=== PATIENT | female | born 1940 | race Caucasian/White ===

== ENCOUNTER 2016-05-13 14:19 | Emergency (ER) | payer MEDICARE, OTHER ==
[~2016-05-13] VITALS: Ht 160 cm; Wt 70.0 kg
[~2016-05-13 14:19] MED LIST: ALBU0.086; ASPI-99 PO; BUME2TAB PO; CALC667T PO; CART180C4 PO; CLON.1 PO; COZA100T PO; GELA600C PO; GLUC10TA3 PO; HYDR100T2 PO; INSU1.2I; NRSS SQ; PRAV20 PO; PROT40TA PO; TIOT18I INH
[2016-05-13 14:21] VITALS: BP 187/75; PULSE 89; RESP 17; TEMP 97.9; O2SAT 96
[2016-05-13 14:51] VITALS: BP 165/105; PULSE 81; RESP 16; O2SAT 97
[2016-05-13] MEDS ORDERED: SODIUM CHLORIDE 0.9% FLUSH 5 ML FLUSH IVF PRN (15:15)
--- NOTE | 2016-05-13 15:19 | PD ---
HPI Chief Complaint: Respiratory Symptoms Time Seen by Provider: 14:49 Travel History International Travel<30 days: No Contact w/Intl Traveler<30days: No Traveled to known affect area: No History of Present Illness HPI The patient was seen and examined in the presence of the nurse. She complains of generalized weakness. Duration 3 weeks. Severity is moderate. She has a dry cough. She was worried about having pneumonia. She denies chest pain or fever. No alleviating factors. She has dialysis Saturday, has not skipped any. PFSH Past Medical History Arthritis: Yes Autoimmune Disease: No Heart Rhythm Problems: Yes (ABNORMAL EKG RECENTLY) Cancer: Yes (UTERINE) Cardiovascular Problems: No High Cholesterol: Yes COPD: Yes Diabetes: Yes Patient Takes Glucophage: No Dialysis: Yes (Left AV fistula / [id number].) Diminished Hearing: No Endocrine: Yes Gastrointestinal Disorders: Yes (HX PERF. BOWEL, GERD) Genitourinary: No Hepatitis: No Hiatal Hernia: Yes (MULTIPLE) Hypertension: Yes (NEW ONSET) Immune Disorder: No Implanted Vascular Access Dvce: Yes Kidney Stones: Yes Musculoskeletal: Yes (ARTHRITIS) Neurologic: No Psychiatric: No Reproductive: No Respiratory: Yes (copd) Immunizations Current: Yes Renal Failure: Yes (HX OF DECREASED RENAL FUNCTION) Sleep Apnea: No Thyroid Disease: No Influenza Vaccination: Yes Menopausal: Yes Past Surgical History Abdominal Surgery: Yes (PERFERATED BOWEL, ILLIOSTOMY AND REVERSAL, APPY) AICD: No Appendectomy: Yes Body Medical Devices: VAS CATH, AV FISTULA LEFT ARM Eye Surgery: Yes (CATARACT EXC. TRISTIAN.) Genitourinary Surgery: Yes (LITHOTRIPSY-KIDNEYS STONES) Gynecologic Surgery: Yes (HYSTERECTOMY) Hysterectomy: Yes Joint Replacement: No Pacemaker: No Other Surgery: Yes (APPENDECTOMY, FISTULA LUE, ) Social History Alcohol Use: No Tobacco Use: No (QUIT IN 2007 SMOKED FOR 53 YRS 2 PPD -CIGS) Substance Use: No Allergies-Medications (Allergen,Severity, Reaction): Coded Allergies: Cipro (Verified Allergy, Severe, Rash, 05/13/16) Ranitidine (Verified Allergy, Severe, Rash, 05/13/16) Sulfa (Verified Allergy, Severe, Rash, 05/13/16) Lasix (Unverified Allergy, Mild, Rash, 05/13/16) *MDRO Multi-Drug Resistant Organism (Unverified Adverse Reaction, Unknown , 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 Reported Meds & Prescriptions Reported Meds & Active Scripts Active Macrobid (Nitrofurantoin Monoh/Nitrofur Macro) 100 Mg Cap 100 Mg PO BID Reported Bumex (Bumetanide) 2 Mg Tab 2 Mg PO TUTHSASU Take 1 tablet daily in Saturday,,Saturday and Saturday (non-dialysis days) Tums (Calcium Carbonate (Antacid)) 500 Mg Chew 1,000 Mg PO HS Hair/Skin/Nails (Multiple Vitamins W/ Minerals) 1 Tab Tab 2 Tab PO DAILY Aspirin Adult Low Strength (Aspirin) 81 Mg Tabdr 81 Mg PO DAILY Alannah-Julien (B-Complex W/ C & Folic Acid) 1 Tab 1 Tab PO DAILY Duoneb (Ipratropium-Albuterol Neb) 0.5-2.5 Mg/3 Ml Neb 3 Ml NEB Q6HR PRN Calcium Acetate (Phosphate Binder) 667 Mg Tab 1,334 Mg PO TIDPC Hydralazine (Hydralazine HCl) 100 Mg Tab 100 Mg PO TID Take with meals Pantoprazole (Pantoprazole Sodium) 40 Mg Tab 40 Mg PO BID Glipizide 10 Mg Tab 10 Mg PO BID Take 30 minutes before a meal Diltiazem ER 24 HR 180 Mg Viry 180 Mg PO DAILY Pravastatin 20 Mg Tab 20 Mg PO DAILY Catapres (Clonidine) 0.1 Mg Tab 0.1 Mg PO BID Losartan (Losartan Potassium) 100 Mg Tab 100 Mg PO DAILY Review of Systems General / Constitutional: No: Fever Eyes: No: Visual changes HENT: No: Headaches Cardiovascular: No: Chest Pain or Discomfort Respiratory: Positive: Cough, No: Shortness of Breath Gastrointestinal: No: Abdominal Pain Genitourinary: No: Dysuria Musculoskeletal: Positive: Weakness, No: Pain Skin: No Rash Neurologic: Positive: Weakness Psychiatric: No: Depression Endocrine: No: Polydipsia Hematologic/Lymphatic: No: Easy Bruising Physical Exam Narrative GENERAL: Well-nourished, well-developed patient in no apparent distress. SKIN: Warm and dry. HEAD: Atraumatic. Normocephalic. EYES: Pupils equal and round. No scleral icterus. No injection or drainage. ENT: No nasal bleeding or discharge. Mucous membranes pink and moist. NECK: Trachea midline. No JVD. CARDIOVASCULAR: Regular rate and rhythm. No murmur appreciated. RESPIRATORY: No accessory muscle use. Clear to auscultation. Breath sounds equal bilaterally. GASTROINTESTINAL: Abdomen soft, non-tender, has very large central abdominal wall hernia that is chronic. Hepatic and splenic margins not palpable. MUSCULOSKELETAL: No obvious deformities. No clubbing. No cyanosis. No edema. NEUROLOGICAL: Awake and alert. No obvious cranial nerve deficits. Motor grossly within normal limits. Normal speech. PSYCHIATRIC: Appropriate mood and affect; insight and judgment normal. Data Data Last Documented VS Vital Signs Date Time Temp Pulse Resp B/P Pulse Ox O2 Delivery O2 Flow Rate FiO2 05/13/16 16:46 78 24 188/83 98 Room Air 05/13/16 14:21 97.9 Orders Electrocardiogram (05/13/16 15:05) Basic Metabolic Panel (Bmp) (05/13/16 15:05) Complete Blood Count With Diff (05/13/16 15:05) Urinalysis - C+S If Indicated (05/13/16 15:05) Chest, Single Ap (05/13/16 15:05) Ecg Monitoring (05/13/16 15:05) Iv Access Insert/Monitor (05/13/16 15:05) Oximetry (05/13/16 15:05) Sodium Chloride 0.9% Flush (Ns Flush) (05/13/16 15:15) Thyroid Stimulating Hormone (05/13/16 15:05) Urine Culture (05/13/16 16:45) Ceftriaxone Inj (Rocephin Inj) (05/13/16 18:30) Labs Laboratory Tests Test 05/13/16 05/13/16 16:45 17:18 Urine Color YELLOW Urine Turbidity HAZY Urine pH 7.5 Urine Specific [place] 1.011 Urine Protein 300 mg/dL Urine Glucose (UA) 1000 mg/dL Urine Ketones NEG mg/dL Urine Occult Blood TRACE Urine Nitrite NEG Urine Bilirubin NEG Urine Urobilinogen LESS THAN 2.0 MG/DL Urine Leukocyte Esterase LARGE Urine RBC 4 /hpf Urine WBC 178 /hpf Urine Squamous Epithelial 3 /hpf Cells Urine Bacteria RARE /hpf Urine Hyaline Casts 1 /lpf Urine Mucus FEW /lpf Microscopic Urinalysis Comment CULTURE INDICATED White Blood Count 10.3 TH/MM3 Red Blood Count 3.00 MIL/MM3 Hemoglobin 9.0 GM/DL Hematocrit 27.5 % Mean Corpuscular Volume 91.7 FL Mean Corpuscular Hemoglobin 29.9 PG Mean Corpuscular Hemoglobin 32.6 % Concent Red Cell Distribution Width 14.1 % Platelet Count 355 TH/MM3 Mean Platelet Volume 7.3 FL Neutrophils (%) (Auto) 79.8 % Lymphocytes (%) (Auto) 6.0 % Monocytes (%) (Auto) 6.5 % Eosinophils (%) (Auto) 7.3 % Basophils (%) (Auto) 0.4 % Neutrophils # (Auto) 8.2 TH/MM3 Lymphocytes # (Auto) 0.6 TH/MM3 Monocytes # (Auto) 0.7 TH/MM3 Eosinophils # (Auto) 0.7 TH/MM3 Basophils # (Auto) 0.0 TH/MM3 CBC Comment DIFF FINAL Differential Comment Sodium Level 137 MEQ/L Potassium Level 4.4 MEQ/L Chloride Level 102 MEQ/L Carbon Dioxide Level 23.6 MEQ/L Anion Gap 11 MEQ/L Blood Urea Nitrogen 39 MG/DL Creatinine 8.30 MG/DL Estimat Glomerular Filtration 5 ML/MIN Rate Random Glucose 241 MG/DL Calcium Level 9.2 MG/DL Thyroid Stimulating Hormone 1.730 uIU/ML 3rd Gen [facility] Medical Decision Making Medical Screen Exam Complete: Yes Emergency Medical Condition: Yes Medical Record Reviewed: Yes Differential Diagnosis Electrolyte abnormality, cardiac arrhythmia, pneumonia Narrative Course I have reviewed the patient's electronic medical record. Reviewed her last admission history and physical from September 2015 CBC is normal Electrolytes are normal but creatinine is elevated as expected for this dialysis patient Urinalysis shows signs infection will be cultured I gave her a gram of IV Rocephin followed by one week of Macrobid on prescription Stable for outpatient follow-up and dialysis tomorrow Did discuss with her physicians and get follow-up Diagnosis Primary Impression: UTI (urinary tract infection) Qualified Code: N30.00 - Acute cystitis without hematuria Additional Impressions: Generalized weakness Chronic kidney disease (CKD) stage G4/A1, severely decreased glomerular filtration rate (GFR) between 15-29 mL/min/1.73 square meter and albuminuria creatinine ratio less than 30 mg/g Additional Instructions: The patient was advised to follow up with their physician and return if they worsen. Go to dialysis tomorrow Med/Other Pt SpecificInfo: Prescription(s) given Scripts Nitrofurantoin Monohydrate Macrocrystals (Macrobid)100 Mg [id number] Mg PO BID #14 CAP Ref 0 Prov:Temo Harmon MD 05/13/16 Disposition: 01 DISCHARGE HOME Condition: Stable Temo Harmon MD May 13, 2016 15:19
--- NOTE | 2016-05-13 15:31 | RADRPT ---
EXAM DATE/TIME: 05/13/2016 15:17 [facility] COMPARISON: CHEST SINGLE AP, August 30, 2014, 23:51. INDICATIONS : Weakness, shortness of breath, congestion x4 days. MEDICAL HISTORY : None. SURGICAL HISTORY : None. ENCOUNTER: Initial ACUITY: 4 - 6 days PAIN SCORE: 0/10 LOCATION: chest FINDINGS: A single view of the chest demonstrates the lungs to be symmetrically aerated without evidence of mas s, infiltrate or effusion. Mild streaky opacity remains at the left lung base. The cardiomediastinal contours are unremarkable. Osseous structures are intact. CONCLUSION: Mild streaky opacity remains at the left lung base. This may represent residual scarr ing. There are no new infiltrates. Eris Smiley MD on May 13, 2016 at 15:29 Board Certified Radiologist. This report was verified electronically.
[2016-05-13] MEDS ORDERED: PRAV20TA2 PO (15:32)
[2016-05-13] MEDS ORDERED: TUMS500C PO (15:32)
[2016-05-13] MEDS ORDERED: HYDR-3801 PO (15:32)
[2016-05-13] MEDS ORDERED: DILT0.05 PO (15:32)
[2016-05-13] MEDS ORDERED: HAIRTAB PO (15:32)
[2016-05-13] MEDS ORDERED: LOSA100T PO (15:32)
[2016-05-13] MEDS ORDERED: ASPI1TAB91 PO (15:32)
[2016-05-13] MEDS ORDERED: PANT40TA3 PO (15:32)
[2016-05-13] MEDS ORDERED: GLIP10TA6 PO (15:32)
[2016-05-13] MEDS ORDERED: CLON.1 PO (15:32)
[2016-05-13] MEDS ORDERED: IPRASOL NEB (15:32)
[2016-05-13] MEDS ORDERED: CALC667T PO (15:32)
[2016-05-13] MEDS ORDERED: RENATAB5 PO (15:32)
[2016-05-13] MEDS ORDERED: BUME1TAB28 PO (15:39)
[2016-05-13 16:46] VITALS: BP 188/83; PULSE 78; RESP 24; O2SAT 98
[2016-05-13 17:09] LABS: BACTERIA, URINE RARE /hpf; BLOOD, URINE TRACE (NEG); COMMENT (UR) CULTURE INDICATED; CULTURE IF INDICATED CULTURE INDICATED; GLUCOSE,URINE 1000 mg/dL (NEG); HYALINE CAST, URINE 1 /lpf (RARE); KETONE, URINE NEG (NEG); MUCUS URINE FEW /lpf (OCC); NITRITE,URINE NEG (NEG); PH, URINE 7.5 (5.0-8.5); SQUAMOUS EPITHELIAL CELL URINE 3 /hpf (0-5); URINE COLOR YELLOW (YELLW/STRAW)
[2016-05-13 17:45] LABS: BICARBONATE 23.6 MEQ/L (21.0-32.0); POTASSIUM 4.4 MEQ/L (3.5-5.1)
[2016-05-13 17:53] LABS: AUTOMATED NEUTROPHIL # 8.2 TH/MM3 (1.8-7.7); BASOPHIL % 0.4 % (0.0-2.0); EOSINOPHIL # 0.7 TH/MM3 (0-0.4); EOSINOPHIL % 7.3 % (0.0-4.0); HEMATOCRIT 27.5 % (35.0-46.0); HEMO FLAGS DIFF FINAL; LYMPHOCYTE # 0.6 TH/MM3 (1.0-4.8); MEAN CELL VOLUME 91.7 FL (80.0-100.0); MEAN CORPUSCULAR HEMOGLOBIN 29.9 PG (27.0-34.0); MEAN CORPUSCULAR HGB CONC 32.6 % (32.0-36.0); MONO % 6.5 % (0.0-8.0); NEUT % 79.8 % (16.0-70.0); PLATELET COUNT 355 TH/MM3 (150-450); RED CELL DISTRIBUTION WIDTH 14.1 % (11.6-17.2); WHITE BLOOD COUNT 10.3 TH/MM3 (4.0-11.0)
[2016-05-13] MEDS ORDERED: MACR100C2 PO (18:28)
[2016-05-13] MEDS ORDERED: cefTRIAXone INJ 1,000 MG in SODIUM CHLORIDE 0.9% INJ 100 ML IV ONE (18:30)
[2016-05-13 18:57] VITALS: BP 202/88; PULSE 77; RESP 24; O2SAT 96
[2016-05-13] MEDS ORDERED: cloNIDine HCL 0.2 MG TAB PO ONE (19:15)
--- NOTE | 2016-05-14 14:47 | EKG ---
Date Performed: 05/13/2016 Time Performed: 16:56:35 PTAGE: 76 years EKG: Sinus rhythm VOLTAGE CRITERIA FOR LVH NONSPECIFIC T-WAVE ABNORMALITY ABNORMAL ECG PREVIOUS TRACING : 08/02/2014 23.53 Compared to prior tracing no significant change DOCTOR: Anatoly Hrenandez Interpretating Date/Time 05/14/2016 14:45:22
== END 2016-05-13 19:35 | disposition home or self-care (01) ==
LOC: NEPE 14:19
DX: N39.0 Urinary tract infection, site not specified (principal); I12.9 Hypertensive chronic kidney disease with stage 1 through stage 4 chronic kidney disease, or unspecified chronic kidney disease; N18.9 Chronic kidney disease, unspecified; R94.31 Abnormal electrocardiogram [ECG] [EKG]; E11.22 Type 2 diabetes mellitus with diabetic chronic kidney disease; Z99.2 Dependence on renal dialysis; J44.9 Chronic obstructive pulmonary disease, unspecified; Z90.710 Acquired absence of both cervix and uterus; B96.89 Other specified bacterial agents as the cause of diseases classified elsewhere
CPT/HCPCS: 71010; 80048; 81001; 84443; 85025; 87086; 93005; 96365; 99285; J0696

== ENCOUNTER 2016-09-15 20:51 | Emergency (ER) | payer OTHER ==
[~2016-09-15] VITALS: Ht 160 cm; Wt 70.0 kg
[~2016-09-15 20:51] MED LIST changes: -ALBU0.086; -ASPI-99 PO; +ASPI1TAB91 PO; +BUME1TAB28 PO; -BUME2TAB PO; -CART180C4 PO; -COZA100T PO; +DILT0.05 PO; -GELA600C PO; +GLIP10TA6 PO; -GLUC10TA3 PO; +HAIRTAB PO; +HYDR-3801 PO; -HYDR100T2 PO; -INSU1.2I; +IPRASOL NEB; +LOSA100T PO; +MACR100C2 PO; -NRSS SQ; +PANT40TA3 PO; -PRAV20 PO; +PRAV20TA2 PO; -PROT40TA PO; +RENATAB5 PO; -TIOT18I INH; +TUMS500C PO
[2016-09-15 20:53] VITALS: BP 223/102; PULSE 90; RESP 16; TEMP 98; O2SAT 98
--- NOTE | 2016-09-15 22:27 | PD ---
HPI Chief Complaint: Fall Time Seen by Provider: 22:23 Travel History International Travel<30 days: No Contact w/Intl Traveler<30days: No Traveled to known affect area: No History of Present Illness HPI 76-year-old female that presents to the ED for evaluation of fall. Patient had a fall around 10:00 this morning. Per patient she's had multiple falls like this before. Per patient she just "falls". Per patient is not wanting. Per patient she landed on the shower on her left hip and shoulder. Per patient most of her pain is in the left but as well as the humerus. She does have bruising and swelling. She denies any head injury but she does not know for sure she didn't hit her head. She states having some low back pain. Denies any knee or ankle pain. Per patient her pain is severe 8 out of 10. She takes no pain medications. She states that she has end-stage kidney disease but does not do dialysis. Denies any fevers chills or sweats. No palpitations. No chest pain or shortness of breath. No blurry vision or double vision. Pain mainly on the humerus and the buttocks. PFSH Past Medical History Arthritis: Yes Autoimmune Disease: No Heart Rhythm Problems: Yes (ABNORMAL EKG RECENTLY) Cancer: Yes (UTERINE) Cardiovascular Problems: No High Cholesterol: Yes COPD: Yes Diabetes: Yes Dialysis: Yes (Left AV fistula / [id number].) Diminished Hearing: No Endocrine: Yes Gastrointestinal Disorders: Yes (HX PERF. BOWEL, GERD) Genitourinary: No Hepatitis: No Hiatal Hernia: Yes (MULTIPLE) Hypertension: Yes (NEW ONSET) Immune Disorder: No Implanted Vascular Access Dvce: Yes Kidney Stones: Yes Musculoskeletal: Yes (ARTHRITIS) Neurologic: No Psychiatric: No Reproductive: No Respiratory: Yes (copd) Immunizations Current: Yes Renal Failure: Yes (HX OF DECREASED RENAL FUNCTION) Sleep Apnea: No Thyroid Disease: No Menopausal: Yes Past Surgical History Abdominal Surgery: Yes (PERFERATED BOWEL, ILLIOSTOMY AND REVERSAL, APPY) AICD: No Appendectomy: Yes Body Medical Devices: VAS CATH, AV FISTULA LEFT ARM Eye Surgery: Yes (CATARACT EXC. TRISTIAN.) Genitourinary Surgery: Yes (LITHOTRIPSY-KIDNEYS STONES) Gynecologic Surgery: Yes (HYSTERECTOMY) Hysterectomy: Yes Joint Replacement: No Pacemaker: No Other Surgery: Yes (APPENDECTOMY, FISTULA LUE, ) Social History Alcohol Use: No Tobacco Use: No (QUIT IN 2007 SMOKED FOR 53 YRS 2 PPD -CIGS) Substance Use: No Allergies-Medications (Allergen,Severity, Reaction): Coded Allergies: Cipro (Verified Allergy, Severe, Rash, 05/13/16) Ranitidine (Verified Allergy, Severe, Rash, 05/13/16) Sulfa (Verified Allergy, Severe, Rash, 05/13/16) Lasix (Unverified Allergy, Mild, Rash, 05/13/16) *MDRO Multi-Drug Resistant Organism (Unverified Adverse Reaction, Unknown , 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 Reported Meds & Prescriptions Reported Meds & Active Scripts Active Macrobid (Nitrofurantoin Monoh/Nitrofur Macro) 100 Mg Cap 100 Mg PO BID Reported Bumex (Bumetanide) 2 Mg Tab 2 Mg PO TUTHSASU Take 1 tablet daily in Saturday,,Saturday and Saturday (non-dialysis days) Tums (Calcium Carbonate (Antacid)) 500 Mg Chew 1,000 Mg PO HS Hair/Skin/Nails (Multiple Vitamins W/ Minerals) 1 Tab Tab 2 Tab PO DAILY Aspirin Adult Low Strength (Aspirin) 81 Mg Tabdr 81 Mg PO DAILY Alannah-Julien (B-Complex W/ C & Folic Acid) 1 Tab 1 Tab PO DAILY Duoneb (Ipratropium-Albuterol Neb) 0.5-2.5 Mg/3 Ml Neb 3 Ml NEB Q6HR PRN Calcium Acetate (Phosphate Binder) 667 Mg Tab 1,334 Mg PO TIDPC Hydralazine (Hydralazine HCl) 100 Mg Tab 100 Mg PO TID Take with meals Pantoprazole (Pantoprazole Sodium) 40 Mg Tab 40 Mg PO BID Glipizide 10 Mg Tab 10 Mg PO BID Take 30 minutes before a meal Diltiazem ER 24 HR 180 Mg Viry 180 Mg PO DAILY Pravastatin 20 Mg Tab 20 Mg PO DAILY Catapres (Clonidine) 0.1 Mg Tab 0.1 Mg PO BID Losartan (Losartan Potassium) 100 Mg Tab 100 Mg PO DAILY Review of Systems Except as stated in HPI: all other systems reviewed are Neg Physical Exam Narrative GENERAL: SKIN: Warm and dry. HEAD: Atraumatic. Normocephalic. EYES: Pupils equal and round. No scleral icterus. No injection or drainage. ENT: No nasal bleeding or discharge. Mucous membranes pink and moist. Tongue is midline. No uvula deviation. NECK: Trachea midline. No JVD. CARDIOVASCULAR: Regular rate and rhythm. RESPIRATORY: No accessory muscle use. Clear to auscultation. Breath sounds equal bilaterally. GASTROINTESTINAL: Abdomen soft, non-tender, nondistended. Hepatic and splenic margins not palpable. MUSCULOSKELETAL: Extremities without clubbing, cyanosis, or edema. No obvious deformities. Patient has reproducible pain with range of motion on the mid humerus. Bruising noted in this area. 2+ pulses bilaterally. Full range motion wrist and elbows bilaterally. No obvious lumbar, thoracic, cervical spine tenderness to palpation. Patient does have body aches pain on the left side as well as the right. Pain with motion of the hips. No obvious deformity noted on the ankles, feet, toes, knees. Neurovascular intact. NEUROLOGICAL: Awake and alert. No obvious cranial nerve deficits. Motor grossly within normal limits. Five out of 5 muscle strength in the arms and legs. Normal speech. PSYCHIATRIC: Appropriate mood and affect; insight and judgment normal. Data Data Last Documented VS Vital Signs Date Time Temp Pulse Resp B/P Pulse Ox O2 Delivery O2 Flow Rate FiO2 09/15/16 20:53 98.0 90 16 223/102 98 Room Air Orders Complete Blood Count With Diff (09/15/16 22:19) Basic Metabolic Panel (Bmp) (09/15/16 22:19) Troponin I (09/15/16 22:19) Urinalysis - C+S If Indicated (09/15/16 22:19) Magnesium (Mg) (09/15/16 22:19) Thyroid Stimulating Hormone (09/15/16 22:19) Chest, Single Ap (09/15/16 22:19) Ct Brain W/O Iv Contrast(Rout) (09/15/16 22:19) Hip, Uni(Ap&Lat) W Ap Pelvis (09/15/16 22:19) Humerus (Min 2vws) (09/15/16 22:19) Ice/Cold Pack (09/15/16 22:19) Spine, Lumbar Comp W/Obliq (09/15/16 22:19) [facility] Medical Decision Making Medical Screen Exam Complete: Yes Emergency Medical Condition: Yes Medical Record Reviewed: Yes Differential Diagnosis Fall versus mechanical fall versus head injury versus syncope versus presyncope versus fracture versus bruise versus contusion Narrative Course 76-year-old female that presents to the ED for evaluation of fall. Patient was properly examined and was found to have signs and symptoms consistent with appears to be fall. Unclear etiology of the fall. Per patient she's had multiple episodes like this before. labs and imaging ordered. Patient was given Lortab for pain. Case will be sent out to my attending pending disposition and treatment. Ari Ontiveros Sep 15, 2016 22:27
[2016-09-15] MEDS ORDERED: ACETAMINOPHEN/HYDROcodone 325 MG/5 MG TAB PO ONE (22:30)
[2016-09-15 22:36] LABS: AUTOMATED NEUTROPHIL # 8.1 TH/MM3 (1.8-7.7); BASOPHIL # 0.1 TH/MM3 (0-0.2); BASOPHIL % 0.6 % (0.0-2.0); EOSINOPHIL # 0.4 TH/MM3 (0-0.4); EOSINOPHIL % 3.7 % (0.0-4.0); HEMATOCRIT 31.2 % (35.0-46.0); HEMO FLAGS DIFF FINAL; LYMPH % 7.2 % (9.0-44.0); LYMPHOCYTE # 0.7 TH/MM3 (1.0-4.8); MEAN CELL VOLUME 96.8 FL (80.0-100.0); MEAN CORPUSCULAR HEMOGLOBIN 32.3 PG (27.0-34.0); MEAN CORPUSCULAR HGB CONC 33.4 % (32.0-36.0); NEUT % 80.5 % (16.0-70.0); PLATELET COUNT 346 TH/MM3 (150-450); RED BLOOD COUNT 3.22 MIL/MM3 (4.00-5.30); RED CELL DISTRIBUTION WIDTH 15.6 % (11.6-17.2); WHITE BLOOD COUNT 10.1 TH/MM3 (4.0-11.0)
--- NOTE | 2016-09-15 22:56 | RADRPT ---
EXAM DATE/TIME: 09/15/2016 22:34 [facility] COMPARISON: No previous studies available for comparison. INDICATIONS : Back pain, fall. MEDICAL HISTORY : Renal disease, end stage. Diabetes mellitus type II. SURGICAL HISTORY : None. ENCOUNTER: Initial ACUITY: 1 day PAIN SCORE: 6/10 LOCATION: Lumbar FINDINGS: There are five non-rib bearing vertebral bodies. No compression fracture.. Degenerative changes. Ante rolisthesis L4 on L5. Bony mineralization is normal. No fracture is identified. CONCLUSION: 1. Degenerative changes. 2. No fracture. 3. Grade 1 spondylolisthesis L4 on L5. Kenan Landry MD on September 15, 2016 at 22:53 Board Certified Radiologist. This report was verified electronically.
--- NOTE | 2016-09-15 23:02 | RADRPT ---
EXAM DATE/TIME: 09/15/2016 22:32 [facility] COMPARISON: CHEST SINGLE AP, May 13, 2016, 15:17. INDICATIONS : Chest pain, fall. MEDICAL HISTORY : Renal disease, end stage. Diabetes mellitus type II. SURGICAL HISTORY : None. ENCOUNTER: Initial ACUITY: 1 day PAIN SCORE: 6/10 LOCATION: Bilateral chest FINDINGS: A single view of the chest demonstrates diminished lung volumes without evidence of mass, infiltrate or effusion. Mild cardiomegaly. The cardiomediastinal contours are unremarkable. Osseous structures are intact. CONCLUSION: Mild cardiomegaly otherwise unremarkable chest. Kenan Landry MD on September 15, 2016 at 23:00 Board Certified Radiologist. This report was verified electronically.
--- NOTE | 2016-09-15 23:12 | RADRPT ---
EXAM DATE/TIME: 09/15/2016 22:38 [facility] COMPARISON: No previous studies available for comparison. INDICATIONS : Fall, complains of left hip pain. MEDICAL HISTORY : Renal disease, end stage. Diabetes mellitus type II. SURGICAL HISTORY : None. ENCOUNTER: Initial ACUITY: 1 day PAIN SCORE: 8/10 LOCATION: Left hip FINDINGS: Examination of the left hip was performed with AP Pelvis. The primary and secondary trabecular patte rn of the femoral neck is intact. The hip joint is of normal width without significant sclerosis or bony hypertrophy. The acetabulum is grossly intact. CONCLUSION: Unremarkable examination of the left hip. Oliver Paul MD on September 15, 2016 at 23:09 Board Certified Radiologist. This report was verified electronically.
--- NOTE | 2016-09-15 23:13 | RADRPT ---
EXAM DATE/TIME: 09/15/2016 22:40 [facility] COMPARISON: No previous studies available for comparison. INDICATIONS : Left humerus pain, fall. MEDICAL HISTORY : Renal disease, end stage. Diabetes mellitus type II. SURGICAL HISTORY : None. ENCOUNTER: Initial ACUITY: 1 day PAIN SCORE: 8/10 LOCATION: Left humerus FINDINGS: Two view examination of the left humerus demonstrates no evidence of fracture or dislocation. Bony m ineralization is normal. Multiple surgical clips are present in the soft tissues of the arm CONCLUSION: No acute bony injury Oliver Paul MD on September 15, 2016 at 23:11 Board Certified Radiologist. This report was verified electronically.
[2016-09-15 23:34] LABS: BICARBONATE 22.9 MEQ/L (21.0-32.0); MAGNESIUM 2.4 MG/DL (1.5-2.5)
--- NOTE | 2016-09-16 00:23 | RADRPT ---
EXAM DATE/TIME: 09/15/2016 23:30 [facility] COMPARISON: CT BRAIN W/O CONTRAST, November 28, 2014, 16:48. INDICATIONS : Trauma, trip and fall. RADIATION DOSE: 56.77 CTDIvol (mGy) MEDICAL HISTORY : Chronic obstructive pulmonary disease. Renal calculi. Hernia, hiatal.Renal failure. Uterine cancer. D iabetes. SURGICAL HISTORY : Appendectomy. Hysterectomy. ENCOUNTER: Initial ACUITY: 1 day PAIN SCALE: 6/10 LOCATION: cranial TECHNIQUE: Multiple contiguous axial images were obtained of the head. Using automated exposure control and adj ustment of the mA and/or kV according to patient size, radiation dose was kept as low as reasonably a chievable to obtain optimal diagnostic quality images. DICOM format image data is available electro nically for review and comparison. FINDINGS: The ventricles are symmetric and normal. No abnormal extra-axial fluid collections are identified. Th ere is no evidence of intracranial hemorrhage or mass. There is nothing to suggest acute infarction. There is mild occasional new [place] sinus disease. No acute extracranial findings. CONCLUSION: No acute intracranial injury Oliver Paul MD on September 16, 2016 at 0:20 Board Certified Radiologist. This report was verified electronically.
[2016-09-16 00:29] VITALS: BP 223/91; PULSE 71; O2SAT 98
[2016-09-16] MEDS ORDERED: MECL-62 PO (00:43)
[2016-09-16] MEDS ORDERED: BUME2TAB PO (00:43)
[2016-09-16 00:55] VITALS: BP 219/90; PULSE 81; O2SAT 99
[2016-09-16] MEDS ORDERED: MORPHINE SULFATE 4 MG/ML INJ IM ONE (01:30)
[2016-09-16] MEDS ORDERED: hydrALAZINE HCL 100 MG TAB PO ONE (01:30)
[2016-09-16] MEDS ORDERED: cloNIDine HCL 0.1 MG TAB PO ONE ×2 (01:30→03:00)
[2016-09-16 02:55] VITALS: BP 136/63; PULSE 74; RESP 18; O2SAT 95
--- NOTE | 2016-09-16 02:55 | PD ---
Physical Exam Narrative I, Dr. Mello, have reviewed the advance practice practitioner's documentation and am in agreement, met with the patient face to face, made the diagnosis, and the medical decision making was done by me. *My assessment and Findings: Fracture vs. contusion 76yo F with PMH of vertigo presents to the ED with c/o left arm pain and hip pain s/p fall while in the shower today. States she bend her head down and fell on the left side. States she has frequent falls and has been work up by PMD. Denies any dizziness, chest pain, sob, n/v, abdominal pain, focal weakness or numbness. Labs reviewed, no leukocytosis. H/H low but at baseline. BUN/creatinine elevated but expected since pt is on hemodialysis. Troponin 0.06. Upon review of her previous troponins, it is always a little elevated. It was 0.09 in 08/03/14. Pt is ESRD and has no chest pain. UA showed moderate WBC 98. Culture indicated. Will treat for UTI. CXR negative. CT brain negative. Xray left hip negative. Xray left humerus negative. Xray lumbar spine negative for fracture. Pt uses a walker and was given morphine for pain. States pain has improved and able to ambulate in the ED. BP was high but pt did not take her medications this evening so gave her hydralazine and clonidine. States her blood pressure is always high. Pt wishes to go home. Son is with her and they will follow up as outpatient. Data Data Last Documented VS Vital Signs Date Time Temp Pulse Resp B/P Pulse Ox O2 Delivery O2 Flow Rate FiO2 09/16/16 02:55 74 18 136/63 95 Room Air 09/15/16 20:53 98.0 Orders Complete Blood Count With Diff (09/15/16 22:19) Basic Metabolic Panel (Bmp) (09/15/16 22:19) Troponin I (09/15/16 22:19) Urinalysis - C+S If Indicated (09/15/16 22:19) Magnesium (Mg) (09/15/16 22:19) Thyroid Stimulating Hormone (09/15/16 22:19) Chest, Single Ap (09/15/16 22:19) Ct Brain W/O Iv Contrast(Rout) (09/15/16 22:19) Hip, Uni(Ap&Lat) W Ap Pelvis (09/15/16 22:19) Humerus (Min 2vws) (09/15/16 22:19) Ice/Cold Pack (09/15/16 22:19) Spine, Lumbar Comp W/Obliq (09/15/16 22:19) Acetamin-Hydrocod 325-5 Mg ([place] 5-325 (09/15/16 22:30) Clonidine (Catapres) (09/16/16 01:30) Hydralazine (Apresoline) (09/16/16 01:30) Morphine Inj (Morphine Inj) (09/16/16 01:30) Clonidine (Catapres) (09/16/16 03:00) Urine Culture (09/16/16 02:30) Labs Laboratory Tests Test 09/15/16 09/16/16 22:30 02:30 Sodium Level 137 MEQ/L Potassium Level 5.0 MEQ/L Chloride Level 104 MEQ/L Carbon Dioxide Level 22.9 MEQ/L Anion Gap 10 MEQ/L Blood Urea Nitrogen 48 MG/DL Creatinine 6.72 MG/DL Estimat Glomerular Filtration 6 ML/MIN Rate Random Glucose 273 MG/DL Calcium Level 9.2 MG/DL Magnesium Level 2.4 MG/DL Troponin I 0.06 NG/ML Thyroid Stimulating Hormone 2.960 uIU/ML 3rd Gen White Blood Count 10.1 TH/MM3 Red Blood Count 3.22 MIL/MM3 Hemoglobin 10.4 GM/DL Hematocrit 31.2 % Mean Corpuscular Volume 96.8 FL Mean Corpuscular Hemoglobin 32.3 PG Mean Corpuscular Hemoglobin 33.4 % Concent Red Cell Distribution Width 15.6 % Platelet Count 346 TH/MM3 Mean Platelet Volume 7.2 FL Neutrophils (%) (Auto) 80.5 % Lymphocytes (%) (Auto) 7.2 % Monocytes (%) (Auto) 8.0 % Eosinophils (%) (Auto) 3.7 % Basophils (%) (Auto) 0.6 % Neutrophils # (Auto) 8.1 TH/MM3 Lymphocytes # (Auto) 0.7 TH/MM3 Monocytes # (Auto) 0.8 TH/MM3 Eosinophils # (Auto) 0.4 TH/MM3 Basophils # (Auto) 0.1 TH/MM3 CBC Comment DIFF FINAL Differential Comment Urine Color YELLOW Urine Turbidity HAZY Urine pH 8.5 Urine Specific [place] 1.010 Urine Protein 300 mg/dL Urine Glucose (UA) 1000 mg/dL Urine Ketones NEG mg/dL Urine Occult Blood NEG Urine Nitrite NEG Urine Bilirubin NEG Urine Urobilinogen LESS THAN 2.0 MG/DL Urine Leukocyte Esterase MOD Urine RBC 5 /hpf Urine WBC 98 /hpf Urine Squamous Epithelial 3 /hpf Cells Urine Bacteria OCC /hpf Microscopic Urinalysis Comment CULTURE INDICATED MDM Supervised Visit with STEW: Yes Interpretation(s) EKG: NSR 85bpm. Normal axis. LVH. PVC. Diagnosis Primary Impression: Fall Qualified Code: W19.XXXA - Fall, initial encounter Additional Impression: UTI (urinary tract infection) Qualified Code: N39.0 - Urinary tract infection without hematuria, site unspecified Patient Instructions: General Instructions Departure Forms: Tests/Procedures Additional Instruction: Please follow up with your PMD regarding your HTN management and UTI. Return to the ED if symptoms worsen. Med/Other Pt SpecificInfo: Prescription(s) given Scripts Hydrocodone-Acetaminophen (Lortab)5-325 Mg Tab1 Tab PO Q6H PRN (PAIN) #7 TAB Ref 0 Prov:Lisa Mello DO 09/16/16 Nitrofurantoin Monohydrate Macrocrystals (Macrobid)100 Mg Ucs780 Mg PO BID 7 Days Ref 0 Prov:Lisa Mello DO 09/16/16 Disposition: 01 DISCHARGE HOME Condition: Stable Lisa Mello DO Sep 16, 2016 02:55
[2016-09-16 03:01] LABS: BACTERIA, URINE OCC /hpf; BLOOD, URINE NEG (NEG); GLUCOSE,URINE 1000 mg/dL (NEG); KETONE, URINE NEG (NEG); NITRITE,URINE NEG (NEG); PH, URINE 8.5 (5.0-8.5); SQUAMOUS EPITHELIAL CELL URINE 3 /hpf (0-5); URINE COLOR YELLOW (YELLW/STRAW)
[2016-09-16 03:02] LABS: COMMENT (UR) CULTURE INDICATED; CULTURE IF INDICATED CULTURE INDICATED
[2016-09-16] MEDS ORDERED: HYDR-3533 PO (03:41)
[2016-09-16] MEDS ORDERED: MACR100C2 PO (03:41)
--- NOTE | 2016-09-17 10:22 | EKG ---
Date Performed: 09/15/2016 Time Performed: 22:16:00 PTAGE: 76 years EKG: Sinus rhythm MODERATE VOLTAGE CRITERIA FOR LVH, CONSIDER NORMAL VARIANT NONSPECIFIC ST & T-WAVE ABNORMALITY Basel ine artifact significantly limits accuracy of interpretation PVCs BORDERLINE ECG PREVIOUS TRACING : 05/13/2016 16.56 Compared to previous tracing, PVCs are now present. DOCTOR: Blaise Rodriguez Interpretating Date/Time 09/17/2016 10:22:05
== END 2016-09-16 03:58 | disposition home or self-care (01) ==
LOC: NEPE 20:51
DX: N39.0 Urinary tract infection, site not specified (principal); B96.89 Other specified bacterial agents as the cause of diseases classified elsewhere; M79.602 Pain in left arm; I12.0 Hypertensive chronic kidney disease with stage 5 chronic kidney disease or end stage renal disease; E11.22 Type 2 diabetes mellitus with diabetic chronic kidney disease; N18.6 End stage renal disease; R42 Dizziness and giddiness; R29.6 Repeated falls; W18.2XXA Fall in (into) shower or empty bathtub, initial encounter; Z79.84 Long term (current) use of oral hypoglycemic drugs; Z79.899 Other long term (current) drug therapy
CPT/HCPCS: 70450; 71010; 72110; 73060; 73502; 80048; 81001; 83735; 84443; 84484; 85025; 87086; 93005; 96372; 99285; J2270

== ENCOUNTER 2016-12-08 21:05 | Emergency (ER) | payer OTHER ==
[~2016-12-08] VITALS: Ht 160 cm; Wt 71.4 kg
[~2016-12-08 21:05] MED LIST changes: -BUME1TAB28 PO; +BUME2TAB PO; -HAIRTAB PO; +HYDR-3533 PO; +MECL-62 PO
[2016-12-08 21:24] VITALS: BP 219/88; PULSE 83; RESP 20; TEMP 98.5; O2SAT 96
[2016-12-08] MEDS ORDERED: PROPARACAINE HCL 0.5% OPHT SOLN 15 ML BTL EACH EYE ONE (22:30)
[2016-12-08] MEDS ORDERED: ERYTOIN10 EACH EYE (22:40)
--- NOTE | 2016-12-08 22:41 | PD ---
HPI . Bilateral eye irritation Chief Complaint: Eye Problems/Injury Time Seen by Provider: 21:53 Travel History International Travel<30 days: No Contact w/Intl Traveler<30days: No Traveled to known affect area: No History of Present Illness HPI 76-year-old female presents emergency department for evaluation of bilateral eye irritation that started a couple days ago. Patient denies any injury or trauma to the eyes. Patient denies anything getting into the eyes. Patient is not a contact with lens wear. Patient states the irritation and discharge initially started the left eye and the made its way over to the right eye. Patient denies any fevers, chills, malaise. Patient denies any blurred vision associated with the redness and irritation. PFSH Past Medical History Hx Anticoagulant Therapy: Yes (ASA) Arthritis: Yes Autoimmune Disease: No Heart Rhythm Problems: Yes (ABNORMAL EKG RECENTLY) Cancer: Yes (UTERINE) Cardiovascular Problems: No High Cholesterol: Yes COPD: Yes Diabetes: Yes Patient Takes Glucophage: No Dialysis: Yes (Left AV fistula / [id number].) Diminished Hearing: No Endocrine: Yes Gastrointestinal Disorders: Yes (HX PERF. BOWEL, GERD) Genitourinary: No Hepatitis: No Hiatal Hernia: Yes (MULTIPLE) Hypertension: Yes (NEW ONSET) Immune Disorder: No Implanted Vascular Access Dvce: Yes Kidney Stones: Yes Musculoskeletal: Yes (ARTHRITIS) Neurologic: No Psychiatric: No Reproductive: No Respiratory: Yes (COPD) Immunizations Current: Yes Renal Failure: Yes (HX OF DECREASED RENAL FUNCTION) Sleep Apnea: No Thyroid Disease: No ?: Not Menopausal: Yes Past Surgical History Abdominal Surgery: Yes (PERFERATED BOWEL, ILLIOSTOMY AND REVERSAL, APPY) AICD: No Appendectomy: Yes Body Medical Devices: VAS CATH, AV FISTULA LEFT ARM Eye Surgery: Yes (CATARACT EXC. TRISTIAN.) Genitourinary Surgery: Yes (LITHOTRIPSY-KIDNEYS STONES) Gynecologic Surgery: Yes (HYSTERECTOMY) Hysterectomy: Yes Joint Replacement: No Pacemaker: No Other Surgery: Yes (APPENDECTOMY, FISTULA LUE, ) Social History Alcohol Use: No Tobacco Use: No (QUIT IN 2007 SMOKED FOR 53 YRS 2 PPD -CIGS) Substance Use: No Allergies-Medications (Allergen,Severity, Reaction): Coded Allergies: Sulfa (Sulfonamide Antibiotics) (Unverified Allergy, Severe, Rash, ) ciprofloxacin (Unverified Allergy, Severe, Rash, 12/08/16) ranitidine (Unverified Allergy, Severe, Rash, 12/08/16) furosemide (Unverified Allergy, Mild, Rash, 12/08/16) *MDRO Multi-Drug Resistant Organism (Unverified Adverse Reaction, Unknown , 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 Reported Meds & Prescriptions Reported Meds & Active Scripts Active Erythromycin Opth Oint 5 Mg/Gm Oint 1 Applic EACH EYE QID 5 Days Lortab (Hydrocodone-Acetaminophen) 5-325 Mg Tab 1 Tab PO Q6H PRN Reported Meclizine (Meclizine HCl) 25 Mg Tab 25 Mg PO DAILY PRN Bumetanide 2 Mg Tab 2 Mg PO DAILY Tums (Calcium Carbonate (Antacid)) 500 Mg Chew 1,000 Mg PO HS Aspirin Adult Low Strength (Aspirin) 81 Mg Tabdr 81 Mg PO DAILY Alannah-Julien (B-Complex W/ C & Folic Acid) 1 Tab 1 Tab PO DAILY Duoneb (Ipratropium-Albuterol Neb) 0.5-2.5 Mg/3 Ml Neb 3 Ml NEB Q6HR PRN Calcium Acetate (Phosphate Binder) 667 Mg Tab 1,334 Mg PO TIDPC Hydralazine (Hydralazine HCl) 100 Mg Tab 100 Mg PO TID Take with meals Pantoprazole (Pantoprazole Sodium) 40 Mg Tab 40 Mg PO BID Glipizide 10 Mg Tab 10 Mg PO BID Take 30 minutes before a meal Diltiazem ER 24 HR 180 Mg Viry 120 Mg PO DAILY Pravastatin 20 Mg Tab 20 Mg PO DAILY Catapres (Clonidine) 0.1 Mg Tab 0.1 Mg PO BID Losartan (Losartan Potassium) 100 Mg Tab 50 Mg PO DAILY Review of Systems Except as stated in HPI: all other systems reviewed are Neg Physical Exam Narrative GENERAL: Well-nourished, well-developed 76-year-old female patient in no acute distress. Nontoxic appearing. SKIN: Focused skin assessment warm/dry. HEAD: Normocephalic. Atraumatic. EYES: Bilateral eyes injected. No fluorescein dye uptake noted in either eye. PERRLA demonstrated, extraocular motions intact bilaterally. Visual acuity: Right eye 20/20, left eye 20/50, bilateral eyes 20/20 NECK: Supple, trachea midline. No JVD or lymphadenopathy. CARDIOVASCULAR: Regular rate and rhythm without murmurs, gallops, or rubs. RESPIRATORY: Breath sounds equal bilaterally. No accessory muscle use. GASTROINTESTINAL: Abdomen soft, non-tender, nondistended. MUSCULOSKELETAL: No cyanosis, or edema. BACK: Nontender without obvious deformity. No CVA tenderness. Data Data Last Documented VS Vital Signs Date Time Temp Pulse Resp B/P (MAP) Pulse Ox O2 Delivery O2 Flow Rate FiO2 12/08/16 22:45 85 18 185/75 (111) 97 12/08/16 21:24 98.5 Orders Orders Proparacaine 0.5% Opth Soln (Alcaine 0.5 (12/08/16 22:30) Ed Discharge Order (12/08/16 22:41) [facility] Medical Decision Making Medical Screen Exam Complete: Yes Emergency Medical Condition: Yes Differential Diagnosis Differential diagnoses include but not limited to corneal abrasion, bacterial conjunctivitis, viral conjunctivitis Narrative Course 76-year-old female presents emergency department for evaluation of bilateral eye injection and irritation. Proparacaine was administered to both eyes and fluorescein dye with with lamp was utilized to assess for any corneal abrasions or foreign bodies. There is no fluorescein dye uptake noted in either eye. PERRLA is demonstrated in both eyes. Extraocular motion is intact bilaterally. Based on patient's symptoms, clinical presentation, vital sign review and physical exam it is not necessary to admit the patient to the hospital or keep the patient in the emergency department for further evaluation. Patient will be given a prescription for erythromycin eye ointment discharged home with instructions to follow-up with her primary care. Diagnosis Primary Impression: Conjunctivitis, acute, bilateral Qualified Codes: H10.33 - Unspecified acute conjunctivitis, bilateral Patient Instructions: Conjunctivitis (ED), General Instructions Additional Instructions: Please return to emergency department if your symptoms return or worsen. Follow up with your primary care provider. Take medications as prescribed. Scripts Erythromycin Opth Oint (Erythromycin Opth Oint) 5 Mg/Gm Oint 1 APPLIC EACH EYE QID for Infection for 5 Days, #1 TUBE 0 Refills Prov: [place] Oquendo 12/08/16 Disposition: 01 DISCHARGE HOME Condition: Stable [place] Oquendo Dec 08, 2016 22:41
[2016-12-08 22:45] VITALS: BP 185/75
== END 2016-12-08 22:58 | disposition home or self-care (01) ==
LOC: PHEFT 21:05
DX: H10.33 Unspecified acute conjunctivitis, bilateral (principal); I10 Essential (primary) hypertension; Z79.82 Long term (current) use of aspirin
CPT/HCPCS: 99283

== ENCOUNTER 2016-12-15 21:34 | Emergency (ER) | payer OTHER ==
[~2016-12-15] VITALS: Ht 160 cm; Wt 71.0 kg
[~2016-12-15 21:34] MED LIST changes: +ERYTOIN10 EACH EYE; -MACR100C2 PO
[2016-12-15 21:43] VITALS: BP 205/100; PULSE 82; RESP 20; TEMP 98.5; O2SAT 94
[2016-12-15] MEDS ORDERED: VANCOMYCIN INJ 1,500 MG in SODIUM CHLORID 0.9% 500 ML INJ 500 ML IV ONE (23:15)
--- NOTE | 2016-12-15 23:39 | PD ---
HPI Chief Complaint: Skin Problem Time Seen by Provider: 22:53 Travel History International Travel<30 days: No Contact w/Intl Traveler<30days: No Traveled to known affect area: No History of Present Illness HPI 76-year-old female complaining of redness swelling and pain on the left arm. Patient has history of end-stage renal disease on dialysis. Patient had dialysis Saturday and Saturday. Patient was dialyzed yesterday. Patient states that she started noticed increasing redness swelling tenderness around the left arm dialysis AV fistula site today. Patient denies any fever chills. Patient denies any injury to the site. Patient has history hypertension, diabetes, hyperlipidemia, COPD. PFSH Past Medical History Hx Anticoagulant Therapy: Yes (baby aspirin) Anemia: Yes Arthritis: Yes Autoimmune Disease: No Heart Rhythm Problems: Yes (ABNORMAL EKG'S) Cancer: Yes (OVARIAN, STAGE 3) Cardiovascular Problems: Yes (HTN) High Cholesterol: Yes COPD: Yes Diabetes: Yes (Type 2) Patient Takes Glucophage: No Dialysis: Yes (Left AV fistula / [id number].) Diminished Hearing: No Endocrine: Yes Gastrointestinal Disorders: Yes (HX PERF. BOWEL, GERD) GERD: Yes Genitourinary: No Hepatitis: No Hiatal Hernia: Yes (MULTIPLE) Hypertension: Yes Immune Disorder: No Implanted Vascular Access Dvce: Yes Kidney Stones: Yes Musculoskeletal: Yes (ARTHRITIS) Neurologic: No Psychiatric: No Reproductive: No Respiratory: Yes (COPD) Immunizations Current: Yes Renal Failure: Yes Sleep Apnea: No Thyroid Disease: No Influenza Vaccination: Yes ?: Not Menopausal: Yes : 7 Para: 2 Miscarriage: 5 Dilation and Curettage (D&C): Yes Past Surgical History Abdominal Surgery: Yes (PERFORATED BOWEL WITH ILEOSTOMY, REVERSAL) AICD: No Appendectomy: Yes Arteriovenous Shunt: Yes (LEFT ARM) Body Medical Devices: VAS CATH, AV FISTULA LEFT ARM Eye Surgery: Yes (CATARACT EXC. TRISTIAN.) Genitourinary Surgery: Yes (LITHOTRIPSY-KIDNEYS STONES) Gynecologic Surgery: Yes (TOTAL HYSTERECTOMY) Hysterectomy: Yes Joint Replacement: No Pacemaker: No Other Surgery: Yes (AV FISTULA: LEFT ARM ) Social History Alcohol Use: No Tobacco Use: No (QUIT IN 2007 SMOKED FOR 53 YRS 2 PPD -CIGS) Substance Use: No Allergies-Medications (Allergen,Severity, Reaction): Coded Allergies: Sulfa (Sulfonamide Antibiotics) (Verified Allergy, Severe, Rash, 12/15/16) ciprofloxacin (Verified Allergy, Severe, Rash, 12/15/16) ranitidine (Verified Allergy, Severe, Rash, 12/15/16) furosemide (Verified Allergy, Mild, Rash, 12/15/16) *MDRO Multi-Drug Resistant Organism (Verified Adverse Reaction, Unknown, 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 Reported Meds & Prescriptions Reported Meds & Active Scripts Active Reported Meclizine (Meclizine HCl) 25 Mg Tab 25 Mg PO DAILY PRN Bumetanide 2 Mg Tab 2 Mg PO DAILY Tums (Calcium Carbonate (Antacid)) 500 Mg Chew 1,000 Mg PO HS Aspirin Adult Low Strength (Aspirin) 81 Mg Tabdr 81 Mg PO DAILY Alannah-Julien (B-Complex W/ C & Folic Acid) 1 Tab 1 Tab PO DAILY Duoneb (Ipratropium-Albuterol Neb) 0.5-2.5 Mg/3 Ml Neb 3 Ml NEB Q6HR PRN Calcium Acetate (Phosphate Binder) 667 Mg Tab 1,334 Mg PO BID Hydralazine (Hydralazine HCl) 100 Mg Tab 100 Mg PO TID Take with meals Pantoprazole (Pantoprazole Sodium) 40 Mg Tab 40 Mg PO BID Glipizide 10 Mg Tab 10 Mg PO BID Take 30 minutes before a meal Diltiazem ER 24 HR 180 Mg Viry 120 Mg PO DAILY Pravastatin 20 Mg Tab 20 Mg PO DAILY Catapres (Clonidine) 0.1 Mg Tab 0.1 Mg PO BID Losartan (Losartan Potassium) 100 Mg Tab 50 Mg PO DAILY Review of Systems General / Constitutional: No: Fever Eyes: No: Visual changes HENT: No: Headaches Cardiovascular: No: Chest Pain or Discomfort Respiratory: No: Shortness of Breath Gastrointestinal: No: Abdominal Pain Genitourinary: No: Dysuria Musculoskeletal: No: Pain Skin: No Rash Neurologic: No: Weakness Psychiatric: No: Depression Endocrine: No: Polydipsia Hematologic/Lymphatic: No: Easy Bruising Physical Exam Narrative GENERAL: Well-nourished, well-developed patient. SKIN: Focused skin assessment warm/dry. HEAD: Normocephalic. EYES: No scleral icterus. No injection or drainage. NECK: Supple, trachea midline. No JVD or lymphadenopathy. CARDIOVASCULAR: Regular rate and rhythm without murmurs, gallops, or rubs. RESPIRATORY: Breath sounds equal bilaterally. No accessory muscle use. GASTROINTESTINAL: Abdomen soft, non-tender, nondistended. MUSCULOSKELETAL: No cyanosis, or edema. BACK: Nontender without obvious deformity. No CVA tenderness. Patient has an area of redness and swelling tenderness left antecubital area around AV fistula site. No induration and no discharge noted. Data Data Last Documented VS Vital Signs Date Time Temp Pulse Resp B/P (MAP) Pulse Ox O2 Delivery O2 Flow Rate FiO2 12/15/16 21:43 98.5 82 20 205/100 (135) 94 Orders Orders Complete Blood Count With Diff (12/15/16 23:15) Basic Metabolic Panel (Bmp) (12/15/16 23:15) Blood Culture (12/15/16 23:15) Magnesium (Mg) (12/15/16 23:15) Phosphorus (Po4) (12/15/16 23:15) Iv Access Insert/Monitor (12/15/16 23:15) Ecg Monitoring (12/15/16 23:15) Oximetry (12/15/16 23:15) Vancomycin Inj (Vancomycin Inj) (12/15/16 23:15) MDM Medical Decision Making Medical Screen Exam Complete: Yes Emergency Medical Condition: Yes Differential Diagnosis Differential diagnosis including cellulitis, abscess. Narrative Course 76-year-old female with redness swelling tenderness left arm around the AV fistula site. History of end-stage renal disease on dialysis. I spoke with Dr. Lee, patient's management aide. Advised vancomycin 1.5 g IV and routine blood work including CBC. Teofilo Morillo MD Dec 15, 2016 23:39
[2016-12-15 23:58] LABS: AUTOMATED NEUTROPHIL # 8.9 TH/MM3 (1.8-7.7); BASOPHIL # 0.3 TH/MM3 (0-0.2); BASOPHIL % 2.5 % (0.0-2.0); EOSINOPHIL # 0.5 TH/MM3 (0-0.4); EOSINOPHIL % 4.4 % (0.0-4.0); HEMATOCRIT 37.5 % (35.0-46.0); LYMPH % 6.7 % (9.0-44.0); LYMPHOCYTE # 0.7 TH/MM3 (1.0-4.8); MEAN CELL VOLUME 93.3 FL (80.0-100.0); MEAN CORPUSCULAR HEMOGLOBIN 30.2 PG (27.0-34.0); MEAN CORPUSCULAR HGB CONC 32.3 % (32.0-36.0); MONO % 6.7 % (0.0-8.0); NEUT % 79.7 % (16.0-70.0); PLATELET COUNT 231 TH/MM3 (150-450); RED BLOOD COUNT 4.02 MIL/MM3 (4.00-5.30); RED CELL DISTRIBUTION WIDTH 15.7 % (11.6-17.2); WHITE BLOOD COUNT 11.1 TH/MM3 (4.0-11.0)
[2016-12-16 00:03] LABS: HEMO FLAGS DIFF FINAL
[2016-12-16 00:13] LABS: POTASSIUM 4.4 MEQ/L (3.5-5.1)
[2016-12-16 00:16] LABS: BICARBONATE 26.4 MEQ/L (21.0-32.0); MAGNESIUM 1.9 MG/DL (1.5-2.5)
[2016-12-16] MEDS ORDERED: CIPR250T52 PO (01:38)
[2016-12-16] MEDS ORDERED: CEPH-459 PO (01:38)
--- NOTE | 2016-12-16 01:38 | PD ---
Physical Exam Time Seen by Provider: 01:[address] Morillo with this patient with me to check the laboratory and make a disposition. If the white count was not greatly elevated the patient is to get Keflex 250 mg twice daily and Cipro 250 mg once daily. Data Data Last Documented VS Vital Signs Date Time Temp Pulse Resp B/P (MAP) Pulse Ox O2 Delivery O2 Flow Rate FiO2 12/15/16 21:43 98.5 82 20 205/100 (135) 94 Orders Orders Complete Blood Count With Diff (12/15/16 23:15) Basic Metabolic Panel (Bmp) (12/15/16 23:15) Blood Culture (12/15/16 23:15) Magnesium (Mg) (12/15/16 23:15) Phosphorus (Po4) (12/15/16 23:15) Iv Access Insert/Monitor (12/15/16 23:15) Ecg Monitoring (12/15/16 23:15) Oximetry (12/15/16 23:15) Vancomycin Inj (Vancomycin Inj) (12/15/16 23:15) Labs Laboratory Tests Test 12/15/16 23:40 White Blood Count 11.1 TH/MM3 Red Blood Count 4.02 MIL/MM3 Hemoglobin 12.1 GM/DL Hematocrit 37.5 % Mean Corpuscular Volume 93.3 FL Mean Corpuscular Hemoglobin 30.2 PG Mean Corpuscular Hemoglobin Concent 32.3 % Red Cell Distribution Width 15.7 % Platelet Count 231 TH/MM3 Mean Platelet Volume 7.8 FL Neutrophils (%) (Auto) 79.7 % Lymphocytes (%) (Auto) 6.7 % Monocytes (%) (Auto) 6.7 % Eosinophils (%) (Auto) 4.4 % Basophils (%) (Auto) 2.5 % Neutrophils # (Auto) 8.9 TH/MM3 Lymphocytes # (Auto) 0.7 TH/MM3 Monocytes # (Auto) 0.7 TH/MM3 Eosinophils # (Auto) 0.5 TH/MM3 Basophils # (Auto) 0.3 TH/MM3 CBC Comment DIFF FINAL Differential Comment Blood Urea Nitrogen 37 MG/DL Creatinine 6.80 MG/DL Random Glucose 213 MG/DL Calcium Level 8.5 MG/DL Phosphorus Level 4.2 MG/DL Magnesium Level 1.9 MG/DL Sodium Level 138 MEQ/L Potassium Level 4.4 MEQ/L Chloride Level 102 MEQ/L Carbon Dioxide Level 26.4 MEQ/L Anion Gap 10 MEQ/L Estimat Glomerular Filtration Rate 6 ML/MIN MDM Medical Record Reviewed: Yes Supervised Visit with STEW: No Interpretation(s) The CBC shows a white count of only 11,100 and is otherwise normal. The basic metabolic profile is normal except for a BUN of 37 and creatinine 6.8 and glucose 213. The magnesium level is normal. Differential Diagnosis Mild skin infection at dialysis port, severe skin infection at dialysis port, chronic end-stage renal failure, electrolyte disorder, elevated blood sugar, sepsis Narrative Course The patient appears to have a mild skin infection, cellulitis, at the dialysis port. The white count is only minimally elevated at 11,100. There is no particular shift to the left. As instructions relayed to me by Dr. Morillo spoke with Dr. Lee, the patient will be given Keflex 250 mg twice daily and Cipro 200 mg daily, both for 10 days. Diagnosis Primary Impression: Cellulitis Additional Impression: End stage renal disease Med/Other Pt SpecificInfo: Prescription(s) given Scripts Ciprofloxacin (Cipro) 250 Mg Tab 250 MG PO DAILY for Infection for 10 Days, #10 TAB 0 Refills Prov: Danny Guillen MD 12/16/16 Cephalexin (Keflex) 250 Mg Cap 250 MG PO BID for Infection for 10 Days, #20 CAP 0 Refills Prov: Danny Guillen MD 12/16/16 Disposition: 01 DISCHARGE HOME Condition: Stable Danny Guillen MD Dec 16, 2016 01:38
[2016-12-16 02:39] VITALS: BP 192/66; PULSE 77; RESP 16; O2SAT 98
== END 2016-12-16 02:50 | disposition home or self-care (01) ==
LOC: PHED 21:34
DX: L03.114 Cellulitis of left upper limb (principal); N18.6 End stage renal disease; I12.0 Hypertensive chronic kidney disease with stage 5 chronic kidney disease or end stage renal disease; E11.9 Type 2 diabetes mellitus without complications; E78.5 Hyperlipidemia, unspecified; Z99.2 Dependence on renal dialysis; Z79.82 Long term (current) use of aspirin; Z79.84 Long term (current) use of oral hypoglycemic drugs; Z86.2 Personal history of diseases of the blood and blood-forming organs and certain disorders involving the immune mechanism; Z87.39 Personal history of other diseases of the musculoskeletal system and connective tissue; Z86.79 Personal history of other diseases of the circulatory system; Z87.09 Personal history of other diseases of the respiratory system; Z87.19 Personal history of other diseases of the digestive system; Z87.442 Personal history of urinary calculi
CPT/HCPCS: 80048; 83735; 84100; 85025; 87040; 96365; 96366; 99284; J3370; J7040

== ENCOUNTER 2017-02-06 23:08 | Emergency (ER) | payer OTHER ==
[~2017-02-06] VITALS: Ht 160 cm; Wt 70.0 kg
[~2017-02-06 23:08] MED LIST changes: -ASPI1TAB91 PO; +ASPI81TA16 PO; +CEPH-459 PO; +CIPR250T52 PO; -ERYTOIN10 EACH EYE; -HYDR-3533 PO
[2017-02-06 23:17] VITALS: BP 220/95; PULSE 87; RESP 20; TEMP 97.8; O2SAT 98
[2017-02-06] MEDS ORDERED: MORPHINE SULFATE 4 MG/ML INJ IV PUSH ONE (23:30)
[2017-02-06] MEDS ORDERED: hydrALAZINE HCL 20 MG/ML VIAL IV PUSH ONE (23:30)
[2017-02-06] MEDS ORDERED: SODIUM CHLORIDE 0.9% FLUSH 10 ML FLUSH IV FLUSH PRN (23:30)
[2017-02-06] MEDS ORDERED: SODIUM CHLORID 0.9% 500 ML INJ 500 ML IV ONE (23:30)
[2017-02-06] MEDS ORDERED: ONDANSETRON HCL 4 MG/2 ML VIAL IVP ONE (23:30)
--- NOTE | 2017-02-06 23:34 | PD ---
HPI Chief Complaint: Abdominal Pain Time Seen by Provider: 23:31 Travel History International Travel<30 days: No Contact w/Intl Traveler<30days: No Traveled to known affect area: No History of Present Illness HPI 76-year-old female presents for evaluation of nausea, vomiting, abdominal pain. Symptoms started 3 PM. She describes it as a aching pain, generalized, constant, worse when vomiting. She reports multiple episodes of nonbloody emesis. She has not had bowel movements yesterday. She has passed little bit of flatus today. She has a history of complete hysterectomy in 1997, partial bowel resection in 2007 for perforated bowel from colonoscopy. She has 2 large ventral hernias. She has had bowel obstructions in the past and this feels similar. History of end-stage renal disease on dialysis days, Wednesdays, Fridays, went to dialysis today. No other complaints at this time. PFSH Past Medical History Hx Anticoagulant Therapy: Yes (baby aspirin) Anemia: Yes Arthritis: Yes Autoimmune Disease: No Heart Rhythm Problems: Yes (ABNORMAL EKG'S) Cancer: Yes (OVARIAN, STAGE 3) Cardiovascular Problems: Yes (HTN) High Cholesterol: Yes COPD: Yes Diabetes: Yes (Type 2) Dialysis: Yes (Left AV fistula / [id number].) Diminished Hearing: No Endocrine: Yes Gastrointestinal Disorders: Yes (HX PERF. BOWEL, GERD) GERD: Yes Genitourinary: No Hepatitis: No Hiatal Hernia: Yes (MULTIPLE) Hypertension: Yes Immune Disorder: No Implanted Vascular Access Dvce: Yes Kidney Stones: Yes Musculoskeletal: Yes (ARTHRITIS) Neurologic: No Psychiatric: No Reproductive: No Respiratory: Yes (COPD) Immunizations Current: Yes Renal Failure: Yes Sleep Apnea: No Thyroid Disease: No Menopausal: Yes : 7 Para: 2 Miscarriage: 5 Dilation and Curettage (D&C): Yes Past Surgical History Abdominal Surgery: Yes (PERFORATED BOWEL WITH ILEOSTOMY, REVERSAL) AICD: No Appendectomy: Yes Arteriovenous Shunt: Yes (LEFT ARM) Body Medical Devices: VAS CATH, AV FISTULA LEFT ARM Eye Surgery: Yes (CATARACT EXC. TRISTIAN.) Genitourinary Surgery: Yes (LITHOTRIPSY-KIDNEYS STONES) Gynecologic Surgery: Yes (TOTAL HYSTERECTOMY) Hysterectomy: Yes Joint Replacement: No Pacemaker: No Other Surgery: Yes (AV FISTULA: LEFT ARM ) Social History Alcohol Use: No Tobacco Use: No (QUIT IN 2007 SMOKED FOR 53 YRS 2 PPD -CIGS) Substance Use: No Allergies-Medications (Allergen,Severity, Reaction): Coded Allergies: Sulfa (Sulfonamide Antibiotics) (Verified Allergy, Severe, Rash, 12/15/16) ciprofloxacin (Verified Allergy, Severe, Rash, 12/15/16) ranitidine (Verified Allergy, Severe, Rash, 12/15/16) furosemide (Verified Allergy, Mild, Rash, 12/15/16) *MDRO Multi-Drug Resistant Organism (Verified Adverse Reaction, Unknown, 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 Reported Meds & Prescriptions Reported Meds & Active Scripts Active Cipro (Ciprofloxacin HCl) 250 Mg Tab 250 Mg PO DAILY 10 Days Keflex (Cephalexin) 250 Mg Cap 250 Mg PO BID 10 Days Reported Meclizine (Meclizine HCl) 25 Mg Tab 25 Mg PO DAILY PRN Bumetanide 2 Mg Tab 2 Mg PO DAILY Tums (Calcium Carbonate (Antacid)) 500 Mg Chew 1,000 Mg PO HS Aspirin Adult Low Strength (Aspirin) 81 Mg Tabdr 81 Mg PO DAILY Alannah-Julien (B-Complex W/ C & Folic Acid) 1 Tab 1 Tab PO DAILY Duoneb (Ipratropium-Albuterol Neb) 0.5-2.5 Mg/3 Ml Neb 3 Ml NEB Q6HR PRN Calcium Acetate (Phosphate Binder) 667 Mg Tab 1,334 Mg PO BID Hydralazine (Hydralazine HCl) 100 Mg Tab 100 Mg PO TID Take with meals Pantoprazole (Pantoprazole Sodium) 40 Mg Tab 40 Mg PO BID Glipizide 10 Mg Tab 10 Mg PO BID Take 30 minutes before a meal Diltiazem ER 24 HR 180 Mg Viry 120 Mg PO DAILY Pravastatin 20 Mg Tab 20 Mg PO DAILY Catapres (Clonidine) 0.1 Mg Tab 0.1 Mg PO BID Losartan (Losartan Potassium) 100 Mg Tab 50 Mg PO DAILY Review of Systems Except as stated in HPI: all other systems reviewed are Neg Physical Exam Narrative GENERAL: Well-developed well-nourished female in no acute distress, vomiting on initial examination, hypertensive. SKIN: Warm and dry. HEAD: Atraumatic. Normocephalic. EYES: Pupils equal and round. No scleral icterus. No injection or drainage. ENT: No nasal bleeding or discharge. Mucous membranes pink and moist. NECK: Trachea midline. No JVD. CARDIOVASCULAR: Regular rate and rhythm. No murmur appreciated. RESPIRATORY: No accessory muscle use. Clear to auscultation. Breath sounds equal bilaterally. GASTROINTESTINAL: Abdomen soft, 2 large ventral hernias are noted along with a large abdominal midline scar. The hernias are partially reducible. MUSCULOSKELETAL: No obvious deformities. No clubbing. No cyanosis. No edema. NEUROLOGICAL: Awake and alert. No obvious cranial nerve deficits. Motor grossly within normal limits. Normal speech. PSYCHIATRIC: Appropriate mood and affect; insight and judgment normal. Data Data Last Documented VS Vital Signs Date Time Temp Pulse Resp B/P (MAP) Pulse Ox O2 Delivery O2 Flow Rate FiO2 02/07/17 02:21 99 20 154/72 (99) 96 Room Air 02/06/17 23:17 97.8 Orders Orders Complete Blood Count With Diff (02/06/17 23:23) Comprehensive Metabolic Panel (02/06/17 23:23) Lipase (02/06/17 23:23) Lactic Acid (02/06/17 23:23) Prothrombin Time / Inr (Pt) (02/06/17 23:23) Act Partial Throm Time (Ptt) (02/06/17 23:23) Urinalysis - C+S If Indicated (02/06/17 23:23) Ct Abd/Pel W/O Iv Contrast (02/06/17 23:23) Iv Access Insert/Monitor (02/06/17 23:23) Ecg Monitoring (02/06/17 23:23) Oximetry (02/06/17 23:23) Ondansetron Inj (Zofran Inj) (02/06/17 23:30) Sodium Chloride 0.9% Flush (Ns Flush) (02/06/17 23:30) Electrocardiogram (02/06/17 23:23) Abdomen, Upright Only (02/06/17 23:23) Morphine Inj (Morphine Inj) (02/06/17 23:30) Sodium Chlorid 0.9% 500 Ml Inj (Ns 500 M (02/06/17 23:30) Hydralazine Inj (Apresoline Inj) (02/06/17 23:30) Sodium Chlor 0.9% 1000 Ml Inj (Ns 1000 M (02/07/17 01:11) Labs Laboratory Tests Test 02/07/17 01:00 White Blood Count 15.4 TH/MM3 Red Blood Count 4.51 MIL/MM3 Hemoglobin 14.6 GM/DL Hematocrit 43.7 % Mean Corpuscular Volume 96.9 FL Mean Corpuscular Hemoglobin 32.3 PG Mean Corpuscular Hemoglobin Concent 33.4 % Red Cell Distribution Width 18.6 % Platelet Count 249 TH/MM3 Mean Platelet Volume 8.4 FL Neutrophils (%) (Auto) 94.9 % Lymphocytes (%) (Auto) 1.7 % Monocytes (%) (Auto) 2.8 % Eosinophils (%) (Auto) 0.2 % Basophils (%) (Auto) 0.4 % Neutrophils # (Auto) 14.6 TH/MM3 Lymphocytes # (Auto) 0.3 TH/MM3 Monocytes # (Auto) 0.4 TH/MM3 Eosinophils # (Auto) 0.0 TH/MM3 Basophils # (Auto) 0.1 TH/MM3 CBC Comment DIFF FINAL Differential Comment Prothrombin Time 10.4 SEC Prothromb Time International Ratio 1.0 RATIO Activated Partial Thromboplast Time 24.5 SEC Blood Urea Nitrogen 28 MG/DL Creatinine 5.67 MG/DL Random Glucose 327 MG/DL Total Protein 8.8 GM/DL Albumin 4.6 GM/DL Calcium Level 10.2 MG/DL Alkaline Phosphatase 186 U/L Aspartate Amino Transf (AST/SGOT) 20 U/L Alanine Aminotransferase (ALT/SGPT) 23 U/L Total Bilirubin 0.5 MG/DL Sodium Level 135 MEQ/L Potassium Level 4.7 MEQ/L Chloride Level 98 MEQ/L Carbon Dioxide Level 23.9 MEQ/L Anion Gap 13 MEQ/L Estimat Glomerular Filtration Rate 7 ML/MIN Lactic Acid Level 1.8 mmol/L Lipase 305 U/L [facility] Medical Decision Making Medical Screen Exam Complete: Yes Emergency Medical Condition: Yes Medical Record Reviewed: Yes Differential Diagnosis Obstruction, strangulated hernia, incarcerated hernia, bowel perforation Narrative Course The patient was placed on ECG monitor and pulse oximeter. Plan is for basic lab work, urinalysis, abdominal upright x-ray, CT abdomen and pelvis. The patient was given hydralazine, IV Zofran and morphine. CT abdomen and pelvis reveals CONCLUSION: 1. Stable configuration to the lower abdominal ventral hernia containing small bowel. 2. Moderate dilation of small bowel loops. 3. An abrupt transition in diameter at the rectosigmoid region suggests possible obstructing lesion. 4. No evidence of hydronephrosis. The patient does have leukocytosis with WBC count of 15.4. She reports that she gets frequent urinary tract infections, she actually had outpatient urinalysis performed yesterday but she does not feel that she can make a urine sample at this time. She has no symptoms to suggest infectious process. CMP reveals a GFR of 7 which is consistent with her baseline. Lactic acid is 1.8. 0230: Upon reexamination the patient reports significant improvement in her symptoms. Her nausea is completely resolved. She reports that she had a large bowel movement and she feels much better and her abdominal pain is resolved. I did speak to the radiologist in regards to the CT abdomen and pelvis findings. There is no definitive evidence on CT imaging for bowel obstruction. There is no evidence of strangulated or obstructed ventral hernia either. Certainly the fact that her abdominal pain and nausea and vomiting has resolved and she was able to make a large bowel movement is reassuring. The patient's blood pressure improved to 154/72. I did offer to admit the patient overnight for observation however she would prefer to go home and follow up closely with her doctor. She is encouraged to call tomorrow to get the results of her urinalysis testing from yesterday. She understands that she can return at any time for any acutely new or worsening symptoms. Her daughter is at bedside as well. Diagnosis Primary Impression: Abdominal pain Additional Impression: Nausea and vomiting Additional Instructions: Follow-up closely with your primary care physician as well as Dr. Byers. Return for any acutely new or worsening symptoms. Med/Other Pt SpecificInfo: No Change to Meds Disposition: 01 DISCHARGE HOME Condition: Stable Carl Martinez Feb 06, 2017 23:34
--- NOTE | 2017-02-06 23:54 | RADRPT ---
EXAM DATE/TIME: 02/06/2017 23:36 [facility] COMPARISON: CHEST SINGLE AP, September 15, 2016, 22:32. INDICATIONS : Abdominal pain. MEDICAL HISTORY : Chronic obstructive pulmonary disease. Renal calculi. Hernia, hiatal.Renal failure. Uterine cancer. D iabetes. SURGICAL HISTORY : Appendectomy. Hysterectomy. ENCOUNTER: Initial ACUITY: 1 day PAIN SCORE: 8/10 LOCATION: abdomen. FINDINGS: A single erect view of the abdomen demonstrates questionable opacity in the lower lateral left lung c ausing loss of delineation left heart border.. No evidence of free intraperitoneal gas. The visuali zed upper abdominal bowel loops are unremarkable. CONCLUSION: 1. Possible consolidation lower lateral left lung. 2. No evidence of free intraperitoneal gas. Tyrone Bone MD on February 06, 2017 at 23:51 Board Certified Radiologist. This report was verified electronically.
--- NOTE | 2017-02-07 00:35 | RADRPT ---
EXAM DATE/TIME: 02/06/2017 23:37 [facility] COMPARISON: CT ABDOMEN & PELVIS W/O CONTRAST, September 12, 2015, 0:46. INDICATIONS : Abdominal pain. Distention. Vomiting. ORAL CONTRAST: No oral contrast ingested. RADIATION DOSE: 8.5 CTDIvol (mGy) MEDICAL HISTORY : Hernia, hiatal. Cardiovascular disease Chronic obstructive pulmonary disease. SURGICAL HISTORY : Hysterectomy. ENCOUNTER: Initial ACUITY: 1 day PAIN SCALE: 10/10 LOCATION: TECHNIQUE: Volumetric scanning of the abdomen and pelvis was performed. Using automated exposure control and ad justment of the mA and/or kV according to patient size, radiation dose was kept as low as reasonably achievable to obtain optimal diagnostic quality images. DICOM format image data is available electro nically for review and comparison. FINDINGS: The liver, spleen, pancreas, gallbladder, and adrenal glands are unremarkable for noncontrast techniq ue. Stable appearance to the thinning of the renal cortex and bilateral renal cysts measuring up to 4.7 cm. No evidence of hydronephrosis. Extrarenal pelvis on the right side is not distended. Vascu lar calcification in nondistended abdominal aorta. Nondistended urinary bladder. The visualized low er lungs are clear. Advanced degenerative changes in the posterior elements of the lower lumbar spin e similar to prior. Protuberant abdomen and lower abdominal ventral hernia with separation between the rectus muscles luis suring 3.4 cm; there are small bowel loops with in the hernia; the configuration of the hernia is stacy y similar to prior in August 2015. There are diffusely dilated loops of small bowel measuring up to 3. 5 cm in width. There is some fecalization of the small bowel in the right lower quadrant. Diffuse a mount of stool throughout the colon. Evidence of prior bowel surgery with anastomosis sutures in the right lower quadrant and about the rectum. There is a change in luminal diameter at the sigmoid rec alba junction with luminal diameter changing from 3.5 cm to 8 mm. This is best seen on axial image #5 9. No evidence of free fluid. No evidence of free intraperitoneal gas. CONCLUSION: 1. Stable configuration to the lower abdominal ventral hernia containing small bowel. 2. Moderate dilation of small bowel loops. 3. An abrupt transition in diameter at the rectosigmoid region suggests possible obstructing lesion. 4. No evidence of hydronephrosis. Tyrone Bone MD on February 07, 2017 at 0:08 Board Certified Radiologist. This report was verified electronically.
[2017-02-07] MEDS ORDERED: SODIUM CHLOR 0.9% 1000 ML INJ 1,000 ML IV SCH (01:11)
[2017-02-07 01:20] LABS: AUTOMATED NEUTROPHIL # 14.6 TH/MM3 (1.8-7.7); BASOPHIL # 0.1 TH/MM3 (0-0.2); BASOPHIL % 0.4 % (0.0-2.0); EOSINOPHIL % 0.2 % (0.0-4.0); HEMATOCRIT 43.7 % (35.0-46.0); HEMO FLAGS DIFF FINAL; LYMPH % 1.7 % (9.0-44.0); LYMPHOCYTE # 0.3 TH/MM3 (1.0-4.8); MEAN CELL VOLUME 96.9 FL (80.0-100.0); MEAN CORPUSCULAR HEMOGLOBIN 32.3 PG (27.0-34.0); MEAN CORPUSCULAR HGB CONC 33.4 % (32.0-36.0); MONO % 2.8 % (0.0-8.0); NEUT % 94.9 % (16.0-70.0); PLATELET COUNT 249 TH/MM3 (150-450); RED BLOOD COUNT 4.51 MIL/MM3 (4.00-5.30); RED CELL DISTRIBUTION WIDTH 18.6 % (11.6-17.2); WHITE BLOOD COUNT 15.4 TH/MM3 (4.0-11.0)
[2017-02-07 01:30] VITALS: BP 230/95; PULSE 100; RESP 20; O2SAT 98
[2017-02-07 01:30] LABS: APTT (PATIENT) 24.5 SEC (24.3-30.1); PROTHROMBIN TIME - PATIENT 10.4 SEC (9.8-11.6)
[2017-02-07 01:39] LABS: ALKALINE PHOSPHATASE 186 U/L (45-117); TOTAL BILIRUBIN ADULT 0.5 MG/DL (0.2-1.0)
[2017-02-07 01:40] LABS: ALT (GPT) 23 U/L (10-53); ANION GAP 13 MEQ/L (5-15); AST (GOT) 20 U/L (15-37); BICARBONATE 23.9 MEQ/L (21.0-32.0); BLOOD UREA NITROGEN 28 MG/DL (7-18); CHLORIDE 98 MEQ/L (98-107); GLOMERULAR FILTRATION RATE 7 ML/MIN (>89); POTASSIUM 4.7 MEQ/L (3.5-5.1); SODIUM (NA) 135 MEQ/L (136-145)
[2017-02-07 02:21] VITALS: BP 154/72; PULSE 99; RESP 20; O2SAT 96
== END 2017-02-07 03:15 | disposition home or self-care (01) ==
LOC: NEPD 23:08
DX: R10.9 Unspecified abdominal pain (principal); R11.2 Nausea with vomiting, unspecified; K43.9 Ventral hernia without obstruction or gangrene; D64.9 Anemia, unspecified; M19.90 Unspecified osteoarthritis, unspecified site; I10 Essential (primary) hypertension; E11.9 Type 2 diabetes mellitus without complications; K21.9 Gastro-esophageal reflux disease without esophagitis; J44.9 Chronic obstructive pulmonary disease, unspecified
CPT/HCPCS: 74000; 74176; 80053; 83605; 83690; 85025; 85610; 85730; 96374; 96375

== ENCOUNTER 2017-06-19 10:12 | Observation (INO) | payer OTHER ==
[~2017-06-19] VITALS: Ht 160 cm; Wt 76.8 kg
[2017-06-19 10:22] VITALS: BP 205/79; PULSE 81; RESP 19; TEMP 99; O2SAT 97
[2017-06-19] MEDS ORDERED: SODIUM CHLORIDE 0.9% FLUSH 10 ML FLUSH IVF PRN (10:45)
--- NOTE | 2017-06-19 10:48 | PD ---
HPI Chief Complaint: Fall Time Seen by Provider: 10:36 Travel History International Travel<30 days: No Contact w/Intl Traveler<30days: No Traveled to known affect area: No History of Present Illness HPI 77-year-old female patient presents to the ER today, end-stage renal disease on dialysis due for her dialysis this morning, hypertension, states that she has vertigo at times and had an episode of vertigo as she was going up the stairs, was about 3 steps up when she fell back hitting the back of her head at 4 AM last night. She states that she was picked up off the floor by her family and states that this morning when she tried to get up, is having pain all over her back, hips, elbows, everywhere, and states that she was having trouble getting up on her own. She denies any loss of consciousness, chest pains, or other issues. Modifying Factors: None Associated Signs & Symptoms: fall from stairs, head injury, back pains,Pain all over Risk Factors: Elderly PFSH Past Medical History Hx Anticoagulant Therapy: Yes (baby aspirin) Anemia: Yes Arthritis: Yes Autoimmune Disease: No Heart Rhythm Problems: Yes (ABNORMAL EKG'S) Cancer: Yes (OVARIAN, STAGE 3) Cardiovascular Problems: Yes (HTN) High Cholesterol: Yes COPD: Yes Diabetes: Yes (Type 2) Patient Takes Glucophage: No Dialysis: Yes (Left AV fistula / [id number].) Diminished Hearing: No Endocrine: Yes Gastrointestinal Disorders: Yes (HX PERF. BOWEL, GERD) GERD: Yes Genitourinary: No Hepatitis: No Hiatal Hernia: Yes (MULTIPLE) Hypertension: Yes Immune Disorder: No Implanted Vascular Access Dvce: Yes Kidney Stones: Yes Musculoskeletal: Yes (ARTHRITIS) Neurologic: No Psychiatric: No Reproductive: No Respiratory: Yes (COPD) Immunizations Current: Yes Renal Failure: Yes Sleep Apnea: No Thyroid Disease: No ?: Not Menopausal: Yes : 7 Para: 2 Miscarriage: 5 Dilation and Curettage (D&C): Yes Past Surgical History Abdominal Surgery: Yes (PERFORATED BOWEL WITH ILEOSTOMY, REVERSAL) AICD: No Appendectomy: Yes Arteriovenous Shunt: Yes (LEFT ARM) Body Medical Devices: VAS CATH, AV FISTULA LEFT ARM Eye Surgery: Yes (CATARACT EXC. TRISTIAN.) Genitourinary Surgery: Yes (LITHOTRIPSY-KIDNEYS STONES) Gynecologic Surgery: Yes (TOTAL HYSTERECTOMY) Hysterectomy: Yes Joint Replacement: No Pacemaker: No Other Surgery: Yes (AV FISTULA: LEFT ARM ) Social History Alcohol Use: No Tobacco Use: No (QUIT IN 2007 SMOKED FOR 53 YRS 2 PPD -CIGS) Substance Use: No Allergies-Medications (Allergen,Severity, Reaction): Coded Allergies: Sulfa (Sulfonamide Antibiotics) (Verified Allergy, Severe, Rash, 06/19/17) ciprofloxacin (Verified Allergy, Severe, Rash, 06/19/17) ranitidine (Verified Allergy, Severe, Rash, 06/19/17) furosemide (Verified Allergy, Mild, Rash, 06/19/17) *MDRO Multi-Drug Resistant Organism (Verified Adverse Reaction, Unknown, ) 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 Reported Meds & Prescriptions Reported Meds & Active Scripts Active Reported Hair Skin & Nails (Biotin W/ Vitamins C & E) 1,250-7.5-7.5 Mcg-Mg-Unit Chew 1 Tab PO DAILY Acetaminophen/Codeine Bruno 300-30 mg (Acetaminophen W/ Codeine) 300 Mg-30 Mg Tab 1 Tab PO PRN Gabapentin 300 Mg Cap 300 Mg PO HS Nitrofurantoin Macrocrystal 50 Mg Cap 50 Mg PO DAILY Atorvastatin (Atorvastatin Calcium) 20 Mg Tab 20 Mg PO HS Diltiazem ER 24 HR (Diltiazem HCl) 180 Mg Caper 180 Mg PO DAILY Meclizine (Meclizine HCl) 25 Mg Tab 25 Mg PO DAILY PRN Bumetanide 2 Mg Tab 2 Mg PO DAILY Tums (Calcium Carbonate (Antacid)) 500 Mg Chew 1,000 Mg PO HS Aspirin Adult Low Strength (Aspirin) 81 Mg Tabdr 81 Mg PO DAILY Alannah-Julien (B-Complex W/ C & Folic Acid) 1 Tab 1 Tab PO DAILY Duoneb (Ipratropium-Albuterol Neb) 0.5-2.5 Mg/3 Ml Neb 3 Ml NEB Q6HR PRN Calcium Acetate (Phosphate Binder) 667 Mg Tab 1,334 Mg PO BID Hydralazine (Hydralazine HCl) 100 Mg Tab 100 Mg PO TID Take with meals Pantoprazole (Pantoprazole Sodium) 40 Mg Tab 40 Mg PO BID Catapres (Clonidine) 0.1 Mg Tab 0.1 Mg PO BID Losartan (Losartan Potassium) 100 Mg Tab 50 Mg PO DAILY Review of Systems Except as stated in HPI: all other systems reviewed are Neg Physical Exam Narrative GENERAL: Well-developed elderly white female patient currently in moderate distress. Awake and oriented 3. SKIN: Focused skin assessment warm/dry. HEAD: Abrasions notable over the posterior scalp. Normocephalic. EYES: Pupils equal and round. No scleral icterus. No injection or drainage. ENT: No nasal bleeding or discharge. Mucous membranes pink and moist. NECK: Trachea midline. No JVD. No midline C-spine tenderness or step-offs. CARDIOVASCULAR: Regular rate and rhythm. No murmur appreciated. CHEST: Mild tenderness palpation of the right anterior and lateral lower ribs without deformity or crepitance. No retractions or use of accessory muscles. RESPIRATORY: No accessory muscle use. Clear to auscultation. Breath sounds equal bilaterally. GASTROINTESTINAL: Abdomen soft, non-tender, nondistended. Hepatic and splenic margins not palpable. MUSCULOSKELETAL: No obvious deformities. No clubbing. No cyanosis. No edema. There is notable sacral area ecchymosis, tender to palpation. Tender palpation of the left elbow. NEUROLOGICAL: Awake and alert. No obvious cranial nerve deficits. Motor grossly within normal limits. Normal speech. PSYCHIATRIC: Appropriate mood and affect; insight and judgment normal. Data Data Last Documented VS Vital Signs Date Time Temp Pulse Resp B/P (MAP) Pulse Ox O2 Delivery O2 Flow Rate FiO2 06/19/17 10:22 99.0 81 19 205/79 (121) 97 Orders Orders Basic Metabolic Panel (Bmp) (06/19/17 10:36) Complete Blood Count With Diff (06/19/17 10:36) Prothrombin Time / Inr (Pt) (06/19/17 10:36) Act Partial Throm Time (Ptt) (06/19/17 10:36) Ct Brain W/O Iv Contrast(Rout) (06/19/17 10:36) Ct Cerv Spine W/O Contrast (06/19/17 10:36) Iv Access Insert/Monitor (06/19/17 10:36) Ecg Monitoring (06/19/17 10:36) Oximetry (06/19/17 10:36) Oxygen Administration (06/19/17 10:36) Sodium Chloride 0.9% Flush (Ns Flush) (06/19/17 10:45) Ct Thorax/ Chest Wo Iv Contras (06/19/17 10:36) Ct Lumb Spine W/O Contrast (06/19/17 10:36) Elbow, Complete (4 Vws) (06/19/17 10:40) Ct Abd/Pel W/O Iv Contrast (06/19/17 ) Acetamin-Hydrocod 325-5 Mg (Cabool 5-325 (06/19/17 14:45) Blood Flow Rate (06/19/17 14:50) Dialysate Flow Rate (06/19/17 14:50) Dialyzer (06/19/17 14:50) Concentrate (06/19/17 14:50) Acid Concentrate (06/19/17 14:50) Length Of Dialysis (06/19/17 14:50) Frequency Of Dialysis (06/19/17 14:50) Dialysis Obtain (06/19/17 14:50) Needle Size (06/19/17 14:50) Dialysis Schedule (06/19/17 14:50) Resp Oxygen Yusef C Titrat 1-4 L (06/19/17 ) Dialysis Weight (06/19/17 14:50) ^ Obtain As Needed (06/19/17 14:50) Sodium Chlor 0.9% 1000 Ml Inj (Ns 1000 M (06/19/17 14:50) Heparin Inj (Heparin Inj) (06/19/17 15:00) Sodium Chlor 0.9% 1000 Ml Inj (Ns 1000 M (06/19/17 14:50) Sodium Chlor 0.9% 1000 Ml Inj (Ns 1000 M (06/19/17 14:50) Mannitol Inj (Mannitol Inj) (06/19/17 15:00) Albumin 25% Inj (Albumin 25% Inj) (06/19/17 15:00) Sodium Chloride 0.9% Flush (Ns Flush) (06/19/17 15:00) Heparin Inj (Heparin Inj) (06/19/17 15:00) Gentamicin Inj (Gentamicin Inj) (06/19/17 15:00) Ondansetron Inj (Zofran Inj) (06/19/17 15:00) Acetaminophen (Tylenol) (06/19/17 15:00) Diphenhydramine (Benadryl) (06/19/17 15:00) Nitroglycerin Sl (Nitrostat Sl) (06/19/17 15:00) Clonidine (Catapres) (06/19/17 15:00) Epoetin Chandler Inj (Epogen Inj) (06/19/17 15:00) Gelatin 12 Mm/7 Mm Top (Gelfoam 12 Mm/7 (06/19/17 15:00) Admit Order (Ed Use Only) (06/19/17 15:08) Hydralazine Inj (Apresoline Inj) (06/19/17 15:15) Clonidine (Catapres) (06/19/17 15:15) Bedside Glucose ANAHY.CSUGAR (06/19/17 15:05) Blood Glucose Goal (Criteria) (06/19/17 15:05) Hypoglycemia 70 Mg/Dl Or < (06/19/17 15:05) Notify Dr: Other (06/19/17 15:05) Dextrose 50% In Boaz (Vial) Inj (D50w (Vi (06/19/17 15:15) Glucagon Inj (Glucagon Inj) (06/19/17 15:15) Dietary (Dietitian) Consult (06/19/17 ) Insulin Aspart Supplemtl Scale (Novolog (06/19/17 17:00) Ice / Cold Pack PRN (06/19/17 15:05) Place In Observation (06/19/17 ) Vital Signs (Adult) Q4H (06/19/17 15:05) Neuro Checks Q4H (06/19/17 15:05) Activity Oob With Assistance (06/19/17 15:05) Clinic Receptionist / Telemetry .CONTINUOUS (06/19/17 15:05) Intake + Output ANAHY.QSHIFT (06/19/17 15:05) Diet 1800 Ada Cons Carb (06/19/17 Dinner) Diet Heart Healthy (06/19/17 Dinner) Diet Renal (06/19/17 Dinner) Sodium Chloride 0.9% Flush (Ns Flush) (06/19/17 15:15) Sodium Chloride 0.9% Flush (Ns Flush) (06/19/17 21:00) Acetaminophen (Tylenol) (06/19/17 15:15) Ondansetron Inj (Zofran Inj) (06/19/17 15:15) Basic Metabolic Panel (Bmp) (06/20/17 06:00) Complete Blood Count With Diff (06/20/17 06:00) Resp Oxygen Yusef C Titrat 1-4 L (06/19/17 ) Pt Request For Service (06/19/17 15:05) Case Management Consult (06/19/17 15:05) Scd Bilateral/Knee High ANAHY.BID (06/19/17 15:05) Acetaminophen (Tylenol) (06/19/17 15:15) Acetamin-Hydrocod 325-5 Mg (Cabool 5-325 (06/19/17 15:15) Acetamin-Hydrocod 325-10 Mg (Cabool 10-32 (06/19/17 15:15) Morphine Inj (Morphine Inj) (06/19/17 15:15) Naloxone Inj (Narcan Inj) (06/19/17 15:15) Docusate Sodium-Senna (Elva-Colace) (06/19/17 21:00) Sennosides (Senokot) (06/19/17 15:15) Bisacodyl Supp (Dulcolax Supp) (06/19/17 15:15) Lactulose Liq (Lactulose Liq) (06/19/17 15:15) ^ Fall Precautions (06/19/17 15:12) Patient Transfer (06/19/17 ) Labs Laboratory Tests Test 06/19/17 10:40 06/19/17 12:56 White Blood Count 15.6 TH/MM3 Red Blood Count 3.63 MIL/MM3 Hemoglobin 11.4 GM/DL Hematocrit 35.1 % Mean Corpuscular Volume 96.8 FL Mean Corpuscular Hemoglobin 31.3 PG Mean Corpuscular Hemoglobin Concent 32.3 % Red Cell Distribution Width 15.7 % Platelet Count 249 TH/MM3 Mean Platelet Volume 9.3 FL Neutrophils (%) (Auto) 90.2 % Lymphocytes (%) (Auto) 2.8 % Monocytes (%) (Auto) 5.7 % Eosinophils (%) (Auto) 0.8 % Basophils (%) (Auto) 0.5 % Neutrophils # (Auto) 14.1 TH/MM3 Lymphocytes # (Auto) 0.4 TH/MM3 Monocytes # (Auto) 0.9 TH/MM3 Eosinophils # (Auto) 0.1 TH/MM3 Basophils # (Auto) 0.1 TH/MM3 CBC Comment DIFF FINAL Differential Comment Prothrombin Time 10.1 SEC Prothromb Time International Ratio 1.0 RATIO Activated Partial Thromboplast Time 27.3 SEC Blood Urea Nitrogen 44 MG/DL Creatinine 8.79 MG/DL Random Glucose 328 MG/DL Calcium Level 9.1 MG/DL Sodium Level 136 MEQ/L Potassium Level 5.7 MEQ/L Chloride Level 103 MEQ/L Carbon Dioxide Level 21.0 MEQ/L Anion Gap 12 MEQ/L Estimat Glomerular Filtration Rate 4 ML/MIN [facility] Medical Decision Making Medical Screen Exam Complete: Yes Emergency Medical Condition: Yes Medical Record Reviewed: Yes Interpretation(s) Laboratory Tests Test 06/19/17 10:40 06/19/17 12:56 White Blood Count 15.6 TH/MM3 (4.0-11.0) Red Blood Count 3.63 MIL/MM3 (4.00-5.30) Hemoglobin 11.4 GM/DL (11.6-15.3) Neutrophils (%) (Auto) 90.2 % (16.0-70.0) Lymphocytes (%) (Auto) 2.8 % (9.0-44.0) Neutrophils # (Auto) 14.1 TH/MM3 (1.8-7.7) Lymphocytes # (Auto) 0.4 TH/MM3 (1.0-4.8) Blood Urea Nitrogen 44 MG/DL (7-18) Creatinine 8.79 MG/DL (0.50-1.00) Random Glucose 328 MG/DL (74-106) Potassium Level 5.7 MEQ/L (3.5-5.1) Estimat Glomerular Filtration Rate 4 ML/MIN (>89) Last 24 hours Impressions Elbow X-Ray 06/19/17 1040 Signed Impressions: Service Date/Time: Monday, June 19, 2017 11:04 - CONCLUSION: Unremarkable examination of the left elbow. Ray Bennett MD Lumbar Spine CT 06/19/17 1036 Signed Impressions: Service Date/Time: Monday, June 19, 2017 11:11 - CONCLUSION: Accentuated lordosis. Degenerative facet disease. No acute fracture or significant subluxation noted. Ray Bennett MD Head CT 06/19/17 1036 Signed Impressions: Service Date/Time: Monday, June 19, 2017 11:11 - CONCLUSION: No acute disease. Ray Bennett MD Chest CT 06/19/17 1036 Signed Impressions: Service Date/Time: Monday, June 19, 2017 11:11 - CONCLUSION: Mild basilar interstitial lung disease. No acute infiltrate. Cardiomegaly. Ray Bennett MD Cervical Spine CT 06/19/17 1036 Signed Impressions: Service Date/Time: Monday, June 19, 2017 11:11 - CONCLUSION: Normal examination except for degenerative disease at the C5-6 and C6-7. Scattered degenerative facet disease. No acute fracture. Ray Bennett MD Abdomen/Pelvis CT 06/19/17 0000 Signed Impressions: Service Date/Time: Monday, June 19, 2017 11:11 - CONCLUSION: 1. Bilateral renal cysts with atrophic kidneys. 2. Eventration of the anterior abdominal wall with at least two small bowel containing hernias in the pannus. No evidence of obstruction. Ray Bennett MD Differential Diagnosis Fall on stairs, back injury, rib injury, elbow injury: Contusions versus fractures versus intracranial injuries Narrative Course X-rays and CAT scans did not show any signs of acute injuries. Vital signs show fairly elevated blood pressure in the ER. Patient needs dialysis this morning. Lab work also shows that she needs dialysis. Case was discussed with Dr. Lee, patient's sagger soak for set up for dialysis today. At this point , patient will be admitted as an observation for dizziness, inability to get up on her own, multiple contusions, and for dialysis. Case was discussed with Dr. Adan for admission. Diagnosis Primary Impression: ESRD (end stage renal disease) Additional Impressions: Fall Hypertension Admitting Information Admitting Physician Requests: Admit Marisa Doherty MD Jun 19, 2017 10:48
[2017-06-19] MEDS ORDERED: ACET-534 PO (11:02)
[2017-06-19] MEDS ORDERED: NITR1CAP37 PO (11:02)
[2017-06-19] MEDS ORDERED: ATOR20TA15 PO (11:02)
[2017-06-19] MEDS ORDERED: GABA300C5 PO (11:02)
[2017-06-19] MEDS ORDERED: DILT180C7 PO (11:02)
[2017-06-19] MEDS ORDERED: BIOT1CHW PO (11:02)
[2017-06-19 11:17] LABS: HEMATOCRIT 35.1 % (35.0-46.0); HEMOGLOBIN 11.4 GM/DL (11.6-15.3); MEAN CELL VOLUME 96.8 FL (80.0-100.0); MEAN CORPUSCULAR HEMOGLOBIN 31.3 PG (27.0-34.0); MEAN CORPUSCULAR HGB CONC 32.3 % (32.0-36.0); RED BLOOD COUNT 3.63 MIL/MM3 (4.00-5.30); RED CELL DISTRIBUTION WIDTH 15.7 % (11.6-17.2); WHITE BLOOD COUNT 15.6 TH/MM3 (4.0-11.0)
[2017-06-19 11:18] LABS: AUTOMATED NEUTROPHIL # 14.1 TH/MM3 (1.8-7.7); BASOPHIL # 0.1 TH/MM3 (0-0.2); BASOPHIL % 0.5 % (0.0-2.0); EOSINOPHIL # 0.1 TH/MM3 (0-0.4); EOSINOPHIL % 0.8 % (0.0-4.0); LYMPH % 2.8 % (9.0-44.0); LYMPHOCYTE # 0.4 TH/MM3 (1.0-4.8); MEAN PLATELET VOLUME 9.3 FL (7.0-11.0); MONO % 5.7 % (0.0-8.0); MONOCYTE # 0.9 TH/MM3 (0-0.9); NEUT % 90.2 % (16.0-70.0); PLATELET COUNT 249 TH/MM3 (150-450)
--- NOTE | 2017-06-19 11:24 | RADRPT ---
EXAM DATE/TIME: 06/19/2017 11:04 [facility] COMPARISON: No previous studies available for comparison. INDICATIONS : Fall. Left olecranon pain. MEDICAL HISTORY : Hiatal hernia. Cardiovascular disease. Chronic obstructive pulmonary disease. SURGICAL HISTORY : Hysterectomy. AV fistula, left arm. ENCOUNTER: Initial ACUITY: 1 day PAIN SCORE: 7/10 LOCATION: Left olecranon FINDINGS: Multiple view examination of the left elbow demonstrates no soft tissue swelling, joint effusion, or fracture. The osseous structures are in normal alignment. Bony mineralization is normal. CONCLUSION: Unremarkable examination of the left elbow. Ray Bennett MD on June 19, 2017 at 11:21 Board Certified Radiologist. This report was verified electronically.
[2017-06-19 11:31] LABS: PROTHROMBIN TIME - PATIENT 10.1 SEC (9.8-11.6)
--- NOTE | 2017-06-19 11:37 | RADRPT ---
EXAM DATE/TIME: 06/19/2017 11:11 [facility] COMPARISON: CT BRAIN W/O CONTRAST, September 15, 2016, 23:30. INDICATIONS : Fell backwards and hit head. Generalized body pain. RADIATION DOSE: 56.35 CTDIvol (mGy) MEDICAL HISTORY : Renal disease, end stage. Hypertension. Carcinoma, ovarian. SURGICAL HISTORY : Hysterectomy. AV shunt ENCOUNTER: Initial ACUITY: 1 day PAIN SCALE: 6/10 LOCATION: Bilateral cranial TECHNIQUE: Multiple contiguous axial images were obtained of the head. Using automated exposure control and adj ustment of the mA and/or kV according to patient size, radiation dose was kept as low as reasonably a chievable to obtain optimal diagnostic quality images. DICOM format image data is available electro nically for review and comparison. FINDINGS: There is marked central and cortical atrophy with dilatation of ventricular and sulcal spaces. There is no parenchymal hemorrhage, acute infarction or mass lesion identified. There are no extra-axial fluid collections appreciated. The posterior fossa is unremarkable with midline fourth ventricle. T he portion of the orbits and paranasal sinuses visualized are unremarkable. CONCLUSION: No acute disease. Ray Bennett MD on June 19, 2017 at 11:34 Board Certified Radiologist. This report was verified electronically.
--- NOTE | 2017-06-19 11:52 | RADRPT ---
EXAM DATE/TIME: 06/19/2017 11:11 [facility] COMPARISON: CT THORAX W/O CONTRAST, August 31, 2014, 10:32. INDICATIONS : Fell backwards and hit head. Generalized body pain. RADIATION DOSE: 16.01 CTDIvol (mGy) ; Combined studies MEDICAL HISTORY : Renal disease, end stage. Hypertension. Carcinoma, ovarian. SURGICAL HISTORY : Hysterectomy. AV Shunt ENCOUNTER: Initial ACUITY: 1 day PAIN SCALE: 4/10 LOCATION: Bilateral chest TECHNIQUE: Volumetric scanning of the chest was performed. Using automated exposure control and adjustment of t he mA and/or kV according to patient size, radiation dose was kept as low as reasonably achievable to obtain optimal diagnostic quality images. DICOM format image data is available electronically for r eview and comparison. Follow-up recommendations for detected pulmonary nodules are based at a minimum on nodule size and pa tient risk factors according to Fleischner Society Guidelines. FINDINGS: LUNGS: There is no consolidation or pneumothorax. No concerning pulmonary nodule is visualized. Diffuse bas ilar interstitial lung disease is unchanged PLEURAE: There is no pleural thickening or pleural effusion. MEDIASTINUM: The heart and great vessels demonstrate no acute abnormality. There is no mediastinal or hilar lymph adenopathy. The heart is enlarged AXILLAE: Within normal limits. No lymphadenopathy. MUSCULOSKELETAL: Within normal limits for patient age. MISCELLANEOUS: The visualized upper abdominal organs demonstrate no acute abnormality. Atrophic kidneys with bilater al renal cysts CONCLUSION: Mild basilar interstitial lung disease. No acute infiltrate. Cardiomegaly. Ray Bennett MD on June 19, 2017 at 11:48 Board Certified Radiologist. This report was verified electronically.
--- NOTE | 2017-06-19 11:56 | RADRPT ---
EXAM DATE/TIME: 06/19/2017 11:11 [facility] COMPARISON: No previous studies available for comparison. INDICATIONS : Fell backwards and hit head. Generalized body pain. RADIATION DOSE: 24.27 CTDIvol (mGy) MEDICAL HISTORY : Hypertension. Renal disease, end stage. Carcinoma, ovarian. SURGICAL HISTORY : Hysterectomy. AV shunt ENCOUNTER: Initial ACUITY: 1 day PAIN SCALE: 4/10 LOCATION: neck TECHNIQUE: Volumetric scanning of the cervical spine was performed. Multiplanar reconstructions in the sagittal, coronal and oblique axial planes were performed. Using automated exposure control and adjustment o f the mA and/or kV according to patient size, radiation dose was kept as low as reasonably achievable to obtain optimal diagnostic quality images. DICOM format image data is available electronically f or review and comparison. FINDINGS: VERTEBRAE: Normal vertebral body height. ALIGNMENT: No evidence of subluxation. C2-C3: The bony spinal canal is normal in size. No evidence of disc bulge or herniation. The neural forami na are bilaterally patent. C3-C4: The bony spinal canal is normal in size. No evidence of disc bulge or herniation. The neural forami na are bilaterally patent. Left-sided degenerative facet disease. C4-C5: The bony spinal canal is normal in size. No evidence of disc bulge or herniation. The neural forami na are bilaterally patent. Right-sided degenerative facet disease. C5-C6: The bony spinal canal is normal in size. No evidence of disc bulge or herniation. The neural forami na are bilaterally patent. Right-sided degenerative facet disease. C6-C7: The bony spinal canal is normal in size. No evidence of disc bulge or herniation. The neural forami na are bilaterally patent. C7-T1: The bony spinal canal is normal in size. No evidence of disc bulge or herniation. The neural forami na are bilaterally patent. CONCLUSION: Normal examination except for degenerative disease at the C5-6 and C6-7. Scattered degenerative facet disease. No acute fracture. Ray Bennett MD on June 19, 2017 at 11:53 Board Certified Radiologist. This report was verified electronically.
--- NOTE | 2017-06-19 11:59 | RADRPT ---
EXAM DATE/TIME: 06/19/2017 11:11 [facility] COMPARISON: No previous studies available for comparison. INDICATIONS : Fell backwards and hit head. Generalized body pain. RADIATION DOSE: ; Reconstructed from previous dataset, no dose MEDICAL HISTORY : Hypertension. Renal disease, end stage. Carcinoma, ovarian. SURGICAL HISTORY : Hysterectomy. AV shunt ENCOUNTER: Initial ACUITY: 1 day PAIN SCALE: 7/10 LOCATION: Bilateral Paraspinal TECHNIQUE: Volumetric scanning of the lumbar spine was performed. Multiplanar reconstructions in the sagittal, coronal and oblique axial planes were performed. Using automated exposure control and adjustment of the mA and/or kV according to patient size, radiation dose was kept as low as reasonably achievable t o obtain optimal diagnostic quality images. DICOM format image data is available electronically for review and comparison. FINDINGS: VERTEBRAE: Normal vertebral body height. ALIGNMENT: Mild anterior spondylolisthesis of L4 on L5. Overall accentuated lordosis of the lumbar spine. No acu te fracture seen.. T12-L1: The thecal sac has a normal diameter. No evidence of disc bulge or protrusion. The neural foramina are patent bilaterally. L1-L2: The thecal sac has a normal diameter. No evidence of disc bulge or protrusion. The neural foramina are patent bilaterally. L2-L3: The thecal sac has a normal diameter. No evidence of disc bulge or protrusion. The neural foramina are patent bilaterally. L3-L4: The thecal sac has a normal diameter. No evidence of disc bulge or protrusion. The neural foramina are patent bilaterally. L4-L5: The thecal sac has a normal diameter. No evidence of disc bulge or protrusion. The neural foramina are patent bilaterally. L5-S1: The thecal sac has a normal diameter. No evidence of disc bulge or protrusion. The neural foramina are patent bilaterally. CONCLUSION: Accentuated lordosis. Degenerative facet disease. No acute fracture or significant subluxation noted. Ray Bennett MD on June 19, 2017 at 11:56 Board Certified Radiologist. This report was verified electronically.
--- NOTE | 2017-06-19 12:11 | RADRPT ---
EXAM DATE/TIME: 06/19/2017 11:11 [facility] COMPARISON: No previous studies available for comparison. INDICATIONS : Abdominal Pain ORAL CONTRAST: No oral contrast ingested. RADIATION DOSE: 16.01 CTDIvol (mGy) ; Combined studies MEDICAL HISTORY : Hypertension. Renal disease, end stage. Carcinoma, ovarian. SURGICAL HISTORY : Hyterectomy. AV Shunt ENCOUNTER: Initial ACUITY: 1 day PAIN SCALE: 5/10 LOCATION: Anterior TECHNIQUE: Volumetric scanning of the abdomen and pelvis was performed. Using automated exposure control and ad justment of the mA and/or kV according to patient size, radiation dose was kept as low as reasonably achievable to obtain optimal diagnostic quality images. DICOM format image data is available electro nically for review and comparison. FINDINGS: Non-contrast CT scan of the abdomen and pelvis demonstrates a very thin anterior abdominal wall with marked fatty atrophy. There are two distinct hernias in the anterior pelvis to the lower abdomen wit hin the pannus. Both contain loops of small bowel without evidence of obstruction, unchanged from th e previous study. Both kidneys are atrophic. There are bilateral renal cysts. The visualized unenhanced spleen, liver, pancreas, gallbladder are all unremarkable. There is no poncho dence of bowel obstruction. The bladder is unremarkable. There is marked generative facet disease lower lumbar spine. Suture of the sigmoid colon. CONCLUSION: 1. Bilateral renal cysts with atrophic kidneys. 2. Eventration of the anterior abdominal wall with at least two small bowel containing hernias in the pannus. No evidence of obstruction. Ray Bennett MD on June 19, 2017 at 11:47 Board Certified Radiologist. This report was verified electronically.
[2017-06-19 13:59] LABS: CALCIUM 9.1 MG/DL (8.5-10.1); CREATININE 8.79 MG/DL (0.50-1.00)
[2017-06-19] MEDS ORDERED: ACETAMINOPHEN/HYDROcodone 325 MG/5 MG TAB PO ONE (14:45)
[2017-06-19] MEDS ORDERED: SODIUM CHLOR 0.9% 1000 ML INJ 1,000 ML OTHER PRN ×2 (14:50)
[2017-06-19] MEDS ORDERED: SODIUM CHLOR 0.9% 1000 ML INJ 1,000 ML IV PRN (14:50)
[2017-06-19] MEDS ORDERED: GELATIN 12 MM/7 MM FOAM TOP PRN (15:00)
[2017-06-19] MEDS ORDERED: ONDANSETRON HCL 4 MG/2 ML VIAL IV PUSH PRN (15:00)
[2017-06-19] MEDS ORDERED: MANNITOL 12.5 GM/50 ML VIAL IV PRN (15:00)
[2017-06-19] MEDS ORDERED: NITROGLYCERIN 0.4 MG SL 25 TABS/BTL SL PRN (15:00)
[2017-06-19] MEDS ORDERED: SODIUM CHLORIDE 0.9% FLUSH 10 ML FLUSH IV FLUSH PRN ×2 (15:00→15:15)
[2017-06-19] MEDS ORDERED: cloNIDine HCL 0.1 MG TAB PO PRN (15:00)
[2017-06-19] MEDS ORDERED: EPOETIN ALFA 10,000 UNITS/ML VIAL IV PUSH PRN (15:00)
[2017-06-19] MEDS ORDERED: HEPARIN SODIUM - IV 10,000 UNITS/10 ML VIAL IV FLUSH PRN (15:00)
[2017-06-19] MEDS ORDERED: diphenhydrAMINE HCL 25 MG CAP PO PRN (15:00)
[2017-06-19] MEDS ORDERED: HEPARIN SODIUM - IV 10,000 UNITS/10 ML VIAL PRN (15:00)
[2017-06-19] MEDS ORDERED: GENTAMICIN SULFATE 20 MG/2 ML VIAL OTHER PRN (15:00)
[2017-06-19] MEDS ORDERED: ALBUMIN 25% INJ 100 ML IV PRN (15:00)
[2017-06-19] MEDS ORDERED: ACETAMINOPHEN 325 MG TAB PO PRN ×3 (15:00→15:15)
[2017-06-19] MEDS ORDERED: ACETAMINOPHEN/HYDROcodone 325 MG/5 MG TAB PO PRN (15:15)
[2017-06-19] MEDS ORDERED: hydrALAZINE HCL 20 MG/ML VIAL IV PUSH PRN (15:15)
[2017-06-19] MEDS ORDERED: LACTULOSE SYRUP 20 GM/30 ML CUP PO PRN (15:15)
[2017-06-19] MEDS ORDERED: DEXTROSE 50% IN WATER 50 ML VIAL(D50) IV PUSH PRN (15:15)
[2017-06-19] MEDS ORDERED: ONDANSETRON HCL 4 MG/2 ML VIAL IVP PRN (15:15)
[2017-06-19] MEDS ORDERED: BISACODYL 10 MG SUPP RECTAL PRN (15:15)
[2017-06-19] MEDS ORDERED: SENNOSIDES 8.6 MG TAB PO PRN (15:15)
[2017-06-19] MEDS ORDERED: GLUCAGON 1 MG/ML VIAL OTHER PRN (15:15)
[2017-06-19] MEDS ORDERED: NALOXONE HCL 0.4 MG/ML AMP IV PUSH PRN (15:15)
--- NOTE | 2017-06-19 16:06 | PD.CONS ---
HPI Service Nephrology Consult Requested By Reason for Consult End stage renal disease on Hemodialysis Primary Care Physician Non-Staff History of Present Illness Patient is a 77 year old female with past medical history of anemia, arthritis, hypertension, hyperlipidemia, diabetes, GERD, and end stage renal disease on hemodialysis. Patient presented to emergency room after a fall reported that she was dizzy. She was also found to be hypertension. Reported that when she was ambulating she had vertigo and fell. Nephrology is consulted for management of dialysis. (Yaneth Mauricio) Review of Systems Constitutional: COMPLAINS OF: Fatigue Ears, nose, mouth, throat: COMPLAINS OF: Vertigo Respiratory: DENIES: Sputum production, Shortness of breath Cardiovascular: COMPLAINS OF: Lower Extremity Edema, DENIES: Chest pain, Palpitations Gastrointestinal: DENIES: Constipation, Diarrhea, Nausea Musculoskeletal: COMPLAINS OF: Joint pain, Muscle aches, Back pain, Neck pain ( Yaneth Mauricio) Past Family Social History Allergies: Coded Allergies: Sulfa (Sulfonamide Antibiotics) (Verified Allergy, Severe, Rash, 06/19/17) ciprofloxacin (Verified Allergy, Severe, Rash, 06/19/17) ranitidine (Verified Allergy, Severe, Rash, 06/19/17) furosemide (Verified Allergy, Mild, Rash, 06/19/17) Past Medical History Anemia arthritis hypertension hyperlipidemia diabetes GERD end stage renal disease on hemodialysis Past Surgical History appendectomy cataract abdominal surgery for perforated bowel Lithotripsy Hysterectomy AV fistula left arm Active Ordered Medications Current Medications Medications (Trade) Dose Ordered Sig/Shanika Route Start Time Stop Time Status Last Admin Sodium Chloride 1,000 ml @ 0 mls/hr Q0M PRN OTHER 06/19/17 14:50 (Heparin Inj) 8,000 units UNSCH PRN IV FLUSH 06/19/17 15:00 Sodium Chloride 1,000 ml @ 200 mls/hr Q5H PRN IV 06/19/17 14:50 Sodium Chloride 1,000 ml @ 0 mls/hr Q0M PRN OTHER 06/19/17 14:50 (Mannitol Inj) 12.5 gm UNSCH PRN IV 06/19/17 15:00 Albumin Human 100 ml @ 60 mls/hr UNSCH PRN IV 06/19/17 15:00 (NS Flush) 5 ml UNSCH PRN IV FLUSH 06/19/17 15:00 (Heparin Inj) UNSCH PRN .XX 06/19/17 15:00 (Gentamicin Inj) 20 mg UNSCH PRN OTHER 06/19/17 15:00 (Zofran Inj) 4 mg UNSCH PRN IV PUSH 06/19/17 15:00 (Tylenol) 650 mg UNSCH PRN PO 06/19/17 15:00 (Benadryl) 25 mg UNSCH PRN PO 06/19/17 15:00 (Nitrostat Sl) 0.4 mg UNSCH PRN SL 06/19/17 15:00 (Catapres) 0.1 mg UNSCH PRN PO 06/19/17 15:00 (Epogen Inj) 4,000 units UNSCH PRN IV PUSH 06/19/17 15:00 (Gelfoam 12 Mm/7 Mm Top) 1 foam UNSCH PRN TOP 06/19/17 15:00 (Apresoline Inj) 10 mg Q6H PRN IV PUSH 06/19/17 15:15 (Catapres) 0.1 mg Q6H PRN PO 06/19/17 15:15 (D50w (Vial) Inj) 50 ml UNSCH PRN IV PUSH 06/19/17 15:15 (Glucagon Inj) 1 mg UNSCH PRN OTHER 06/19/17 15:15 (NovoLOG SUPPLEMENTAL SCALE) 1 ACHS SLIDING SCALE SQ 06/19/17 17:00 (NS Flush) 2 ml UNSCH PRN IV FLUSH 06/19/17 15:15 (NS Flush) 2 ml BID IV FLUSH 06/19/17 21:00 (Tylenol) 650 mg Q4H PRN PO 06/19/17 15:15 (Zofran Inj) 4 mg Q6H PRN IVP 06/19/17 15:15 (Tylenol) 650 mg Q6H PRN PO 06/19/17 15:15 (Howard 5-325 Mg) 1 tab Q4H PRN PO 06/19/17 15:15 (Howard 10-325 Mg) 1 tab Q4H PRN PO 06/19/17 15:15 (Morphine Inj) 1 mg Q3H PRN IV PUSH 06/19/17 15:15 (Narcan Inj) 0.4 mg UNSCH PRN IV PUSH 06/19/17 15:15 (Elva-Colace) 1 tab BID PO 06/19/17 21:00 (Senokot) 17.2 mg Q12H PRN PO 06/19/17 15:15 (Dulcolax Supp) 10 mg DAILY PRN RECTAL 06/19/17 15:15 (Lactulose Liq) 30 ml DAILY PRN PO 06/19/17 15:15 Social History Former smoker No alcohol use (Yaneth Mauricio) Physical Exam Vital Signs Vital Signs Date Time Temp Pulse Resp B/P (MAP) Pulse Ox O2 Delivery O2 Flow Rate FiO2 06/19/17 10:22 99.0 81 19 205/79 (121) 97 Physical Exam GENERAL: Alert and oriented SKIN: Warm and dry. HEAD: Normocephalic. EYES: No scleral icterus. No injection or drainage. NECK: Supple, trachea midline. No JVD or lymphadenopathy. CARDIOVASCULAR: Regular rate and rhythm without murmurs, gallops, or rubs. RESPIRATORY: Breath sounds equal bilaterally. No accessory muscle use. GASTROINTESTINAL: Abdomen soft, non-tender, nondistended. MUSCULOSKELETAL: No cyanosis. Lower extremity edema BACK: Nontender without obvious deformity. No CVA tenderness. Laboratory Laboratory Tests Test 06/19/17 10:40 06/19/17 12:56 White Blood Count 15.6 Red Blood Count 3.63 Hemoglobin 11.4 Hematocrit 35.1 Mean Corpuscular Volume 96.8 Mean Corpuscular Hemoglobin 31.3 Mean Corpuscular Hemoglobin Concent 32.3 Red Cell Distribution Width 15.7 Platelet Count 249 Mean Platelet Volume 9.3 Neutrophils (%) (Auto) 90.2 Lymphocytes (%) (Auto) 2.8 Monocytes (%) (Auto) 5.7 Eosinophils (%) (Auto) 0.8 Basophils (%) (Auto) 0.5 Neutrophils # (Auto) 14.1 Lymphocytes # (Auto) 0.4 Monocytes # (Auto) 0.9 Eosinophils # (Auto) 0.1 Basophils # (Auto) 0.1 CBC Comment DIFF FINAL Differential Comment Prothrombin Time 10.1 Prothromb Time International Ratio 1.0 Activated Partial Thromboplast Time 27.3 Blood Urea Nitrogen 44 Creatinine 8.79 Random Glucose 328 Calcium Level 9.1 Sodium Level 136 Potassium Level 5.7 Chloride Level 103 Carbon Dioxide Level 21.0 Anion Gap 12 Estimat Glomerular Filtration Rate 4 (Yaneth Mauricio) Result Diagram: 06/19/17 1040 06/19/17 1256 Imaging Last Impressions Elbow X-Ray 06/19/17 1040 Signed Impressions: Service Date/Time: Monday, June 19, 2017 11:04 - CONCLUSION: Unremarkable examination of the left elbow. Ray Bennett MD Lumbar Spine CT 06/19/17 1036 Signed Impressions: Service Date/Time: Monday, June 19, 2017 11:11 - CONCLUSION: Accentuated lordosis. Degenerative facet disease. No acute fracture or significant subluxation noted. Ray Bennett MD Head CT 06/19/17 1036 Signed Impressions: Service Date/Time: Monday, June 19, 2017 11:11 - CONCLUSION: No acute disease. Ray Bennett MD Chest CT 06/19/17 1036 Signed Impressions: Service Date/Time: Monday, June 19, 2017 11:11 - CONCLUSION: Mild basilar interstitial lung disease. No acute infiltrate. Cardiomegaly. Ray Bennett MD Cervical Spine CT 06/19/17 1036 Signed Impressions: Service Date/Time: Monday, June 19, 2017 11:11 - CONCLUSION: Normal examination except for degenerative disease at the C5-6 and C6-7. Scattered degenerative facet disease. No acute fracture. Ray Bennett MD Abdomen/Pelvis CT 06/19/17 0000 Signed Impressions: Service Date/Time: Monday, June 19, 2017 11:11 - CONCLUSION: 1. Bilateral renal cysts with atrophic kidneys. 2. Eventration of the anterior abdominal wall with at least two small bowel containing hernias in the pannus. No evidence of obstruction. Ray Bennett MD (Yaneth Mauricio) Assessment and Plan Problem List: (1) ESRD (end stage renal disease) ICD Codes: N18.6 - ESRD (end stage renal disease) Status: Acute Plan: End stage renal disease on hemodialysis M/W/F left AV fistula Plan Seen during Hemodialysis plan to remove 3 liters Patient is hypertensive and appears to be fluid overloaded with lower extremity edema. Hypertensive clonidine given (2) Hypertension ICD Codes: I10 - Hypertension Status: Acute Plan: Home medications to be resumed and PRN clonidine given (3) Fall ICD Codes: W19.XXXA - Unspecified fall, initial encounter Status: Acute Plan: Imaging done (Yaneth Mauricio) Problem List: (1) ESRD (end stage renal disease) ICD Codes: N18.6 - ESRD (end stage renal disease) Status: Acute Plan: End stage renal disease on hemodialysis M/W/F left AV fistula Plan Seen during Hemodialysis plan to remove 3 liters Patient is hypertensive and appears to be fluid overloaded with lower extremity edema. Hypertensive clonidine given. Patient seen and examined, agree with above. HD today and follow the BP. (2) Hypertension ICD Codes: I10 - Hypertension Status: Acute Plan: Home medications to be resumed and PRN clonidine given (3) Fall ICD Codes: W19.XXXA - Unspecified fall, initial encounter Status: Acute Plan: Imaging done (Lesley Lee MD) Yaneth Mauricio Jun 19, 2017 16:06 Lesley Lee MD Jun 20, 2017 18:46
--- NOTE | 2017-06-19 16:26 | HHI.HP ---
HPI Service [facility] Primary Care Physician Non-Staff Admission Diagnosis Hemodialysis/hypertensive urgency/dizziness/fall Diagnoses: Chief Complaint: Dizziness Travel History International Travel<30 Days: No Contact w/Intl Traveler <30 Da: No Traveled to Known Affected Are: No History of Present Illness This is a 77-year-old female who presents to the emergency room after a fall. Earlier this morning she was walking up is the stairs when she developed vertigo which is she described as lightheadedness and fell backwards hitting the back of her head and entire back. She was on the ground for 2 hours unable to get up because of pain. Trauma workup shows no acute fracture. She also reports of dizziness whenever she moves. Denies loss of consciousness, double vision, nausea, chest pain, shortness of breath, numbness and focal weakness. She was brought by her family to the emergency room where she was noted to have severely elevated BP. States her BP has been well controlled at home and has been compliant with her antihypertensive regimen. Patient seen in dialysis which was ordered urgently because of hyperkalemia. All other systems reviewed negative Review of Systems Except as stated in HPI: all other systems reviewed are Neg Past Family Social History Past Medical History As previously mentioned. Ovarian cancer, hyperlipidemia, COPD, diabetes mellitus, GERD, history of perforated bowel, arthritis and chronic UTI Past Surgical History Left AV fistula, ileostomy and reversal, Vas-Cath, cataract extraction, lithotripsy, hysterectomy Reported Medications Reported Meds & Active Scripts Active Reported Hair Skin & Nails (Biotin W/ Vitamins C & E) 1,250-7.5-7.5 Mcg-Mg-Unit Chew 1 Tab PO DAILY Acetaminophen/Codeine Bruno 300-30 mg (Acetaminophen W/ Codeine) 300 Mg-30 Mg Tab 1 Tab PO PRN Gabapentin 300 Mg Cap 300 Mg PO HS Nitrofurantoin Macrocrystal 50 Mg Cap 50 Mg PO DAILY Atorvastatin (Atorvastatin Calcium) 20 Mg Tab 20 Mg PO HS Diltiazem ER 24 HR (Diltiazem HCl) 180 Mg Caper 180 Mg PO DAILY Meclizine (Meclizine HCl) 25 Mg Tab 25 Mg PO DAILY PRN Bumetanide 2 Mg Tab 2 Mg PO DAILY Tums (Calcium Carbonate (Antacid)) 500 Mg Chew 1,000 Mg PO HS Aspirin Adult Low Strength (Aspirin) 81 Mg Tabdr 81 Mg PO DAILY Alannah-Julien (B-Complex W/ C & Folic Acid) 1 Tab 1 Tab PO DAILY Duoneb (Ipratropium-Albuterol Neb) 0.5-2.5 Mg/3 Ml Neb 3 Ml NEB Q6HR PRN Calcium Acetate (Phosphate Binder) 667 Mg Tab 1,334 Mg PO BID Hydralazine (Hydralazine HCl) 100 Mg Tab 100 Mg PO TID Take with meals Pantoprazole (Pantoprazole Sodium) 40 Mg Tab 40 Mg PO BID Catapres (Clonidine) 0.1 Mg Tab 0.1 Mg PO BID Losartan (Losartan Potassium) 100 Mg Tab 50 Mg PO DAILY Allergies: Coded Allergies: Sulfa (Sulfonamide Antibiotics) (Verified Allergy, Severe, Rash, 06/19/17) ciprofloxacin (Verified Allergy, Severe, Rash, 06/19/17) ranitidine (Verified Allergy, Severe, Rash, 06/19/17) furosemide (Verified Allergy, Mild, Rash, 06/19/17) *MDRO Multi-Drug Resistant Organism (Verified Adverse Reaction, Unknown, ) 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 Physical Exam Vital Signs Vital Signs Date Time Temp Pulse Resp B/P (MAP) Pulse Ox O2 Delivery O2 Flow Rate FiO2 06/19/17 10:22 99.0 81 19 205/79 (121) 97 Physical Exam GENERAL: This is a well-nourished, well-developed patient, in no apparent distress. SKIN: No rashes, ecchymoses or lesions. Cool and dry. HEAD: Tender occiput where she has contusion normocephalic. EYES: Pupils equal round and reactive. Extraocular motions intact. No scleral icterus. No injection or drainage. ENT: Nose without bleeding, purulent drainage or septal hematoma. Throat without erythema, tonsillar hypertrophy or exudate. Uvula midline. Airway patent. NECK: Trachea midline. No JVD or lymphadenopathy. Supple, nontender, no meningeal signs. CARDIOVASCULAR: Regular rate and rhythm without murmurs, gallops, or rubs. RESPIRATORY: Clear to auscultation. Breath sounds equal bilaterally. No wheezes , rales, or rhonchi. GASTROINTESTINAL: Abdomen soft, non-tender, nondistended. No guarding. MUSCULOSKELETAL: Extremities without clubbing, cyanosis with bilateral lower extremity pitting edema. Unable to examine her backside she is currently receiving hemodialysis NEUROLOGICAL: Awake and alert. Cranial nerves II through XII intact. Motor and sensory grossly within normal limits. Five out of 5 muscle strength in all muscle groups. Normal speech. Laboratory Laboratory Tests Test 06/19/17 10:40 06/19/17 12:56 White Blood Count 15.6 Red Blood Count 3.63 Hemoglobin 11.4 Hematocrit 35.1 Mean Corpuscular Volume 96.8 Mean Corpuscular Hemoglobin 31.3 Mean Corpuscular Hemoglobin Concent 32.3 Red Cell Distribution Width 15.7 Platelet Count 249 Mean Platelet Volume 9.3 Neutrophils (%) (Auto) 90.2 Lymphocytes (%) (Auto) 2.8 Monocytes (%) (Auto) 5.7 Eosinophils (%) (Auto) 0.8 Basophils (%) (Auto) 0.5 Neutrophils # (Auto) 14.1 Lymphocytes # (Auto) 0.4 Monocytes # (Auto) 0.9 Eosinophils # (Auto) 0.1 Basophils # (Auto) 0.1 CBC Comment DIFF FINAL Differential Comment Prothrombin Time 10.1 Prothromb Time International Ratio 1.0 Activated Partial Thromboplast Time 27.3 Blood Urea Nitrogen 44 Creatinine 8.79 Random Glucose 328 Calcium Level 9.1 Sodium Level 136 Potassium Level 5.7 Chloride Level 103 Carbon Dioxide Level 21.0 Anion Gap 12 Estimat Glomerular Filtration Rate 4 Result Diagram: 06/19/17 1040 06/19/17 1256 Imaging Last Impressions Elbow X-Ray 06/19/17 1040 Signed Impressions: Service Date/Time: Monday, June 19, 2017 11:04 - CONCLUSION: Unremarkable examination of the left elbow. Ray Bennett MD Lumbar Spine CT 06/19/17 1036 Signed Impressions: Service Date/Time: Monday, June 19, 2017 11:11 - CONCLUSION: Accentuated lordosis. Degenerative facet disease. No acute fracture or significant subluxation noted. Ray Bennett MD Head CT 06/19/17 1036 Signed Impressions: Service Date/Time: Monday, June 19, 2017 11:11 - CONCLUSION: No acute disease. Ray Bennett MD Chest CT 06/19/17 1036 Signed Impressions: Service Date/Time: Monday, June 19, 2017 11:11 - CONCLUSION: Mild basilar interstitial lung disease. No acute infiltrate. Cardiomegaly. Ray Bennett MD Cervical Spine CT 06/19/17 1036 Signed Impressions: Service Date/Time: Monday, June 19, 2017 11:11 - CONCLUSION: Normal examination except for degenerative disease at the C5-6 and C6-7. Scattered degenerative facet disease. No acute fracture. Ray Bennett MD Abdomen/Pelvis CT 06/19/17 0000 Signed Impressions: Service Date/Time: Monday, June 19, 2017 11:11 - CONCLUSION: 1. Bilateral renal cysts with atrophic kidneys. 2. Eventration of the anterior abdominal wall with at least two small bowel containing hernias in the pannus. No evidence of obstruction. Ray Bennett MD Caprini VTE Risk Assessment Caprini VTE Risk Assessment: Mod/High Risk (score >= 2) Caprini Risk Assessment Model Point Value = 1 Point Value = 2 Point Value = 3 Point Value = 5 Age 41-60 Minor surgery BMI > 25 kg/m2 Swollen legs Varicose veins or History of unexplained or recurrent spontaneous Oral contraceptives or hormone replacement Sepsis (< 1 month) Serious lung disease, including pneumonia (< 1 month) Abnormal pulmonary function Acute myocardial infarction Congestive heart failure (< 1 month) History of inflammatory bowel disease Medical patient at bed rest Age 61-74 Arthroscopic surgery Major open surgery (> 45 min) Laparoscopic surgery (> 45 min) Malignancy Confined to bed (> 72 hours) Immobilizing plaster cast Central venous access Age >= 75 History of VTE Family history of VTE Factor V Leiden Prothrombin [id number] Lupus anticoagulant Anticardiolipin antibodies Elevated serum homocysteine Heparin-induced thrombocytopenia Other congenital or acquired thrombophilia Stroke (< 1 month) Elective arthroplasty Hip, pelvis, or leg fracture Acute spinal cord injury (< 1 month) Prophylaxis Regimen Total Risk Factor Score Risk Level Prophylaxis Regimen 0-1 Low Early ambulation 2 Moderate Order ONE of the following: *Sequential Compression Device (SCD) *Heparin 5000 units SQ BID 3-4 Higher Order ONE of the following medications: *Heparin 5000 units SQ TID *Enoxaparin/Lovenox 40 mg SQ daily (WT < 150 kg, CrCl > 30 mL/min) *Enoxaparin/Lovenox 30 mg SQ daily (WT < 150 kg, CrCl > 10-29 mL/min) *Enoxaparin/Lovenox 30 mg SQ BID (WT < 150 kg, CrCl > 30 mL/min) AND/OR *Sequential Compression Device (SCD) 5 or more Highest Order ONE of the following medications: *Heparin 5000 units SQ TID (Preferred with Epidurals) *Enoxaparin/Lovenox 40 mg SQ daily (WT < 150 kg, CrCl > 30 mL/min) *Enoxaparin/Lovenox 30 mg SQ daily (WT < 150 kg, CrCl > 10-29 mL/min) *Enoxaparin/Lovenox 30 mg SQ BID (WT < 150 kg, CrCl > 30 mL/min) AND *Sequential Compression Device (SCD) Assessment and Plan Problem List: (1) ESRD (end stage renal disease) ICD Code: N18.6 - ESRD (end stage renal disease) Status: Acute (2) Hypertension ICD Code: I10 - Hypertension Status: Acute (3) Fall ICD Code: W19.XXXA - Unspecified fall, initial encounter Status: Acute Assessment and Plan This is a 77-year-old female who presents to the emergency room after a fall. Earlier this morning she was walking up is the stairs when she developed vertigo which is she described as lightheadedness and fell backwards hitting the back of her head and entire back. She was on the ground for 2 hours unable to get up because of pain. She also reports of dizziness whenever she moves. Denies loss of consciousness, double vision, nausea, chest pain, shortness of breath, numbness and focal weakness. She was brought by her family to the emergency room where she was noted to have severely elevated BP. States her BP has been well controlled at home and has been compliant with her antihypertensive regimen. Fall with multiple contusions. Fall precautions consult physical therapy. Will apply ice and start pain management with Lortab and IV morphine counseled regarding narcotics. Will avoid anticoagulants or antiplatelet secondary to history of head trauma. Neurochecks and monitor on telemetry Leukocytosis likely reactive we will continue to monitor. Patient has chronic UTI on antibiotic prophylaxis End-stage renal disease with hyperkalemia. Currently receiving hemodialysis Hypertension severely uncontrolled. Continue home medications which are diltiazem, Bumex, hydralazine, Catapres and losartan. Continue to monitor with as needed clonidine and hydralazine. May need Cardene drip. We will see if BP improved after hemodialysis. Multiple medical conditions of hyperlipidemia, COPD, diabetes mellitus, GERD and arthritis. Continue outpatient medications as appropriate DVT prophylaxis with SCD and early ambulation Discussed Condition With Patient Jabier Adan MD Jun 19, 2017 16:26
[2017-06-19] MEDS ORDERED: RESP: ALBUTEROL 2.5 MG/IPRATROPIUM 0.5 MG NEB (PRN) NEB (16:30)
[2017-06-19] MEDS ORDERED: MECLIZINE HCL 25 MG TAB PO PRN (16:30)
[2017-06-19 18:53] VITALS: BP 109/59
[2017-06-19 20:30] VITALS: BP 200/77; PULSE 88; RESP 20; TEMP 99.3; O2SAT 92
[2017-06-19] MEDS: SODIUM CHLORIDE 0.9% FLUSH 10 ML FLUSH IV FLUSH SCH (21:00)
[2017-06-19] MEDS: DOCUSATE SODIUM 50 MG/SENNA 8.6 MG TAB PO SCH (21:00)
[2017-06-19] MEDS: PANTOPRAZOLE SOD 40 MG DELAYED RELEASE TAB PO SCH (21:19)
[2017-06-19] MEDS: INSULIN ASPART SUPPLEMENTAL SCALE SQ SCH (21:19)
[2017-06-19] MEDS: ATORVASTATIN 20 MG TAB PO SCH (21:19)
[2017-06-19] MEDS: GABAPENTIN 300 MG CAP PO SCH (21:19)
[2017-06-19] MEDS: CALCIUM ACETATE 667 MG CAP PO SCH (21:20)
[2017-06-19] MEDS: hydrALAZINE HCL 100 MG TAB PO SCH (21:20)
[2017-06-19] MEDS: cloNIDine HCL 0.1 MG TAB PO SCH (21:20)
[2017-06-19] MEDS: CALCIUM CARBONATE 500 MG CHEWABLE TAB PO SCH (21:20)
[2017-06-19] MEDS: ACETAMINOPHEN/HYDROcodone 325 MG/10 MG TAB PO PRN (22:16)
[2017-06-19] MEDS: NITROFURANTOIN MONOHYD MACROCR 100 MG CAP PO SCH (22:16)
[2017-06-20] VITALS (10 sets, daily range): BP systolic 160–214; BP diastolic 70–85; PULSE 76–93; RESP 16–20; TEMP 97.3–99.5; O2SAT 91–98
[2017-06-20] MEDS: cloNIDine HCL 0.1 MG TAB PO PRN ×2 (00:47→23:43)
[2017-06-20 05:45] LABS: AUTOMATED NEUTROPHIL # 9.4 TH/MM3 (1.8-7.7); BASOPHIL % 0.4 % (0.0-2.0); EOSINOPHIL # 0.2 TH/MM3 (0-0.4); EOSINOPHIL % 1.7 % (0.0-4.0); HEMATOCRIT 32.1 % (35.0-46.0); HEMOGLOBIN 10.5 GM/DL (11.6-15.3); LYMPH % 5.8 % (9.0-44.0); LYMPHOCYTE # 0.7 TH/MM3 (1.0-4.8); MEAN CELL VOLUME 95.2 FL (80.0-100.0); MEAN CORPUSCULAR HEMOGLOBIN 31.1 PG (27.0-34.0); MEAN CORPUSCULAR HGB CONC 32.7 % (32.0-36.0); MEAN PLATELET VOLUME 8.4 FL (7.0-11.0); MONO % 8.7 % (0.0-8.0); NEUT % 83.4 % (16.0-70.0); PLATELET COUNT 254 TH/MM3 (150-450); RED BLOOD COUNT 3.37 MIL/MM3 (4.00-5.30); RED CELL DISTRIBUTION WIDTH 15.6 % (11.6-17.2); WHITE BLOOD COUNT 11.3 TH/MM3 (4.0-11.0)
[2017-06-20 06:21] LABS: BICARBONATE 30.1 MEQ/L (21.0-32.0); CALCIUM 9.2 MG/DL (8.5-10.1); CREATININE 6.01 MG/DL (0.50-1.00)
[2017-06-20] MEDS ORDERED: BIOTIN PO SCH (09:00)
[2017-06-20] MEDS: DOCUSATE SODIUM 50 MG/SENNA 8.6 MG TAB PO SCH ×2 (09:00→21:07)
[2017-06-20] MEDS ORDERED: BUMETANIDE 1 MG TAB PO SCH (09:00)
[2017-06-20] MEDS ORDERED: VITAMINS C PO SCH (09:00)
[2017-06-20] MEDS ORDERED: [UNRECOGNIZED DRUG - OTHER] PO SCH (09:00)
[2017-06-20] MEDS: LOSARTAN 50 MG TAB PO SCH (09:58)
[2017-06-20] MEDS: hydrALAZINE HCL 100 MG TAB PO SCH ×3 (09:58→17:35)
[2017-06-20] MEDS: PANTOPRAZOLE SOD 40 MG DELAYED RELEASE TAB PO SCH ×2 (09:58→21:07)
[2017-06-20] MEDS: VITAMIN B CMPLX/VITC/FOLIC AC CAP PO SCH (10:00)
[2017-06-20] MEDS: CALCIUM ACETATE 667 MG CAP PO SCH ×2 (10:00→21:07)
[2017-06-20] MEDS: cloNIDine HCL 0.1 MG TAB PO SCH ×2 (10:00→21:07)
[2017-06-20] MEDS: DILTIAZEM-CD 180 MG CAP ER PO SCH (10:00)
[2017-06-20] MEDS: INSULIN ASPART SUPPLEMENTAL SCALE SQ SCH ×4 (10:01→21:08)
[2017-06-20] MEDS: SODIUM CHLORIDE 0.9% FLUSH 10 ML FLUSH IV FLUSH SCH ×2 (10:01→21:07)
--- NOTE | 2017-06-20 14:14 | HHI.PR ---
Subjective Remarks Follow-up hypertension. States she was short of breath because she was not on oxygen at home she is on 2 L. Still has intermittent dizziness. She also complains of soreness in the back of her head and entire back from the fall. Patient has not been evaluated by physical therapy secondary to elevated BP. Discussed with nursing Objective Vitals Vital Signs Date Time Temp Pulse Resp B/P (MAP) Pulse Ox O2 Delivery O2 Flow Rate FiO2 06/20/17 12:00 98.6 80 18 171/70 (103) 95 06/20/17 11:11 98 Nasal Cannula 3.00 06/20/17 08:00 98.6 85 16 199/80 (119) 92 06/20/17 08:00 83 06/20/17 04:00 86 06/20/17 04:00 98.2 77 18 173/72 (105) 95 06/20/17 00:00 99.5 93 20 189/77 (114) 92 06/20/17 00:00 93 06/19/17 23:16 18 06/19/17 20:30 99.3 88 20 200/77 (118) 92 06/19/17 19:35 06/19/17 18:53 109/59 (76) I/O 06/19/17 06/19/17 06/19/17 06/20/17 06/20/17 06/20/17 07:00 15:00 23:00 07:00 15:00 23:00 Output Total 3000 ml Balance -3000 ml Output Hemodialysis 3000 ml # Bowel Movements 1 Result Diagram: 06/20/17 0528 06/20/17 0528 Imaging Last Impressions Elbow X-Ray 06/19/17 1040 Signed Impressions: Service Date/Time: Monday, June 19, 2017 11:04 - CONCLUSION: Unremarkable examination of the left elbow. Ray Bennett MD Lumbar Spine CT 06/19/17 1036 Signed Impressions: Service Date/Time: Monday, June 19, 2017 11:11 - CONCLUSION: Accentuated lordosis. Degenerative facet disease. No acute fracture or significant subluxation noted. Ray Bennett MD Head CT 06/19/17 1036 Signed Impressions: Service Date/Time: Monday, June 19, 2017 11:11 - CONCLUSION: No acute disease. Ray Bennett MD Chest CT 06/19/17 1036 Signed Impressions: Service Date/Time: Monday, June 19, 2017 11:11 - CONCLUSION: Mild basilar interstitial lung disease. No acute infiltrate. Cardiomegaly. Ray Bennett MD Cervical Spine CT 06/19/17 1036 Signed Impressions: Service Date/Time: Monday, June 19, 2017 11:11 - CONCLUSION: Normal examination except for degenerative disease at the C5-6 and C6-7. Scattered degenerative facet disease. No acute fracture. Ray Bennett MD Abdomen/Pelvis CT 06/19/17 0000 Signed Impressions: Service Date/Time: Monday, June 19, 2017 11:11 - CONCLUSION: 1. Bilateral renal cysts with atrophic kidneys. 2. Eventration of the anterior abdominal wall with at least two small bowel containing hernias in the pannus. No evidence of obstruction. Ray Bennett MD Objective Remarks GENERAL: This is a well-nourished, well-developed patient, in no apparent distress. SKIN: No rashes, ecchymoses or lesions. Cool and dry. HEAD: Tender occiput where she has contusion normocephalic. CARDIOVASCULAR: Regular rate and rhythm without murmurs, gallops, or rubs. RESPIRATORY: Clear to auscultation. Breath sounds equal bilaterally. No wheezes , rales, or rhonchi. GASTROINTESTINAL: Abdomen soft, non-tender, nondistended. No guarding. MUSCULOSKELETAL: Extremities without clubbing, cyanosis with bilateral lower extremity pitting edema. NEUROLOGICAL: Awake and alert. Cranial nerves II through XII intact. Motor and sensory grossly within normal limits. Five out of 5 muscle strength in all muscle groups. Normal speech. Procedures none A/P Problem List: (1) ESRD (end stage renal disease) ICD Code: N18.6 - ESRD (end stage renal disease) Status: Acute (2) Hypertension ICD Code: I10 - Hypertension Status: Acute (3) Fall ICD Code: W19.XXXA - Unspecified fall, initial encounter Status: Acute Assessment and Plan This is a 77-year-old female who presents to the emergency room after a fall. Earlier this morning she was walking up is the stairs when she developed vertigo which is she described as lightheadedness and fell backwards hitting the back of her head and entire back. She was on the ground for 2 hours unable to get up because of pain. She also reports of dizziness whenever she moves. Denies loss of consciousness, double vision, nausea, chest pain, shortness of breath, numbness and focal weakness. She was brought by her family to the emergency room where she was noted to have severely elevated BP. States her BP has been well controlled at home and has been compliant with her antihypertensive regimen. Fall with multiple contusions. Fall precautions consulted physical therapy. Will apply ice and start pain management with Lortab and IV morphine counseled regarding narcotics. Will avoid anticoagulants or antiplatelet secondary to history of head trauma. Neurochecks and monitor on telemetry Leukocytosis likely reactive we will continue to monitor. Patient has chronic UTI on antibiotic prophylaxis. Improving End-stage renal disease with hyperkalemia. Continue hemodialysis Hypertension severely uncontrolled. Continue home medications which are diltiazem, Bumex, hydralazine, Catapres and losartan. Increase clonidine to 0.2 mg twice a day. Continue to monitor with as needed clonidine and hydralazine. May need Cardene drip. Multiple medical conditions of hyperlipidemia, COPD, diabetes mellitus, GERD and arthritis. Continue outpatient medications as appropriate. Hyperglycemic continue sliding-scale obtain A1c consider long-acting insulin. Diabetic education DVT prophylaxis with SCD and early ambulation Discharge Planning Discharge in 1-2 days Jabier Adan MD Jun 20, 2017 14:14
[2017-06-20] MEDS: ACETAMINOPHEN/HYDROcodone 325 MG/10 MG TAB PO PRN ×2 (17:37→23:44)
[2017-06-20 19:06] LABS: HEMOGLOBIN A1C 9.1 % (4.3-6.0)
--- NOTE | 2017-06-20 19:14 | HHI.NPPN ---
Subjective General Problems: Anemia, Edema, Heart Disease, Hypertension Renal Failure: End Stage Renal Disease History of Present Illness 77 year old female with past medical history of anemia, arthritis, hypertension , hyperlipidemia, diabetes, GERD, and end stage renal disease on hemodialysis. Patient presented to emergency room after a fall reported that she was dizzy. She was also found to be hypertension. Reported that when she was ambulating she had vertigo and fell. Nephrology is consulted for management of dialysis. Review of Systems General Constitutional: Fatigue Respiratory Lungs: Wheeze Cardiovascular Cardiac: Edema, TAI Objective Data Data 06/20/17 06/21/17 19:00 07:00 Intake Total 480 ml Balance 480 ml Intake Oral 480 ml # Voids 0 # Bowel Movements 0 Vital Signs Date Time Temp Pulse Resp B/P (MAP) Pulse Ox O2 Delivery O2 Flow Rate FiO2 06/20/17 12:00 98.6 80 18 171/70 (103) 95 06/20/17 11:11 98 Nasal Cannula 3.00 06/20/17 08:00 98.6 85 16 199/80 (119) 92 06/20/17 08:00 83 06/20/17 04:00 86 06/20/17 04:00 98.2 77 18 173/72 (105) 95 06/20/17 00:00 99.5 93 20 189/77 (114) 92 06/20/17 00:00 93 06/19/17 23:16 18 06/19/17 20:30 99.3 88 20 200/77 (118) 92 06/19/17 19:35 -: 06/20/17 0528 06/20/17 0528 Physical Exam General Appearance: No Acute Distress, Comfortable Eyes Eye Exam: Pupils Equal Throat Throat Exam: Oral Mucosa [place] & Moist Neck Neck Exam: Neck Supple Pulmonary Resp Exam: No Distress, Rhonchi, Decreased Bases, Diminished Breath Sounds Cardiology CV Exam: Regular, Normal Sinus Rhythm Gastrointestinal/Abdomen GI Exam: Soft, Non-Tender, Bowel Sounds Present Extremeties Extremities Exam: Moderate Edema, Pitting Edema, Dependent Edema Neurologic Neuro Exam: Alert, Awake, Oriented Psychiatric Psych Exam: Appropriate Responses Assessment/Plan Assessment Summary: Hypertension, End Stage Renal Disease Problem List: (1) ESRD (end stage renal disease) ICD Codes: N18.6 - ESRD (end stage renal disease) Status: Acute Plan: End stage renal disease on hemodialysis M/W/F left AV fistula Plan Patient is hypertensive and appears to be fluid overloaded with lower extremity edema. Hypertensive clonidine given. BP is better today. HD done yesterday. Still has dizziness, and headache off and on. HD in AM, possibly to go to SNF. (2) Hypertension ICD Codes: I10 - Hypertension Status: Acute Plan: Home medications to be resumed and PRN clonidine given (3) Fall ICD Codes: W19.XXXA - Unspecified fall, initial encounter Status: Acute Plan: Imaging done Lesley Lee MD Jun 20, 2017 19:14
[2017-06-20] MEDS: MORPHINE SULFATE 2 MG/ML SYRINGE IV PUSH PRN (19:35)
[2017-06-20] MEDS: CALCIUM CARBONATE 500 MG CHEWABLE TAB PO SCH (21:07)
[2017-06-20] MEDS: ATORVASTATIN 20 MG TAB PO SCH (21:07)
[2017-06-20] MEDS: GABAPENTIN 300 MG CAP PO SCH (21:07)
[2017-06-20] MEDS: NITROFURANTOIN MONOHYD MACROCR 100 MG CAP PO SCH (21:07)
[2017-06-21] VITALS (10 sets, daily range): BP systolic 118–194; BP diastolic 62–79; PULSE 73–86; RESP 18–20; TEMP 98.3–98.9; O2SAT 92–95
[2017-06-21] MEDS: MORPHINE SULFATE 2 MG/ML SYRINGE IV PUSH PRN (05:03)
[2017-06-21] MEDS: INSULIN ASPART SUPPLEMENTAL SCALE SQ SCH ×4 (08:00→21:00)
[2017-06-21] MEDS: SODIUM CHLORIDE 0.9% FLUSH 10 ML FLUSH IV FLUSH SCH ×2 (09:00→21:00)
[2017-06-21] MEDS: cloNIDine HCL 0.1 MG TAB PO SCH ×2 (09:15→21:00)
[2017-06-21] MEDS: DILTIAZEM-CD 180 MG CAP ER PO SCH (09:15)
[2017-06-21] MEDS: LOSARTAN 50 MG TAB PO SCH (09:15)
[2017-06-21] MEDS: ACETAMINOPHEN/HYDROcodone 325 MG/10 MG TAB PO PRN (09:16)
[2017-06-21] MEDS: BUMETANIDE 1 MG TAB PO SCH (09:16)
[2017-06-21] MEDS: PANTOPRAZOLE SOD 40 MG DELAYED RELEASE TAB PO SCH ×2 (09:16→21:00)
[2017-06-21] MEDS: VITAMIN B CMPLX/VITC/FOLIC AC CAP PO SCH (09:16)
[2017-06-21] MEDS: DOCUSATE SODIUM 50 MG/SENNA 8.6 MG TAB PO SCH ×2 (09:17→21:00)
[2017-06-21] MEDS: hydrALAZINE HCL 100 MG TAB PO SCH ×3 (09:17→17:15)
[2017-06-21] MEDS: CALCIUM ACETATE 667 MG CAP PO SCH ×2 (09:17→21:00)
[2017-06-21] MEDS ORDERED: CLON.1 PO (09:22)
[2017-06-21] MEDS ORDERED: HYDR-3583 PO (09:22)
--- NOTE | 2017-06-21 09:23 | HHI.DCPOC ---
Discharge Care Plan Diagnosis: (1) ESRD (end stage renal disease) Your Health Problems Are: Difficulty with ADL Exercise Tolerance Goals to Promote Your Health * To prevent worsening of your condition and complications * To maintain your health at the optimal level Directions to Meet Your Goals Take your medications as prescribed Follow your dietary instruction Follow activity as directed Keep your appointments as scheduled Take your immunizations and boosters as scheduled If your symptoms worsen call your PCP, if no PCP go to Urgent Care Center or Emergency Room Smoking is Dangerous to Your Health. Avoid second hand smoke Call the 24-hour hour crisis hotline for domestic abuse at Jabier Adan MD Jun 21, 2017 09:23
--- NOTE | 2017-06-21 09:41 | HHI.PR ---
Subjective Remarks Follow-up hypertension and end-stage disease. States she is still sore but getting better. Agrees with rehabilitation. BP improving. Discussed with nurse Objective Vitals Vital Signs Date Time Temp Pulse Resp B/P (MAP) Pulse Ox O2 Delivery O2 Flow Rate FiO2 06/21/17 04:15 98.3 76 18 162/67 (98) 94 06/21/17 03:42 76 06/21/17 00:45 168/78 (108) 06/20/17 23:43 91 06/20/17 23:37 99.2 85 18 214/85 (128) 93 06/20/17 22:21 High Flow Nasal Cannula 3.00 06/20/17 19:53 97.3 84 18 160/70 (100) 91 06/20/17 19:47 88 06/20/17 16:00 76 06/20/17 12:00 80 06/20/17 12:00 98.6 80 18 171/70 (103) 95 06/20/17 11:11 98 Nasal Cannula 3.00 I/O 06/20/17 06/20/17 06/20/17 06/21/17 06/21/17 06/21/17 07:00 15:00 23:00 07:00 15:00 23:00 Intake Total 480 ml 240 ml Balance 480 ml 240 ml Intake Oral 480 ml 240 ml # Voids 0 1 # Bowel Movements 1 0 0 Result Diagram: 06/20/17 0528 06/20/17 0528 Imaging Last Impressions Elbow X-Ray 06/19/17 1040 Signed Impressions: Service Date/Time: Monday, June 19, 2017 11:04 - CONCLUSION: Unremarkable examination of the left elbow. Ray Bennett MD Lumbar Spine CT 06/19/17 103 Signed Impressions: Service Date/Time: Monday, June 19, 2017 11:11 - CONCLUSION: Accentuated lordosis. Degenerative facet disease. No acute fracture or significant subluxation noted. Ray Bennett MD Head CT 06/19/17 103 Signed Impressions: Service Date/Time: Monday, June 19, 2017 11:11 - CONCLUSION: No acute disease. Ray Bennett MD Chest CT 06/19/17 103 Signed Impressions: Service Date/Time: Monday, June 19, 2017 11:11 - CONCLUSION: Mild basilar interstitial lung disease. No acute infiltrate. Cardiomegaly. Ray Bennett MD Cervical Spine CT 06/19/17 1036 Signed Impressions: Service Date/Time: Monday, June 19, 2017 11:11 - CONCLUSION: Normal examination except for degenerative disease at the C5-6 and C6-7. Scattered degenerative facet disease. No acute fracture. Ray Bennett MD Abdomen/Pelvis CT 06/19/17 0000 Signed Impressions: Service Date/Time: Monday, June 19, 2017 11:11 - CONCLUSION: 1. Bilateral renal cysts with atrophic kidneys. 2. Eventration of the anterior abdominal wall with at least two small bowel containing hernias in the pannus. No evidence of obstruction. Ray Bennett MD Objective Remarks GENERAL: This is a well-nourished, well-developed patient, in no apparent distress. SKIN: No rashes, ecchymoses or lesions. Cool and dry. HEAD: Tender occiput where she has contusion normocephalic. CARDIOVASCULAR: Regular rate and rhythm without murmurs, gallops, or rubs. RESPIRATORY: Clear to auscultation. Breath sounds equal bilaterally. No wheezes , rales, or rhonchi. GASTROINTESTINAL: Abdomen soft, non-tender, nondistended. No guarding. MUSCULOSKELETAL: Extremities without clubbing, cyanosis with bilateral lower extremity pitting edema. NEUROLOGICAL: Awake and alert. Cranial nerves II through XII intact. Motor and sensory grossly within normal limits. Five out of 5 muscle strength in all muscle groups. Normal speech. Procedures none A/P Problem List: (1) ESRD (end stage renal disease) ICD Code: N18.6 - ESRD (end stage renal disease) Status: Acute (2) Hypertension ICD Code: I10 - Hypertension Status: Acute (3) Fall ICD Code: W19.XXXA - Unspecified fall, initial encounter Status: Acute Assessment and Plan This is a 77-year-old female who presents to the emergency room after a fall. Earlier this morning she was walking up is the stairs when she developed vertigo which is she described as lightheadedness and fell backwards hitting the back of her head and entire back. She was on the ground for 2 hours unable to get up because of pain. She also reports of dizziness whenever she moves. Denies loss of consciousness, double vision, nausea, chest pain, shortness of breath, numbness and focal weakness. She was brought by her family to the emergency room where she was noted to have severely elevated BP. States her BP has been well controlled at home and has been compliant with her antihypertensive regimen. Fall with multiple contusions. Stable fall precautions consulted physical therapy. Will apply ice and start pain management with Lortab and IV morphine counseled regarding narcotics. Will avoid anticoagulants or antiplatelet secondary to history of head trauma. Neurochecks and monitor on telemetry Leukocytosis likely reactive we will continue to monitor. Patient has chronic UTI on antibiotic prophylaxis. Improving End-stage renal disease with hyperkalemia. Continue hemodialysis Hypertension severely uncontrolled. Improving with increased dose of Catapres. Continue home medications which are diltiazem, Bumex, hydralazine and losartan. Continue to monitor with as needed clonidine and hydralazine. Multiple medical conditions of hyperlipidemia, COPD, diabetes mellitus, GERD and arthritis. Continue outpatient medications as appropriate. Hyperglycemic continue sliding-scale A1c 9.1 consider long-acting insulin. Diabetic education DVT prophylaxis with SCD and early ambulation Discharge Planning Stable for discharge to alf facility Jabier Adan MD Jun 21, 2017 09:41
--- NOTE | 2017-06-21 09:42 | HHI.DS ---
Discharge Summary Admission Date Jun 19, 2017 at 15:10 Discharge Date: Jun 22, 2017 Admitting Diagnosis Hemodialysis/hypertensive urgency/dizziness/fall (1) ESRD (end stage renal disease) ICD Code: N18.6 - ESRD (end stage renal disease) Diagnosis: Principal Status: Acute (2) Hypertension ICD Code: I10 - Hypertension Diagnosis: Principal Status: Acute (3) Fall ICD Code: W19.XXXA - Unspecified fall, initial encounter Diagnosis: Principal Status: Acute Procedures none Brief History - From Admission This is a 77-year-old female who presents to the emergency room after a fall. Earlier this morning she was walking up is the stairs when she developed vertigo which is she described as lightheadedness and fell backwards hitting the back of her head and entire back. She was on the ground for 2 hours unable to get up because of pain. Trauma workup shows no acute fracture. She also reports of dizziness whenever she moves. Denies loss of consciousness, double vision, nausea, chest pain, shortness of breath, numbness and focal weakness. She was brought by her family to the emergency room where she was noted to have severely elevated BP. States her BP has been well controlled at home and has been compliant with her antihypertensive regimen. Patient seen in dialysis which was ordered urgently because of hyperkalemia. All other systems reviewed negative CBC/BMP: 06/20/17 0528 06/20/17 0528 Significant Findings Laboratory Tests Test 06/19/17 10:40 06/19/17 12:56 06/20/17 05:28 White Blood Count 15.6 TH/MM3 (4.0-11.0) 11.3 TH/MM3 (4.0-11.0) Red Blood Count 3.63 MIL/MM3 (4.00-5.30) 3.37 MIL/MM3 (4.00-5.30) Hemoglobin 11.4 GM/DL (11.6-15.3) 10.5 GM/DL (11.6-15.3) Neutrophils (%) (Auto) 90.2 % (16.0-70.0) 83.4 % (16.0-70.0) Lymphocytes (%) (Auto) 2.8 % (9.0-44.0) 5.8 % (9.0-44.0) Neutrophils # (Auto) 14.1 TH/MM3 (1.8-7.7) 9.4 TH/MM3 (1.8-7.7) Lymphocytes # (Auto) 0.4 TH/MM3 (1.0-4.8) 0.7 TH/MM3 (1.0-4.8) Blood Urea Nitrogen 44 MG/DL (7-18) 25 MG/DL (7-18) Creatinine 8.79 MG/DL (0.50-1.00) 6.01 MG/DL (0.50-1.00) Random Glucose 328 MG/DL (74-106) 163 MG/DL (74-106) Potassium Level 5.7 MEQ/L (3.5-5.1) Estimat Glomerular Filtration Rate 4 ML/MIN (>89) 7 ML/MIN (>89) Hematocrit 32.1 % (35.0-46.0) Monocytes (%) (Auto) 8.7 % (0.0-8.0) Monocytes # (Auto) 1.0 TH/MM3 (0-0.9) Hemoglobin A1c 9.1 % (4.3-6.0) Imaging Last Impressions Elbow X-Ray 06/19/17 1040 Signed Impressions: Service Date/Time: Monday, June 19, 2017 11:04 - CONCLUSION: Unremarkable examination of the left elbow. Ray Bennett MD Lumbar Spine CT 06/19/17 1036 Signed Impressions: Service Date/Time: Monday, June 19, 2017 11:11 - CONCLUSION: Accentuated lordosis. Degenerative facet disease. No acute fracture or significant subluxation noted. Ray Bennett MD Head CT 06/19/17 1036 Signed Impressions: Service Date/Time: Monday, June 19, 2017 11:11 - CONCLUSION: No acute disease. Ray Bennett MD Chest CT 06/19/17 1036 Signed Impressions: Service Date/Time: Monday, June 19, 2017 11:11 - CONCLUSION: Mild basilar interstitial lung disease. No acute infiltrate. Cardiomegaly. Ray Bennett MD Cervical Spine CT 06/19/17 1036 Signed Impressions: Service Date/Time: Monday, June 19, 2017 11:11 - CONCLUSION: Normal examination except for degenerative disease at the C5-6 and C6-7. Scattered degenerative facet disease. No acute fracture. Ray Bennett MD Abdomen/Pelvis CT 06/19/17 0000 Signed Impressions: Service Date/Time: Monday, June 19, 2017 11:11 - CONCLUSION: 1. Bilateral renal cysts with atrophic kidneys. 2. Eventration of the anterior abdominal wall with at least two small bowel containing hernias in the pannus. No evidence of obstruction. Ray Bennett MD PE at Discharge GENERAL: This is a well-nourished, well-developed patient, in no apparent distress. SKIN: No rashes, ecchymoses or lesions. Cool and dry. HEAD: Tender occiput where she has contusion normocephalic. CARDIOVASCULAR: Regular rate and rhythm without murmurs, gallops, or rubs. RESPIRATORY: Clear to auscultation. Breath sounds equal bilaterally. No wheezes , rales, or rhonchi. GASTROINTESTINAL: Abdomen soft, non-tender, nondistended. No guarding. MUSCULOSKELETAL: Extremities without clubbing, cyanosis with bilateral lower extremity pitting edema. NEUROLOGICAL: Awake and alert. Cranial nerves II through XII intact. Motor and sensory grossly within normal limits. Five out of 5 muscle strength in all muscle groups. Normal speech. Hospital Course This is a 77-year-old female who presents to the emergency room after a fall. Earlier this morning she was walking up is the stairs when she developed vertigo which is she described as lightheadedness and fell backwards hitting the back of her head and entire back. She was on the ground for 2 hours unable to get up because of pain. She also reports of dizziness whenever she moves. Denies loss of consciousness, double vision, nausea, chest pain, shortness of breath, numbness and focal weakness. She was brought by her family to the emergency room where she was noted to have severely elevated BP. States her BP has been well controlled at home and has been compliant with her antihypertensive regimen. Fall with multiple contusions. Stable fall precautions consulted physical therapy. Will apply ice and start pain management with Lortab and IV morphine counseled regarding narcotics. Will avoid anticoagulants or antiplatelet secondary to history of head trauma. Neurochecks and monitor on telemetry Leukocytosis likely reactive we will continue to monitor. Patient has chronic UTI on antibiotic prophylaxis. Improving End-stage renal disease with hyperkalemia. Continue hemodialysis Hypertension severely uncontrolled. Improving will increase ARB, clonidine already increased. Continue home medications which are diltiazem, Bumex and hydralazine. Continue to monitor with as needed clonidine and hydralazine. Multiple medical conditions of hyperlipidemia, COPD, diabetes mellitus, GERD and arthritis. Continue outpatient medications as appropriate. Hyperglycemic continue sliding-scale A1c 9.1 consider long-acting insulin. Diabetic education DVT prophylaxis with SCD and early ambulation Pt Condition on Discharge: Stable Discharge Disposition: Discharge to SNF Discharge Time: > 30 minutes Discharge Instructions DIET: Follow Instructions for: Diabetic Diet, Renal Failure Diet Activities you can perform: Regular-No Restrictions Activities to Avoid: Driving Follow up Referrals: Nephrology - 1 Week PCP Follow-up - 2-3 Days New Medications: Clonidine (Catapres) 0.1 Mg Tab 0.2 MG PO BID for Blood Pressure Management, #120 TAB Hydrocodone/Acetaminophen (Hydrocodone-Acetamin 10-325 mg) 10 Mg-325 Mg Tablet 1 TAB PO Q4H PRN for PAIN SCALE 6 TO 10, #12 TAB Continued Medications: Aspirin DR (Aspirin Adult Low Strength) 81 Mg Tabdr 81 MG PO DAILY, TAB Atorvastatin (Atorvastatin) 20 Mg Tab 20 MG PO HS for Cholesterol Management, #30 TAB 0 Refills B-Complex W/ C & Folic Acid (Alannah-Julien) 1 Tab 1 TAB PO DAILY, TAB Biotin W/ Vitamins C & E (Hair Skin & Nails) 1,250-7.5-7.5 Mcg-Mg-Unit Chew 1 TAB PO DAILY Bumetanide (Bumetanide) 2 Mg Tab 2 MG PO DAILY, TAB 0 Refills Calcium Acetate (Phosphate Binder) (Calcium Acetate (Phosphate Binder)) 667 Mg Tab 1334 MG PO BID for Hyperphosphatemia, #180 TAB 0 Refills Calcium Carbonate (Antacid) (Tums) 500 Mg Chew 1000 MG PO HS for HEARTBURN, TAB 0 Refills Diltiazem ER 24 HR (Diltiazem ER 24 HR) 180 Mg Caper 180 MG PO DAILY, CAP Gabapentin (Gabapentin) 300 Mg Cap 300 MG PO HS, #30 CAP 0 Refills Hydralazine (Hydralazine) 100 Mg Tab 100 MG PO TID for Blood Pressure Management, TAB 0 Refills Take with meals Ipratropium-Albuterol Neb (Duoneb) 0.5-2.5 Mg/3 Ml Neb 3 ML NEB Q6HR PRN for SHORTNESS OF BREATH, #30 NEBULE 0 Refills Losartan (Losartan) 100 Mg Tab 50 MG PO DAILY for Blood Pressure Management, #30 TAB 0 Refills Meclizine (Meclizine) 25 Mg Tab 25 MG PO DAILY PRN for VERTIGO, TAB 0 Refills Nitrofurantoin Macrocrystal (Nitrofurantoin Macrocrystal) 50 Mg Cap 50 MG PO DAILY for Infection, CAP 0 Refills Pantoprazole (Pantoprazole) 40 Mg Tab 40 MG PO BID for Reflux, #30 TAB 0 Refills Jabier Adan MD Jun 21, 2017 09:42
--- NOTE | 2017-06-21 10:50 | HHI.NPPN ---
Subjective General Problems: Anemia, Edema, Heart Disease, Hypertension Renal Failure: End Stage Renal Disease History of Present Illness 77 year old female with past medical history of anemia, arthritis, hypertension , hyperlipidemia, diabetes, GERD, and end stage renal disease on hemodialysis. Patient presented to emergency room after a fall reported that she was dizzy. She was also found to be hypertension. Reported that when she was ambulating she had vertigo and fell. Nephrology is consulted for management of dialysis. Additional Remarks Mild shortness of breath. Edema has resolved (Yaneth Mauricio) Review of Systems General Constitutional: Fatigue (Yaneth Mauricio) Respiratory Lungs: SOB Respiratory Remarks mild (Yaneth Mauricio) Cardiovascular Cardiac: TAI Cardiac Remarks Denies any CP (Yaneth Mauricio) Gastrointestinal GI Remarks Denies any abdominal pain (Yaneth Mauricio) Objective Data Data Vital Signs Date Time Temp Pulse Resp B/P (MAP) Pulse Ox O2 Delivery O2 Flow Rate FiO2 06/21/17 08:08 98.8 80 20 194/79 (117) 92 06/21/17 04:15 98.3 76 18 162/67 (98) 94 06/21/17 03:42 76 06/21/17 00:45 168/78 (108) 06/20/17 23:43 91 06/20/17 23:37 99.2 85 18 214/85 (128) 93 06/20/17 22:21 High Flow Nasal Cannula 3.00 06/20/17 19:53 97.3 84 18 160/70 (100) 91 06/20/17 19:47 88 06/20/17 16:00 76 06/20/17 12:00 80 06/20/17 12:00 98.6 80 18 171/70 (103) 95 06/20/17 11:11 98 Nasal Cannula 3.00 (Yaneth Mauricio) -: 06/20/17 0528 06/20/17 0528 Imaging Last Impressions Elbow X-Ray 06/19/17 1040 Signed Impressions: Service Date/Time: Monday, June 19, 2017 11:04 - CONCLUSION: Unremarkable examination of the left elbow. Ray Bennett MD Lumbar Spine CT 06/19/17 1036 Signed Impressions: Service Date/Time: Monday, June 19, 2017 11:11 - CONCLUSION: Accentuated lordosis. Degenerative facet disease. No acute fracture or significant subluxation noted. Ray Bennett MD Head CT 06/19/17 1036 Signed Impressions: Service Date/Time: Monday, June 19, 2017 11:11 - CONCLUSION: No acute disease. Ray Bennett MD Chest CT 06/19/17 1036 Signed Impressions: Service Date/Time: Monday, June 19, 2017 11:11 - CONCLUSION: Mild basilar interstitial lung disease. No acute infiltrate. Cardiomegaly. Ray Bennett MD Cervical Spine CT 06/19/17 1036 Signed Impressions: Service Date/Time: Monday, June 19, 2017 11:11 - CONCLUSION: Normal examination except for degenerative disease at the C5-6 and C6-7. Scattered degenerative facet disease. No acute fracture. Ray Bennett MD Abdomen/Pelvis CT 06/19/17 0000 Signed Impressions: Service Date/Time: Monday, June 19, 2017 11:11 - CONCLUSION: 1. Bilateral renal cysts with atrophic kidneys. 2. Eventration of the anterior abdominal wall with at least two small bowel containing hernias in the pannus. No evidence of obstruction. Ray Bennett MD (Yaneth Mauricio) Physical Exam General Appearance: No Acute Distress, Comfortable (Yaneth Mauricio) Eyes Eye Exam: Pupils Equal (Yaneth Mauricio) Throat Throat Exam: Oral Mucosa [place] & Moist (Yaneth MauricioP) Neck Neck Exam: Neck Supple (Yaneth Mauricio) Pulmonary Resp Exam: No Distress, Decreased Bases, Diminished Breath Sounds (Yaneth MauricioP) Cardiology CV Exam: Regular, Normal Sinus Rhythm (Yaneth Mauricio) Gastrointestinal/Abdomen GI Exam: Soft, Non-Tender, Bowel Sounds Present (Yaneth Mauricio) Extremeties Extremities Exam: No Edema (Yaneth Mauricio) Neurologic Neuro Exam: Alert, Awake, Oriented (Yaneth Mauricio) Psychiatric Psych Exam: Appropriate Responses (Yaneth Mauricio) Assessment/Plan Assessment Summary: Hypertension, End Stage Renal Disease Problem List: (1) ESRD (end stage renal disease) ICD Codes: N18.6 - ESRD (end stage renal disease) Status: Acute Plan: End stage renal disease on hemodialysis M/W/F left AV fistula Plan Hemodialysis today Continue [place] BP elevated clonidine increased Plans for discharge to SNF (2) Hypertension ICD Codes: I10 - Hypertension Status: Acute Plan: Home medications to be resumed and PRN clonidine given (3) Fall ICD Codes: W19.XXXA - Unspecified fall, initial encounter Status: Acute Plan: Imaging done (Yaneth Mauricio) Problem List: (1) ESRD (end stage renal disease) ICD Codes: N18.6 - ESRD (end stage renal disease) Status: Acute Plan: End stage renal disease on hemodialysis M/W/F left AV fistula Plan Hemodialysis today Continue [place] BP elevated clonidine increased Plans for discharge to SNF. Patient seen and examined, agree with above. Continue HD, awaiting placement. (2) Hypertension ICD Codes: I10 - Hypertension Status: Acute Plan: Home medications to be resumed and PRN clonidine given (3) Fall ICD Codes: W19.XXXA - Unspecified fall, initial encounter Status: Acute Plan: Imaging done (Lesley Lee MD) Yaneth Mauricio Jun 21, 2017 10:50 Lesely Lee MD Jun 23, 2017 11:47
[2017-06-21] MEDS: ATORVASTATIN 20 MG TAB PO SCH (21:00)
[2017-06-21] MEDS: CALCIUM CARBONATE 500 MG CHEWABLE TAB PO SCH (21:00)
[2017-06-21] MEDS: GABAPENTIN 300 MG CAP PO SCH (21:00)
[2017-06-21] MEDS: NITROFURANTOIN MONOHYD MACROCR 100 MG CAP PO SCH (21:00)
[2017-06-22] VITALS (13 sets, daily range): BP systolic 169–190; BP diastolic 63–74; PULSE 69–80; RESP 20–22; TEMP 97.5–98.7; O2SAT 92–96
[2017-06-22] MEDS: DILTIAZEM-CD 180 MG CAP ER PO SCH (09:07)
[2017-06-22] MEDS: CALCIUM ACETATE 667 MG CAP PO SCH ×2 (09:07→20:58)
[2017-06-22] MEDS: hydrALAZINE HCL 100 MG TAB PO SCH ×3 (09:08→17:42)
[2017-06-22] MEDS: LOSARTAN 50 MG TAB PO SCH (09:08)
[2017-06-22] MEDS: BUMETANIDE 1 MG TAB PO SCH (09:08)
[2017-06-22] MEDS: ACETAMINOPHEN/HYDROcodone 325 MG/10 MG TAB PO PRN ×2 (09:08→20:59)
[2017-06-22] MEDS: DOCUSATE SODIUM 50 MG/SENNA 8.6 MG TAB PO SCH ×2 (09:08→20:58)
[2017-06-22] MEDS: PANTOPRAZOLE SOD 40 MG DELAYED RELEASE TAB PO SCH ×2 (09:08→20:58)
[2017-06-22] MEDS: cloNIDine HCL 0.1 MG TAB PO SCH ×2 (09:08→20:59)
[2017-06-22] MEDS: SODIUM CHLORIDE 0.9% FLUSH 10 ML FLUSH IV FLUSH SCH ×2 (09:09→20:59)
[2017-06-22] MEDS: INSULIN ASPART SUPPLEMENTAL SCALE SQ SCH ×4 (09:09→20:58)
[2017-06-22] MEDS: VITAMIN B CMPLX/VITC/FOLIC AC CAP PO SCH (09:09)
--- NOTE | 2017-06-22 11:15 | HHI.PR ---
Subjective Remarks F/u HTN. BP still up ARB will be increased dw RN Objective Vitals Vital Signs Date Time Temp Pulse Resp B/P (MAP) Pulse Ox O2 Delivery O2 Flow Rate FiO2 06/22/17 09:25 96 Nasal Cannula 2.00 06/22/17 08:08 98.7 78 20 190/63 (105) 92 06/22/17 06:00 98.1 78 22 170/74 (106) 95 06/22/17 04:00 78 06/22/17 04:00 Nasal Cannula 2.00 06/22/17 00:09 98.6 71 20 169/72 (104) 95 06/22/17 00:00 Nasal Cannula 2.00 06/22/17 00:00 75 06/21/17 20:16 Nasal Cannula 2.00 06/21/17 20:00 Nasal Cannula 2.00 06/21/17 20:00 98.9 82 20 118/62 (80) 95 06/21/17 20:00 83 06/21/17 16:08 98.7 78 20 162/74 (103) 93 06/21/17 16:00 86 06/21/17 13:27 Nasal Cannula 06/21/17 12:08 98.5 74 20 163/72 (102) 92 06/21/17 12:00 73 I/O 06/21/17 06/21/17 06/21/17 06/22/17 06/22/17 06/22/17 07:00 15:00 23:00 07:00 15:00 23:00 Intake Total 240 ml 420 ml 360 ml Balance 240 ml 420 ml 360 ml Intake Oral 240 ml 420 ml 360 ml # Voids 1 0 # Bowel Movements 0 0 Result Diagram: 06/20/17 0528 06/20/17 0528 Imaging Last Impressions Elbow X-Ray 06/19/17 1040 Signed Impressions: Service Date/Time: Monday, June 19, 2017 11:04 - CONCLUSION: Unremarkable examination of the left elbow. Ray Bennett MD Lumbar Spine CT 06/19/17 1036 Signed Impressions: Service Date/Time: Monday, June 19, 2017 11:11 - CONCLUSION: Accentuated lordosis. Degenerative facet disease. No acute fracture or significant subluxation noted. Ray Bennett MD Head CT 06/19/17 1036 Signed Impressions: Service Date/Time: Monday, June 19, 2017 11:11 - CONCLUSION: No acute disease. Ray Bennett MD Chest CT 06/19/17 1036 Signed Impressions: Service Date/Time: Monday, June 19, 2017 11:11 - CONCLUSION: Mild basilar interstitial lung disease. No acute infiltrate. Cardiomegaly. Ray Bennett MD Cervical Spine CT 06/19/17 1036 Signed Impressions: Service Date/Time: Monday, June 19, 2017 11:11 - CONCLUSION: Normal examination except for degenerative disease at the C5-6 and C6-7. Scattered degenerative facet disease. No acute fracture. Ray Bennett MD Abdomen/Pelvis CT 06/19/17 0000 Signed Impressions: Service Date/Time: Monday, June 19, 2017 11:11 - CONCLUSION: 1. Bilateral renal cysts with atrophic kidneys. 2. Eventration of the anterior abdominal wall with at least two small bowel containing hernias in the pannus. No evidence of obstruction. Ray Bennett MD Objective Remarks GENERAL: This is a well-nourished, well-developed patient, in no apparent distress. SKIN: No rashes, ecchymoses or lesions. Cool and dry. HEAD: Tender occiput where she has contusion normocephalic. CARDIOVASCULAR: Regular rate and rhythm without murmurs, gallops, or rubs. RESPIRATORY: Clear to auscultation. Breath sounds equal bilaterally. No wheezes , rales, or rhonchi. GASTROINTESTINAL: Abdomen soft, non-tender, nondistended. No guarding. MUSCULOSKELETAL: Extremities without clubbing, cyanosis with bilateral lower extremity pitting edema. NEUROLOGICAL: Awake and alert. Cranial nerves II through XII intact. Motor and sensory grossly within normal limits. Five out of 5 muscle strength in all muscle groups. Normal speech. Procedures none A/P Problem List: (1) ESRD (end stage renal disease) ICD Code: N18.6 - ESRD (end stage renal disease) Status: Acute (2) Hypertension ICD Code: I10 - Hypertension Status: Acute (3) Fall ICD Code: W19.XXXA - Unspecified fall, initial encounter Status: Acute Assessment and Plan This is a 77-year-old female who presents to the emergency room after a fall. Earlier this morning she was walking up is the stairs when she developed vertigo which is she described as lightheadedness and fell backwards hitting the back of her head and entire back. She was on the ground for 2 hours unable to get up because of pain. She also reports of dizziness whenever she moves. Denies loss of consciousness, double vision, nausea, chest pain, shortness of breath, numbness and focal weakness. She was brought by her family to the emergency room where she was noted to have severely elevated BP. States her BP has been well controlled at home and has been compliant with her antihypertensive regimen. Fall with multiple contusions. Stable fall precautions consulted physical therapy. Will apply ice and start pain management with Lortab and IV morphine counseled regarding narcotics. Will avoid anticoagulants or antiplatelet secondary to history of head trauma. Neurochecks and monitor on telemetry Leukocytosis likely reactive we will continue to monitor. Patient has chronic UTI on antibiotic prophylaxis. Improving End-stage renal disease with hyperkalemia. Continue hemodialysis Hypertension severely uncontrolled. Improving will increase ARB, clonidine already increased. Continue home medications which are diltiazem, Bumex and hydralazine. Continue to monitor with as needed clonidine and hydralazine. Multiple medical conditions of hyperlipidemia, COPD, diabetes mellitus, GERD and arthritis. Continue outpatient medications as appropriate. Hyperglycemic continue sliding-scale A1c 9.1 consider long-acting insulin. Diabetic education DVT prophylaxis with SCD and early ambulation Discharge Planning Stable for discharge to detention facility Jabier Adan MD Jun 22, 2017 11:15
[2017-06-22] MEDS: GABAPENTIN 300 MG CAP PO SCH (20:58)
[2017-06-22] MEDS: ATORVASTATIN 20 MG TAB PO SCH (20:58)
[2017-06-22] MEDS: NITROFURANTOIN MONOHYD MACROCR 100 MG CAP PO SCH (20:58)
[2017-06-22] MEDS: CALCIUM CARBONATE 500 MG CHEWABLE TAB PO SCH (20:59)
[2017-06-23] VITALS: BP 168/73; PULSE 67; PULSE 72; RESP 20; TEMP 98.4; O2SAT 97
[2017-06-23 04:00] VITALS: BP 169/73; PULSE 65; PULSE 68; RESP 20; TEMP 97.8; O2SAT 95
[2017-06-23 08:00] VITALS: BP 156/72; PULSE 68; PULSE 71; RESP 18; TEMP 97.8; O2SAT 95
--- NOTE | 2017-06-23 08:25 | HHI.PR ---
Subjective Remarks Follow-up hypertension and diabetes mellitus. BP improving losartan just increased to 100 mg daily yesterday. Hypoglycemic A1c was 9.1 will start Levemir 10 units daily and monitor Objective Vitals Vital Signs Date Time Temp Pulse Resp B/P (MAP) Pulse Ox O2 Delivery O2 Flow Rate FiO2 06/23/17 04:00 Nasal Cannula 2.00 Humidified 06/23/17 04:00 65 06/23/17 04:00 97.8 68 20 169/73 (105) 95 06/23/17 00:00 98.4 67 20 168/73 (104) 97 06/23/17 00:00 72 06/23/17 00:00 Nasal Cannula 2.00 Humidified 06/22/17 20:00 98.2 73 20 173/73 (106) 95 06/22/17 20:00 Nasal Cannula 2.00 Humidified 06/22/17 20:00 72 06/22/17 17:41 95 Nasal Cannula 2.00 06/22/17 16:12 Nasal Cannula 2.00 Humidified 06/22/17 16:08 97.5 69 20 185/63 (103) 95 06/22/17 16:00 80 06/22/17 12:41 Nasal Cannula 2.00 Humidified 06/22/17 12:08 97.9 71 20 169/63 (98) 95 06/22/17 12:00 72 06/22/17 11:34 Room Air 06/22/17 09:25 96 Nasal Cannula 2.00 06/22/17 09:00 2.00 I/O 06/22/17 06/22/17 06/22/17 06/23/17 06/23/17 06/23/17 07:00 15:00 23:00 07:00 15:00 23:00 Intake Total 360 ml 360 ml 360 ml Balance 360 ml 360 ml 360 ml Intake Oral 360 ml 360 ml 360 ml # Voids 0 0 # Bowel Movements 0 0 Result Diagram: 06/20/1728 06/20/17527 Imaging Last Impressions Elbow X-Ray 06/19/17 1040 Signed Impressions: Service Date/Time: Monday, June 19, 2017 11:04 - CONCLUSION: Unremarkable examination of the left elbow. Ray Bennett MD Lumbar Spine CT 06/19/17 1036 Signed Impressions: Service Date/Time: Monday, June 19, 2017 11:11 - CONCLUSION: Accentuated lordosis. Degenerative facet disease. No acute fracture or significant subluxation noted. Ray Bennett MD Head CT 06/19/17 1036 Signed Impressions: Service Date/Time: Monday, June 19, 2017 11:11 - CONCLUSION: No acute disease. Ray Bennett MD Chest CT 06/19/17 1036 Signed Impressions: Service Date/Time: Monday, June 19, 2017 11:11 - CONCLUSION: Mild basilar interstitial lung disease. No acute infiltrate. Cardiomegaly. Ray Bennett MD Cervical Spine CT 06/19/17 1036 Signed Impressions: Service Date/Time: Monday, June 19, 2017 11:11 - CONCLUSION: Normal examination except for degenerative disease at the C5-6 and C6-7. Scattered degenerative facet disease. No acute fracture. Ray Bennett MD Abdomen/Pelvis CT 06/19/17 0000 Signed Impressions: Service Date/Time: Monday, June 19, 2017 11:11 - CONCLUSION: 1. Bilateral renal cysts with atrophic kidneys. 2. Eventration of the anterior abdominal wall with at least two small bowel containing hernias in the pannus. No evidence of obstruction. Ray Bennett MD Objective Remarks GENERAL: This is a well-nourished, well-developed patient, in no apparent distress. OOB to chair SKIN: No rashes, ecchymoses or lesions. Cool and dry. CARDIOVASCULAR: Regular rate and rhythm without murmurs, gallops, or rubs. RESPIRATORY: Clear to auscultation. Breath sounds equal bilaterally. No wheezes , rales, or rhonchi. GASTROINTESTINAL: Abdomen soft, non-tender, nondistended. No guarding. MUSCULOSKELETAL: Extremities without clubbing, cyanosis with bilateral lower extremity pitting edema. NEUROLOGICAL: Awake and alert. Cranial nerves II through XII intact. Motor and sensory grossly within normal limits. Five out of 5 muscle strength in all muscle groups. Normal speech. Procedures none A/P Problem List: (1) ESRD (end stage renal disease) ICD Code: N18.6 - ESRD (end stage renal disease) Status: Acute (2) Hypertension ICD Code: I10 - Hypertension Status: Acute (3) Fall ICD Code: W19.XXXA - Unspecified fall, initial encounter Status: Acute Assessment and Plan This is a 77-year-old female who presents to the emergency room after a fall. Earlier this morning she was walking up is the stairs when she developed vertigo which is she described as lightheadedness and fell backwards hitting the back of her head and entire back. She was on the ground for 2 hours unable to get up because of pain. She also reports of dizziness whenever she moves. Denies loss of consciousness, double vision, nausea, chest pain, shortness of breath, numbness and focal weakness. She was brought by her family to the emergency room where she was noted to have severely elevated BP. States her BP has been well controlled at home and has been compliant with her antihypertensive regimen. Fall with multiple contusions. Stable fall precautions consulted physical therapy. Will apply ice and start pain management with Lortab and IV morphine counseled regarding narcotics. Will avoid anticoagulants or antiplatelet secondary to history of head trauma. Neurochecks and monitor on telemetry Leukocytosis likely reactive we will continue to monitor. Patient has chronic UTI on antibiotic prophylaxis. Improving End-stage renal disease with hyperkalemia. Continue hemodialysis Hypertension severely uncontrolled. Improving will increase ARB, clonidine already increased. Continue home medications which are diltiazem, Bumex and hydralazine. Continue to monitor with as needed clonidine and hydralazine. Multiple medical conditions of hyperlipidemia, COPD, diabetes mellitus, GERD and arthritis. Continue outpatient medications as appropriate. Hyperglycemic continue sliding-scale A1c 9.1 start Levemir 10 units x1 then QD Diabetic education DVT prophylaxis with SCD and early ambulation Discharge Planning [facility] facility awaiting insurance authorization Jabier Adan MD Jun 23, 2017 08:25
[2017-06-23] MEDS ORDERED: INSULIN DETEMIR 100 UNITS/ML VIAL SQ ONE (08:30)
[2017-06-23] MEDS: PANTOPRAZOLE SOD 40 MG DELAYED RELEASE TAB PO SCH ×2 (08:41→21:12)
[2017-06-23] MEDS: VITAMIN B CMPLX/VITC/FOLIC AC CAP PO SCH (08:42)
[2017-06-23] MEDS: hydrALAZINE HCL 100 MG TAB PO SCH ×3 (08:42→17:39)
[2017-06-23] MEDS: cloNIDine HCL 0.1 MG TAB PO SCH ×2 (08:42→21:11)
[2017-06-23] MEDS: BUMETANIDE 1 MG TAB PO SCH (08:42)
[2017-06-23] MEDS: LOSARTAN 50 MG TAB PO SCH (08:42)
[2017-06-23] MEDS: DILTIAZEM-CD 180 MG CAP ER PO SCH (08:42)
[2017-06-23] MEDS: CALCIUM ACETATE 667 MG CAP PO SCH ×2 (08:42→21:12)
[2017-06-23] MEDS: DOCUSATE SODIUM 50 MG/SENNA 8.6 MG TAB PO SCH ×2 (08:42→21:11)
[2017-06-23] MEDS: INSULIN ASPART SUPPLEMENTAL SCALE SQ SCH ×4 (08:43→21:12)
[2017-06-23] MEDS: SODIUM CHLORIDE 0.9% FLUSH 10 ML FLUSH IV FLUSH SCH ×2 (08:44→21:12)
[2017-06-23 12:00] VITALS: BP 169/60; PULSE 65; RESP 18; TEMP 97.6; O2SAT 98
[2017-06-23 16:00] VITALS: BP 134/63; PULSE 65; PULSE 67; RESP 18; TEMP 97.3; O2SAT 98
[2017-06-23 20:00] VITALS: BP 160/65; PULSE 72; RESP 18; TEMP 99.1; O2SAT 96
[2017-06-23] MEDS: ATORVASTATIN 20 MG TAB PO SCH (21:11)
[2017-06-23] MEDS: NITROFURANTOIN MONOHYD MACROCR 100 MG CAP PO SCH (21:11)
[2017-06-23] MEDS: GABAPENTIN 300 MG CAP PO SCH (21:11)
[2017-06-23] MEDS: CALCIUM CARBONATE 500 MG CHEWABLE TAB PO SCH (21:12)
[2017-06-24] VITALS: BP 152/74; PULSE 75; PULSE 85; RESP 20; TEMP 98.6; O2SAT 98
[2017-06-24 04:00] VITALS: BP 158/80; PULSE 72; PULSE 92; RESP 20; TEMP 98.6; O2SAT 94
[2017-06-24] MEDS ORDERED: INSULIN DETEMIR 100 UNITS/ML VIAL SQ SCH (07:00)
[2017-06-24 08:00] VITALS: PULSE 66
[2017-06-24] MEDS: INSULIN ASPART SUPPLEMENTAL SCALE SQ SCH ×2 (08:00→12:00)
[2017-06-24 08:08] VITALS: BP 144/71; PULSE 66; RESP 17; TEMP 97.9; O2SAT 97
[2017-06-24] MEDS: BUMETANIDE 1 MG TAB PO SCH (08:12)
[2017-06-24] MEDS: PANTOPRAZOLE SOD 40 MG DELAYED RELEASE TAB PO SCH (08:13)
[2017-06-24] MEDS: CALCIUM ACETATE 667 MG CAP PO SCH (08:13)
[2017-06-24] MEDS: cloNIDine HCL 0.1 MG TAB PO SCH (08:13)
[2017-06-24] MEDS: hydrALAZINE HCL 100 MG TAB PO SCH ×2 (08:13→12:40)
[2017-06-24] MEDS: LOSARTAN 50 MG TAB PO SCH (08:13)
[2017-06-24] MEDS: DOCUSATE SODIUM 50 MG/SENNA 8.6 MG TAB PO SCH (08:13)
[2017-06-24] MEDS: VITAMIN B CMPLX/VITC/FOLIC AC CAP PO SCH (08:14)
[2017-06-24] MEDS: DILTIAZEM-CD 180 MG CAP ER PO SCH (08:14)
[2017-06-24] MEDS: SODIUM CHLORIDE 0.9% FLUSH 10 ML FLUSH IV FLUSH SCH (08:17)
[2017-06-24 08:22] VITALS: O2SAT 97
[2017-06-24 12:00] VITALS: PULSE 67
--- NOTE | 2017-06-24 13:14 | HHI.PR ---
Subjective Remarks 06-23 Follow-up hypertension and diabetes mellitus. BP improving losartan just increased to 100 mg daily yesterday. Hypoglycemic A1c was 9.1 will start Levemir 10 units daily and monitor 06-24 HAS BEEN ACCEPTED AT [facility] WILL DC TO [facility] TODAY DW RN AND PT AND CASE MANAGEMENT Objective Vitals Vital Signs Date Time Temp Pulse Resp B/P (MAP) Pulse Ox O2 Delivery O2 Flow Rate FiO2 06/24/17 08:22 97 Nasal Cannula 2.50 06/24/17 08:08 97.9 66 17 144/71 (95) 97 06/24/17 08:00 66 06/24/17 07:21 Nasal Cannula 2.00 Humidified 06/24/17 04:00 72 06/24/17 04:00 Nasal Cannula 2.00 Humidified 06/24/17 04:00 98.6 92 20 158/80 (106) 94 06/24/17 00:00 98.6 85 20 152/74 (100) 98 06/24/17 00:00 75 06/24/17 00:00 Nasal Cannula 2.00 Humidified 06/23/17 20:37 Nasal Cannula 2.50 06/23/17 20:00 99.1 72 18 160/65 (96) 96 06/23/17 20:00 Nasal Cannula 2.00 Humidified 06/23/17 20:00 72 06/23/17 16:00 97.3 65 18 134/63 (86) 98 06/23/17 16:00 67 06/23/17 15:07 Nasal Cannula 2.00 Humidified I/O 06/23/17 06/23/17 06/23/17 06/24/17 06/24/17 06/24/17 07:00 15:00 23:00 07:00 15:00 23:00 Intake Total 360 ml 480 ml 240 ml Output Total 450 ml 2000 ml Balance 360 ml 480 ml -210 ml -2000 ml Intake Oral 360 ml 480 ml 240 ml Output Urine Total 450 ml Hemodialysis 2000 ml # Voids 0 4 # Bowel Movements 0 1 0 Result Diagram: 06/20/1728 06/20/17527 Imaging Last Impressions Elbow X-Ray 06/19/17 1040 Signed Impressions: Service Date/Time: Monday, June 19, 2017 11:04 - CONCLUSION: Unremarkable examination of the left elbow. Ray Bennett MD Lumbar Spine CT 06/19/17 1036 Signed Impressions: Service Date/Time: Monday, June 19, 2017 11:11 - CONCLUSION: Accentuated lordosis. Degenerative facet disease. No acute fracture or significant subluxation noted. Ray Bennett MD Head CT 06/19/17 1036 Signed Impressions: Service Date/Time: Monday, June 19, 2017 11:11 - CONCLUSION: No acute disease. Ray Bennett MD Chest CT 06/19/17 1036 Signed Impressions: Service Date/Time: Monday, June 19, 2017 11:11 - CONCLUSION: Mild basilar interstitial lung disease. No acute infiltrate. Cardiomegaly. Ray Bennett MD Cervical Spine CT 06/19/17 1036 Signed Impressions: Service Date/Time: Monday, June 19, 2017 11:11 - CONCLUSION: Normal examination except for degenerative disease at the C5-6 and C6-7. Scattered degenerative facet disease. No acute fracture. Ray Bennett MD Abdomen/Pelvis CT 06/19/17 0000 Signed Impressions: Service Date/Time: Monday, June 19, 2017 11:11 - CONCLUSION: 1. Bilateral renal cysts with atrophic kidneys. 2. Eventration of the anterior abdominal wall with at least two small bowel containing hernias in the pannus. No evidence of obstruction. Ray Bennett MD Objective Remarks GENERAL: Awake alert and oriented 3 talkative and cooperative SKIN: Warm and dry. Has vitiligo on her face HEAD: Atraumatic. Normocephalic. EYES: Pupils equal and round. No scleral icterus. No injection or drainage. Extraocular muscles intact ENT: No nasal bleeding or discharge. Mucous membranes pink and moist. Tongue is midline NECK: Trachea midline. No JVD. Supple CARDIOVASCULAR: Regular rate and rhythm. S1-S2 no S3 or S4 RESPIRATORY: No accessory muscle use. Clear to auscultation. Breath sounds equal bilaterally. GASTROINTESTINAL: Abdomen soft, non-tender, nondistended. Hepatic and splenic margins not palpable. MUSCULOSKELETAL: Extremities without clubbing, cyanosis, or edema. No obvious deformities. NEUROLOGICAL: Awake and alert. No obvious cranial nerve deficits. Motor grossly within normal limits. 4 out of 5 muscle strength in the arms and legs. Normal speech. PSYCHIATRIC: Appropriate mood and affect; insight and judgment normal. Procedures HD Medications and IVs Current Medications Sodium Chloride (NS Flush) 2 ml UNSCH PRN IVF FLUSH AFTER USING IV ACCESS; Start 06/19/17 at 10:45; Stop 06/19/17 at 15:34; Status DC Acetaminophen/ Hydrocodone Bitart ([place] 5-325 Mg) 1 tab ONCE ONCE PO Last administered on 06/19/17at 15:02; Start 06/19/17 at 14:45; Stop 06/19/17 at 14:46 ; Status DC Sodium Chloride 1,000 ml @ 0 mls/hr Q0M PRN OTHER For Prime & Rinse Back; Start 06/19/17 at 14:50 Heparin Sodium (Porcine) (Heparin Inj) 8,000 units UNSCH PRN IV FLUSH WITH DIALYSIS; Start 06/19/17 at 15:00 Sodium Chloride 1,000 ml @ 200 mls/hr Q5H PRN IV WITH DIALYSIS; Start 06/19/17 at 14:50 Sodium Chloride 1,000 ml @ 0 mls/hr Q0M PRN OTHER WITH DIALYSIS; Start at 14:50 Mannitol (Mannitol Inj) 12.5 gm UNSCH PRN IV WITH DIALYSIS; Start 06/19/17 at 15:00 Albumin Human 100 ml @ 60 mls/hr UNSCH PRN IV WITH DIALYSIS; Start 06/19/17 at 15:00 Sodium Chloride (NS Flush) 5 ml UNSCH PRN IV FLUSH WITH DIALYSIS; Start at 15:00 Heparin Sodium (Porcine) (Heparin Inj) UNSCH PRN .XX WITH DIALYSIS; Start at 15:00 Gentamicin Sulfate (Gentamicin Inj) 20 mg UNSCH PRN OTHER WITH DIALYSIS; Start 06/19/17 at 15:00 Ondansetron HCl (Zofran Inj) 4 mg UNSCH PRN IV PUSH WITH DIALYSIS; Start at 15:00 Acetaminophen (Tylenol) 650 mg UNSCH PRN PO for headach, pain, temp > 101F; Start 06/19/17 at 15:00 Diphenhydramine HCl (Benadryl) 25 mg UNSCH PRN PO for hives/itching/anaphylaxis ; Start 06/19/17 at 15:00 Nitroglycerin (Nitrostat Sl) 0.4 mg UNSCH PRN SL CHEST PAIN; Start 06/19/17 at 15:00 Clonidine (Catapres) 0.1 mg UNSCH PRN PO for BP > 180/100 X 2 readings Last administered on 06/19/17at 17:35; Start 06/19/17 at 15:00 Epoetin [place] (Epogen Inj) 4,000 units UNSCH PRN IV PUSH WITH DIALYSIS Last administered on 06/19/17at 17:34; Start 06/19/17 at 15:00 Gelatin (Gelfoam 12 Mm/7 Mm Top) 1 foam UNSCH PRN TOP SEE LABEL COMMENTS; Start 06/19/17 at 15:00 Hydralazine HCl (Apresoline Inj) 10 mg Q6H PRN IV PUSH SBP> OR = 180, DBP> OR = 100; Start 06/19/17 at 15:15 Clonidine (Catapres) 0.1 mg Q6H PRN PO SBP> OR = 180, DBP> OR = 100 Last administered on 06/20/17at 23:43; Start 06/19/17 at 15:15 Dextrose (D50w (Vial) Inj) 50 ml UNSCH PRN IV PUSH HYPOGLYCEMIA-SEE COMMENTS; Start 06/19/17 at 15:15 Glucagon (Glucagon Inj) 1 mg UNSCH PRN OTHER HYPOGLYCEMIA-SEE COMMENTS; Start 06/19/17 at 15:15 Insulin Aspart (NovoLOG SUPPLEMENTAL SCALE) 1 ACHS SLIDING SCALE SQ Last administered on 06/24/17at 08:00; Start 06/19/17 at 17:00 Sodium Chloride (NS Flush) 2 ml UNSCH PRN IV FLUSH FLUSH AFTER USING IV ACCESS ; Start 06/19/17 at 15:15 Sodium Chloride (NS Flush) 2 ml BID IV FLUSH Last administered on 06/24/17at 08: 17; Start 06/19/17 at 21:00 Acetaminophen (Tylenol) 650 mg Q4H PRN PO TEMP > 100.4 Last administered on at 00:46; Start 06/19/17 at 15:15 Ondansetron HCl (Zofran Inj) 4 mg Q6H PRN IVP NAUSEA OR VOMITING; Start at 15:15 Acetaminophen (Tylenol) 650 mg Q6H PRN PO PAIN SCALE 1 TO 2; Start 06/19/17 at 15:15 Acetaminophen/ Hydrocodone Bitart ([place] 5-325 Mg) 1 tab Q4H PRN PO PAIN SCALE 3 TO 5 Last administered on 06/20/17at 09:59; Start 06/19/17 at 15:15 Acetaminophen/ Hydrocodone Bitart ([place] 10-325 Mg) 1 tab Q4H PRN PO PAIN SCALE 6 TO 10 Last administered on 06/22/17at 20:59; Start 06/19/17 at 15:15 Morphine Sulfate (Morphine Inj) 1 mg Q3H PRN IV PUSH BREAKTHROUGH PAIN Last administered on 06/21/17at 05:03; Start 06/19/17 at 15:15 Naloxone HCl (Narcan Inj) 0.4 mg UNSCH PRN IV PUSH SEE LABEL COMMENTS; Start at 15:15 Senna/Docusate Sodium (Elva-Colace) 1 tab BID PO Last administered on 08:13; Start 06/19/17 at 21:00 Sennosides (Senokot) 17.2 mg Q12H PRN PO Moderate constipation; Start 06/19/17 at 15:15 Bisacodyl (Dulcolax Supp) 10 mg DAILY PRN RECTAL SEVERE CONSITIPATION; Start at 15:15 Lactulose (Lactulose Liq) 30 ml DAILY PRN PO SEVERE CONSITIPATION; Start at 15:15 Atorvastatin Calcium (Lipitor) 20 mg HS PO Last administered on 06/23/17at 21:11 ; Start 06/19/17 at 21:00 Bumetanide (Bumetanide) 2 mg DAILY PO Last administered on 06/20/17at 10:00; Start 06/20/17 at 09:00; Stop 06/20/17 at 14:41; Status DC Calcium Acetate (Phoslo) 1,334 mg BID PO Last administered on 06/24/17at 08:13; Start 06/19/17 at 21:00 Calcium Carbonate (Tums Chew) 1,000 mg HS PO Last administered on 06/23/17at 21: 12; Start 06/19/17 at 21:00 Clonidine (Catapres) 0.1 mg BID PO Last administered on 06/20/17at 10:00; Start 06/19/17 at 21:00; Stop 06/20/17 at 14:41; Status DC Gabapentin (Neurontin) 300 mg HS PO Last administered on 06/23/17 21:11; Start 06/19/17 at 21:00 Hydralazine HCl (Apresoline) 100 mg TID PO Last administered on 06/24/17at 12:40 ; Start 06/19/17 at 18:00 Albuterol/ Ipratropium (Duoneb Neb) 1 ampule Q6HR NEB PRN NEB SHORTNESS OF BREATH; Start 06/19/17 at 16:30 Losartan Potassium (Cozaar) 50 mg DAILY PO Last administered on 06/21/17 09:15 ; Start 06/20/17 at 09:00; Stop 06/22/17 at 06:32; Status DC Meclizine HCl (Antivert) 25 mg DAILY PRN PO VERTIGO; Start 06/19/17 at 16:30 Pantoprazole Sodium (Protonix) 40 mg BID PO Last administered on 06/24/17 08: 13; Start 06/19/17 at 21:00 Vitamin B Complex/ Vit C/Folic Acid (Nephrocaps) 1 cap DAILY PO Last administered on 06/24/17 08:14; Start 06/20/17 at 09:00 Non-Formulary Medication 1 tab DAILY PO ; Start 06/20/17 at 09:00; Status UNV Diltiazem HCl (Cardizem Cd) 180 mg DAILY PO Last administered on 06/24/17 08: 14; Start 06/20/17 at 09:00 Nitrofurantoin Macrocrystals (Macrobid) 100 mg HS PO Last administered on at 21:11; Start 06/19/17 at 21:00 Bumetanide (Bumetanide) 2 mg DAILY@0800 PO Last administered on 06/24/17 08:12 ; Start 06/21/17 at 08:00 Clonidine (Catapres) 0.2 mg BID PO Last administered on 06/24/17 08:13; Start 06/20/17 at 21:00 Losartan Potassium (Cozaar) 100 mg DAILY PO Last administered on 06/24/17at 08: 13; Start 06/22/17 at 09:00 Insulin Detemir (Levemir Inj) 10 units AC BREAKFAST SQ Last administered on at 06:51; Start 06/24/17 at 07:00 Insulin Detemir (Levemir Inj) 10 units NOW ONCE SQ Last administered on at 08:44; Start 06/23/17 at 08:30; Stop 06/23/17 at 08:31; Status DC A/P Problem List: (1) ESRD (end stage renal disease) ICD Code: N18.6 - ESRD (end stage renal disease) Status: Acute (2) Hypertension ICD Code: I10 - Hypertension Status: Acute (3) Fall ICD Code: W19.XXXA - Unspecified fall, initial encounter Status: Acute Assessment and Plan This is a 77-year-old female who presents to the emergency room after a fall. Earlier this morning she was walking up is the stairs when she developed vertigo which is she described as lightheadedness and fell backwards hitting the back of her head and entire back. She was on the ground for 2 hours unable to get up because of pain. She also reports of dizziness whenever she moves. Denies loss of consciousness, double vision, nausea, chest pain, shortness of breath, numbness and focal weakness. She was brought by her family to the emergency room where she was noted to have severely elevated BP. States her BP has been well controlled at home and has been compliant with her antihypertensive regimen. Fall with multiple contusions. Stable fall precautions consulted physical therapy. Will apply ice and start pain management with Lortab and IV morphine counseled regarding narcotics. Will avoid anticoagulants or antiplatelet secondary to history of head trauma. Neurochecks and monitor on telemetry Leukocytosis likely reactive we will continue to monitor. Patient has chronic UTI on antibiotic prophylaxis. Improving End-stage renal disease with hyperkalemia. Continue hemodialysis Hypertension severely uncontrolled. Improving will increase ARB, clonidine already increased. Continue home medications which are diltiazem, Bumex and hydralazine. Continue to monitor with as needed clonidine and hydralazine. Multiple medical conditions of hyperlipidemia, COPD, diabetes mellitus, GERD and arthritis. Continue outpatient medications as appropriate. Hyperglycemic continue sliding-scale A1c 9.1 start Levemir 10 units x1 then QD Diabetic education DVT prophylaxis with SCD and early ambulation Patient has now been accepted at SNF will be discharged to SNF today 3000 it is been done will review med reconciliation Discharge Planning Discharge to SNF today Roderick Parisi DO Jun 24, 2017 13:14
[2017-06-24] MEDS ORDERED: LEVEMIR SQ (13:17)
--- NOTE | 2017-06-24 13:19 | HHI.DS ---
Discharge Summary Admission Date Jun 19, 2017 at 15:10 Discharge Date: Jun 24, 2017 Admitting Diagnosis Hemodialysis/hypertensive urgency/dizziness/fall (1) ESRD (end stage renal disease) ICD Code: N18.6 - ESRD (end stage renal disease) Diagnosis: Principal Status: Acute (2) Hypertension ICD Code: I10 - Hypertension Diagnosis: Principal Status: Acute (3) Fall ICD Code: W19.XXXA - Unspecified fall, initial encounter Diagnosis: Principal Status: Acute Procedures HD Brief History - From Admission This is a 77-year-old female who presents to the emergency room after a fall. Earlier this morning she was walking up is the stairs when she developed vertigo which is she described as lightheadedness and fell backwards hitting the back of her head and entire back. She was on the ground for 2 hours unable to get up because of pain. Trauma workup shows no acute fracture. She also reports of dizziness whenever she moves. Denies loss of consciousness, double vision, nausea, chest pain, shortness of breath, numbness and focal weakness. She was brought by her family to the emergency room where she was noted to have severely elevated BP. States her BP has been well controlled at home and has been compliant with her antihypertensive regimen. Patient seen in dialysis which was ordered urgently because of hyperkalemia. All other systems reviewed negative CBC/BMP: 06/20/17 0528 06/20/17 0528 Imaging Last Impressions Elbow X-Ray 06/19/17 1040 Signed Impressions: Service Date/Time: Monday, June 19, 2017 11:04 - CONCLUSION: Unremarkable examination of the left elbow. Ray Bennett MD Lumbar Spine CT 06/19/17 1036 Signed Impressions: Service Date/Time: Monday, June 19, 2017 11:11 - CONCLUSION: Accentuated lordosis. Degenerative facet disease. No acute fracture or significant subluxation noted. Ray Bennett MD Head CT 06/19/17 1036 Signed Impressions: Service Date/Time: Monday, June 19, 2017 11:11 - CONCLUSION: No acute disease. Ray Benentt MD Chest CT 06/19/17 1036 Signed Impressions: Service Date/Time: Monday, June 19, 2017 11:11 - CONCLUSION: Mild basilar interstitial lung disease. No acute infiltrate. Cardiomegaly. Ray Bennett MD Cervical Spine CT 06/19/17 1036 Signed Impressions: Service Date/Time: Monday, June 19, 2017 11:11 - CONCLUSION: Normal examination except for degenerative disease at the C5-6 and C6-7. Scattered degenerative facet disease. No acute fracture. Ray Bennett MD Abdomen/Pelvis CT 06/19/17 0000 Signed Impressions: Service Date/Time: Monday, June 19, 2017 11:11 - CONCLUSION: 1. Bilateral renal cysts with atrophic kidneys. 2. Eventration of the anterior abdominal wall with at least two small bowel containing hernias in the pannus. No evidence of obstruction. Ray Bennett MD PE at Discharge GENERAL: Awake alert and oriented 3 talkative and cooperative SKIN: Warm and dry. Has vitiligo on her face HEAD: Atraumatic. Normocephalic. EYES: Pupils equal and round. No scleral icterus. No injection or drainage. Extraocular muscles intact ENT: No nasal bleeding or discharge. Mucous membranes pink and moist. Tongue is midline NECK: Trachea midline. No JVD. Supple CARDIOVASCULAR: Regular rate and rhythm. S1-S2 no S3 or S4 RESPIRATORY: No accessory muscle use. Clear to auscultation. Breath sounds equal bilaterally. GASTROINTESTINAL: Abdomen soft, non-tender, nondistended. Hepatic and splenic margins not palpable. MUSCULOSKELETAL: Extremities without clubbing, cyanosis, or edema. No obvious deformities. NEUROLOGICAL: Awake and alert. No obvious cranial nerve deficits. Motor grossly within normal limits. 4 out of 5 muscle strength in the arms and legs. Normal speech. PSYCHIATRIC: Appropriate mood and affect; insight and judgment normal. Hospital Course This is a 77-year-old female who presents to the emergency room after a fall. Earlier this morning she was walking up is the stairs when she developed vertigo which is she described as lightheadedness and fell backwards hitting the back of her head and entire back. She was on the ground for 2 hours unable to get up because of pain. Trauma workup shows no acute fracture. She also reports of dizziness whenever she moves. Denies loss of consciousness, double vision, nausea, chest pain, shortness of breath, numbness and focal weakness. She was brought by her family to the emergency room where she was noted to have severely elevated BP. States her BP has been well controlled at home and has been compliant with her antihypertensive regimen. Patient seen in dialysis which was ordered urgently because of hyperkalemia. All other systems reviewed negative Patient is undergoing hemodialysis. Patient is improving. Can go to correction facility for aggressive physical therapy and Occupational Therapy Resume hemodialysis as was doing as an outpatient Pt Condition on Discharge: Stable Discharge Disposition: Discharge to SNF Discharge Time: > 30 minutes Discharge Instructions DIET: Follow Instructions for: Heart Healthy Diet, Diabetic Diet, Renal Failure Diet Speech Therapy-Diet Recommends: Regular Activities you can perform: Regular-No Restrictions Activities to Avoid: Driving Follow up Referrals: Nephrology - 1 Week PCP Follow-up - 2-3 Days New Medications: Clonidine (Catapres) 0.1 Mg Tab 0.2 MG PO BID for Blood Pressure Management, #120 TAB Hydrocodone/Acetaminophen (Hydrocodone-Acetamin 10-325 mg) 10 Mg-325 Mg Tablet 1 TAB PO Q4H PRN for PAIN SCALE 6 TO 10, #12 TAB Insulin Detemir Inj (Levemir Inj) 1,000 unit/ 10 ML Vial 10 UNITS SQ AC BREAKFAST for Blood Sugar Management, #7 VIAL Do not mix with any other Insulin. Continued Medications: Aspirin DR (Aspirin Adult Low Strength) 81 Mg Tabdr 81 MG PO DAILY, TAB Atorvastatin (Atorvastatin) 20 Mg Tab 20 MG PO HS for Cholesterol Management, #30 TAB 0 Refills B-Complex W/ C & Folic Acid (Alannah-Julien) 1 Tab 1 TAB PO DAILY, TAB Biotin W/ Vitamins C & E (Hair Skin & Nails) 1,250-7.5-7.5 Mcg-Mg-Unit Chew 1 TAB PO DAILY Bumetanide (Bumetanide) 2 Mg Tab 2 MG PO DAILY, TAB 0 Refills Calcium Acetate (Phosphate Binder) (Calcium Acetate (Phosphate Binder)) 667 Mg Tab 1334 MG PO BID for Hyperphosphatemia, #180 TAB 0 Refills Calcium Carbonate (Antacid) (Tums) 500 Mg Chew 1000 MG PO HS for HEARTBURN, TAB 0 Refills Clonidine (Catapres) 0.1 Mg Tab 0.1 MG PO BID for Blood Pressure Management, #60 TAB 0 Refills Diltiazem ER 24 HR (Diltiazem ER 24 HR) 180 Mg Caper 180 MG PO DAILY, CAP Gabapentin (Gabapentin) 300 Mg Cap 300 MG PO HS, #30 CAP 0 Refills Hydralazine (Hydralazine) 100 Mg Tab 100 MG PO TID for Blood Pressure Management, TAB 0 Refills Take with meals Ipratropium-Albuterol Neb (Duoneb) 0.5-2.5 Mg/3 Ml Neb 3 ML NEB Q6HR PRN for SHORTNESS OF BREATH, #30 NEBULE 0 Refills Losartan (Losartan) 100 Mg Tab 100 MG PO DAILY for Blood Pressure Management, #30 TAB 0 Refills Meclizine (Meclizine) 25 Mg Tab 25 MG PO DAILY PRN for VERTIGO, TAB 0 Refills Nitrofurantoin Macrocrystal (Nitrofurantoin Macrocrystal) 50 Mg Cap 50 MG PO DAILY for Infection, CAP 0 Refills Pantoprazole (Pantoprazole) 40 Mg Tab 40 MG PO BID for Reflux, #30 TAB 0 Refills Discontinued Medications: Acetaminophen W/ Codeine (Acetaminophen/Codeine Bruno 300-30 mg) 300 Mg-30 Mg Tab 1 TAB PO PRN for PAIN SCALE 1 TO 10 Roderick Parisi DO Jun 24, 2017 13:19
== END 2017-06-24 15:38 ==
LOC: NEPE 10:12 → NEDA 15:10 → N04A 19:56
PROVIDERS: ADMIT Hospitalist; ATTEND Hospitalist
DX: I12.0 Hypertensive chronic kidney disease with stage 5 chronic kidney disease or end stage renal disease (principal); E11.22 Type 2 diabetes mellitus with diabetic chronic kidney disease; N18.6 End stage renal disease; E11.65 Type 2 diabetes mellitus with hyperglycemia; I16.0 Hypertensive urgency; R42 Dizziness and giddiness; D72.829 Elevated white blood cell count, unspecified; E87.5 Hyperkalemia; J44.9 Chronic obstructive pulmonary disease, unspecified; E78.5 Hyperlipidemia, unspecified; K21.9 Gastro-esophageal reflux disease without esophagitis; M19.90 Unspecified osteoarthritis, unspecified site; Z79.4 Long term (current) use of insulin; Z85.43 Personal history of malignant neoplasm of ovary; W19.XXXA Unspecified fall, initial encounter
CPT/HCPCS: 70450; 71250; 72125; 72131; 73080; 74176; 80048; 82550; 82948; 83036; 85025; 85610; 85730; 90935; 96372; 96374; 96376; 97163; 99285; G0257; G0378; J1815; J2270; Q4081

== ENCOUNTER 2017-07-29 22:41 | Inpatient (IN) | payer OTHER, MEDICAID, MEDICARE ==
[~2017-07-29] VITALS: Ht 170.2 cm; Wt 72.3 kg
[2017-07-29 22:41] VITALS: BP 220/98; PULSE 97; RESP 18; TEMP 99.5; O2SAT 100
[~2017-07-29 22:41] MED LIST changes: +ATOR20TA15 PO; +BIOT1CHW PO; -CEPH-459 PO; -CIPR250T52 PO; -DILT0.05 PO; +DILT180C7 PO; +GABA300C5 PO; -GLIP10TA6 PO; +HYDR-3583 PO; +LEVEMIR SQ; +NITR1CAP37 PO; -PRAV20TA2 PO
[2017-07-29] MEDS ORDERED: SODIUM CHLOR 0.9% 1000 ML INJ 1,000 ML IV ONE (22:50)
--- NOTE | 2017-07-29 23:01 | PD ---
HPI Chief Complaint: Stroke alert by EMS Time Seen by Provider: 22:50 Travel History International Travel<30 days: No Contact w/Intl Traveler<30days: No Traveled to known affect area: No History of Present Illness HPI The patient is a 77-year-old female who presents to the emergency department from [place] with intermediate for possible stroke alert. According to EMS the patient was last seen normal at 9 PM, ambulated to dinner. When she was evaluated at 10:30 PM she was noted to have altered mental status. EMS called a stroke alert in the field for altered mental status, they stated they were unable to perform a reliable physical examination as the patient stated "I cannot ". Upon arrival the patient is able to tell me her name, was not oriented to the year or emergency telecommunications dispatcher. The patient is a somewhat limited historian, follows limited physical exam directions. Most of the history is obtained from the patient's history and physical that was performed on June 19, 2017. PFSH Past Medical History Hx Anticoagulant Therapy: Yes (baby aspirin) Anemia: Yes Arthritis: Yes Asthma: No Autoimmune Disease: No Anxiety: No Depression: No Heart Rhythm Problems: Yes (ABNORMAL EKG'S) Cancer: Yes (OVARIAN, STAGE 3) Cardiovascular Problems: Yes (HTN) High Cholesterol: Yes Chemotherapy: No Chest Pain: No Congestive Heart Failure: No COPD: Yes Cerebrovascular Accident: No Diabetes: Yes (Type 2) Dialysis: Yes (Left AV fistula / [id number].) Diminished Hearing: No Endocrine: Yes Gastrointestinal Disorders: Yes (HX PERF. BOWEL, GERD) GERD: Yes Genitourinary: No Hepatitis: No Hiatal Hernia: Yes (MULTIPLE) Hypertension: Yes Immune Disorder: No Implanted Vascular Access Dvce: Yes Kidney Stones: Yes Musculoskeletal: Yes (ARTHRITIS) Neurologic: Yes Psychiatric: No Reproductive: No Respiratory: Yes (COPD) Immunizations Current: Yes Migraines: No Radiation Therapy: No Renal Failure: Yes Seizures: No Sleep Apnea: No Thyroid Disease: No Ulcer: No Menopausal: Yes : 7 Para: 2 Miscarriage: 5 Dilation and Curettage (D&C): Yes Past Surgical History Abdominal Surgery: Yes (PERFORATED BOWEL WITH ILEOSTOMY, REVERSAL) AICD: No Appendectomy: Yes Arteriovenous Shunt: Yes (LEFT ARM) Body Medical Devices: av fistula left arm Eye Surgery: Yes (CATARACT EXC. TRISTIAN.) Genitourinary Surgery: Yes (LITHOTRIPSY-KIDNEYS STONES) Gynecologic Surgery: Yes (TOTAL HYSTERECTOMY) Hysterectomy: Yes Insulin Pump: No Joint Replacement: No Pacemaker: No Other Surgery: Yes (AV FISTULA: LEFT ARM ) Social History Alcohol Use: No Tobacco Use: No (QUIT IN 2007 SMOKED FOR 53 YRS 2 PPD -CIGS) Substance Use: No Allergies-Medications (Allergen,Severity, Reaction): Coded Allergies: Sulfa (Sulfonamide Antibiotics) (Verified Allergy, Severe, Rash, 06/19/17) ciprofloxacin (Verified Allergy, Severe, Rash, 06/19/17) ranitidine (Verified Allergy, Severe, Rash, 06/19/17) furosemide (Verified Allergy, Mild, Rash, 06/19/17) Reported Meds & Prescriptions Reported Meds & Active Scripts Active Levemir Inj (Insulin Detemir) 1,000 unit/ 10 ML Vial 10 Units SQ AC BREAKFAST Do not mix with any other Insulin. Hydrocodone-Acetamin 10-325 mg (Hydrocodone/Acetaminophen) 10 Mg-325 Mg Tablet 1 Tab PO Q4H PRN Catapres (Clonidine) 0.1 Mg Tab 0.2 Mg PO BID Reported Hair Skin & Nails (Biotin W/ Vitamins C & E) 1,250-7.5-7.5 Mcg-Mg-Unit Chew 1 Tab PO DAILY Gabapentin 300 Mg Cap 300 Mg PO HS Nitrofurantoin Macrocrystal 50 Mg Cap 50 Mg PO DAILY Atorvastatin (Atorvastatin Calcium) 20 Mg Tab 20 Mg PO HS Diltiazem ER 24 HR (Diltiazem HCl) 180 Mg Caper 180 Mg PO DAILY Meclizine (Meclizine HCl) 25 Mg Tab 25 Mg PO DAILY PRN Bumetanide 2 Mg Tab 2 Mg PO DAILY Tums (Calcium Carbonate (Antacid)) 500 Mg Chew 1,000 Mg PO HS Aspirin Adult Low Strength (Aspirin) 81 Mg Tabdr 81 Mg PO DAILY Alannah-Julien (B-Complex W/ C & Folic Acid) 1 Tab 1 Tab PO DAILY Duoneb (Ipratropium-Albuterol Neb) 0.5-2.5 Mg/3 Ml Neb 3 Ml NEB Q6HR PRN Calcium Acetate (Phosphate Binder) 667 Mg Tab 1,334 Mg PO BID Hydralazine (Hydralazine HCl) 100 Mg Tab 100 Mg PO TID Take with meals Pantoprazole (Pantoprazole Sodium) 40 Mg Tab 40 Mg PO BID Catapres (Clonidine) 0.1 Mg Tab 0.1 Mg PO BID Losartan (Losartan Potassium) 100 Mg Tab 100 Mg PO DAILY Review of Systems ROS Limitations: Altered Mental Status, Poor Historian Except as stated in HPI: all other systems reviewed are Neg Physical Exam Exam Limitations: Clinical Condition, Altered Mental Status Narrative GENERAL: Awake, opens eyes to verbal commands, nontoxic-appearing. SKIN: Focused skin assessment warm/dry. Vitiligo type hypopigmentation changes noted to the face, neck, and legs. HEAD: Atraumatic. Normocephalic. EYES: Pupils equal and round. 3 mm bilateral and reactive. Patient is able to see fingers at a distance of 2 feet without difficulty. ENT: No nasal bleeding or discharge. Mucous membranes pink and moist. NECK: Trachea midline. No JVD. CARDIOVASCULAR: Regular rate and rhythm. No murmur appreciated. RESPIRATORY: No accessory muscle use. Clear to auscultation. Breath sounds equal bilaterally. GASTROINTESTINAL: Abdomen reveals a large anterior abdominal wall hernia. MUSCULOSKELETAL: Bilateral heel ulcerations noted. Left upper extremity AV fistula with positive thrill. Back: Small lumbar decubitus ulcer approximately 2 cm in diameter with skin breakdown noted. NEUROLOGICAL: Awake, opens eyes to commands, is able to see fingers at a distance of 2 feet without difficulty. Tongue is midline. The patient will not smile when commanded. The patient will not perform drift of the upper or lower extremities to command. She will not perform finger to nose or heel to thao upon command. Sensation appears intact bilaterally in arms or legs that she does withdrawal to pain. PSYCHIATRIC: Unable to assess. Data Data Last Documented VS Vital Signs Date Time Temp Pulse Resp B/P (MAP) Pulse Ox O2 Delivery O2 Flow Rate FiO2 07/30/17 00:44 86 16 227/91 (136) 96 Room Air 07/29/17 22:41 99.5 Orders Orders Diet Npo (07/30/17 Breakfast) Activity Bed Rest (07/29/17 ) Electrocardiogram (07/29/17 ) I-Stat Profile (07/29/17 22:50) Prothrombin Time / Inr (Pt) (07/29/17 22:50) Act Partial Throm Time (Ptt) (07/29/17 22:50) Complete Blood Count With Diff (07/29/17 22:50) Fibrinogen (07/29/17 22:50) Creatine Kinase (Cpk) (07/29/17 22:50) Troponin I (07/29/17 22:50) Ua Includes Microscopic (07/29/17 22:50) Drug Screen, Random Urine (07/29/17 22:50) Type And Screen (07/29/17 22:50) Ct Brain W/O Iv Contrast(Rout) (07/29/17 ) Chest, Single Ap (07/29/17 ) Consult Neurology (07/29/17 ) Blood Glucose (07/29/17 22:50) Ecg Monitoring (07/29/17 22:50) Neuro Checks Q2HX12,Q4H (07/29/17 22:50) Nursing Bedside Swallow Assess .ONCE (07/29/17 22:50) Iv Access Insert/Monitor (07/29/17 22:50) NPO (07/29/17 22:50) Oximetry (07/29/17 22:50) Resp Oxygen Nc Stroke (07/29/17 ) Sodium Chlor 0.9% 1000 Ml Inj (Ns 1000 M (07/29/17 22:50) Cath For Specimen (07/29/17 22:50) (Hub Use Only)Inp Phy Cons/Ref (07/29/17 ) Ceftriaxone Inj (Rocephin Inj) (07/30/17 00:00) Mra Brain W/O Contrast (Cow) (07/30/17 ) Mri Brain W/O Contrast (07/30/17 ) Red Blood Cells (Rbc) (07/29/17 22:45) Labs Laboratory Tests Test 07/29/17 22:45 07/29/17 23:10 White Blood Count 11.0 TH/MM3 Red Blood Count 3.16 MIL/MM3 Hemoglobin 10.2 GM/DL Bedside Hemoglobin 10.2 G/DL Hematocrit 31.3 % Bedside Hematocrit 30.0 % Mean Corpuscular Volume 98.8 FL Mean Corpuscular Hemoglobin 32.3 PG Mean Corpuscular Hemoglobin Concent 32.7 % Red Cell Distribution Width 17.8 % Platelet Count 333 TH/MM3 Mean Platelet Volume 7.2 FL Neutrophils (%) (Auto) 93.3 % Lymphocytes (%) (Auto) 1.3 % Monocytes (%) (Auto) 3.8 % Eosinophils (%) (Auto) 1.2 % Basophils (%) (Auto) 0.4 % Neutrophils # (Auto) 10.2 TH/MM3 Lymphocytes # (Auto) 0.1 TH/MM3 Monocytes # (Auto) 0.4 TH/MM3 Eosinophils # (Auto) 0.1 TH/MM3 Basophils # (Auto) 0.0 TH/MM3 CBC Comment DIFF FINAL Differential Comment Prothrombin Time 10.2 SEC Prothromb Time International Ratio 1.0 RATIO Activated Partial Thromboplast Time 27.3 SEC Fibrinogen 586 mg/dL Bedside Sodium 139 MMOL/L Bedside Potassium 4.8 MMOL/L Bedside Chloride 103 MMOL/L Bedside Blood Urea Nitrogen 26 MG/DL Bedside Creatinine 6.6 MG/DL Bedside Glucose 164 MG/DL Total Creatine Kinase 69 U/L Troponin I 0.06 NG/ML Urine Color YELLOW Urine Turbidity CLOUDY Urine pH 6.5 Urine Specific Newton 1.016 Urine Protein 300 mg/dL Urine Glucose (UA) 300 mg/dL Urine Ketones NEG mg/dL Urine Occult Blood NEG Urine Nitrite NEG Urine Bilirubin NEG Urine Urobilinogen LESS THAN 2.0 MG/DL Urine Leukocyte Esterase LARGE Urine RBC 5 /hpf Urine WBC 118 /hpf Urine Squamous Epithelial Cells 15 /hpf Urine Transitional Epithelial Cells 2 /hpf Urine Renal Epithelial Cells <1 /hpf Urine Bacteria MANY /hpf Urine Mucus FEW /lpf Urine Opiates Screen NEG Urine Barbiturates Screen NEG Urine Amphetamines Screen NEG Urine Benzodiazepines Screen NEG Urine Cocaine Screen NEG Urine Cannabinoids Screen NEG MDM Medical Screen Exam Complete: Yes Emergency Medical Condition: Yes Medical Record Reviewed: Yes EKG Prior to Arrival: Yes Differential Diagnosis Differential diagnosis includes CVA, TIA, transient global amnesia, encephalopathy, metabolic encephalopathy, intracranial hemorrhage, azotemia, sepsis. Narrative Course IV was established, labs are drawn and sent, the patient went to CT immediately. I discussed the patient with the on-call neurologist, Dr. Bryn Garcia. After discussion it was agreed it appears the patient most likely has an underlying encephalopathy is neurologic exam is nonfocal. Patient is a dialysis patient, after discussion it was agreed no CTA would be performed. I discussed the patient with the on-call radiologist, Dr. Elizondo, at 11:01 PM, he states CT reveals chronic changes, no acute hemorrhage. TPA was not administered as the patient appears to have encephalopathy as opposed to CVA, she will withdraw extremities to pain, this may be underlying encephalopathy. However, patient possibly could be having a CVA, will order stat MRI to evaluate. The stat order was placed at 11:05 PM. I called MRI, no answer, I spoke directly with CT who will call the team in stat. MRI of the brain was performed, no evidence of acute CVA. It appears the patient has an encephalopathy. UA was positive for UTI, however, patient is a dialysis patient , but continues to pass urine. May be encephalopathy/delirium secondary to UTI versus other metabolic encephalopathy. Therefore, the patient will be a 23 hour observation to the on-call medical service. Stroke Alert NIHSS NIH Stroke Scale Result: 13 NIHSS Time Completed: 22:41 Procedures Procedure Narrative EKG reveals normal sinus rhythm with a rate of 90. Left ventricular hypertrophy with inverted T waves noted in lead V4, V5, V6. Physician Communication Physician Communication The on-call medical service was paged for 23 hour observation. Diagnosis Diagnosis: Primary Impression: Encephalopathy Additional Impression: UTI (urinary tract infection) Qualified Codes: N30.00 - Acute cystitis without hematuria Admitting Physician Requests: Observation Condition: Stable Angel Guerrero MD Jul 29, 2017 23:01
--- NOTE | 2017-07-29 23:03 | RADRPT ---
EXAM DATE: 07/29/2017 10:56 PM EDT AGE/SEX: 77 years / Female INDICATIONS: Stroke alert. Altered mental status. CLINICAL DATA: This is the patient's initial encounter. Patient reports that signs and symptoms have been present for 1 day and indicates a pain score of Nonresponsive. MEDICAL/SURGICAL HISTORY: Renal failure, chronic. Hypertension. Chronic obstructive pulmonary dis ease. Dialysis Non-responsive. RADIATION DOSE: 56.34 CTDI (mGy) COMPARISON: [facility] [place], [place]/2017. . Report was called by [Dr. Elizondo to Dr. Guerrero at 11:00 PM ] TECHNIQUE: CT of the head without contrast. Using automated exposure control and adjustment of the mA and/or kV according to patient size, radiation dose was kept as low as reasonably achievable to ob tain optimal diagnostic quality images. FINDINGS: Cerebrum: The ventricles are normal for age. No evidence of midline shift, mass lesion, hemorrhage or acute infarction. No extraaxial fluid collections are seen. Posterior Fossa: The cerebellum and brainstem are intact. The 4th ventricle is midline. The cerebe llopontine angle is unremarkable. Extracranial: The visualized portion of the orbits is intact. Skull: The calvaria is intact. No evidence of skull fracture. CONCLUSION: 1. No acute intracranial abnormalities. Mild white matter ischemic changes. Findings called to Dr. Kay morgan. Electronically signed by: Oswald Elizondo MD 07/29/2017 11:01 PM EDT
[2017-07-29 23:13] LABS: AUTOMATED NEUTROPHIL # 10.2 TH/MM3 (1.8-7.7); BASOPHIL % 0.4 % (0.0-2.0); EOSINOPHIL # 0.1 TH/MM3 (0-0.4); EOSINOPHIL % 1.2 % (0.0-4.0); HEMATOCRIT 31.3 % (35.0-46.0); HEMOGLOBIN 10.2 GM/DL (11.6-15.3); LYMPH % 1.3 % (9.0-44.0); LYMPHOCYTE # 0.1 TH/MM3 (1.0-4.8); MEAN CELL VOLUME 98.8 FL (80.0-100.0); MEAN CORPUSCULAR HEMOGLOBIN 32.3 PG (27.0-34.0); MEAN CORPUSCULAR HGB CONC 32.7 % (32.0-36.0); MEAN PLATELET VOLUME 7.2 FL (7.0-11.0); MONO % 3.8 % (0.0-8.0); MONOCYTE # 0.4 TH/MM3 (0-0.9); NEUT % 93.3 % (16.0-70.0); PLATELET COUNT 333 TH/MM3 (150-450); RED BLOOD COUNT 3.16 MIL/MM3 (4.00-5.30); RED CELL DISTRIBUTION WIDTH 17.8 % (11.6-17.2)
[2017-07-29 23:22] LABS: PROTHROMBIN TIME - PATIENT 10.2 SEC (9.8-11.6)
--- NOTE | 2017-07-29 23:30 | RADRPT ---
EXAM DATE: 07/29/2017 11:25 PM EDT AGE/SEX: 77 years / Female INDICATIONS: Stroke alert. CLINICAL DATA: This is the patient's initial encounter. Patient reports that signs and symptoms have been present for 1 day and indicates a pain score of Nonresponsive. MEDICAL/SURGICAL HISTORY: Renal disease. Diabetes mellitus type II. Non-responsive. COMPARISON: [facility] – [place]ST SINGLE AP, 09/15/2016. . FINDINGS: A single AP view of the chest demonstrates the lungs to be symmetrically aerated without evidence of mass, infiltrate or effusion. The heart size is enlarged but stable.. Osseous structures are intact . No significant changes. CONCLUSION: Stable AP view of the chest compared to the prior study. No new or acute pulmonary infiltrates. Stabl e cardiomegaly. Electronically signed by: Hoang Chadwick MD 07/29/2017 11:29 PM EDT
[2017-07-29 23:33] LABS: BACTERIA, URINE MANY /hpf; BILIRUBIN, URINE NEG (NEG); BLOOD, URINE NEG (NEG); GLUCOSE,URINE 300 mg/dL (NEG); KETONE, URINE NEG (NEG); MUCUS URINE FEW /lpf (OCC); NITRITE,URINE NEG (NEG); PH, URINE 6.5 (5.0-8.5); RENAL EPITHELIAL CELLS <1 /hpf; SQUAMOUS EPITHELIAL CELL URINE 15 /hpf (0-5); TRANSITIONAL EPI CELLS, URINE 2 /hpf; URINE COLOR YELLOW (YELLW/STRAW); URINE LEUKOCYTE ESTERASE LARGE (NEG)
[2017-07-29 23:35] LABS: TROPONIN I 0.06 NG/ML (0.02-0.05)
[2017-07-30] VITALS (9 sets, daily range): BP systolic 112–227; BP diastolic 68–91; PULSE 75–106; RESP 16–20; TEMP 98.2–100.5; O2SAT 94–99
[2017-07-30] MEDS ORDERED: cefTRIAXone INJ 1,000 MG in SODIUM CHLORIDE 0.9% INJ 100 ML IV ONE ×2
--- NOTE | 2017-07-30 00:40 | RADRPT ---
EXAM DATE: 07/30/2017 12:33 AM EDT AGE/SEX: 77 years / Female INDICATIONS: Altered mental status. CLINICAL DATA: This is the patient's initial encounter. Patient reports that signs and symptoms have been present for 1 day and indicates a pain score of 0/10. MEDICAL/SURGICAL HISTORY: Diabetes mellitus type II. Hypertension. Chronic obstructive pulmon kerri disease. Renal failure. Hysterectomy. Colon resection. Right rotator cuff. COMPARISON: [facility], MRI BRAIN W/O CONTRAST, 07/29/2017. . TECHNIQUE: 3D [id number] MRA was performed. Source images, multiplanar STS MIP, and 3D volum e MIP reconstructions were reviewed. FINDINGS: There is excellent visualization of the major intracranial arteries out to the second-order branch ve ssels. There is no evidence for aneurysm, vessel truncation or stenosis, and no evidence for vascula r malformation. CONCLUSION: 1. Unremarkable MRA of the brain. Electronically signed by: Hoang Chadwick MD 07/30/2017 12:39 AM EDT
--- NOTE | 2017-07-30 00:54 | RADRPT ---
EXAM DATE: 07/30/2017 12:37 AM EDT AGE/SEX: 77 years / Female INDICATIONS: Altered mental status. CLINICAL DATA: This is the patient's initial encounter. Patient reports that signs and symptoms have been present for 1 day and indicates a pain score of 0/10. MEDICAL/SURGICAL HISTORY: Hypertension. Diabetes mellitus type II. Chronic obstructive pulmon kerri disease. Renal failure. Hysterectomy. Colon resection. Right rotator cuff. COMPARISON: [facility] – [place], [place] BRAIN W/O CONTRAST, 07/29/2017. . TECHNIQUE: Multiplanar, multisequence examination of the brain was performed without contrast. FINDINGS: Cerebrum: The ventricles are normal for age. Bilateral cortical atrophy. No evidence of midline mina ft, mass lesion, hemorrhage or acute infarction. No extraaxial fluid collections are seen. The pitu itary gland and suprasellar cistern are normal in configuration. White Matter: Multiple high signal spots in the white matter tracts bilaterally characteristic of is chemic demyelinization. Posterior Fossa: The cerebellum and brainstem are intact. The 4th ventricle is midline. The cerebel lopontine angle is unremarkable. The cerebellar tonsils are normal in position. Diffusion Imaging: No focal areas of restricted diffusion are seen. No evidence of acute infarction . Extracranial: The visualized portions of the orbits are unremarkable. Chronic sinus disease in the right maxillary sinus. CONCLUSION: 1. Bilateral cortical atrophy and chronic white matter changes. 2. Otherwise unremarkable exam for patient's age. Electronically signed by: Hoang Chadwick MD 07/30/2017 12:52 AM EDT
[2017-07-30] MEDS ORDERED: NALOXONE HCL 0.4 MG/ML AMP IV PUSH PRN (04:15)
[2017-07-30] MEDS ORDERED: SODIUM CHLORIDE 0.9% FLUSH 10 ML FLUSH IV FLUSH PRN ×2 (04:15→09:45)
[2017-07-30] MEDS ORDERED: ACETAMINOPHEN 325 MG TAB PO PRN (04:15)
[2017-07-30] MEDS ORDERED: LACTULOSE SYRUP 20 GM/30 ML CUP PO PRN (04:15)
[2017-07-30] MEDS ORDERED: SENNOSIDES 8.6 MG TAB PO PRN (04:15)
[2017-07-30] MEDS ORDERED: DEXTROSE 50% IN WATER 50 ML VIAL(D50) IV PUSH PRN (04:15)
[2017-07-30] MEDS ORDERED: BISACODYL 10 MG SUPP RECTAL PRN (04:15)
[2017-07-30] MEDS ORDERED: MAGNESIUM HYDROXIDE SUSP 30 ML CUP PO PRN (04:15)
[2017-07-30] MEDS ORDERED: GLUCAGON 1 MG/ML VIAL OTHER PRN (04:15)
[2017-07-30] MEDS ORDERED: SODIUM CHLOR 0.9% 1000 ML INJ 1,000 ML IV SCH (04:15)
[2017-07-30] MEDS ORDERED: RESP: ALBUTEROL 2.5 MG/IPRATROPIUM 0.5 MG NEB (PRN) NEB (04:30)
--- NOTE | 2017-07-30 04:51 | HHI.HP ---
HPI Service [facility] Primary Care Physician Ronaldo Henderson M.D. Admission Diagnosis Encephalopathy, altered mental status, UTI Diagnoses: Travel History International Travel<30 Days: No Contact w/Intl Traveler <30 Da: No Traveled to Known Affected Are: No History of Present Illness 77-year-old female with a past medical history significant for end-stage renal disease on hemodialysis, COPD, diabetes mellitus, hypertension, hyperlipidemia, recurrent UTIs and a history of uterine cancer presents the emergency department for evaluation of altered mental status. The patient resides in a jail where she is undergoing rehab after suffering a fall approximately 1 month ago. Per jail report, the patient was lethargic and shaking and also altered. She was last dialyzed earlier yesterday. Her children are bedside and state that she often becomes increasingly confused and encephalopathic with her urinary tract infections. She was recently treated with p.o. antibiotics for UTI. She is also on daily Macrobid for UTI prophylaxis. The patient denies any pain. No chest pain or shortness of breath. No abdominal pain. No nausea/vomiting/diarrhea. No lateralizing signs /symptoms. She is able to answer my questions at times although drifts back to sleep between questions. Review of Systems Except as stated in HPI: all other systems reviewed are Neg Past Family Social History Past Medical History End-stage renal disease on hemodialysis Saturday COPD Diabetes mellitus Hypertension Hyperlipidemia History of uterine cancer Recurrent UTIs Past Surgical History Right rotator cuff Hysterectomy Ileostomy with subsequent takedown Bilateral cataract Reported Medications Reported Meds & Active Scripts Active Levemir Inj (Insulin Detemir) 1,000 unit/ 10 ML Vial 10 Units SQ AC BREAKFAST Do not mix with any other Insulin. Hydrocodone-Acetamin 10-325 mg (Hydrocodone/Acetaminophen) 10 Mg-325 Mg Tablet 1 Tab PO Q4H PRN Catapres (Clonidine) 0.1 Mg Tab 0.2 Mg PO BID Reported Hair Skin & Nails (Biotin W/ Vitamins C & E) 1,250-7.5-7.5 Mcg-Mg-Unit Chew 1 Tab PO DAILY Gabapentin 300 Mg Cap 300 Mg PO HS Nitrofurantoin Macrocrystal 50 Mg Cap 50 Mg PO DAILY Atorvastatin (Atorvastatin Calcium) 20 Mg Tab 20 Mg PO HS Diltiazem ER 24 HR (Diltiazem HCl) 180 Mg Caper 180 Mg PO DAILY Meclizine (Meclizine HCl) 25 Mg Tab 25 Mg PO DAILY PRN Bumetanide 2 Mg Tab 2 Mg PO DAILY Tums (Calcium Carbonate (Antacid)) 500 Mg Chew 1,000 Mg PO HS Aspirin Adult Low Strength (Aspirin) 81 Mg Tabdr 81 Mg PO DAILY Alannah-Julien (B-Complex W/ C & Folic Acid) 1 Tab 1 Tab PO DAILY Duoneb (Ipratropium-Albuterol Neb) 0.5-2.5 Mg/3 Ml Neb 3 Ml NEB Q6HR PRN Calcium Acetate (Phosphate Binder) 667 Mg Tab 1,334 Mg PO BID Hydralazine (Hydralazine HCl) 100 Mg Tab 100 Mg PO TID Take with meals Pantoprazole (Pantoprazole Sodium) 40 Mg Tab 40 Mg PO BID Catapres (Clonidine) 0.1 Mg Tab 0.1 Mg PO BID Losartan (Losartan Potassium) 100 Mg Tab 100 Mg PO DAILY Allergies: Coded Allergies: Sulfa (Sulfonamide Antibiotics) (Verified Allergy, Severe, Rash, 06/19/17) ciprofloxacin (Verified Allergy, Severe, Rash, 06/19/17) ranitidine (Verified Allergy, Severe, Rash, 06/19/17) furosemide (Verified Allergy, Mild, Rash, 06/19/17) Family History Father with CAD Social History Remote history of smoking. No alcohol or illicit drugs. Physical Exam Vital Signs Vital Signs Date Time Temp Pulse Resp B/P (MAP) Pulse Ox O2 Delivery O2 Flow Rate FiO2 07/30/17 02:04 93 16 220/90 (133) 96 Room Air 07/30/17 00:44 86 16 227/91 (136) 96 Room Air 07/29/17 22:41 99.5 97 18 220/98 (138) 100 Physical Exam GENERAL: female lying in bed, sleep SKIN: Small, sacral ulcer. Bilateral heel pressure ulcers stage II. HEAD: Atraumatic. Normocephalic. No temporal or scalp tenderness. EYES: Pupils equal round and reactive. Extraocular motions intact. No scleral icterus. No injection or drainage. ENT: Nose without bleeding, purulent drainage or septal hematoma. Throat without erythema, tonsillar hypertrophy or exudate. Uvula midline. Airway patent. NECK: Trachea midline. No JVD or lymphadenopathy. Supple, nontender, no meningeal signs. CARDIOVASCULAR: Regular rate and rhythm without murmurs, gallops, or rubs. RESPIRATORY: Clear to auscultation. Breath sounds equal bilaterally. No wheezes , rales, or rhonchi. GASTROINTESTINAL: Abdomen soft, non-tender, nondistended. No hepato-splenomegaly , or palpable masses. No guarding. MUSCULOSKELETAL: Extremities without clubbing, cyanosis, or edema. No joint tenderness, effusion, or edema noted. No calf tenderness. NEUROLOGICAL: Awake and alert. Cranial nerves II through XII intact. Motor and sensory grossly within normal limits. Normal speech. Laboratory Laboratory Tests Test 07/29/17 22:45 07/29/17 23:10 White Blood Count 11.0 Red Blood Count 3.16 Hemoglobin 10.2 Bedside Hemoglobin 10.2 Hematocrit 31.3 Bedside Hematocrit 30.0 Mean Corpuscular Volume 98.8 Mean Corpuscular Hemoglobin 32.3 Mean Corpuscular Hemoglobin Concent 32.7 Red Cell Distribution Width 17.8 Platelet Count 333 Mean Platelet Volume 7.2 Neutrophils (%) (Auto) 93.3 Lymphocytes (%) (Auto) 1.3 Monocytes (%) (Auto) 3.8 Eosinophils (%) (Auto) 1.2 Basophils (%) (Auto) 0.4 Neutrophils # (Auto) 10.2 Lymphocytes # (Auto) 0.1 Monocytes # (Auto) 0.4 Eosinophils # (Auto) 0.1 Basophils # (Auto) 0.0 CBC Comment DIFF FINAL Differential Comment Prothrombin Time 10.2 Prothromb Time International Ratio 1.0 Activated Partial Thromboplast Time 27.3 Fibrinogen 586 Bedside Sodium 139 Bedside Potassium 4.8 Bedside Chloride 103 Bedside Blood Urea Nitrogen 26 Bedside Creatinine 6.6 Bedside Glucose 164 Total Creatine Kinase 69 Troponin I 0.06 Urine Color YELLOW Urine Turbidity CLOUDY Urine pH 6.5 Urine Specific [place] 1.016 Urine Protein 300 Urine Glucose (UA) 300 Urine Ketones NEG Urine Occult Blood NEG Urine Nitrite NEG Urine Bilirubin NEG Urine Urobilinogen LESS THAN 2.0 Urine Leukocyte Esterase LARGE Urine RBC 5 Urine WBC 118 Urine Squamous Epithelial Cells 15 Urine Transitional Epithelial Cells 2 Urine Renal Epithelial Cells <1 Urine Bacteria MANY Urine Mucus FEW Urine Opiates Screen NEG Urine Barbiturates Screen NEG Urine Amphetamines Screen NEG Urine Benzodiazepines Screen NEG Urine Cocaine Screen NEG Urine Cannabinoids Screen NEG Result Diagram: 07/29/17 9404 Caprini VTE Risk Assessment Caprini VTE Risk Assessment: Mod/High Risk (score >= 2) Caprini Risk Assessment Model Point Value = 1 Point Value = 2 Point Value = 3 Point Value = 5 Age 41-60 Minor surgery BMI > 25 kg/m2 Swollen legs Varicose veins or History of unexplained or recurrent spontaneous Oral contraceptives or hormone replacement Sepsis (< 1 month) Serious lung disease, including pneumonia (< 1 month) Abnormal pulmonary function Acute myocardial infarction Congestive heart failure (< 1 month) History of inflammatory bowel disease Medical patient at bed rest Age 61-74 Arthroscopic surgery Major open surgery (> 45 min) Laparoscopic surgery (> 45 min) Malignancy Confined to bed (> 72 hours) Immobilizing plaster cast Central venous access Age >= 75 History of VTE Family history of VTE Factor V Leiden Prothrombin [id number] Lupus anticoagulant Anticardiolipin antibodies Elevated serum homocysteine Heparin-induced thrombocytopenia Other congenital or acquired thrombophilia Stroke (< 1 month) Elective arthroplasty Hip, pelvis, or leg fracture Acute spinal cord injury (< 1 month) Prophylaxis Regimen Total Risk Factor Score Risk Level Prophylaxis Regimen 0-1 Low Early ambulation 2 Moderate Order ONE of the following: *Sequential Compression Device (SCD) *Heparin 5000 units SQ BID 3-4 Higher Order ONE of the following medications: *Heparin 5000 units SQ TID *Enoxaparin/Lovenox 40 mg SQ daily (WT < 150 kg, CrCl > 30 mL/min) *Enoxaparin/Lovenox 30 mg SQ daily (WT < 150 kg, CrCl > 10-29 mL/min) *Enoxaparin/Lovenox 30 mg SQ BID (WT < 150 kg, CrCl > 30 mL/min) AND/OR *Sequential Compression Device (SCD) 5 or more Highest Order ONE of the following medications: *Heparin 5000 units SQ TID (Preferred with Epidurals) *Enoxaparin/Lovenox 40 mg SQ daily (WT < 150 kg, CrCl > 30 mL/min) *Enoxaparin/Lovenox 30 mg SQ daily (WT < 150 kg, CrCl > 10-29 mL/min) *Enoxaparin/Lovenox 30 mg SQ BID (WT < 150 kg, CrCl > 30 mL/min) AND *Sequential Compression Device (SCD) Assessment and Plan Assessment and Plan Assessment/plan: 1. Infectious encephalopathy/urinary tract infection Urine culture pending Rocephin Monitor mental status 2. End-stage renal disease on hemodialysis Dialysis Saturday Patient's regional sales coordinator, Dr. Lee consulted, appreciate recommendations Last dialysis yesterday 3. Diabetes mellitus Continue home Levemir Sliding-scale insulin Monitor blood glucose 4. COPD Duo nebs as needed 5. Hypertension/hyperlipidemia Continue home medications FEN Heart healthy diabetic diet Electrolytes: Monitor and replete as needed Heparin Physician Certification 2 Midnight Certification Type: Admission for Inpatient Services Order for Inpatient Services The services are ordered in accordance with Medicare regulations or non- Medicare payer requirements, as applicable. In the case of services not specified as inpatient-only, they are appropriately provided as inpatient services in accordance with the 2-midnight benchmark. Estimated LOS (days): 2 2 days is the estimated time the patient will need to remain in the hospital, assuming treatment plan goals are met and no additional complications. Post-Hospital Plan: Not yet determined Toyin Flores MD Jul 30, 2017 04:51
[2017-07-30] MEDS ORDERED: LABETALOL HCL 100 MG/20 ML VIAL IV PUSH ONE (07:45)
[2017-07-30] MEDS: HEPARIN SODIUM - SQ 10,000 UNITS/ML VIAL SQ SCH ×3 (08:03→21:03)
[2017-07-30] MEDS: SODIUM CHLORIDE 0.9% FLUSH 10 ML FLUSH IV FLUSH SCH ×2 (08:16→20:28)
[2017-07-30] MEDS: ASPIRIN EC 81 MG TABEC PO SCH (08:16)
[2017-07-30] MEDS: PANTOPRAZOLE SOD 40 MG DELAYED RELEASE TAB PO SCH ×2 (08:16→20:27)
[2017-07-30] MEDS: INSULIN DETEMIR 100 UNITS/ML VIAL SQ SCH (08:16)
[2017-07-30] MEDS ORDERED: cloNIDine HCL 0.1 MG TAB PO SCH (09:00)
[2017-07-30] MEDS: CALCIUM ACETATE 667 MG CAP PO SCH ×2 (09:06→20:27)
[2017-07-30] MEDS: BUMETANIDE 1 MG TAB PO SCH (09:06)
[2017-07-30] MEDS: DILTIAZEM-CD 180 MG CAP ER PO SCH (09:06)
[2017-07-30] MEDS ORDERED: SODIUM CHLOR 0.9% 1000 ML INJ 1,000 ML OTHER PRN ×2 (09:33)
[2017-07-30] MEDS ORDERED: SODIUM CHLOR 0.9% 1000 ML INJ 1,000 ML IV PRN (09:33)
--- NOTE | 2017-07-30 09:36 | PD.CONS ---
[facility] Service Nephrology Consult Requested By Dr. Raymond Reason for Consult End stage renal disease on hemodialysis Primary Care Physician Ronaldo Henderson M.D. History of Present Illness Patient is a 77-year-old female with a past medical history significant for end- stage renal disease on hemodialysis, COPD, diabetes mellitus, hypertension, hyperlipidemia, recurrent UTIs and a history of uterine cancer. Present to the emergency department for evaluation of altered mental status. Patient was found to have a urinary tract infection. Mrs Macario answers questions but falls back to sleep in middle of talking. Her only complaint was right knee pain. Nephrology is consulted for management of end stage renal disease on hemodialysis. Usually dialysis days are Saturday, Saturday, and Saturday. Last dialysis yesterday, will continue with her normal schedule. (Yaneth Mauricio) Review of Systems Constitutional: COMPLAINS OF: Fatigue Respiratory: COMPLAINS OF: Shortness of breath, DENIES: Cough, Sputum production Cardiovascular: COMPLAINS OF: Lower Extremity Edema, DENIES: Chest pain Gastrointestinal: DENIES: Abdominal pain, Constipation, Diarrhea, Nausea, Vomiting Psychiatric: COMPLAINS OF: Confusion (Yaneth Mauricio) Past Family Social History Allergies: Coded Allergies: Sulfa (Sulfonamide Antibiotics) (Verified Allergy, Severe, Rash, 06/19/17) ciprofloxacin (Verified Allergy, Severe, Rash, 06/19/17) ranitidine (Verified Allergy, Severe, Rash, 06/19/17) furosemide (Verified Allergy, Mild, Rash, 06/19/17) Past Medical History End-stage renal disease on hemodialysis Saturday COPD Diabetes mellitus Hypertension Hyperlipidemia History of uterine cancer Recurrent UTIs Past Surgical History Right rotator cuff Hysterectomy Ileostomy with subsequent takedown Bilateral cataract Active Ordered Medications Current Medications Medications (Trade) Dose Ordered Sig/Shanika Route Start Time Stop Time Status Last Admin (NS Flush) 2 ml UNSCH PRN IV FLUSH 07/30/17 04:15 (NS Flush) 2 ml BID IV FLUSH 07/30/17 09:00 07/30/17 08:16 (Tylenol) 650 mg Q4H PRN PO 07/30/17 04:15 (Heparin Inj) 5,000 units Q8HR SQ 07/30/17 06:00 07/30/17 08:03 (Narcan Inj) 0.4 mg UNSCH PRN IV PUSH 07/30/17 04:15 (Milk Of Magnesia Liq) 30 ml Q12H PRN PO 07/30/17 04:15 (Senokot) 17.2 mg Q12H PRN PO 07/30/17 04:15 (Dulcolax Supp) 10 mg DAILY PRN RECTAL 07/30/17 04:15 (Lactulose Liq) 30 ml DAILY PRN PO 07/30/17 04:15 Ceftriaxone Sodium 1000 mg/ Sodium Chloride 100 ml @ 200 mls/hr Q24H IV 07/31/17 01:00 (Ecotrin Ec) 81 mg DAILY PO 07/30/17 09:00 07/30/17 08:16 (Lipitor) 20 mg HS PO 07/30/17 21:00 (Bumetanide) 2 mg DAILY PO 07/30/17 09:00 07/30/17 09:06 (Phoslo) 1,334 mg BID PO 07/30/17 09:00 07/30/17 09:06 (Tums Chew) 1,000 mg HS PO 07/30/17 21:00 (Catapres) 0.1 mg BID PO 07/30/17 09:00 07/30/17 08:16 (Apresoline) 100 mg TID PO 07/30/17 09:00 (Duoneb Neb) 1 ampule Q6HR NEB PRN NEB 07/30/17 04:30 (Cozaar) 100 mg DAILY PO 07/30/17 09:00 (Protonix) 40 mg BID PO 07/30/17 09:00 07/30/17 08:16 (Cardizem Cd) 180 mg DAILY PO 07/30/17 09:00 07/30/17 09:06 (D50w (Vial) Inj) 50 ml UNSCH PRN IV PUSH 07/30/17 04:15 (Glucagon Inj) 1 mg UNSCH PRN OTHER 07/30/17 04:15 (NovoLOG SUPPLEMENTAL SCALE) 1 ACHS SLIDING SCALE SQ 07/30/17 08:00 (Levemir Inj) 10 units DAILYAC SQ 07/30/17 08:00 07/30/17 08:16 Family History Father with CAD Social History Remote history of smoking. No alcohol or illicit drugs (Gellermann,Yaneth M. 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 Left AV fistula HEAD: Normocephalic. EYES: No scleral icterus. No injection or drainage. NECK: Supple, trachea midline. No JVD or lymphadenopathy. CARDIOVASCULAR: Regular rate and rhythm without murmurs, gallops, or rubs. RESPIRATORY: Breath sounds equal bilaterally. No accessory muscle use. GASTROINTESTINAL: Abdomen soft, non-tender, nondistended. MUSCULOSKELETAL: No cyanosis, or edema. BACK: Nontender without obvious deformity. No CVA tenderness. Laboratory Laboratory Tests Test 07/29/17 22:45 07/29/17 23:10 07/30/17 08:49 White Blood Count 11.0 Red Blood Count 3.16 Hemoglobin 10.2 Bedside Hemoglobin 10.2 Hematocrit 31.3 Bedside Hematocrit 30.0 Mean Corpuscular Volume 98.8 Mean Corpuscular Hemoglobin 32.3 Mean Corpuscular Hemoglobin Concent 32.7 Red Cell Distribution Width 17.8 Platelet Count 333 Mean Platelet Volume 7.2 Neutrophils (%) (Auto) 93.3 Lymphocytes (%) (Auto) 1.3 Monocytes (%) (Auto) 3.8 Eosinophils (%) (Auto) 1.2 Basophils (%) (Auto) 0.4 Neutrophils # (Auto) 10.2 Lymphocytes # (Auto) 0.1 Monocytes # (Auto) 0.4 Eosinophils # (Auto) 0.1 Basophils # (Auto) 0.0 CBC Comment DIFF FINAL Differential Comment Prothrombin Time 10.2 Prothromb Time International Ratio 1.0 Activated Partial Thromboplast Time 27.3 Fibrinogen 586 Bedside Sodium 139 Bedside Potassium 4.8 Bedside Chloride 103 Bedside Blood Urea Nitrogen 26 Bedside Creatinine 6.6 Bedside Glucose 164 Total Creatine Kinase 69 Troponin I 0.06 Urine Color YELLOW Urine Turbidity CLOUDY Urine pH 6.5 Urine Specific [place] 1.016 Urine Protein 300 Urine Glucose (UA) 300 Urine Ketones NEG Urine Occult Blood NEG Urine Nitrite NEG Urine Bilirubin NEG Urine Urobilinogen LESS THAN 2.0 Urine Leukocyte Esterase LARGE Urine RBC 5 Urine WBC 118 Urine Squamous Epithelial Cells 15 Urine Transitional Epithelial Cells 2 Urine Renal Epithelial Cells <1 Urine Bacteria MANY Urine Mucus FEW Urine Opiates Screen NEG Urine Barbiturates Screen NEG Urine Amphetamines Screen NEG Urine Benzodiazepines Screen NEG Urine Cocaine Screen NEG Urine Cannabinoids Screen NEG (Yaneth Mauricio) Result Diagram: 07/29/17 2245 Imaging Last Impressions Head Magnetic Resonance Angiography 07/30/17 0000 Signed Impressions: CONCLUSION: 1. Unremarkable MRA of the brain. Brain MRI 07/30/17 0000 Signed Impressions: CONCLUSION: 1. Bilateral cortical atrophy and chronic white matter changes. 2. Otherwise unremarkable exam for patient's age. Head CT 07/29/17 0000 Signed Impressions: CONCLUSION: 1. No acute intracranial abnormalities. Mild white matter ischemic changes. [facility] called to Dr. Guerrero. Chest X-Ray 07/29/17 0000 Signed Impressions: CONCLUSION: Stable AP view of the chest compared to the prior study. No new or acute pulmon kerri infiltrates. Stable cardiomegaly. (Yaneth Mauricio) Assessment and Plan Problem List: (1) ESRD (end stage renal disease) ICD Codes: N18.6 - ESRD (end stage renal disease) Status: Acute Plan: End stage renal disease on hemodialysis M/W/F left AV fistula Last hemodialysis on Saturday Plan Continue phoslo BP elevated clonidine increased, 1 X dose of labetalol given Avoid IVF administration Labs pending this morning. Hemodialysis planned for tomorrow (2) UTI (urinary tract infection) ICD Codes: N39.0 - UTI (urinary tract infection) Status: Acute Plan: Has received dose of Rocephin, culture pending. (3) Encephalopathy ICD Codes: G93.40 - Encephalopathy, unspecified Status: Acute Plan: Neurology has been consulted. MRI noted (4) Hypertension ICD Codes: I10 - Essential (primary) hypertension Status: Chronic Plan: Blood pressure with SBP in 200's Home medication continue and clonidine increased Will monitor (5) DM (diabetes mellitus) ICD Codes: E11.9 - DM (diabetes mellitus) Status: Chronic Plan: Maintain blood sugar between 140 mg/dl to 180 mg/dl (Yaneth Mauricio) Problem List: (1) ESRD (end stage renal disease) ICD Codes: N18.6 - ESRD (end stage renal disease) Status: Acute Plan: End stage renal disease on hemodialysis M/W/F left AV fistula Last hemodialysis on Saturday Plan Continue phoslo BP elevated clonidine increased, 1 X dose of labetalol given Avoid IVF administration Labs pending this morning. Hemodialysis planned for tomorrow. Patient seen and examined, agree with above. Patient has encephalopathy, either related to UTI or Hypertensive urgency. BP is improving, continue Ceftriaxone, HD will be in AM. (2) UTI (urinary tract infection) ICD Codes: N39.0 - UTI (urinary tract infection) Status: Acute Plan: Has received dose of Rocephin, culture pending. (3) Encephalopathy ICD Codes: G93.40 - Encephalopathy, unspecified Status: Acute Plan: Neurology has been consulted. MRI noted (4) Hypertension ICD Codes: I10 - Essential (primary) hypertension Status: Chronic Plan: Blood pressure with SBP in 200's Home medication continue and clonidine increased Will monitor (5) DM (diabetes mellitus) ICD Codes: E11.9 - DM (diabetes mellitus) Status: Chronic Plan: Maintain blood sugar between 140 mg/dl to 180 mg/dl (Lesley Lee MD) Problem Qualifiers (1) UTI (urinary tract infection): Qualified Codes: N30.00 - Acute cystitis without hematuria (2) Hypertension: Qualified Codes: I10 - Essential (primary) hypertension Yaneth Mauricio Jul 30, 2017 09:36 Lesley Lee MD Jul 30, 2017 23:53
[2017-07-30 09:43] LABS: AST (GOT) 17 U/L (15-37); BICARBONATE 22.1 MEQ/L (21.0-32.0); BLOOD UREA NITROGEN 33 MG/DL (7-18); CHLORIDE 104 MEQ/L (98-107); CREATININE 7.21 MG/DL (0.50-1.00); GLOMERULAR FILTRATION RATE 6 ML/MIN (>89); GLUCOSE,RANDOM 167 MG/DL (74-106); SODIUM (NA) 139 MEQ/L (136-145)
[2017-07-30 09:44] LABS: ALT (GPT) 16 U/L (10-53)
[2017-07-30] MEDS ORDERED: GELATIN 12 MM/7 MM FOAM TOP PRN (09:45)
[2017-07-30] MEDS ORDERED: EPOETIN ALFA 4,000 UNITS/ML VIAL IV PUSH PRN (09:45)
[2017-07-30] MEDS ORDERED: ONDANSETRON ODT 4 MG TAB PO PRN (09:45)
[2017-07-30] MEDS ORDERED: ALBUMIN 25% INJ 100 ML IV PRN (09:45)
[2017-07-30] MEDS ORDERED: NITROGLYCERIN 0.4 MG SL 25 TABS/BTL SL PRN (09:45)
[2017-07-30] MEDS ORDERED: HEPARIN SODIUM - IV 10,000 UNITS/10 ML VIAL IV FLUSH PRN (09:45)
[2017-07-30] MEDS ORDERED: GENTAMICIN SULFATE 20 MG/2 ML VIAL OTHER PRN (09:45)
[2017-07-30] MEDS ORDERED: cloNIDine HCL 0.1 MG TAB PO PRN (09:45)
[2017-07-30] MEDS ORDERED: diphenhydrAMINE HCL 25 MG CAP PO PRN (09:45)
[2017-07-30] MEDS ORDERED: HEPARIN SODIUM - IV 10,000 UNITS/10 ML VIAL PRN (09:45)
[2017-07-30] MEDS ORDERED: MANNITOL 12.5 GM/50 ML VIAL IV PRN (09:45)
--- NOTE | 2017-07-30 09:47 | PD.CONS ---
History of Present Illness Service Neurology Consult Requested By ER MD Reason for Consult Possible stroke Primary Care Physician Ronaldo Henderson M.D. History of Present Illness 77-year-old female admitted for possible TIA. Noted have hypertensive emergency in the ER. Blood pressures 220s over 90s. Had an MRI MRA of the brain no acute stroke noted MRA brain normal. pt denies any headache, neck pain. Patient poor historian and information obtained from medical chart review Review of Systems Except as stated in HPI: all other systems reviewed are Neg Past Family Social History Past Medical History End-stage renal disease on hemodialysis Saturday COPD Diabetes mellitus Hypertension Hyperlipidemia History of uterine cancer Recurrent UTIs Past Surgical History Right rotator cuff Hysterectomy Ileostomy with subsequent takedown Bilateral cataract Reported Medications Reported Meds & Active Scripts Active Levemir Inj (Insulin Detemir) 1,000 unit/ 10 ML Vial 10 Units SQ AC BREAKFAST Do not mix with any other Insulin. Hydrocodone-Acetamin 10-325 mg (Hydrocodone/Acetaminophen) 10 Mg-325 Mg Tablet 1 Tab PO Q4H PRN Catapres (Clonidine) 0.1 Mg Tab 0.2 Mg PO BID Reported Hair Skin & Nails (Biotin W/ Vitamins C & E) 1,250-7.5-7.5 Mcg-Mg-Unit Chew 1 Tab PO DAILY Gabapentin 300 Mg Cap 300 Mg PO HS Nitrofurantoin Macrocrystal 50 Mg Cap 50 Mg PO DAILY Atorvastatin (Atorvastatin Calcium) 20 Mg Tab 20 Mg PO HS Diltiazem ER 24 HR (Diltiazem HCl) 180 Mg Caper 180 Mg PO DAILY Meclizine (Meclizine HCl) 25 Mg Tab 25 Mg PO DAILY PRN Bumetanide 2 Mg Tab 2 Mg PO DAILY Tums (Calcium Carbonate (Antacid)) 500 Mg Chew 1,000 Mg PO HS Aspirin Adult Low Strength (Aspirin) 81 Mg Tabdr 81 Mg PO DAILY Alannah-Julien (B-Complex W/ C & Folic Acid) 1 Tab 1 Tab PO DAILY Duoneb (Ipratropium-Albuterol Neb) 0.5-2.5 Mg/3 Ml Neb 3 Ml NEB Q6HR PRN Calcium Acetate (Phosphate Binder) 667 Mg Tab 1,334 Mg PO BID Hydralazine (Hydralazine HCl) 100 Mg Tab 100 Mg PO TID Take with meals Pantoprazole (Pantoprazole Sodium) 40 Mg Tab 40 Mg PO BID Catapres (Clonidine) 0.1 Mg Tab 0.1 Mg PO BID Losartan (Losartan Potassium) 100 Mg Tab 100 Mg PO DAILY Allergies: Coded Allergies: Sulfa (Sulfonamide Antibiotics) (Verified Allergy, Severe, Rash, 06/19/17) ciprofloxacin (Verified Allergy, Severe, Rash, 06/19/17) ranitidine (Verified Allergy, Severe, Rash, 06/19/17) furosemide (Verified Allergy, Mild, Rash, 06/19/17) Family History No known history of stroke or seizure Social History Remote history of smoking. No alcohol or illicit drugs. Review of Systems All other ROS: ROS reviewed as documented in chart Past Family Social History Allergies: Coded Allergies: Sulfa (Sulfonamide Antibiotics) (Verified Allergy, Severe, Rash, 06/19/17) ciprofloxacin (Verified Allergy, Severe, Rash, 06/19/17) ranitidine (Verified Allergy, Severe, Rash, 06/19/17) furosemide (Verified Allergy, Mild, Rash, 06/19/17) Active Ordered Medications Current Medications Medications (Trade) Dose Ordered Sig/Shanika Route Start Time Stop Time Status Last Admin (NS Flush) 2 ml UNSCH PRN IV FLUSH 07/30/17 04:15 (NS Flush) 2 ml BID IV FLUSH 07/30/17 09:00 07/30/17 08:16 (Tylenol) 650 mg Q4H PRN PO 07/30/17 04:15 (Heparin Inj) 5,000 units Q8HR SQ 07/30/17 06:00 07/30/17 08:03 (Narcan Inj) 0.4 mg UNSCH PRN IV PUSH 07/30/17 04:15 (Milk Of Magnesia Liq) 30 ml Q12H PRN PO 07/30/17 04:15 (Senokot) 17.2 mg Q12H PRN PO 07/30/17 04:15 (Dulcolax Supp) 10 mg DAILY PRN RECTAL 07/30/17 04:15 (Lactulose Liq) 30 ml DAILY PRN PO 07/30/17 04:15 Ceftriaxone Sodium 1000 mg/ Sodium Chloride 100 ml @ 200 mls/hr Q24H IV 07/31/17 01:00 (Ecotrin Ec) 81 mg DAILY PO 07/30/17 09:00 07/30/17 08:16 (Lipitor) 20 mg HS PO 07/30/17 21:00 (Bumetanide) 2 mg DAILY PO 07/30/17 09:00 07/30/17 09:06 (Phoslo) 1,334 mg BID PO 07/30/17 09:00 07/30/17 09:06 (Tums Chew) 1,000 mg HS PO 07/30/17 21:00 (Apresoline) 100 mg TID PO 07/30/17 09:00 (Duoneb Neb) 1 ampule Q6HR NEB PRN NEB 07/30/17 04:30 (Cozaar) 100 mg DAILY PO 07/30/17 09:00 (Protonix) 40 mg BID PO 07/30/17 09:00 07/30/17 08:16 (Cardizem Cd) 180 mg DAILY PO 07/30/17 09:00 07/30/17 09:06 (D50w (Vial) Inj) 50 ml UNSCH PRN IV PUSH 07/30/17 04:15 (Glucagon Inj) 1 mg UNSCH PRN OTHER 07/30/17 04:15 (NovoLOG SUPPLEMENTAL SCALE) 1 ACHS SLIDING SCALE SQ 07/30/17 08:00 (Levemir Inj) 10 units DAILYAC SQ 07/30/17 08:00 07/30/17 08:16 (Catapres) 0.2 mg BID PO 07/30/17 21:00 Sodium Chloride 1,000 ml @ 0 mls/hr Q0M PRN OTHER 07/30/17 09:33 UNV (Heparin Inj) 8,000 units UNSCH PRN IV FLUSH 07/30/17 09:45 UNV Sodium Chloride 1,000 ml @ 200 mls/hr Q5H PRN IV 07/30/17 09:33 UNV Sodium Chloride 1,000 ml @ 0 mls/hr Q0M PRN OTHER 07/30/17 09:33 UNV (Mannitol Inj) 12.5 gm UNSCH PRN IV 07/30/17 09:45 UNV Albumin Human 100 ml @ 60 mls/hr UNSCH PRN IV 07/30/17 09:45 UNV (NS Flush) 5 ml UNSCH PRN IV FLUSH 07/30/17 09:45 UNV (Heparin Inj) UNSCH PRN .XX 07/30/17 09:45 UNV (Gentamicin Inj) 20 mg UNSCH PRN OTHER 07/30/17 09:45 UNV (Zofran Inj) 4 mg UNSCH PRN IV PUSH 07/30/17 09:45 UNV (Tylenol) 650 mg UNSCH PRN PO 07/30/17 09:45 UNV (Benadryl) 25 mg UNSCH PRN PO 07/30/17 09:45 UNV (Nitrostat Sl) 0.4 mg UNSCH PRN SL 07/30/17 09:45 UNV (Catapres) 0.1 mg UNSCH PRN PO 07/30/17 09:45 UNV (Epogen Inj) 4,000 units UNSCH PRN IV PUSH 07/30/17 09:45 UNV (Gelfoam 12 Mm/7 Mm Top) 1 foam UNSCH PRN TOP 07/30/17 09:45 UNV Exam I&O / VS 07/30/17 07/30/17 07/31/17 15:00 23:00 07:00 Intake Total 200 ml Balance 200 ml Intake IV Total 200 ml Vital Signs Date Time Temp Pulse Resp B/P (MAP) Pulse Ox O2 Delivery O2 Flow Rate FiO2 07/30/17 09:05 85 17 210/81 (124) 97 Room Air 07/30/17 08:06 98.3 87 17 199/81 (120) 98 Room Air 07/30/17 06:34 96 Room Air 07/30/17 02:04 93 16 220/90 (133) 96 Room Air 07/30/17 00:44 86 16 227/91 (136) 96 Room Air 07/29/17 22:41 99.5 97 18 220/98 (138) 100 General: No acute distress Eye: EOMI Respiratory: Non-labored respirations Musculoskeletal: ROM Neurologic: Alert, Normal motor Psychiatric: Cooperative Exam Comments ox 2, not to date, renal md Lee, follows, able to name objects and conversate , pres?, reduced ROM at rajesh shoulders, good equal grasp, able to raise rajesh le to gravity, le reduced pin, no clonus, planterflexor Review/Management Diagnosis/Plan: (1) Encephalopathy ICD Codes: G93.40 - Encephalopathy, unspecified Status: Acute Plan: Probable hypertensive encephalopathy; in addition UTI may be contributory Recommendations EEG Carotid ultrasound Blood pressure control Aspirin Follow exam (2) ESRD (end stage renal disease) ICD Codes: N18.6 - ESRD (end stage renal disease) Status: Acute (3) Hypertension ICD Codes: I10 - Essential (primary) hypertension Status: Chronic (4) DM (diabetes mellitus) ICD Codes: E11.9 - DM (diabetes mellitus) Status: Chronic Problem Qualifiers (1) Hypertension: Qualified Codes: I10 - Essential (primary) hypertension Paul Mcgrath MD Jul 30, 2017 09:47
[2017-07-30 09:48] LABS: ALKALINE PHOSPHATASE 228 U/L (45-117); TOTAL BILIRUBIN ADULT 0.4 MG/DL (0.2-1.0); TOTAL PROTEIN 6.5 GM/DL (6.4-8.2); TROPONIN I 0.15 NG/ML (0.02-0.05)
[2017-07-30] MEDS: INSULIN ASPART SUPPLEMENTAL SCALE SQ SCH ×4 (10:25→21:01)
[2017-07-30] MEDS: hydrALAZINE HCL 100 MG TAB PO SCH ×3 (10:25→17:29)
[2017-07-30] MEDS: LOSARTAN 50 MG TAB PO SCH (10:26)
[2017-07-30] MEDS: ASPIRIN 325 MG TAB PO SCH (10:27)
--- NOTE | 2017-07-30 11:50 | RADRPT ---
EXAM DATE: 07/30/2017 10:42 AM EDT AGE/SEX: 77 years / Female INDICATIONS: Altered mental status. CLINICAL DATA: This is the patient's initial encounter. Patient reports that signs and symptoms have been present for 1 day and indicates a pain score of 2/10. MEDICAL/SURGICAL HISTORY: Hypercholesterolemia. Chronic obstructive pulmonary disease. Gastro esophageal reflux disease. Hypertension. History of perforated bowel. Hiatal hernia. Renal failure. Nephrolithiasis. Diabetes. Ovarian cancer stage 3. Vancomycin resistant Enterococci. Appendectomy. Hysterectomy. Cataract extraction. Dilation and curettage. Dialysis. AV fistula. Right rotator cuff r epair. Ileostomy. COMPARISON: No prior [facility] exams available for comparison. VELOCITY PARAMETERS: ICA/CCA Ratio: Right 1.3 , Left 1.3 ICA: Right 109.7 cm/sec, Left 106.2 cm/sec CCA: Right 85.6 cm/sec, Left 80.6 cm/sec ECA: Right 90.3 cm/sec, Left 141.9 cm/sec Vertebral: Right 101.6 cm/sec antegrade, Left 43.9 cm/sec antegrade FINDINGS: Right Carotid: No significant stenosis is visualized. There is mild calcified and noncalcified plaqu e in the carotid bulb. Left Carotid: No significant stenosis is visualized. There is mild calcified and noncalcified plaque in the carotid bulb. Other: None. CONCLUSION: 1. Right Internal Carotid Artery: Findings indicate <50% stenosis. 2. Left Internal Carotid Artery: Findings indicate <50% stenosis. Electronically signed by: Oliver Dial MD 07/30/2017 11:49 AM EDT
--- NOTE | 2017-07-30 15:21 | PD.WCN.NOT ---
Wound Consult Description: Consult for WOUND MANAGEMENT of bilateral heels and sacral ulcer per Dr Flores Communicated with: Dr Kaylie Lobo CNA KARSON Deluna left the room before physician underwriter began assessment and was UNAVAILABLE when called after assessment was complete. Recommendation: Recommend to cleanse lower right back wound DAILY with NORMAL SALINE ONLY. Apply Santyl nickel thickness to yellow adherent slough in wound bed. Cover with dry cover. Date dressing. Bilateral heel wounds: Apply skin barrier film BID, leave open to air, and float off mattress surface at all times. Obtain and place bilateral feet in heel raiser boots to float heels off mattress surface at all times. Additional Information: Patient seen on for evaluation of wounds. Lab was in room upon writers arrival with KARSON Deluna at bedside. Once digital cartographic technician had completed her blood draw physician underwriter was left to assess patient wounds independently. Left heel was visualized and noted with a DTI measuring 3cm x 4.5cm of purple non blanching discoloration that appears to be resolving with a stable eschar noted laterally within the DTI measuring 1.5cm x 1cm. There are no open areas noted, no odor, and no drainage. Heel was floated off mattress surface by placing a pillow underneath her calf. Right heel visualized with a DTI measuring 2.8cm x 3cm x 0cm of purple non blanching discoloration with patient withdrawing from pain during measuring. Heel was floated off mattress surface by placing a pillow underneath her calf. CARINE Lobo was seen walking by patient room and asked to assist physician underwriter in repositioning patient for sacral wound evaluation. Patient turned to her left side for assessment of sacrum which was found to be unremarkable. Coccyx and bilateral buttocks were visualized and found to be unremarkable as well. There was however a round wound open to air on the lower mid/right side of the patients back measuring 0.7cm x 1cm x 100% yellow adherent dry slough with no active drainage and no odor noted. A dressing was found in the bed with a date of 07/28/17 with scant yellow/sanguinous appearing exudate noted. Periwound is noted with ~0.5cm of blanching erythema circumferentially. Wound is of unknown etiology and currently full thickness skinloss, as necrotic tissue is not present in partial thickness wounds. Wound was cleansed with NS and gauze and left open to air with recommendations of Shannon for debridement, communicated with Dr Lott. Kassi Moody [facility] Jul 30, 2017 15:21
[2017-07-30 15:53] LABS: TROPONIN I 0.34 NG/ML (0.02-0.05)
--- NOTE | 2017-07-30 16:07 | EKG ---
Date Performed: 07/29/2017 Time Performed: 22:01:59 PTAGE: 77 years EKG: Sinus rhythm LEFT VENTRICULAR HYPERTROPHY AND ST-T CHANGE ABNORMAL ECG PREVIOUS TRACING 09/15/16 Since the prior tracing, there has been an increase in the left ventr icular votlage and left ventricular hypertrophy. The marked anterolateral ST-T wave changes are essen tially new. These changes appear to be from progressive left ventricular hypertrophy, but myocardial ischemia cannot be excluded. DOCTOR: Keyla Brown Interpretating Date/Time 07/30/2017 16:06:02
--- NOTE | 2017-07-30 16:44 | MG ---
cc: Bryn Garcia MD, PhD DATE OF STUDY: 07/30/2017 TEST NUMBER: [id number] TECHNIQUE: This is a 17-channel EEG. DESCRIPTION: Background rhythm is a symmetrical alpha with a frequency of 8 Hz. There is fairly frequent theta activity as well at roughly 6 Hz. Amplitude is roughly 20-30 microvolts. Muscle artifact is seen. There are no lateralizing features identified and no epileptiform features are identified. INTERPRETATION: There is quite a bit of slowing in the theta range, suggesting a mild degree of encephalopathy. No epileptiform features identified. Bryn Garcia MD, PhD ERIN/FAVIAN , 04:32 PM , 04:43 PM
--- NOTE | 2017-07-30 17:12 | EKG ---
Date Performed: 07/30/2017 Time Performed: 16:27:12 PTAGE: 77 years EKG: SINUS TACHYCARDIA LEFT VENTRICULAR HYPERTROPHY AND ST-T CHANGE ABNORMAL ECG PREVIOUS TRACING : 07/30/2017 07.28 Compared to previous tracing, rate faster. DOCTOR: Rin Henry Interpretating Date/Time 07/30/2017 17:11:18
--- NOTE | 2017-07-30 17:21 | EKG ---
Date Performed: 07/30/2017 Time Performed: 07:28:48 PTAGE: 77 years EKG: Sinus rhythm WITH OCCASIONAL SUPRAVENTRICULAR PREMATURE COMPLEXES LEFT VENTRICULAR HYPERTROPHY AND ST-T CHANGE AB NORMAL ECG Since the PREVIOUS TRACING , no significant change noted DOCTOR: Rin Henry Interpretating Date/Time 07/30/2017 17:20:08
--- NOTE | 2017-07-30 17:21 | MB ---
cc: Delbert Burton DO DATE: 07/30/2017 REASON FOR CONSULTATION: Hypertensive urgency, elevated troponin. HISTORY OF PRESENT ILLNESS: Lizeth Macario is a pleasant 77-year-old female who presented to [facility] Emergency Room due to encephalopathy, altered mental status and UTI. Apparently, the patient resides in a fci where she is undergoing rehabilitation after suffering a fall approximately a month ago. Per the fci staff, the patient was lethargic, shaking and altered mental status. At this time, she is able to answer some questions, but still has difficulty answering exactly what happened at the time and so information is taken from the records. Apparently, her children stated that she also becomes increasingly confused and encephalopathic with her UTIs. In seeing her, she states that she has had no chest pain or shortness of breath before, during, or after the episode. She is currently hemodynamically stable without symptoms while in bed. PAST MEDICAL HISTORY: 1. End-stage renal disease on hemodialysis Saturday, Saturday and Saturday. 2. Chronic obstructive pulmonary disease. 3. Diabetes mellitus. 4. Hypertension. 5. Hyperlipidemia. 6. History of uterine cancer. 7. Recurrent UTIs. PAST SURGICAL HISTORY: 1. Right rotator cuff surgery. 2. Hysterectomy. 3. Ileostomy with subsequent takedown. 4. Bilateral cataract surgery. ALLERGIES: SULFA. CIPROFLOXACIN. LASIX. RANITIDINE. MEDICATIONS: 1. Macrobid 50 mg daily. 2. DuoNeb every 6 hours as needed for shortness of breath. 3. Lipitor 20 mg every night. 4. Clonidine 0.1 mg b.i.d. 5. Hydralazine 100 mg t.i.d. 6. Cardizem ER 180 mg daily. 7. Losartan 100 mg daily. 8. Aspirin 81 mg daily. 9. Hydrocodone/acetaminophen 10/325 every 4 hours as needed for pain. 10. Gabapentin 300 mg every night. 11. Calcium acetate 1334 mg b.i.d. 12. Bumetanide 2 mg daily. 13. Meclizine 25 mg daily as needed for vertigo. 14. Protonix 40 mg b.i.d. 15. Levemir 10 units with breakfast. FAMILY HISTORY: Father had a history of coronary artery disease. Denies sudden cardiac within the family. SOCIAL HISTORY: The patient has a remote history of smoking. Denies illicit drug abuse or alcohol. REVIEW OF SYSTEMS: Fourteen systems were reviewed including osteopathic. Pertinent positives and negatives above, otherwise negative. PHYSICAL EXAMINATION: VITAL SIGNS: Temperature 98.2, heart rate 75, blood pressure 151/79, respirations 20, pulse oximetry 98% on room air. GENERAL: The patient appears well but mildly lethargic. No acute distress. Alert, awake and oriented x3. HEENT: Extraocular muscles intact. Mucous membranes moist. NECK: Supple. No JVD at 45 degrees. No carotid bruits heard bilaterally. Carotid upstroke is brisk in nature. HEART: Regular rate and rhythm. Positive first and second heart sound with no noted murmurs, gallops or rubs. LUNGS: Clear to auscultation bilaterally. No wheezes, rales or rhonchi. ABDOMEN: Soft, nontender, nondistended. No organomegaly noted. EXTREMITIES: Show no clubbing, cyanosis or edema. Femoral distal pulses intact bilaterally. NEUROLOGIC: No focal deficits. SKIN: Warm, dry and intact. OSTEOPATHIC: No kyphoscoliosis, lordosis or paraspinal tender points. LABORATORY DATA: Hemoglobin 10.2, hematocrit 31.3, platelets 333. Potassium 4.7, BUN 33, creatinine 7.21. Troponin 0.15, increasing to 0.34. IMPRESSIONS: 1. Urinary tract infection. 2. Encephalopathy, possibly due to urinary tract infection versus hypertensive urgency. 3. Hypertensive urgency with a blood pressure of 227/91 on arrival. 4. Minimally elevated troponin. 5. Electrocardiographic changes consistent with left ventricular hypertrophy, cannot rule out ischemia. 6. End-stage renal disease on hemodialysis. 7. Diabetes mellitus. 8. Chronic obstructive pulmonary disease. 9. Hypertension. RECOMMENDATIONS: 1. Ms. Macario appears to have presented with encephalopathy, most likely due to her UTI as well as hypertensive urgency. She will be followed by Neurology to further rule out other causes. 2. She did have a minimally elevated troponin. This is most likely due to her overall renal disease as well as her hypertensive urgency. 3. She does have EKG changes consistent with LVH, but ischemia cannot be ruled out. 4. We will keep her n.p.o. after midnight and plan for stress testing in the morning if stable. If stress test is positive, then she will undergo cardiac catheterization. If stress test is negative, then we will plan for further blood pressure control and continuation of medical management. 5. We will check a 2-dimensional echo to look at her overall left ventricular function, cardiac structure and possible valvulopathies. 6. Further recommendations will be made based on the hospital course. Thank you for allowing me to see Lizeth Macario. If you have any questions, please do not hesitate to call. Delbert Burton DO VGP/SB , 04:49 PM , 05:19 PM
[2017-07-30] MEDS: CALCIUM CARBONATE 500 MG CHEWABLE TAB PO SCH (20:27)
[2017-07-30] MEDS: ATORVASTATIN 20 MG TAB PO SCH (20:27)
[2017-07-30] MEDS: cloNIDine HCL 0.1 MG TAB PO SCH (20:28)
[2017-07-30] MEDS: ACETAMINOPHEN 325 MG TAB PO PRN (22:09)
[2017-07-31] VITALS (19 sets, daily range): BP systolic 114–222; BP diastolic 56–97; PULSE 62–130; RESP 16–38; TEMP 97.6–102.6; O2SAT 94–100
[2017-07-31] MEDS ORDERED: cefTRIAXone INJ 1,000 MG in SODIUM CHLORIDE 0.9% INJ 100 ML IV SCH (01:00)
[2017-07-31] MEDS: ACETAMINOPHEN 325 MG TAB PO PRN (04:22)
--- NOTE | 2017-07-31 05:05 | RADRPT ---
EXAM DATE: 07/31/2017 4:56 AM EDT AGE/SEX: 77 years / Female INDICATIONS: Short of breath. CLINICAL DATA: This is the patient's subsequent encounter. Patient reports that signs and symptoms h ave been present for 1 week and indicates a pain score of 0/10. MEDICAL/SURGICAL HISTORY: Non-responsive. Non-responsive. COMPARISON: [facility] [place], CHEST SINGLE AP, 07/29/2017. . FINDINGS: There is some increased interstitial markings bilaterally. No focal areas of parenchymal consolidatio n. The heart size is enlarged but stable. No definite pleural effusions. The bony structures are stab le. CONCLUSION: Increased interstitial markings bilaterally suggestive of pulmonary edema. Electronically signed by: Hoang Chadwick MD 07/31/2017 5:04 AM EDT
[2017-07-31] MEDS ORDERED: AZITHROMYCIN 250 MG TAB PO ONE (05:30)
[2017-07-31] MEDS ORDERED: SODIUM BICARBONATE 8.4% INJ 50 MEQ/50 ML SYR IV PUSH ONE (05:30)
[2017-07-31] MEDS ORDERED: ACETAMINOPHEN 1000 MG/100 ML 100 ML IV ONE (05:45)
--- NOTE | 2017-07-31 05:59 | HHI.FPPN ---
Addendum to progress note ADDENDUM Reason for addendum: Additonal documentation Additional information S: Jane Padilla and Cameron were paged at approx 0430 AM for a Halicat. Drs responded to bedside where Ms Macario, a 77 YO female, was lying in bed with BiPaP at 100%, tachypneic with RR at 32 in respiratory distress and accessory muscle use with belly breathing for approximately 1 hour per nursing, febrile to 101.5, and tachycardic at 125 bpm . Pt with PMHx COPD, CHF, chronic recurrent UTIs on Macrobid PPx, ESRD on HD, DM, and s/p uterine cancer who presented with encephalopathy and AMS likely 2/2 UTI on admission and heel and sacral ulcers. Prior to being placed on BiPaP, pt was on 8L O2/Simple mask with respiratory acidosis on ABG, and was then changed to BiPaP. Pt was started on Rocephin on admission with last dose at 2AM, tylenol at 0422 and Duonebs at 0426 without improvement in sxs. Additionally, pt has elevated Troponins with 0.34 at 1435 on 07/30 and 0.70 at 2000 hrs on 07/30, but pt was not complaining of CP at bedside. O: VS: T -101.5 / HR 125 / BP 125/95 / RR 32 / O2 sat 100% on BiPaP 100% Vital Signs Date Time Temp Pulse Resp B/P (MAP) Pulse Ox O2 Delivery O2 Flow Rate FiO2 07/31/17 04:27 98 Simple Mask 10.00 07/31/17 04:13 99.6 130 32 136/94 (108) GENERAL: Well-nourished, overweight elderly female in acute respiratory distress breathing on BiPAP. SKIN: Warm and dry. Hyperpigmented skin on upper right back and arm and hyper/ hypopigmentation on bilateral legs. HEAD: Normocephalic. EYES: No scleral icterus. No injection or drainage. NECK: Supple, trachea midline. No JVD or lymphadenopathy. CARDIOVASCULAR: Tachycardic with regular rhythm without murmurs, gallops, or rubs. Pt denies CP. RESPIRATORY: Coarse breath sounds bilaterally with left worse than right. Accessory muscle use and belly breathing with respiratory distress on BiPAP. GASTROINTESTINAL: Abdomen soft, non-tender, nondistended. Hypoactive BS. EXTREMITIES: No cyanosis, or edema. NEUROLOGICAL: Awake and alert. Non-focal. Laboratory Tests Test 07/30/17 20:08 07/31/17 04:30 Total Creatine Kinase 144 U/L (26-192) Creatine Kinase MB 1.4 NG/ML (0.5-3.6) Troponin I 0.70 NG/ML (0.02-0.05) Blood Gas Puncture Site RT RADIAL Blood Gas Patient Temperature 98.6 Blood Gas HCO3 19 mmol/L (22-26) Blood Gas Base Excess -6.4 mmol/L (-2-2) Blood Gas Oxygen Saturation 94 % (90-100) Arterial Blood pH 7.29 (7.380-7.420) Arterial Blood Partial Pressure CO2 41 mmHg (38-42) Arterial Blood Partial Pressure O2 115 mmHg (61-120) Arterial Blood Oxygen Content 13.7 Vol % (12.0-20.0) Arterial Blood Carboxyhemoglobin 1.6 % (0-4) Arterial Blood Methemoglobin 1.7 % (0-2) Blood Gas Hemoglobin 10.3 G/DL (12.0-16.0) Oxygen Delivery Device SIMPLE MASK Blood Gas Liter Flow 8 L/M Last 24 hours Impressions Chest X-Ray 07/31/17 0000 Signed Impressions: CONCLUSION: Increased interstitial markings bilaterally suggestive of pulmonary edema. A/P: 77 YO female with PMHx COPD, CHF, DM, ESRD/HD (last HD yesterday), s/p uterine cancer, chronic, recurrent UTIs on Macrobid ppx presents on admission with UTI and now acute respiratory distress on BiPAP, ABG showing respiratory acidosis, increasing Troponin since yesterday afternoon to 0.70 at 2008 hours but no complaint of CP, CXR with pulmonary edema, cardiomegaly. Consider bacteremia, sepsis, CHF exacerbation, PE. Impression: -VS - febrile 101.5, HR 125 / BP 125/95 / RR 32 on BiPAP s/p duonebs -CXR w/pulm edema, cardiomegaly and COPD (last Bumex 9AM 07/30--NO Lasix due to sulfa allergy) -UTI being treated empirically with Rocephin -ABG @ 0430 pH 7.29 / PCO2 41 / PO2 115 / HCO3 19 / BE -6--acute resp acidosis on 10L simple mask/40% FiO2 PLAN: -Lactic acid -CBC, CMP, Troponin, BNP -D-dimer -BiPAP -Blood cx and Urine cx -F/u ABG with pH 7.28 / PCO2 41.3 / PO2 115 / HCO3 19.1 / BE -6.4 -ABG in 1 hour -Broaden abx coverage for Pseudomonas with Zosyn 2.25gm IV in pt w/DM -Broaden abx coverage for atypicals with Azithromycin 500mg PO -Dr Padilla spoke to Dr Richmond -Dr Barnes spoke to SAGAR Raymond; HEPAS to initiate cvt rn consult if desired -Pt transferred to [facility] Pt SDW Jus Jennings MD R1 Jul 31, 2017 05:59
[2017-07-31] MEDS: HEPARIN SODIUM - SQ 10,000 UNITS/ML VIAL SQ SCH ×3 (06:01→20:12)
[2017-07-31] MEDS: PIPERACIL-TAZO 2.25 GM PREMIX 50 ML IV SCH ×4 (06:02→20:12)
[2017-07-31 06:39] LABS: AUTOMATED NEUTROPHIL # 12.7 TH/MM3 (1.8-7.7); BASOPHIL # 0.1 TH/MM3 (0-0.2); BASOPHIL % 0.6 % (0.0-2.0); EOSINOPHIL % 0.2 % (0.0-4.0); HEMOGLOBIN 9.8 GM/DL (11.6-15.3); LYMPH % 3.1 % (9.0-44.0); LYMPHOCYTE # 0.4 TH/MM3 (1.0-4.8); MEAN CELL VOLUME 99.8 FL (80.0-100.0); MEAN CORPUSCULAR HEMOGLOBIN 31.7 PG (27.0-34.0); MEAN CORPUSCULAR HGB CONC 31.7 % (32.0-36.0); MONO % 4.8 % (0.0-8.0); MONOCYTE # 0.7 TH/MM3 (0-0.9); NEUT % 91.3 % (16.0-70.0); PLATELET COUNT 249 TH/MM3 (150-450); RED BLOOD COUNT 3.11 MIL/MM3 (4.00-5.30); RED CELL DISTRIBUTION WIDTH 17.8 % (11.6-17.2); WHITE BLOOD COUNT 13.9 TH/MM3 (4.0-11.0)
[2017-07-31 06:45] LABS: LACTIC ACID SEPSIS PROTOCOL 2.4 mmol/L (0.4-2.0)
[2017-07-31 07:10] LABS: ALBUMIN 3.4 GM/DL (3.4-5.0); ALKALINE PHOSPHATASE 260 U/L (45-117); ALT (GPT) 30 U/L (10-53); BICARBONATE 17.5 MEQ/L (21.0-32.0); BLOOD UREA NITROGEN 46 MG/DL (7-18); CALCIUM 9.2 MG/DL (8.5-10.1); CHLORIDE 101 MEQ/L (98-107); CREATININE 8.82 MG/DL (0.50-1.00); GLOMERULAR FILTRATION RATE 4 ML/MIN (>89); GLUCOSE,RANDOM 208 MG/DL (74-106); SODIUM (NA) 136 MEQ/L (136-145); TOTAL BILIRUBIN ADULT 0.6 MG/DL (0.2-1.0); TOTAL PROTEIN 7.5 GM/DL (6.4-8.2)
[2017-07-31 07:11] LABS: AST (GOT) 51 U/L (15-37)
[2017-07-31 07:12] LABS: TROPONIN I 1.18 NG/ML (0.02-0.05)
[2017-07-31] MEDS: INSULIN ASPART SUPPLEMENTAL SCALE SQ SCH ×4 (08:00→20:46)
[2017-07-31] MEDS: ASPIRIN EC 81 MG TABEC PO SCH (09:00)
[2017-07-31] MEDS: INSULIN DETEMIR 100 UNITS/ML VIAL SQ SCH (09:08)
[2017-07-31] MEDS: SODIUM CHLORIDE 0.9% FLUSH 10 ML FLUSH IV FLUSH SCH ×2 (09:08→20:13)
[2017-07-31] MEDS: BUMETANIDE 1 MG TAB PO SCH (09:09)
[2017-07-31] MEDS: CALCIUM ACETATE 667 MG CAP PO SCH ×2 (09:10→20:13)
[2017-07-31] MEDS: PANTOPRAZOLE SOD 40 MG DELAYED RELEASE TAB PO SCH ×2 (09:10→20:12)
[2017-07-31] MEDS: hydrALAZINE HCL 100 MG TAB PO SCH ×3 (09:10→17:40)
[2017-07-31] MEDS: DILTIAZEM-CD 180 MG CAP ER PO SCH (09:11)
[2017-07-31] MEDS: ASPIRIN 325 MG TAB PO SCH (09:11)
[2017-07-31] MEDS: cloNIDine HCL 0.1 MG TAB PO SCH ×2 (09:14→20:13)
[2017-07-31] MEDS: LOSARTAN 50 MG TAB PO SCH (09:14)
--- NOTE | 2017-07-31 09:33 | HHI.PR ---
Review/Management Diagnosis/Plan: (1) Encephalopathy ICD Codes: G93.40 - Encephalopathy, unspecified Status: Acute Plan: Probable hypertensive encephalopathy; in addition UTI may be contributory Recommendations Mental status improved EEG demonstrating mild encephalopathy MRI brain no acute stroke. MRI brain, carotid ultrasound no significant vaso- occlusive disease Blood pressure control Aspirin Follow exam (2) ESRD (end stage renal disease) ICD Codes: N18.6 - ESRD (end stage renal disease) Status: Acute (3) Hypertension ICD Codes: I10 - Essential (primary) hypertension Status: Chronic (4) DM (diabetes mellitus) ICD Codes: E11.9 - DM (diabetes mellitus) Status: Chronic Subjective Subjective Comments No acute events reported No headache No chest pain No dyspnea Active Medications Current Medications Medications (Trade) Dose Ordered Sig/Shanika Route Start Time Stop Time Status Last Admin (NS Flush) 2 ml UNSCH PRN IV FLUSH 07/30/17 04:15 (NS Flush) 2 ml BID IV FLUSH 07/30/17 09:00 07/31/17 09:08 (Tylenol) 650 mg Q4H PRN PO 07/30/17 04:15 (Heparin Inj) 5,000 units Q8HR SQ 07/30/17 06:00 07/31/17 06:01 (Narcan Inj) 0.4 mg UNSCH PRN IV PUSH 07/30/17 04:15 (Milk Of Magnesia Liq) 30 ml Q12H PRN PO 07/30/17 04:15 (Senokot) 17.2 mg Q12H PRN PO 07/30/17 04:15 (Dulcolax Supp) 10 mg DAILY PRN RECTAL 07/30/17 04:15 (Lactulose Liq) 30 ml DAILY PRN PO 07/30/17 04:15 (Ecotrin Ec) 81 mg DAILY PO 07/30/17 09:00 07/30/17 08:16 (Lipitor) 20 mg HS PO 07/30/17 21:00 07/30/17 20:27 (Bumetanide) 2 mg DAILY PO 07/30/17 09:00 07/31/17 09:09 (Phoslo) 1,334 mg BID PO 07/30/17 09:00 07/31/17 09:10 (Tums Chew) 1,000 mg HS PO 07/30/17 21:00 07/30/17 20:27 (Apresoline) 100 mg TID PO 07/30/17 09:00 07/31/17 09:10 (Duoneb Neb) 1 ampule Q6HR NEB PRN NEB 07/30/17 04:30 07/31/17 04:26 (Cozaar) 100 mg DAILY PO 07/30/17 09:00 07/31/17 09:14 (Protonix) 40 mg BID PO 07/30/17 09:00 07/31/17 09:10 (Cardizem Cd) 180 mg DAILY PO 07/30/17 09:00 07/31/17 09:11 (D50w (Vial) Inj) 50 ml UNSCH PRN IV PUSH 07/30/17 04:15 (Glucagon Inj) 1 mg UNSCH PRN OTHER 07/30/17 04:15 (NovoLOG SUPPLEMENTAL SCALE) 1 ACHS SLIDING SCALE SQ 07/30/17 08:00 07/31/17 08:00 (Levemir Inj) 10 units DAILYAC SQ 07/30/17 08:00 07/31/17 09:08 (Catapres) 0.2 mg BID PO 07/30/17 21:00 07/31/17 09:14 Sodium Chloride 1,000 ml @ 0 mls/hr Q0M PRN OTHER 07/30/17 09:33 (Heparin Inj) 8,000 units UNSCH PRN IV FLUSH 07/30/17 09:45 Sodium Chloride 1,000 ml @ 200 mls/hr Q5H PRN IV 07/30/17 09:33 Sodium Chloride 1,000 ml @ 0 mls/hr Q0M PRN OTHER 07/30/17 09:33 (Mannitol Inj) 12.5 gm UNSCH PRN IV 07/30/17 09:45 Albumin Human 100 ml @ 60 mls/hr UNSCH PRN IV 07/30/17 09:45 (NS Flush) 5 ml UNSCH PRN IV FLUSH 07/30/17 09:45 (Heparin Inj) UNSCH PRN .XX 07/30/17 09:45 (Gentamicin Inj) 20 mg UNSCH PRN OTHER 07/30/17 09:45 (Zofran Odt) 4 mg UNSCH PRN PO 07/30/17 09:45 (Tylenol) 650 mg UNSCH PRN PO 07/30/17 09:45 07/31/17 04:22 (Benadryl) 25 mg UNSCH PRN PO 07/30/17 09:45 (Nitrostat Sl) 0.4 mg UNSCH PRN SL 07/30/17 09:45 (Catapres) 0.1 mg UNSCH PRN PO 07/30/17 09:45 (Epogen Inj) 4,000 units UNSCH PRN IV PUSH 07/30/17 09:45 (Gelfoam 12 Mm/7 Mm Top) 1 foam UNSCH PRN TOP 07/30/17 09:45 (Aspirin) 325 mg DAILY PO 07/30/17 10:00 07/31/17 09:11 Piperacillin Sod/ Tazobactam Sod 50 ml @ 100 mls/hr Q6H IV 07/31/17 06:00 07/31/17 06:02 Allergies Allergies Coded Allergies Sulfa (Sulfonamide Antibiotics) (Verified Allergy, Severe, Rash, 06/19/17) ciprofloxacin (Verified Allergy, Severe, Rash, 06/19/17) ranitidine (Verified Allergy, Severe, Rash, 06/19/17) furosemide (Verified Allergy, Mild, Rash, 06/19/17) Review of Systems All other ROS: ROS reviewed as documented in chart Exam I&O / VS Vital Signs Date Time Temp Pulse Resp B/P (MAP) Pulse Ox O2 Delivery O2 Flow Rate FiO2 07/31/17 09:18 95 Nasal Cannula 2.00 07/31/17 08:44 99 Simple Mask 6.00 07/31/17 06:31 22 07/31/17 05:00 102.6 122 38 222/97 (138) 97 07/31/17 04:35 100 40 07/31/17 04:33 101.5 129 32 126/95 (105) 100 07/31/17 04:30 100 10.00 07/31/17 04:27 98 Simple Mask 10.00 07/31/17 04:13 99.6 130 32 136/94 (108) 07/31/17 04:03 129 07/31/17 00:00 98.6 75 18 179/71 (107) 94 07/30/17 20:00 100.5 83 18 176/74 (108) 94 07/30/17 16:05 98.4 106 20 112/68 (83) 98 07/30/17 12:45 98.2 75 20 151/79 (103) 98 07/30/17 12:20 07/30/17 10:31 86 189/77 (114) 07/30/17 09:53 89 17 171/72 (105) 99 Room Air General: No acute distress Eye: EOMI Respiratory: Non-labored respirations Musculoskeletal: ROM Neurologic: Alert, Normal motor Psychiatric: Cooperative Exam Comments Alert oriented 3 recognize see me the day before able to name the current president as well as daughter at bedside much more lucid, reduced ROM at rajesh shoulders, good equal grasp, able to raise rajesh le to gravity, le reduced pin, no clonus, planterflexor Objective Micro and Labs Laboratory Tests Test 07/30/17 14:35 07/30/17 20:08 07/31/17 04:30 07/31/17 05:25 Total Creatine Kinase 94 144 Troponin I 0.34 0.70 Creatine Kinase MB 1.4 Blood Gas Puncture Site RT RADIAL Blood Gas Patient Temperature 98.6 Blood Gas HCO3 19 Blood Gas Base Excess -6.4 Blood Gas Oxygen Saturation 94 Arterial Blood pH 7.29 Arterial Blood Partial Pressure CO2 41 Arterial Blood Partial Pressure O2 115 Arterial Blood Oxygen Content 13.7 Arterial Blood Carboxyhemoglobin 1.6 Arterial Blood Methemoglobin 1.7 Blood Gas Hemoglobin 10.3 Oxygen Delivery Device SIMPLE MASK Blood Gas Liter Flow 8 Nasal Screen MRSA (PCR) MRSA DETECTED Test 07/31/17 05:54 07/31/17 05:56 07/31/17 08:58 Blood Gas Puncture Site RT RADIAL Blood Gas Patient Temperature 98.6 Blood Gas HCO3 18 Blood Gas Base Excess -6.4 Blood Gas Oxygen Saturation 95 Arterial Blood pH 7.35 Arterial Blood Partial Pressure CO2 34 Arterial Blood Partial Pressure O2 125 Arterial Blood Oxygen Content 13.0 Arterial Blood Carboxyhemoglobin 1.6 Arterial Blood Methemoglobin 1.7 Blood Gas Hemoglobin 9.6 Oxygen Delivery Device BIPAP Blood Gas Ventilator Setting IPAP 10/EPAP 5 Blood Gas Inspired Oxygen 40 White Blood Count 13.9 Red Blood Count 3.11 Hemoglobin 9.8 Hematocrit 31.0 Mean Corpuscular Volume 99.8 Mean Corpuscular Hemoglobin 31.7 Mean Corpuscular Hemoglobin Concent 31.7 Red Cell Distribution Width 17.8 Platelet Count 249 Mean Platelet Volume 8.0 Neutrophils (%) (Auto) 91.3 Lymphocytes (%) (Auto) 3.1 Monocytes (%) (Auto) 4.8 Eosinophils (%) (Auto) 0.2 Basophils (%) (Auto) 0.6 Neutrophils # (Auto) 12.7 Lymphocytes # (Auto) 0.4 Monocytes # (Auto) 0.7 Eosinophils # (Auto) 0.0 Basophils # (Auto) 0.1 CBC Comment DIFF FINAL Differential Comment Blood Urea Nitrogen 46 Creatinine 8.82 Random Glucose 208 Total Protein 7.5 Albumin 3.4 Calcium Level 9.2 Alkaline Phosphatase 260 Aspartate Amino Transf (AST/SGOT) 51 Alanine Aminotransferase (ALT/SGPT) 30 Total Bilirubin 0.6 Sodium Level 136 Potassium Level 5.3 Chloride Level 101 Carbon Dioxide Level 17.5 Anion Gap 18 Estimat Glomerular Filtration Rate 4 Lactic Acid Level 2.4 Troponin I 1.18 B-Type Natriuretic Peptide 912 Date/Time Source Procedure Growth Status 07/31/17 05:56 Blood Peripheral Aerobic Blood Culture Pending Received 07/31/17 05:56 Blood Peripheral Anaerobic Blood Culture Pending Received Problem Qualifiers (1) Hypertension: Qualified Codes: I10 - Essential (primary) hypertension Paul Mcgrath MD Jul 31, 2017 09:32
--- NOTE | 2017-07-31 12:28 | HHI.PR ---
Subjective Remarks 77-year-old female with a past medical history significant for end-stage renal disease on hemodialysis, COPD, diabetes mellitus, hypertension, hyperlipidemia, recurrent UTIs and a history of uterine cancer presents the emergency department for evaluation of altered mental status. The patient resides in a intermediate where she is undergoing rehab after suffering a fall approximately 1 month ago. Per intermediate report, the patient was lethargic and shaking and also altered. She was last dialyzed earlier yesterday. Her children are bedside and state that she often becomes increasingly confused and encephalopathic with her urinary tract infections. She was recently treated with p.o. antibiotics for UTI. She is also on daily Macrobid for UTI prophylaxis. The patient denies any pain. No chest pain or shortness of breath. No abdominal pain. No nausea/vomiting/diarrhea. No lateralizing signs /symptoms. She is able to answer my questions at times although drifts back to sleep between questions. 6-6 PATIENT HAD EVENT LAST NIGHT TRANSFERRED TO ICU REMAINS AWAKE ALERT AND ORIENTED X3 STARTING HD DW PATIENT AND RN AND FAMILY Objective Vitals Vital Signs Date Time Temp Pulse Resp B/P (MAP) Pulse Ox O2 Delivery O2 Flow Rate FiO2 07/31/17 10:00 73 07/31/17 09:18 95 Nasal Cannula 2.00 07/31/17 08:44 99 Simple Mask 6.00 07/31/17 08:00 84 07/31/17 06:31 22 07/31/17 05:00 102.6 122 38 222/97 (138) 97 07/31/17 04:35 100 40 07/31/17 04:33 101.5 129 32 126/95 (105) 100 07/31/17 04:30 100 10.00 07/31/17 04:27 98 Simple Mask 10.00 07/31/17 04:13 99.6 130 32 136/94 (108) 07/31/17 04:03 129 07/31/17 00:00 98.6 75 18 179/71 (107) 94 07/30/17 20:00 100.5 83 18 176/74 (108) 94 07/30/17 16:05 98.4 106 20 112/68 (83) 98 07/30/17 12:45 98.2 75 20 151/79 (103) 98 I/O 6/5/18 6/507/30/17 07/31/17 07/31/17 07/31/17 07:00 15:00 23:00 07:00 15:00 23:00 Intake Total 100 ml 200 ml 240 ml 150 ml Balance 100 ml 200 ml 240 ml 150 ml Intake Oral 240 ml IV Total 100 ml 200 ml 150 ml Result Diagram: 07/31/17 0556 07/31/17 0556 Other Results Laboratory Tests Test 07/29/17 22:45 07/29/17 23:10 07/30/17 08:49 07/30/17 14:35 White Blood Count 11.0 TH/MM3 Red Blood Count 3.16 MIL/MM3 Hemoglobin 10.2 GM/DL Bedside Hemoglobin 10.2 G/DL Hematocrit 31.3 % Bedside Hematocrit 30.0 % Mean Corpuscular Volume 98.8 FL Mean Corpuscular Hemoglobin 32.3 PG Mean Corpuscular Hemoglobin Concent 32.7 % Red Cell Distribution Width 17.8 % Platelet Count 333 TH/MM3 Mean Platelet Volume 7.2 FL Neutrophils (%) (Auto) 93.3 % Lymphocytes (%) (Auto) 1.3 % Monocytes (%) (Auto) 3.8 % Eosinophils (%) (Auto) 1.2 % Basophils (%) (Auto) 0.4 % Neutrophils # (Auto) 10.2 TH/MM3 Lymphocytes # (Auto) 0.1 TH/MM3 Monocytes # (Auto) 0.4 TH/MM3 Eosinophils # (Auto) 0.1 TH/MM3 Basophils # (Auto) 0.0 TH/MM3 CBC Comment DIFF FINAL Differential Comment Prothrombin Time 10.2 SEC Prothromb Time International Ratio 1.0 RATIO Activated Partial Thromboplast Time 27.3 SEC Fibrinogen 586 mg/dL Bedside Sodium 139 MMOL/L Bedside Potassium 4.8 MMOL/L Bedside Chloride 103 MMOL/L Bedside Blood Urea Nitrogen 26 MG/DL Bedside Creatinine 6.6 MG/DL Bedside Glucose 164 MG/DL Total Creatine Kinase 69 U/L 64 U/L 94 U/L Troponin I 0.06 NG/ML 0.15 NG/ML 0.34 NG/ML Urine Color YELLOW Urine Turbidity CLOUDY Urine pH 6.5 Urine Specific Paulina 1.016 Urine Protein 300 mg/dL Urine Glucose (UA) 300 mg/dL Urine Ketones NEG mg/dL Urine Occult Blood NEG Urine Nitrite NEG Urine Bilirubin NEG Urine Urobilinogen LESS THAN 2.0 MG/DL Urine Leukocyte Esterase LARGE Urine RBC 5 /hpf Urine WBC 118 /hpf Urine Squamous Epithelial Cells 15 /hpf Urine Transitional Epithelial Cells 2 /hpf Urine Renal Epithelial Cells <1 /hpf Urine Bacteria MANY /hpf Urine Mucus FEW /lpf Urine Opiates Screen NEG Urine Barbiturates Screen NEG Urine Amphetamines Screen NEG Urine Benzodiazepines Screen NEG Urine Cocaine Screen NEG Urine Cannabinoids Screen NEG Blood Urea Nitrogen 33 MG/DL Creatinine 7.21 MG/DL Random Glucose 167 MG/DL Total Protein 6.5 GM/DL Albumin 3.0 GM/DL Calcium Level 9.0 MG/DL Alkaline Phosphatase 228 U/L Aspartate Amino Transf (AST/SGOT) 17 U/L Alanine Aminotransferase (ALT/SGPT) 16 U/L Total Bilirubin 0.4 MG/DL Sodium Level 139 MEQ/L Potassium Level 4.7 MEQ/L Chloride Level 104 MEQ/L Carbon Dioxide Level 22.1 MEQ/L Anion Gap 13 MEQ/L Estimat Glomerular Filtration Rate 6 ML/MIN Test 07/30/17 20:08 07/31/17 04:30 07/31/17 05:25 07/31/17 05:54 Total Creatine Kinase 144 U/L Creatine Kinase MB 1.4 NG/ML Troponin I 0.70 NG/ML Blood Gas Puncture Site RT RADIAL RT RADIAL Blood Gas Patient Temperature 98.6 98.6 Blood Gas HCO3 19 mmol/L 18 mmol/L Blood Gas Base Excess -6.4 mmol/L -6.4 mmol/L Blood Gas Oxygen Saturation 94 % 95 % Arterial Blood pH 7.29 7.35 Arterial Blood Partial Pressure CO2 41 mmHg 34 mmHg Arterial Blood Partial Pressure O2 115 mmHg 125 mmHg Arterial Blood Oxygen Content 13.7 Vol % 13.0 Vol % Arterial Blood Carboxyhemoglobin 1.6 % 1.6 % Arterial Blood Methemoglobin 1.7 % 1.7 % Blood Gas Hemoglobin 10.3 G/DL 9.6 G/DL Oxygen Delivery Device SIMPLE MASK BIPAP Blood Gas Liter Flow 8 L/M Nasal Screen MRSA (PCR) MRSA DETECTED Blood Gas Ventilator Setting IPAP 10/EPAP 5 Blood Gas Inspired Oxygen 40 % Test 07/31/17 05:56 07/31/17 08:58 07/31/17 10:29 White Blood Count 13.9 TH/MM3 Red Blood Count 3.11 MIL/MM3 Hemoglobin 9.8 GM/DL Hematocrit 31.0 % Mean Corpuscular Volume 99.8 FL Mean Corpuscular Hemoglobin 31.7 PG Mean Corpuscular Hemoglobin Concent 31.7 % Red Cell Distribution Width 17.8 % Platelet Count 249 TH/MM3 Mean Platelet Volume 8.0 FL Neutrophils (%) (Auto) 91.3 % Lymphocytes (%) (Auto) 3.1 % Monocytes (%) (Auto) 4.8 % Eosinophils (%) (Auto) 0.2 % Basophils (%) (Auto) 0.6 % Neutrophils # (Auto) 12.7 TH/MM3 Lymphocytes # (Auto) 0.4 TH/MM3 Monocytes # (Auto) 0.7 TH/MM3 Eosinophils # (Auto) 0.0 TH/MM3 Basophils # (Auto) 0.1 TH/MM3 CBC Comment DIFF FINAL Differential Comment Blood Urea Nitrogen 46 MG/DL Creatinine 8.82 MG/DL Random Glucose 208 MG/DL Total Protein 7.5 GM/DL Albumin 3.4 GM/DL Calcium Level 9.2 MG/DL Alkaline Phosphatase 260 U/L Aspartate Amino Transf (AST/SGOT) 51 U/L Alanine Aminotransferase (ALT/SGPT) 30 U/L Total Bilirubin 0.6 MG/DL Sodium Level 136 MEQ/L Potassium Level 5.3 MEQ/L Chloride Level 101 MEQ/L Carbon Dioxide Level 17.5 MEQ/L Anion Gap 18 MEQ/L Estimat Glomerular Filtration Rate 4 ML/MIN Lactic Acid Level 2.4 mmol/L 1.9 mmol/L Troponin I 1.18 NG/ML B-Type Natriuretic Peptide 912 PG/ML D-Dimer Quantitative (PE/DVT) 22.47 MG/L FEU Imaging Last Impressions Chest X-Ray 07/31/17 Signed Impressions: CONCLUSION: Increased interstitial markings bilaterally suggestive of pulmonary edema. Head Magnetic Resonance Angiography 07/30/17 Signed Impressions: CONCLUSION: 1. Unremarkable MRA of the brain. Carotid Artery Ultrasound 07/30/17 Signed Impressions: CONCLUSION: 1. Right Internal Carotid Artery: Findings indicate <50% stenosis. 2. Left Internal Carotid Artery: Findings indicate <50% stenosis. Brain MRI 07/30/17 Signed Impressions: CONCLUSION: 1. Bilateral cortical atrophy and chronic white matter changes. 2. Otherwise unremarkable exam for patient's age. Head CT 07/29/17 Signed Impressions: CONCLUSION: 1. No acute intracranial abnormalities. Mild white matter ischemic changes. Fi ndings called to Dr. Guerrero. Objective Remarks GENERAL: Awake alert and oriented 3 talkative and cooperative appears stated age appears to be in no acute distress about to start hemodialysis SKIN: Warm and dry. HEAD: Atraumatic. Normocephalic. EYES: Pupils equal and round. No scleral icterus. No injection or drainage. ENT: No nasal bleeding or discharge. Mucous membranes pink and moist. NECK: Trachea midline. No JVD. CARDIOVASCULAR: Regular rate and rhythm. S1-S2 no S3 or S4 RESPIRATORY: No accessory muscle use. Clear to auscultation. Breath sounds equal bilaterally. GASTROINTESTINAL: Abdomen soft, non-tender, nondistended. Hepatic and splenic margins not palpable. Obese MUSCULOSKELETAL: Extremities without clubbing, cyanosis, or edema. No obvious deformities. NEUROLOGICAL: Awake and alert. No obvious cranial nerve deficits. Motor grossly within normal limits. Five out of 5 muscle strength in the arms and legs. Normal speech. Left upper extremity AV fistula with good thrill and bruit PSYCHIATRIC: Appropriate mood and affect; insight and judgment normal. Procedures HD Medications and IVs Current Medications Sodium Chloride 1,000 ml @ 70 mls/hr [id number] ONCE IV Last administered on at 22:58; Start 07/29/17 at 22:50; Stop 07/30/17 at 04:20; Status DC Ceftriaxone Sodium 1000 mg/ Sodium Chloride 100 ml @ 200 mls/hr ONCE ONCE IV Last administered on 07/30/17at 01:01; Start 07/30/17 at 00:00; Stop 07/30/17 at 00: 29; Status DC Sodium Chloride (NS Flush) 2 ml UNSCH PRN IV FLUSH FLUSH AFTER USING IV ACCESS ; Start 07/30/17 at 04:15 Sodium Chloride (NS Flush) 2 ml BID IV FLUSH Last administered on 07/31/17at 09: 08; Start 07/30/17 at 09:00 Acetaminophen (Tylenol) 650 mg Q4H PRN PO TEMP > 100.4; Start 07/30/17 at 04:15 Heparin Sodium (Porcine) (Heparin Inj) 5,000 units Q8HR SQ Last administered on 07/31/17at 06:01; Start 07/30/17 at 06:00 Naloxone HCl (Narcan Inj) 0.4 mg UNSCH PRN IV PUSH SEE LABEL COMMENTS; Start at 04:15 Magnesium Hydroxide (Milk Of Magnesia Liq) 30 ml Q12H PRN PO Mild constipation ; Start 07/30/17 at 04:15 Sennosides (Senokot) 17.2 mg Q12H PRN PO Moderate constipation; Start 07/30/17 at 04:15 Bisacodyl (Dulcolax Supp) 10 mg DAILY PRN RECTAL SEVERE CONSITIPATION; Start at 04:15 Lactulose (Lactulose Liq) 30 ml DAILY PRN PO SEVERE CONSITIPATION; Start at 04:15 Ceftriaxone Sodium 1000 mg/ Sodium Chloride 100 ml @ 200 mls/hr Q24H IV Last administered on 07/31/17at 02:02; Start 07/31/17 at 01:00; Stop 07/31/17 at 05:19; Status DC Sodium Chloride 1,000 ml @ 75 mls/hr [id number] IV ; Start 07/30/17 at 04:15; Stop 07/30/17 at 04:51; Status DC Aspirin (Ecotrin Ec) 81 mg DAILY PO Last administered on 07/30/17at 08:16; Start 07/30/17 at 09:00 Atorvastatin Calcium (Lipitor) 20 mg HS PO Last administered on 07/30/17at 20:27 ; Start 07/30/17 at 21:00 Bumetanide (Bumetanide) 2 mg DAILY PO Last administered on 07/31/17at 09:09; Start 07/30/17 at 09:00 Calcium Acetate (Phoslo) 1,334 mg BID PO Last administered on 07/31/17at 09:10; Start 07/30/17 at 09:00 Calcium Carbonate (Tums Chew) 1,000 mg HS PO Last administered on 07/30/17at 20: 27; Start 07/30/17 at 21:00 Clonidine (Catapres) 0.1 mg BID PO Last administered on 07/30/17at 08:16; Start 07/30/17 at 09:00; Stop 07/30/17 at 09:30; Status DC Hydralazine HCl (Apresoline) 100 mg TID PO Last administered on 07/31/17at 09:10 ; Start 07/30/17 at 09:00 Albuterol/ Ipratropium (Duoneb Neb) 1 ampule Q6HR NEB PRN NEB SHORTNESS OF BREATH Last administered on 07/31/17at 04:26; Start 07/30/17 at 04:30 Losartan Potassium (Cozaar) 100 mg DAILY PO Last administered on 07/31/17at 09:14 ; Start 07/30/17 at 09:00 Pantoprazole Sodium (Protonix) 40 mg BID PO Last administered on 07/31/17at 09:10 ; Start 07/30/17 at 09:00 Diltiazem HCl (Cardizem Cd) 180 mg DAILY PO Last administered on 07/31/17at 09:11 ; Start 07/30/17 at 09:00 Dextrose (D50w (Vial) Inj) 50 ml UNSCH PRN IV PUSH HYPOGLYCEMIA-SEE COMMENTS; Start 07/30/17 at 04:15 Glucagon (Glucagon Inj) 1 mg UNSCH PRN OTHER HYPOGLYCEMIA-SEE COMMENTS; Start 07/30/17 at 04:15 Insulin Aspart (NovoLOG SUPPLEMENTAL SCALE) 1 ACHS SLIDING SCALE SQ Last administered on 07/31/17at 08:00; Start 07/30/17 at 08:00 Insulin Detemir (Levemir Inj) 10 units DAILYAC SQ Last administered on at 09:08; Start 07/30/17 at 08:00 Labetalol HCl (Trandate Inj) 5 mg ONCE ONCE IV PUSH Last administered on at 07:57; Start 07/30/17 at 07:45; Stop 07/30/17 at 07:46; Status DC Clonidine (Catapres) 0.2 mg BID PO Last administered on 07/31/17at 09:14; Start 07/30/17 at 21:00 Sodium Chloride 1,000 ml @ 0 mls/hr Q0M PRN OTHER For Prime & Rinse Back; Start 07/30/17 at 09:33 Heparin Sodium (Porcine) (Heparin Inj) 8,000 units UNSCH PRN IV FLUSH WITH DIALYSIS; Start 07/30/17 at 09:45 Sodium Chloride 1,000 ml @ 200 mls/hr Q5H PRN IV WITH DIALYSIS; Start 07/30/17 at 09:33 Sodium Chloride 1,000 ml @ 0 mls/hr Q0M PRN OTHER WITH DIALYSIS; Start 07/30/17 at 09:33 Mannitol (Mannitol Inj) 12.5 gm UNSCH PRN IV WITH DIALYSIS; Start 07/30/17 at 09 :45 Albumin Human 100 ml @ 60 mls/hr UNSCH PRN IV WITH DIALYSIS; Start 07/30/17 at 09:45 Sodium Chloride (NS Flush) 5 ml UNSCH PRN IV FLUSH WITH DIALYSIS; Start at 09:45 Heparin Sodium (Porcine) (Heparin Inj) UNSCH PRN .XX WITH DIALYSIS; Start 07/30 at 09:45 Gentamicin Sulfate (Gentamicin Inj) 20 mg UNSCH PRN OTHER WITH DIALYSIS; Start 07/30/17 at 09:45 Ondansetron HCl (Zofran Odt) 4 mg UNSCH PRN PO WITH DIALYSIS; Start 07/30/17 at 09:45 Acetaminophen (Tylenol) 650 mg UNSCH PRN PO for headach, pain1-10,T > 101F Last administered on 07/31/17at 04:22; Start 07/30/17 at 09:45 Diphenhydramine HCl (Benadryl) 25 mg UNSCH PRN PO for hives/itching/anaphylaxis ; Start 07/30/17 at 09:45 Nitroglycerin (Nitrostat Sl) 0.4 mg UNSCH PRN SL CHEST PAIN; Start 07/30/17 at 09:45 Clonidine (Catapres) 0.1 mg UNSCH PRN PO for BP > 180/100 X 2 readings; Start 07/30/17 at 09:45 Epoetin Chandler (Epogen Inj) 4,000 units UNSCH PRN IV PUSH WITH DIALYSIS; Start at 09:45 Gelatin (Gelfoam 12 Mm/7 Mm Top) 1 foam UNSCH PRN TOP SEE LABEL COMMENTS; Start 07/30/17 at 09:45 Aspirin (Aspirin) 325 mg DAILY PO Last administered on 07/31/17at 09:11; Start at 10:00 Piperacillin Sod/ Tazobactam Sod 50 ml @ 100 mls/hr Q6H IV Last administered on 07/31/17at 06:02; Start 07/31/17 at 06:00 Azithromycin (Zithromax) 500 mg ONCE ONCE PO Last administered on 07/31/17at 06: 01; Start 07/31/17 at 05:30; Stop 07/31/17 at 05:31; Status DC Sodium Bicarbonate (Sodium Bicarbonate 8.4% Inj) 50 meq ONCE ONCE IV PUSH Last administered on 07/31/17at 06:01; Start 07/31/17 at 05:30; Stop 07/31/17 at 05: 31; Status DC Acetaminophen 100 ml @ 400 mls/hr ONCE ONCE IV Last administered on 07/31/17at 06:01; Start 07/31/17 at 05:45; Stop 07/31/17 at 05:59; Status DC A/P Assessment and Plan Assessment/plan: 1. Infectious encephalopathy/urinary tract infection Urine culture pending Rocephin Monitor mental status 2. 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 Lee consulted, appreciate recommendations Last dialysis yesterday 3. Diabetes mellitus Continue home Levemir Sliding-scale insulin Monitor blood glucose 4. COPD Duo nebs as needed 5. Hypertension/hyperlipidemia Continue home medications FEN Heart healthy diabetic diet Electrolytes: Monitor and replete as needed Continue physical therapy and Occupational Therapy Monitor in ICU today A.m. labs Transfer to the floor later today Discharge Planning Back to SNF once improved Roderick Parisi DO Jul 31, 2017 12:28
--- NOTE | 2017-07-31 13:08 | PD.CARD.PN ---
Subjective Subjective Remarks Events overnight noted SOB last night, fever, tachycardia, hypertensive episode, moved to ICU Objective Medications Current Medications Medications (Trade) Dose Ordered Sig/Shanika Route Start Time Stop Time Status Last Admin (NS Flush) 2 ml UNSCH PRN IV FLUSH 07/30/17 04:15 (NS Flush) 2 ml BID IV FLUSH 07/30/17 09:00 07/31/17 09:08 (Tylenol) 650 mg Q4H PRN PO 07/30/17 04:15 (Heparin Inj) 5,000 units Q8HR SQ 07/30/17 06:00 07/31/17 13:01 (Narcan Inj) 0.4 mg UNSCH PRN IV PUSH 07/30/17 04:15 (Milk Of Magnesia Liq) 30 ml Q12H PRN PO 07/30/17 04:15 (Senokot) 17.2 mg Q12H PRN PO 07/30/17 04:15 (Dulcolax Supp) 10 mg DAILY PRN RECTAL 07/30/17 04:15 (Lactulose Liq) 30 ml DAILY PRN PO 07/30/17 04:15 (Ecotrin Ec) 81 mg DAILY PO 07/30/17 09:00 07/30/17 08:16 (Lipitor) 20 mg HS PO 07/30/17 21:00 07/30/17 20:27 (Bumetanide) 2 mg DAILY PO 07/30/17 09:00 07/31/17 09:09 (Phoslo) 1,334 mg BID PO 07/30/17 09:00 07/31/17 09:10 (Tums Chew) 1,000 mg HS PO 07/30/17 21:00 07/30/17 20:27 (Apresoline) 100 mg TID PO 07/30/17 09:00 07/31/17 09:10 (Duoneb Neb) 1 ampule Q6HR NEB PRN NEB 07/30/17 04:30 07/31/17 04:26 (Cozaar) 100 mg DAILY PO 07/30/17 09:00 07/31/17 09:14 (Protonix) 40 mg BID PO 07/30/17 09:00 07/31/17 09:10 (Cardizem Cd) 180 mg DAILY PO 07/30/17 09:00 07/31/17 09:11 (D50w (Vial) Inj) 50 ml UNSCH PRN IV PUSH 07/30/17 04:15 (Glucagon Inj) 1 mg UNSCH PRN OTHER 07/30/17 04:15 (NovoLOG SUPPLEMENTAL SCALE) 1 ACHS SLIDING SCALE SQ 07/30/17 08:00 07/31/17 13:00 (Levemir Inj) 10 units DAILYAC SQ 07/30/17 08:00 07/31/17 09:08 (Catapres) 0.2 mg BID PO 07/30/17 21:00 07/31/17 09:14 Sodium Chloride 1,000 ml @ 0 mls/hr Q0M PRN OTHER 07/30/17 09:33 (Heparin Inj) 8,000 units UNSCH PRN IV FLUSH 07/30/17 09:45 Sodium Chloride 1,000 ml @ 200 mls/hr Q5H PRN IV 07/30/17 09:33 Sodium Chloride 1,000 ml @ 0 mls/hr Q0M PRN OTHER 07/30/17 09:33 (Mannitol Inj) 12.5 gm UNSCH PRN IV 07/30/17 09:45 Albumin Human 100 ml @ 60 mls/hr UNSCH PRN IV 07/30/17 09:45 (NS Flush) 5 ml UNSCH PRN IV FLUSH 07/30/17 09:45 (Heparin Inj) UNSCH PRN .XX 07/30/17 09:45 (Gentamicin Inj) 20 mg UNSCH PRN OTHER 07/30/17 09:45 (Zofran Odt) 4 mg UNSCH PRN PO 07/30/17 09:45 (Tylenol) 650 mg UNSCH PRN PO 07/30/17 09:45 07/31/17 04:22 (Benadryl) 25 mg UNSCH PRN PO 07/30/17 09:45 (Nitrostat Sl) 0.4 mg UNSCH PRN SL 07/30/17 09:45 (Catapres) 0.1 mg UNSCH PRN PO 07/30/17 09:45 (Epogen Inj) 4,000 units UNSCH PRN IV PUSH 07/30/17 09:45 (Gelfoam 12 Mm/7 Mm Top) 1 foam UNSCH PRN TOP 07/30/17 09:45 (Aspirin) 325 mg DAILY PO 07/30/17 10:00 07/31/17 09:11 Piperacillin Sod/ Tazobactam Sod 50 ml @ 100 mls/hr Q6H IV 07/31/17 06:00 07/31/17 06:02 Vital Signs / I&O Vital Signs Date Time Temp Pulse Resp B/P (MAP) Pulse Ox O2 Delivery O2 Flow Rate FiO2 07/31/17 10:00 73 07/31/17 09:18 95 Nasal Cannula 2.00 07/31/17 08:44 99 Simple Mask 6.00 07/31/17 08:00 84 07/31/17 06:31 22 07/31/17 05:00 102.6 122 38 222/97 (138) 97 07/31/17 04:35 100 40 07/31/17 04:33 101.5 129 32 126/95 (105) 100 07/31/17 04:30 100 10.00 07/31/17 04:27 98 Simple Mask 10.00 07/31/17 04:13 99.6 130 32 136/94 (108) 07/31/17 04:03 129 07/31/17 00:00 98.6 75 18 179/71 (107) 94 07/30/17 20:00 100.5 83 18 176/74 (108) 94 07/30/17 16:05 98.4 106 20 112/68 (83) 98 I/O 07/30/17 07/30/17 07/30/17 07/31/17 07/31/17 07/31/17 07:00 15:00 23:00 07:00 15:00 23:00 Intake Total 100 ml 200 ml 240 ml 250 ml Balance 100 ml 200 ml 240 ml 250 ml Intake Oral 240 ml IV Total 100 ml 200 ml 250 ml Physical Exam GENERAL: NAD, AAOx3 SKIN: Warm and dry. HEAD: Atraumatic. Normocephalic. EYES: Pupils equal and round. No scleral icterus. No injection or drainage. ENT: No nasal bleeding or discharge. Mucous membranes pink and moist. NECK: Trachea midline. No JVD. CARDIOVASCULAR: Regular rate and rhythm. RESPIRATORY: No accessory muscle use. Clear to auscultation. Breath sounds equal bilaterally. GASTROINTESTINAL: Abdomen soft, non-tender, nondistended. Hepatic and splenic margins not palpable. MUSCULOSKELETAL: Extremities with chronic changes NEUROLOGICAL: Awake and alert. No obvious cranial nerve deficits. Motor grossly within normal limits. Five out of 5 muscle strength in the arms and legs. Normal speech. PSYCHIATRIC: Appropriate mood and affect; insight and judgment normal. Laboratory Laboratory Tests Test 07/30/17 14:35 07/30/17 20:08 07/31/17 04:30 07/31/17 05:25 Total Creatine Kinase 94 U/L 144 U/L Troponin I 0.34 NG/ML 0.70 NG/ML Creatine Kinase MB 1.4 NG/ML Blood Gas Puncture Site RT RADIAL Blood Gas Patient Temperature 98.6 Blood Gas HCO3 19 mmol/L Blood Gas Base Excess -6.4 mmol/L Blood Gas Oxygen Saturation 94 % Arterial Blood pH 7.29 Arterial Blood Partial Pressure CO2 41 mmHg Arterial Blood Partial Pressure O2 115 mmHg Arterial Blood Oxygen Content 13.7 Vol % Arterial Blood Carboxyhemoglobin 1.6 % Arterial Blood Methemoglobin 1.7 % Blood Gas Hemoglobin 10.3 G/DL Oxygen Delivery Device SIMPLE MASK Blood Gas Liter Flow 8 L/M Nasal Screen MRSA (PCR) MRSA DETECTED Test 07/31/17 05:54 07/31/17 05:56 07/31/17 08:58 07/31/17 10:29 Blood Gas Puncture Site RT RADIAL Blood Gas Patient Temperature 98.6 Blood Gas HCO3 18 mmol/L Blood Gas Base Excess -6.4 mmol/L Blood Gas Oxygen Saturation 95 % Arterial Blood pH 7.35 Arterial Blood Partial Pressure CO2 34 mmHg Arterial Blood Partial Pressure O2 125 mmHg Arterial Blood Oxygen Content 13.0 Vol % Arterial Blood Carboxyhemoglobin 1.6 % Arterial Blood Methemoglobin 1.7 % Blood Gas Hemoglobin 9.6 G/DL Oxygen Delivery Device BIPAP Blood Gas Ventilator Setting IPAP 10/EPAP 5 Blood Gas Inspired Oxygen 40 % White Blood Count 13.9 TH/MM3 Red Blood Count 3.11 MIL/MM3 Hemoglobin 9.8 GM/DL Hematocrit 31.0 % Mean Corpuscular Volume 99.8 FL Mean Corpuscular Hemoglobin 31.7 PG Mean Corpuscular Hemoglobin Concent 31.7 % Red Cell Distribution Width 17.8 % Platelet Count 249 TH/MM3 Mean Platelet Volume 8.0 FL Neutrophils (%) (Auto) 91.3 % Lymphocytes (%) (Auto) 3.1 % Monocytes (%) (Auto) 4.8 % Eosinophils (%) (Auto) 0.2 % Basophils (%) (Auto) 0.6 % Neutrophils # (Auto) 12.7 TH/MM3 Lymphocytes # (Auto) 0.4 TH/MM3 Monocytes # (Auto) 0.7 TH/MM3 Eosinophils # (Auto) 0.0 TH/MM3 Basophils # (Auto) 0.1 TH/MM3 CBC Comment DIFF FINAL Differential Comment Blood Urea Nitrogen 46 MG/DL Creatinine 8.82 MG/DL Random Glucose 208 MG/DL Total Protein 7.5 GM/DL Albumin 3.4 GM/DL Calcium Level 9.2 MG/DL Alkaline Phosphatase 260 U/L Aspartate Amino Transf (AST/SGOT) 51 U/L Alanine Aminotransferase (ALT/SGPT) 30 U/L Total Bilirubin 0.6 MG/DL Sodium Level 136 MEQ/L Potassium Level 5.3 MEQ/L Chloride Level 101 MEQ/L Carbon Dioxide Level 17.5 MEQ/L Anion Gap 18 MEQ/L Estimat Glomerular Filtration Rate 4 ML/MIN Lactic Acid Level 2.4 mmol/L 1.9 mmol/L Troponin I 1.18 NG/ML B-Type Natriuretic Peptide 912 PG/ML D-Dimer Quantitative (PE/DVT) 22.47 MG/L FEU Imaging Last 24 hours Impressions Chest X-Ray 07/31/17 0000 Signed Impressions: CONCLUSION: Increased interstitial markings bilaterally suggestive of pulmonary edema. Assessment and Plan Problem List: (1) UTI (urinary tract infection) ICD Codes: N39.0 - UTI (urinary tract infection) Status: Acute (2) ESRD (end stage renal disease) ICD Codes: N18.6 - ESRD (end stage renal disease) Status: Acute (3) DM (diabetes mellitus) ICD Codes: E11.9 - DM (diabetes mellitus) Status: Chronic (4) Hypertension ICD Codes: I10 - Essential (primary) hypertension Status: Chronic (5) Encephalopathy ICD Codes: G93.40 - Encephalopathy, unspecified Status: Acute (6) Generalized weakness ICD Codes: R53.1 - Weakness Status: Acute Assessment and Plan 1) UTI Per primary 2) ESRD on HD 3) Fever/tachycardia UTI, blood cultures pending 4) Elevated trop No chest pain Eventual ischemic evaluation, nuclear stress test cancelled today due to events last night 5) Encephalopathy UTI HTN urgency 6) 2D echo pending Problem Qualifiers (1) UTI (urinary tract infection): Qualified Codes: N30.00 - Acute cystitis without hematuria (2) Hypertension: Qualified Codes: I10 - Essential (primary) hypertension Delbert Burton DO Jul 31, 2017 13:08
--- NOTE | 2017-07-31 14:23 | HHI.NPPN ---
Subjective General Problems: Anemia Renal Failure: End Stage Renal Disease History of Present Illness Patient is a 77-year-old female with a past medical history significant for end- stage renal disease on hemodialysis, COPD, diabetes mellitus, hypertension, hyperlipidemia, recurrent UTIs and a history of uterine cancer. Present to the emergency department for evaluation of altered mental status. Patient was found to have a urinary tract infection. Mrs Macario answers questions but falls back to sleep in middle of talking. Her only complaint was right knee pain. Nephrology is consulted for management of end stage renal disease on hemodialysis. Usually dialysis days are Saturday, Saturday, and Saturday. Last dialysis yesterday, will continue with her normal schedule. Additional Remarks Resting comfortably with family at bedside. No shortness of breath. (Yaneth Mauricio) Review of Systems Respiratory Respiratory Remarks Denies SOB (Yaneth Mauricio) Cardiovascular Cardiac Remarks Denies chest pain (Yaneth Mauricio) Gastrointestinal GI Remarks Denies abdominal pain (Yaneth Mauricoi) Objective Data Data Vital Signs Date Time Temp Pulse Resp B/P (MAP) Pulse Ox O2 Delivery O2 Flow Rate FiO2 07/31/17 12:00 98.0 64 16 114/56 (75) 96 07/31/17 12:00 64 07/31/17 10:00 73 07/31/17 09:18 95 Nasal Cannula 2.00 07/31/17 08:44 99 Simple Mask 6.00 07/31/17 08:00 84 07/31/17 06:31 22 07/31/17 05:00 102.6 122 38 222/97 (138) 97 07/31/17 04:35 100 40 07/31/17 04:33 101.5 129 32 126/95 (105) 100 07/31/17 04:30 100 10.00 07/31/17 04:27 98 Simple Mask 10.00 07/31/17 04:13 99.6 130 32 136/94 (108) 07/31/17 04:03 129 07/31/17 00:00 98.6 75 18 179/71 (107) 94 07/30/17 20:00 100.5 83 18 176/74 (108) 94 07/30/17 16:05 98.4 106 20 112/68 (83) 98 (Yaneth Mauricio) -: 07/31/17 0556 07/31/17 0556 Microbiology 07/31/17 Aerobic Blood Culture, Received Pending 07/31/17 Anaerobic Blood Culture, Received Pending 07/31/17 Aerobic Blood Culture, Received Pending 07/31/17 Anaerobic Blood Culture, Received Pending Imaging Last Impressions Chest X-Ray 07/31/17 0000 Signed Impressions: CONCLUSION: Increased interstitial markings bilaterally suggestive of pulmonary edema. Head Magnetic Resonance Angiography 07/30/17 0000 Signed Impressions: CONCLUSION: 1. Unremarkable MRA of the brain. Carotid Artery Ultrasound 07/30/17 0000 Signed Impressions: CONCLUSION: 1. Right Internal Carotid Artery: Findings indicate <50% stenosis. 2. Left Internal Carotid Artery: Findings indicate <50% stenosis. Brain MRI 07/30/17 0000 Signed Impressions: CONCLUSION: 1. Bilateral cortical atrophy and chronic white matter changes. 2. Otherwise unremarkable exam for patient's age. Head CT 07/29/17 0000 Signed Impressions: CONCLUSION: 1. No acute intracranial abnormalities. Mild white matter ischemic changes. [facility] called to Dr. Guerrero. (Yaneth Mauricio) Physical Exam General Appearance: No Acute Distress, Comfortable (Yaneth Mauricio) Pulmonary Resp Exam: Breath Sounds Equal, No Distress (Yaneth Mauricio) Gastrointestinal/Abdomen GI Exam: Soft, Non-Tender, Bowel Sounds Present (Yaneth Mauricio) Integumentary Skin Exam: Clear, Warm (Yaneth Mauricio) Neurologic Neuro Exam: Alert, Awake, Oriented, Speech Clear (Yaneth Mauricio) Psychiatric Psych Exam: Appropriate Responses (Yaneth Mauricio) Assessment/Plan Problem List: (1) ESRD (end stage renal disease) ICD Codes: N18.6 - ESRD (end stage renal disease) Status: Acute Plan: End stage renal disease on hemodialysis M/W/F left AV fistula Last hemodialysis on Saturday Plan Transferred to ICU for respiratory distress. Improved today Continue phoslo Avoid IVF administration Hemodialysis planned for today remove fluid as tolerated. Potassium at 5.3 dialysis planned for today BC are pending Labs in AM (2) UTI (urinary tract infection) ICD Codes: N39.0 - UTI (urinary tract infection) Status: Acute Plan: Has received dose of Rocephin, culture pending. (3) Encephalopathy ICD Codes: G93.40 - Encephalopathy, unspecified Status: Acute Plan: Neurology has been consulted. MRI noted (4) Hypertension ICD Codes: I10 - Essential (primary) hypertension Status: Chronic Plan: Home medication continue and clonidine increased Will monitor (5) DM (diabetes mellitus) ICD Codes: E11.9 - DM (diabetes mellitus) Status: Chronic Plan: Maintain blood sugar between 140 mg/dl to 180 mg/dl (Yaneth Mauricio) Problem List: (1) ESRD (end stage renal disease) ICD Codes: N18.6 - ESRD (end stage renal disease) Status: Acute Plan: End stage renal disease on hemodialysis M/W/F left AV fistula Last hemodialysis on Saturday Plan Transferred to ICU for respiratory distress. Improved today Continue phoslo Avoid IVF administration Hemodialysis planned for today remove fluid as tolerated. Potassium at 5.3 dialysis planned for today BC are pending Labs in AM. Patient seen and examined, agree with above. Follow the blood culture. Encephalopathy is better. HD will be in AM. (2) UTI (urinary tract infection) ICD Codes: N39.0 - UTI (urinary tract infection) Status: Acute Plan: Has received dose of Rocephin, culture pending. (3) Encephalopathy ICD Codes: G93.40 - Encephalopathy, unspecified Status: Acute Plan: Neurology has been consulted. MRI noted (4) Hypertension ICD Codes: I10 - Essential (primary) hypertension Status: Chronic Plan: Home medication continue and clonidine increased Will monitor (5) DM (diabetes mellitus) ICD Codes: E11.9 - DM (diabetes mellitus) Status: Chronic Plan: Maintain blood sugar between 140 mg/dl to 180 mg/dl (Lesley Lee MD) Problem Qualifiers (1) UTI (urinary tract infection): Qualified Codes: N30.00 - Acute cystitis without hematuria (2) Hypertension: Qualified Codes: I10 - Essential (primary) hypertension Yaneth Mauricio Jul 31, 2017 14:23 Lesley Lee MD Aug 01, 2017 13:48
[2017-07-31] MEDS: CALCIUM CARBONATE 500 MG CHEWABLE TAB PO SCH (20:12)
[2017-07-31] MEDS: ATORVASTATIN 20 MG TAB PO SCH (20:12)
[2017-07-31] MEDS: COLLAGENASE OINT 30 GM TUBE TOPICAL SCH (20:13)
[2017-08-01] VITALS: BP 160/67; PULSE 64; RESP 18; TEMP 97.6; O2SAT 98
[2017-08-01] MEDS: ACETAMINOPHEN 325 MG TAB PO PRN ×2 (00:21→21:06)
[2017-08-01 04:00] VITALS: BP 156/62; PULSE 65; RESP 18; TEMP 98.1; O2SAT 95
[2017-08-01] MEDS: PIPERACIL-TAZO 2.25 GM PREMIX 50 ML IV SCH ×3 (04:40→21:11)
[2017-08-01] MEDS: HEPARIN SODIUM - SQ 10,000 UNITS/ML VIAL SQ SCH ×3 (05:49→21:12)
[2017-08-01 07:48] LABS: AUTOMATED NEUTROPHIL # 3.1 TH/MM3 (1.8-7.7); BASOPHIL # 0.1 TH/MM3 (0-0.2); BASOPHIL % 1.2 % (0.0-2.0); EOSINOPHIL # 0.7 TH/MM3 (0-0.4); EOSINOPHIL % 12.7 % (0.0-4.0); HEMATOCRIT 27.3 % (35.0-46.0); LYMPH % 15.4 % (9.0-44.0); LYMPHOCYTE # 0.8 TH/MM3 (1.0-4.8); MEAN CELL VOLUME 99.1 FL (80.0-100.0); MEAN CORPUSCULAR HEMOGLOBIN 32.6 PG (27.0-34.0); MEAN CORPUSCULAR HGB CONC 32.9 % (32.0-36.0); MEAN PLATELET VOLUME 8.5 FL (7.0-11.0); MONO % 11.6 % (0.0-8.0); MONOCYTE # 0.6 TH/MM3 (0-0.9); NEUT % 59.1 % (16.0-70.0); PLATELET COUNT 153 TH/MM3 (150-450); RED BLOOD COUNT 2.75 MIL/MM3 (4.00-5.30); RED CELL DISTRIBUTION WIDTH 17.8 % (11.6-17.2); WHITE BLOOD COUNT 5.3 TH/MM3 (4.0-11.0)
[2017-08-01 08:00] VITALS: BP 152/65; PULSE 57; PULSE 61; RESP 18; TEMP 97.6; O2SAT 94
[2017-08-01] MEDS: INSULIN ASPART SUPPLEMENTAL SCALE SQ SCH ×4 (08:00→21:09)
[2017-08-01 08:28] LABS: ALBUMIN 2.9 GM/DL (3.4-5.0); ALKALINE PHOSPHATASE 191 U/L (45-117); ALT (GPT) 24 U/L (10-53); AST (GOT) 42 U/L (15-37); BICARBONATE 27.1 MEQ/L (21.0-32.0); BLOOD UREA NITROGEN 37 MG/DL (7-18); CALCIUM 8.6 MG/DL (8.5-10.1); CHLORIDE 100 MEQ/L (98-107); CREATININE 6.72 MG/DL (0.50-1.00); FREE T4 0.89 NG/DL (0.76-1.46); GLOMERULAR FILTRATION RATE 6 ML/MIN (>89); GLUCOSE,RANDOM 97 MG/DL (74-106); MAGNESIUM 2.5 MG/DL (1.5-2.5); PHOSPHORUS 3.2 MG/DL (2.5-4.9); SODIUM (NA) 138 MEQ/L (136-145); TOTAL BILIRUBIN ADULT 0.4 MG/DL (0.2-1.0); TOTAL PROTEIN 6.6 GM/DL (6.4-8.2)
--- NOTE | 2017-08-01 08:54 | HHI.PR ---
Subjective Remarks in no acute distress. awake, alert and oriented. no chest pain or sob. no fever this morning. Objective Vitals Vital Signs Date Time Temp Pulse Resp B/P (MAP) Pulse Ox O2 Delivery O2 Flow Rate FiO2 08/01/17 08:00 97.6 57 18 152/65 (94) 94 08/01/17 04:00 98.1 65 18 156/62 (93) 95 08/01/17 00:00 97.6 64 18 160/67 (98) 98 07/31/17 20:37 94 Nasal Cannula 2.00 07/31/17 20:00 73 07/31/17 20:00 97.7 72 21 126/56 (79) 96 07/31/17 18:00 62 07/31/17 16:10 94 Nasal Cannula 2.00 07/31/17 16:00 72 07/31/17 16:00 97.6 72 24 114/56 (75) 94 07/31/17 14:00 71 07/31/17 12:00 98.0 64 16 114/56 (75) 96 07/31/17 12:00 64 07/31/17 10:00 73 07/31/17 09:18 95 Nasal Cannula 2.00 I/O 07/31/17 07/31/17 07/31/17 08/01/17 08/01/17 08/01/17 07:00 15:00 23:00 07:00 15:00 23:00 Intake Total 250 ml 450 ml Output Total 2800 ml Balance 250 ml -2350 ml Intake Oral 400 ml IV Total 250 ml 50 ml Hemodialysis 2800 ml # Voids 3 # Bowel Movements 1 Result Diagram: 08/01/17 0721 08/01/17 07 Imaging Last Impressions Chest X-Ray 07/31/17 Signed Impressions: CONCLUSION: Increased interstitial markings bilaterally suggestive of pulmonary edema. Head Magnetic Resonance Angiography 07/30/17 Signed Impressions: CONCLUSION: 1. Unremarkable MRA of the brain. Carotid Artery Ultrasound 07/30/17 Signed Impressions: CONCLUSION: 1. Right Internal Carotid Artery: Findings indicate <50% stenosis. 2. Left Internal Carotid Artery: Findings indicate <50% stenosis. Brain MRI 07/30/17 Signed Impressions: CONCLUSION: 1. Bilateral cortical atrophy and chronic white matter changes. 2. Otherwise unremarkable exam for patient's age. Head CT 07/29/17 0000 Signed Impressions: CONCLUSION: 1. No acute intracranial abnormalities. Mild white matter ischemic changes. [facility] called to Dr. Guerrero. Objective Remarks GENERAL: This is a well-nourished, well-developed patient, in no apparent distress. CARDIOVASCULAR: Regular rate and regular rhythm without murmurs, gallops, or rubs. RESPIRATORY: Clear to auscultation. Breath sounds equal bilaterally. No wheezes , rales, or rhonchi. GASTROINTESTINAL: Abdomen soft, non-tender, nondistended. Normal, active bowel sounds MUSCULOSKELETAL: Extremities without clubbing, cyanosis, or edema. NEURO: Alert & Oriented x4 to person, place, time, situation. Moves all ext x4 Procedures HD Medications and IVs Inpatient Medications Acetaminophen 100 ml @ 400 mls/hr ONCE ONCE IV Last administered on 07/31/17 06:01; Start 07/31/17 at 05:45; Stop 07/31/17 at 05:59; Status DC Acetaminophen (Tylenol) 650 mg UNSCH PRN PO for headach, pain1-10,T > 101F Last administered on 08/01/17at 00:21; Start 07/30/17 at 09:45 Albumin Human 100 ml @ 60 mls/hr UNSCH PRN IV WITH DIALYSIS; Start 07/30/17 at 09:45 Albuterol/ Ipratropium (Duoneb Neb) 1 ampule Q6HR NEB PRN NEB SHORTNESS OF BREATH Last administered on 07/31/17at 04:26; Start 07/30/17 at 04:30 Aspirin (Aspirin) 325 mg DAILY PO Last administered on 07/31/17at 09:11; Start at 10:00 Aspirin (Ecotrin Ec) 81 mg DAILY PO Last administered on 07/30/17at 08:16; Start 07/30/17 at 09:00 Atorvastatin Calcium (Lipitor) 20 mg HS PO Last administered on 07/31/17at 20:12 ; Start 07/30/17 at 21:00 Azithromycin (Zithromax) 500 mg ONCE ONCE PO Last administered on 07/31/17at 06: 01; Start 07/31/17 at 05:30; Stop 07/31/17 at 05:31; Status DC Bisacodyl (Dulcolax Supp) 10 mg DAILY PRN RECTAL SEVERE CONSITIPATION; Start at 04:15 Bumetanide (Bumetanide) 2 mg DAILY PO Last administered on 07/31/17at 09:09; Start 07/30/17 at 09:00 Calcium Acetate (Phoslo) 1,334 mg BID PO Last administered on 07/31/17at 20:13; Start 07/30/17 at 09:00 Calcium Carbonate (Tums Chew) 1,000 mg HS PO Last administered on 07/31/17at 20: 12; Start 07/30/17 at 21:00 Ceftriaxone Sodium 1000 mg/ Sodium Chloride 100 ml @ 200 mls/hr Q24H IV Last administered on 07/31/17at 02:02; Start 07/31/17 at 01:00; Stop 07/31/17 at 05:19; Status DC Clonidine (Catapres) 0.1 mg UNSCH PRN PO for BP > 180/100 X 2 readings; Start 07/30/17 at 09:45 Collagenase (Santyl Oint) 1 applic BID TOPICAL Last administered on 07/31/17at 20 :13; Start 07/31/17 at 21:00 Dextrose (D50w (Vial) Inj) 50 ml UNSCH PRN IV PUSH HYPOGLYCEMIA-SEE COMMENTS; Start 07/30/17 at 04:15 Diltiazem HCl (Cardizem Cd) 180 mg DAILY PO Last administered on 07/31/17at 09:11 ; Start 07/30/17 at 09:00 Diphenhydramine HCl (Benadryl) 25 mg UNSCH PRN PO for hives/itching/anaphylaxis ; Start 07/30/17 at 09:45 Epoetin Chandler (Epogen Inj) 4,000 units UNSCH PRN IV PUSH WITH DIALYSIS Last administered on 07/31/17at 14:00; Start 07/30/17 at 09:45 Gelatin (Gelfoam 12 Mm/7 Mm Top) 1 foam UNSCH PRN TOP SEE LABEL COMMENTS Last administered on 07/31/17at 14:00; Start 07/30/17 at 09:45 Gentamicin Sulfate (Gentamicin Inj) 20 mg UNSCH PRN OTHER WITH DIALYSIS; Start 07/30/17 at 09:45 Glucagon (Glucagon Inj) 1 mg UNSCH PRN OTHER HYPOGLYCEMIA-SEE COMMENTS; Start 07/30/17 at 04:15 Heparin Sodium (Porcine) (Heparin Inj) UNSCH PRN .XX WITH DIALYSIS; Start 07/30 at 09:45 Hydralazine HCl (Apresoline) 100 mg TID PO Last administered on 07/31/17at 17:40 ; Start 07/30/17 at 09:00 Insulin Aspart (NovoLOG SUPPLEMENTAL SCALE) 1 ACHS SLIDING SCALE SQ Last administered on 07/31/17at 20:46; Start 07/30/17 at 08:00 Insulin Detemir (Levemir Inj) 10 units DAILYAC SQ Last administered on at 09:08; Start 07/30/17 at 08:00 Labetalol HCl (Trandate Inj) 5 mg ONCE ONCE IV PUSH Last administered on at 07:57; Start 07/30/17 at 07:45; Stop 07/30/17 at 07:46; Status DC Lactulose (Lactulose Liq) 30 ml DAILY PRN PO SEVERE CONSITIPATION; Start at 04:15 Losartan Potassium (Cozaar) 100 mg DAILY PO Last administered on 07/31/17at 09:14 ; Start 07/30/17 at 09:00 Magnesium Hydroxide (Milk Of Magnesia Liq) 30 ml Q12H PRN PO Mild constipation ; Start 07/30/17 at 04:15 Mannitol (Mannitol Inj) 12.5 gm UNSCH PRN IV WITH DIALYSIS; Start 07/30/17 at 09 :45 Naloxone HCl (Narcan Inj) 0.4 mg UNSCH PRN IV PUSH SEE LABEL COMMENTS; Start at 04:15 Nitroglycerin (Nitrostat Sl) 0.4 mg UNSCH PRN SL CHEST PAIN; Start 07/30/17 at 09:45 Ondansetron HCl (Zofran Odt) 4 mg UNSCH PRN PO WITH DIALYSIS; Start 07/30/17 at 09:45 Pantoprazole Sodium (Protonix) 40 mg BID PO Last administered on 07/31/17at 20:12 ; Start 07/30/17 at 09:00 Piperacillin Sod/ Tazobactam Sod 50 ml @ 100 mls/hr Q6H IV Last administered on 08/01/17at 04:40; Start 07/31/17 at 22:00 Sennosides (Senokot) 17.2 mg Q12H PRN PO Moderate constipation; Start 07/30/17 at 04:15 Sodium Bicarbonate (Sodium Bicarbonate 8.4% Inj) 50 meq ONCE ONCE IV PUSH Last administered on 07/31/17at 06:01; Start 07/31/17 at 05:30; Stop 07/31/17 at 05: 31; Status DC Sodium Chloride (NS Flush) 5 ml UNSCH PRN IV FLUSH WITH DIALYSIS; Start at 09:45 A/P Assessment and Plan A/P 1. metabolic encephalopathy/urinary tract infection mental status improved. Urine culture pending on Zosyn evaluated by neurology. 2. 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 Lee consulted, appreciate recommendations 3. Diabetes mellitus Continue home Levemir Sliding-scale insulin Monitor blood glucose 4. COPD Duo nebs as needed 5. Hypertension/hyperlipidemia Continue home medications 6. elevated troponin will eventually need ischemia w/u- cardiology following. 7. elevated d-dimer with reported Hypoxia yesterday; will check V/Q scan. FEN Heart healthy diabetic diet Electrolytes: Monitor and replete as needed Continue physical therapy and Occupational Therapy Discharge Planning dc planning within the next 24-48 hrs if stable and cleared by cardiology. Thai Roman MD Aug 01, 2017 08:54
--- NOTE | 2017-08-01 09:33 | HHI.NPPN ---
Subjective General Problems: Anemia Renal Failure: End Stage Renal Disease History of Present Illness Patient is a 77-year-old female with a past medical history significant for end- stage renal disease on hemodialysis, COPD, diabetes mellitus, hypertension, hyperlipidemia, recurrent UTIs and a history of uterine cancer. Present to the emergency department for evaluation of altered mental status. Patient was found to have a urinary tract infection. Mrs Macario answers questions but falls back to sleep in middle of talking. Her only complaint was right knee pain. Nephrology is consulted for management of end stage renal disease on hemodialysis. Usually dialysis days are Saturday, Saturday, and Saturday. Last dialysis yesterday, will continue with her normal schedule. Additional Remarks Sitting up eating breakfast. No acute complaints. Alert and oriented X3 (Yaneth Mauricio) Review of Systems Respiratory Respiratory Remarks Denies SOB (Yaneth Mauricio) Cardiovascular Cardiac Remarks Denies chest pain (Yaneth Mauricio) Gastrointestinal GI Remarks Denies abdominal pain (Yaneth Mauricio) Objective Data Data Vital Signs Date Time Temp Pulse Resp B/P (MAP) Pulse Ox O2 Delivery O2 Flow Rate FiO2 08/01/17 08:00 97.6 57 18 152/65 (94) 94 08/01/17 04:00 98.1 65 18 156/62 (93) 95 08/01/17 00:00 97.6 64 18 160/67 (98) 98 07/31/17 20:37 94 Nasal Cannula 2.00 07/31/17 20:00 73 07/31/17 20:00 97.7 72 21 126/56 (79) 96 07/31/17 18:00 62 07/31/17 16:10 94 Nasal Cannula 2.00 07/31/17 16:00 72 07/31/17 16:00 97.6 72 24 114/56 (75) 94 07/31/17 14:00 71 07/31/17 12:00 98.0 64 16 114/56 (75) 96 07/31/17 12:00 64 07/31/17 10:00 73 (Yaneth Mauricio) -: 08/01/17 0721 08/01/17 0721 Physical Exam General Appearance: No Acute Distress, Comfortable (Yaneth Mauricio) Pulmonary Resp Exam: Breath Sounds Equal, No Distress (Yaneth Mauricio) Gastrointestinal/Abdomen GI Exam: Soft, Non-Tender, Bowel Sounds Present (Yaneth Mauricio) Integumentary Skin Exam: Clear, Warm (Yaneth Mauricio) Neurologic Neuro Exam: Alert, Awake, Oriented, Speech Clear (Yaneth Mauricio) Psychiatric Psych Exam: Appropriate Responses (Yaneth Mauricio) Assessment/Plan Problem List: (1) ESRD (end stage renal disease) ICD Codes: N18.6 - ESRD (end stage renal disease) Status: Acute Plan: End stage renal disease on hemodialysis M/W/F left AV fistula Last hemodialysis on Saturday Plan Continue phoslo Avoid IVF administration Hemodialysis yesterday tolerated well UF of 2.8 liters Epogen with dialysis (2) UTI (urinary tract infection) ICD Codes: N39.0 - UTI (urinary tract infection) Status: Acute Plan: Has received dose of Rocephin, culture pending. (3) Encephalopathy ICD Codes: G93.40 - Encephalopathy, unspecified Status: Acute Plan: Neurology has been consulted. MRI noted (4) Hypertension ICD Codes: I10 - Essential (primary) hypertension Status: Chronic Plan: Home medication continue and clonidine increased Will monitor (5) DM (diabetes mellitus) ICD Codes: E11.9 - DM (diabetes mellitus) Status: Chronic Plan: Maintain blood sugar between 140 mg/dl to 180 mg/dl (Yaneth Mauricio) Problem List: (1) ESRD (end stage renal disease) ICD Codes: N18.6 - ESRD (end stage renal disease) Status: Acute Plan: End stage renal disease on hemodialysis M/W/F left AV fistula Last hemodialysis on Saturday Plan Continue phoslo Avoid IVF administration Hemodialysis yesterday tolerated well UF of 2.8 liters Epogen with dialysis. Patient seen and examined, agree with above. HD done yesterday, BC negative so far. (2) UTI (urinary tract infection) ICD Codes: N39.0 - UTI (urinary tract infection) Status: Acute Plan: Has received dose of Rocephin, culture pending. (3) Encephalopathy ICD Codes: G93.40 - Encephalopathy, unspecified Status: Acute Plan: Neurology has been consulted. MRI noted (4) Hypertension ICD Codes: I10 - Essential (primary) hypertension Status: Chronic Plan: Home medication continue and clonidine increased Will monitor (5) DM (diabetes mellitus) ICD Codes: E11.9 - DM (diabetes mellitus) Status: Chronic Plan: Maintain blood sugar between 140 mg/dl to 180 mg/dl (Lesley Lee MD) Problem Qualifiers (1) UTI (urinary tract infection): Qualified Codes: N30.00 - Acute cystitis without hematuria (2) Hypertension: Qualified Codes: I10 - Essential (primary) hypertension Yaneth Mauricio Aug 01, 2017 09:33 Lesley Lee MD Aug 01, 2017 13:51
[2017-08-01] MEDS: LOSARTAN 50 MG TAB PO SCH (09:56)
[2017-08-01] MEDS: DILTIAZEM-CD 180 MG CAP ER PO SCH (09:56)
[2017-08-01] MEDS: ASPIRIN 325 MG TAB PO SCH (09:56)
[2017-08-01] MEDS: CALCIUM ACETATE 667 MG CAP PO SCH ×2 (09:57→20:34)
[2017-08-01] MEDS: PANTOPRAZOLE SOD 40 MG DELAYED RELEASE TAB PO SCH ×2 (09:57→21:07)
[2017-08-01] MEDS: ASPIRIN EC 81 MG TABEC PO SCH (09:57)
[2017-08-01] MEDS: hydrALAZINE HCL 100 MG TAB PO SCH ×3 (09:57→17:40)
[2017-08-01] MEDS: cloNIDine HCL 0.1 MG TAB PO SCH ×2 (09:57→20:35)
[2017-08-01] MEDS: BUMETANIDE 1 MG TAB PO SCH (09:58)
[2017-08-01] MEDS: COLLAGENASE OINT 30 GM TUBE TOPICAL SCH ×3 (09:58→21:10)
[2017-08-01] MEDS: SODIUM CHLORIDE 0.9% FLUSH 10 ML FLUSH IV FLUSH SCH ×2 (09:58→21:22)
[2017-08-01] MEDS: INSULIN DETEMIR 100 UNITS/ML VIAL SQ SCH (09:59)
[2017-08-01 12:00] VITALS: BP 151/54; PULSE 60; RESP 18; TEMP 97.5; O2SAT 98
--- NOTE | 2017-08-01 12:11 | PD.CARD.PN ---
Subjective Subjective Remarks No further fever/tachycardia/SOB Objective Medications Current Medications Medications (Trade) Dose Ordered Sig/Shanika Route Start Time Stop Time Status Last Admin (NS Flush) 2 ml UNSCH PRN IV FLUSH 07/30/17 04:15 (NS Flush) 2 ml BID IV FLUSH 07/30/17 09:00 08/01/17 09:58 (Tylenol) 650 mg Q4H PRN PO 07/30/17 04:15 (Heparin Inj) 5,000 units Q8HR SQ 07/30/17 06:00 08/01/17 05:49 (Narcan Inj) 0.4 mg UNSCH PRN IV PUSH 07/30/17 04:15 (Milk Of Magnesia Liq) 30 ml Q12H PRN PO 07/30/17 04:15 (Senokot) 17.2 mg Q12H PRN PO 07/30/17 04:15 (Dulcolax Supp) 10 mg DAILY PRN RECTAL 07/30/17 04:15 (Lactulose Liq) 30 ml DAILY PRN PO 07/30/17 04:15 (Ecotrin Ec) 81 mg DAILY PO 07/30/17 09:00 08/01/17 09:57 (Lipitor) 20 mg HS PO 07/30/17 21:00 07/31/17 20:12 (Bumetanide) 2 mg DAILY PO 07/30/17 09:00 08/01/17 09:58 (Phoslo) 1,334 mg BID PO 07/30/17 09:00 08/01/17 09:57 (Tums Chew) 1,000 mg HS PO 07/30/17 21:00 07/31/17 20:12 (Apresoline) 100 mg TID PO 07/30/17 09:00 08/01/17 09:57 (Duoneb Neb) 1 ampule Q6HR NEB PRN NEB 07/30/17 04:30 07/31/17 04:26 (Cozaar) 100 mg DAILY PO 07/30/17 09:00 08/01/17 09:56 (Protonix) 40 mg BID PO 07/30/17 09:00 08/01/17 09:57 (Cardizem Cd) 180 mg DAILY PO 07/30/17 09:00 08/01/17 09:56 (D50w (Vial) Inj) 50 ml UNSCH PRN IV PUSH 07/30/17 04:15 (Glucagon Inj) 1 mg UNSCH PRN OTHER 07/30/17 04:15 (NovoLOG SUPPLEMENTAL SCALE) 1 ACHS SLIDING SCALE SQ 07/30/17 08:00 07/31/17 20:46 (Levemir Inj) 10 units DAILYAC SQ 07/30/17 08:00 08/01/17 09:59 (Catapres) 0.2 mg BID PO 07/30/17 21:00 08/01/17 09:57 Sodium Chloride 1,000 ml @ 0 mls/hr Q0M PRN OTHER 07/30/17 09:33 (Heparin Inj) 8,000 units UNSCH PRN IV FLUSH 07/30/17 09:45 Sodium Chloride 1,000 ml @ 200 mls/hr Q5H PRN IV 07/30/17 09:33 Sodium Chloride 1,000 ml @ 0 mls/hr Q0M PRN OTHER 07/30/17 09:33 (Mannitol Inj) 12.5 gm UNSCH PRN IV 07/30/17 09:45 Albumin Human 100 ml @ 60 mls/hr UNSCH PRN IV 07/30/17 09:45 (NS Flush) 5 ml UNSCH PRN IV FLUSH 07/30/17 09:45 (Heparin Inj) UNSCH PRN .XX 07/30/17 09:45 (Gentamicin Inj) 20 mg UNSCH PRN OTHER 07/30/17 09:45 (Zofran Odt) 4 mg UNSCH PRN PO 07/30/17 09:45 (Tylenol) 650 mg UNSCH PRN PO 07/30/17 09:45 08/01/17 00:21 (Benadryl) 25 mg UNSCH PRN PO 07/30/17 09:45 (Nitrostat Sl) 0.4 mg UNSCH PRN SL 07/30/17 09:45 (Catapres) 0.1 mg UNSCH PRN PO 07/30/17 09:45 (Epogen Inj) 4,000 units UNSCH PRN IV PUSH 07/30/17 09:45 07/31/17 14:00 (Gelfoam 12 Mm/7 Mm Top) 1 foam UNSCH PRN TOP 6/5/18 09:45 07/31/17 14:00 (Aspirin) 325 mg DAILY PO 07/30/17 10:00 08/01/17 09:56 (Santyl Oint) 1 applic DAILY TOPICAL 08/01/17 09:00 08/01/17 09:58 (Santyl Oint) 1 applic BID TOPICAL 07/31/17 21:00 07/31/17 20:13 Piperacillin Sod/ Tazobactam Sod 50 ml @ 100 mls/hr Q6H IV 07/31/17 22:00 08/01/17 09:56 Vital Signs / I&O Vital Signs Date Time Temp Pulse Resp B/P (MAP) Pulse Ox O2 Delivery O2 Flow Rate FiO2 08/01/17 08:00 97.6 57 18 152/65 (94) 94 08/01/17 04:00 98.1 65 18 156/62 (93) 95 08/01/17 00:00 97.6 64 18 160/67 (98) 98 07/31/17 20:37 94 Nasal Cannula 2.00 07/31/17 20:00 73 07/31/17 20:00 97.7 72 21 126/56 (79) 96 07/31/17 18:00 62 07/31/17 16:10 94 Nasal Cannula 2.00 07/31/17 16:00 72 07/31/17 16:00 97.6 72 24 114/56 (75) 94 07/31/17 14:00 71 I/O 07/31/17 07/31/17 07/31/17 08/01/17 08/01/17 08/01/17 07:00 15:00 23:00 07:00 15:00 23:00 Intake Total 250 ml 450 ml Output Total 2800 ml Balance 250 ml -2350 ml Intake Oral 400 ml IV Total 250 ml 50 ml Hemodialysis 2800 ml # Voids 3 # Bowel Movements 1 Physical Exam GENERAL: NAD, AAOx3 SKIN: Warm and dry. HEAD: Atraumatic. Normocephalic. EYES: Pupils equal and round. No scleral icterus. No injection or drainage. ENT: No nasal bleeding or discharge. Mucous membranes pink and moist. NECK: Trachea midline. No JVD. CARDIOVASCULAR: Regular rate and rhythm. RESPIRATORY: No accessory muscle use. Clear to auscultation. Breath sounds equal bilaterally. GASTROINTESTINAL: Abdomen soft, non-tender, nondistended. Hepatic and splenic margins not palpable. MUSCULOSKELETAL: Extremities with chronic changes NEUROLOGICAL: Awake and alert. No obvious cranial nerve deficits. Motor grossly within normal limits. Five out of 5 muscle strength in the arms and legs. Normal speech. PSYCHIATRIC: Appropriate mood and affect; insight and judgment normal. Laboratory Laboratory Tests Test 08/01/17 07:21 White Blood Count 5.3 TH/MM3 Red Blood Count 2.75 MIL/MM3 Hemoglobin 9.0 GM/DL Hematocrit 27.3 % Mean Corpuscular Volume 99.1 FL Mean Corpuscular Hemoglobin 32.6 PG Mean Corpuscular Hemoglobin Concent 32.9 % Red Cell Distribution Width 17.8 % Platelet Count 153 TH/MM3 Mean Platelet Volume 8.5 FL Neutrophils (%) (Auto) 59.1 % Lymphocytes (%) (Auto) 15.4 % Monocytes (%) (Auto) 11.6 % Eosinophils (%) (Auto) 12.7 % Basophils (%) (Auto) 1.2 % Neutrophils # (Auto) 3.1 TH/MM3 Lymphocytes # (Auto) 0.8 TH/MM3 Monocytes # (Auto) 0.6 TH/MM3 Eosinophils # (Auto) 0.7 TH/MM3 Basophils # (Auto) 0.1 TH/MM3 CBC Comment DIFF FINAL Differential Comment Blood Urea Nitrogen 37 MG/DL Creatinine 6.72 MG/DL Random Glucose 97 MG/DL Total Protein 6.6 GM/DL Albumin 2.9 GM/DL Calcium Level 8.6 MG/DL Phosphorus Level 3.2 MG/DL Magnesium Level 2.5 MG/DL Alkaline Phosphatase 191 U/L Aspartate Amino Transf (AST/SGOT) 42 U/L Alanine Aminotransferase (ALT/SGPT) 24 U/L Total Bilirubin 0.4 MG/DL Sodium Level 138 MEQ/L Potassium Level 3.9 MEQ/L Chloride Level 100 MEQ/L Carbon Dioxide Level 27.1 MEQ/L Anion Gap 11 MEQ/L Estimat Glomerular Filtration Rate 6 ML/MIN Troponin I 2.54 NG/ML Free Thyroxine 0.89 NG/DL Thyroid Stimulating Hormone 3rd Gen 4.310 uIU/ML Assessment and Plan Problem List: (1) UTI (urinary tract infection) ICD Codes: N39.0 - UTI (urinary tract infection) Status: Acute (2) ESRD (end stage renal disease) ICD Codes: N18.6 - ESRD (end stage renal disease) Status: Acute (3) DM (diabetes mellitus) ICD Codes: E11.9 - DM (diabetes mellitus) Status: Chronic (4) Hypertension ICD Codes: I10 - Essential (primary) hypertension Status: Chronic (5) Encephalopathy ICD Codes: G93.40 - Encephalopathy, unspecified Status: Acute (6) Generalized weakness ICD Codes: R53.1 - Weakness Status: Acute Assessment and Plan 1) UTI Per primary 2) ESRD on HD 3) Fever/tachycardia UTI, blood cultures pending 4) Elevated trop No chest pain Plan for cardiac catheterization tomorrow morning 5) Encephalopathy UTI HTN urgency 6) 2D echo pending Problem Qualifiers (1) UTI (urinary tract infection): Qualified Codes: N30.00 - Acute cystitis without hematuria (2) Hypertension: Qualified Codes: I10 - Essential (primary) hypertension Delbert Burton DO Aug 01, 2017 12:11
--- NOTE | 2017-08-01 15:57 | RADRPT ---
EXAM DATE: 08/01/2017 3:46 PM EDT AGE/SEX: 77 years / Female INDICATIONS: Short of breath. CLINICAL DATA: This is the patient's initial encounter. Patient reports that signs and symptoms have been present for 1 day and indicates a pain score of 1/10. MEDICAL/SURGICAL HISTORY: Chronic obstructive pulmonary disease. Diabetes mellitus type II. H ypertension. Ovarian Cancer. Hysterectomy. COMPARISON: [facility] [place], 07/31/[place]. . DOSE: 8.1 mCi Tc99m MAA IV 1.35 mCi Tc99m DTPA aerosol TECHNIQUE: Following five minutes of tidal breathing of DTPA aerosol, planar images of the lungs wer e performed in eight projections. The patient was then injected with MAA, and eight-view perfusion s can was performed. FINDINGS: There is a homogeneous pattern of aerosol delivery to the periphery of both lungs. No focal ventilat ory defects are seen. There is clumping of activity in the central airways. The perfusion lung scan demonstrates a homogenous pattern of uptake in both lungs. No segmental or s ubsegmental defects are seen. CONCLUSION: No ventilation/perfusion mismatch is identified. Examination is low probability for PE. Electronically signed by: Oliver Dial MD 08/01/2017 3:56 PM EDT
[2017-08-01 16:00] VITALS: BP 157/85; PULSE 70; RESP 18; TEMP 97.5; O2SAT 94
--- NOTE | 2017-08-01 16:20 | HHI.PR ---
Review/Management Diagnosis/Plan: (1) Encephalopathy ICD Codes: G93.40 - Encephalopathy, unspecified Status: Acute Plan: Probable hypertensive encephalopathy; in addition UTI may be contributory EEG demonstrating mild encephalopathy MRI brain no acute stroke. MRI brain, carotid ultrasound no significant vaso- occlusive disease Recommendations Mental status stable Voltaren topical gel to her foot may help apparently nonformulary will ask pharmacy if there is anything else that could be tried; pharmacist states no topical NSAID available suggest Lidoderm patch which I will order Blood pressure control Aspirin Follow exam (2) ESRD (end stage renal disease) ICD Codes: N18.6 - ESRD (end stage renal disease) Status: Acute (3) Hypertension ICD Codes: I10 - Essential (primary) hypertension Status: Chronic (4) DM (diabetes mellitus) ICD Codes: E11.9 - DM (diabetes mellitus) Status: Chronic Subjective Subjective Comments No acute events reported; patient complains of right foot pain wonders as a topical cream that she can apply No headache No chest pain No dyspnea Active Medications Current Medications Medications (Trade) Dose Ordered Sig/Shanika Route Start Time Stop Time Status Last Admin (NS Flush) 2 ml UNSCH PRN IV FLUSH 07/30/17 04:15 (NS Flush) 2 ml BID IV FLUSH 07/30/17 09:00 08/01/17 09:58 (Tylenol) 650 mg Q4H PRN PO 07/30/17 04:15 (Heparin Inj) 5,000 units Q8HR SQ 07/30/17 06:00 08/01/17 12:21 (Narcan Inj) 0.4 mg UNSCH PRN IV PUSH 07/30/17 04:15 (Milk Of Magnesia Liq) 30 ml Q12H PRN PO 07/30/17 04:15 (Senokot) 17.2 mg Q12H PRN PO 07/30/17 04:15 (Dulcolax Supp) 10 mg DAILY PRN RECTAL 07/30/17 04:15 (Lactulose Liq) 30 ml DAILY PRN PO 07/30/17 04:15 (Ecotrin Ec) 81 mg DAILY PO 07/30/17 09:00 08/01/17 09:57 (Lipitor) 20 mg HS PO 07/30/17 21:00 07/31/17 20:12 (Bumetanide) 2 mg DAILY PO 07/30/17 09:00 08/01/17 09:58 (Phoslo) 1,334 mg BID PO 07/30/17 09:00 08/01/17 09:57 (Tums Chew) 1,000 mg HS PO 07/30/17 21:00 07/31/17 20:12 (Apresoline) 100 mg TID PO 07/30/17 09:00 08/01/17 12:20 (Duoneb Neb) 1 ampule Q6HR NEB PRN NEB 07/30/17 04:30 07/31/17 04:26 (Cozaar) 100 mg DAILY PO 07/30/17 09:00 08/01/17 09:56 (Protonix) 40 mg BID PO 07/30/17 09:00 08/01/17 09:57 (Cardizem Cd) 180 mg DAILY PO 07/30/17 09:00 08/01/17 09:56 (D50w (Vial) Inj) 50 ml UNSCH PRN IV PUSH 07/30/17 04:15 (Glucagon Inj) 1 mg UNSCH PRN OTHER 07/30/17 04:15 (NovoLOG SUPPLEMENTAL SCALE) 1 ACHS SLIDING SCALE SQ 07/30/17 08:00 08/01/17 12:21 (Levemir Inj) 10 units DAILYAC SQ 07/30/17 08:00 08/01/17 09:59 (Catapres) 0.2 mg BID PO 07/30/17 21:00 08/01/17 09:57 Sodium Chloride 1,000 ml @ 0 mls/hr Q0M PRN OTHER 07/30/17 09:33 (Heparin Inj) 8,000 units UNSCH PRN IV FLUSH 07/30/17 09:45 Sodium Chloride 1,000 ml @ 200 mls/hr Q5H PRN IV 07/30/17 09:33 Sodium Chloride 1,000 ml @ 0 mls/hr Q0M PRN OTHER 07/30/17 09:33 (Mannitol Inj) 12.5 gm UNSCH PRN IV 07/30/17 09:45 Albumin Human 100 ml @ 60 mls/hr UNSCH PRN IV 07/30/17 09:45 (NS Flush) 5 ml UNSCH PRN IV FLUSH 07/30/17 09:45 (Heparin Inj) UNSCH PRN .XX 07/30/17 09:45 (Gentamicin Inj) 20 mg UNSCH PRN OTHER 07/30/17 09:45 (Zofran Odt) 4 mg UNSCH PRN PO 07/30/17 09:45 (Tylenol) 650 mg UNSCH PRN PO 07/30/17 09:45 08/01/17 00:21 (Benadryl) 25 mg UNSCH PRN PO 07/30/17 09:45 (Nitrostat Sl) 0.4 mg UNSCH PRN SL 07/30/17 09:45 (Catapres) 0.1 mg UNSCH PRN PO 07/30/17 09:45 (Epogen Inj) 4,000 units UNSCH PRN IV PUSH 07/30/17 09:45 07/31/17 14:00 (Gelfoam 12 Mm/7 Mm Top) 1 foam UNSCH PRN TOP 07/30/17 09:45 07/31/17 14:00 (Aspirin) 325 mg DAILY PO 07/30/17 10:00 08/01/17 09:56 (Santyl Oint) 1 applic DAILY TOPICAL 08/01/17 09:00 08/01/17 09:58 (Santyl Oint) 1 applic BID TOPICAL 07/31/17 21:00 07/31/17 20:13 Piperacillin Sod/ Tazobactam Sod 50 ml @ 100 mls/hr Q12H IV 08/01/17 22:00 Allergies Allergies Coded Allergies Sulfa (Sulfonamide Antibiotics) (Verified Allergy, Severe, Rash, 06/19/17) ciprofloxacin (Verified Allergy, Severe, Rash, 06/19/17) ranitidine (Verified Allergy, Severe, Rash, 06/19/17) furosemide (Verified Allergy, Mild, Rash, 06/19/17) Review of Systems All other ROS: ROS reviewed as documented in chart Exam I&O / VS Vital Signs Date Time Temp Pulse Resp B/P (MAP) Pulse Ox O2 Delivery O2 Flow Rate FiO2 08/01/17 12:00 97.5 60 18 151/54 (86) 98 08/01/17 08:00 97.6 57 18 152/65 (94) 94 08/01/17 04:00 98.1 65 18 156/62 (93) 95 08/01/17 00:00 97.6 64 18 160/67 (98) 98 07/31/17 20:37 94 Nasal Cannula 2.00 07/31/17 20:00 73 07/31/17 20:00 97.7 72 21 126/56 (79) 96 07/31/17 18:00 62 General: No acute distress Eye: EOMI Respiratory: Non-labored respirations Musculoskeletal: ROM Neurologic: Alert, Normal motor Psychiatric: Cooperative Exam Comments Alert oriented 3, pleasant appropriate, no aphasia reduced ROM at rajesh shoulders , good equal grasp, able to raise rajesh le to gravity, right foot in boot, le reduced pin, no clonus, planterflexor Objective Micro and Labs Laboratory Tests Test 08/01/17 07:21 White Blood Count 5.3 Red Blood Count 2.75 Hemoglobin 9.0 Hematocrit 27.3 Mean Corpuscular Volume 99.1 Mean Corpuscular Hemoglobin 32.6 Mean Corpuscular Hemoglobin Concent 32.9 Red Cell Distribution Width 17.8 Platelet Count 153 Mean Platelet Volume 8.5 Neutrophils (%) (Auto) 59.1 Lymphocytes (%) (Auto) 15.4 Monocytes (%) (Auto) 11.6 Eosinophils (%) (Auto) 12.7 Basophils (%) (Auto) 1.2 Neutrophils # (Auto) 3.1 Lymphocytes # (Auto) 0.8 Monocytes # (Auto) 0.6 Eosinophils # (Auto) 0.7 Basophils # (Auto) 0.1 CBC Comment DIFF FINAL Differential Comment Blood Urea Nitrogen 37 Creatinine 6.72 Random Glucose 97 Total Protein 6.6 Albumin 2.9 Calcium Level 8.6 Phosphorus Level 3.2 Magnesium Level 2.5 Alkaline Phosphatase 191 Aspartate Amino Transf (AST/SGOT) 42 Alanine Aminotransferase (ALT/SGPT) 24 Total Bilirubin 0.4 Sodium Level 138 Potassium Level 3.9 Chloride Level 100 Carbon Dioxide Level 27.1 Anion Gap 11 Estimat Glomerular Filtration Rate 6 Troponin I 2.54 Free Thyroxine 0.89 Thyroid Stimulating Hormone 3rd Gen 4.310 Date/Time Source Procedure Growth Status 07/31/17 05:56 Blood Peripheral Aerobic Blood Culture - Preliminary NO GROWTH IN 1 DAY Resulted 07/31/17 05:56 Blood Peripheral Anaerobic Blood Culture - Preliminary NO GROWTH IN 1 DAY Resulted Problem Qualifiers (1) Hypertension: Qualified Codes: I10 - Essential (primary) hypertension Paul Mcgrath MD Aug 01, 2017 16:20
[2017-08-01 17:04] LABS: HEMOGLOBIN A1C 6.9 % (4.3-6.0)
[2017-08-01] MEDS: LIDOCAINE HCL 5% PATCH T-DERMAL SCH (17:41)
[2017-08-01 20:00] VITALS: BP 161/103; PULSE 68; PULSE 71; RESP 17; TEMP 97.8; O2SAT 93
[2017-08-01] MEDS ORDERED: METOPROLOL TARTRATE 25 MG TAB PO PRN (20:00)
[2017-08-01] MEDS ORDERED: LACTATED RINGER'S 1000 ML IV PRN (20:00)
[2017-08-01] MEDS ORDERED: INSULIN HUMAN REGULAR 1,000 UNITS/10 ML VIAL SQ PRN (20:00)
[2017-08-01] MEDS ORDERED: POVIDONE IODINE 5% (ANTISEPSIS KIT) 4 APPLICATIONS EACH NARE PRN (20:00)
[2017-08-01] MEDS ORDERED: CHLORHEXIDINE GLUCONATE 2 % 1 PACK (2 CLOTHS) TOPICAL PRN (20:00)
[2017-08-01] MEDS ORDERED: SODIUM CHLORID 0.9% 500 ML IV PRN (20:00)
[2017-08-01] MEDS: CALCIUM CARBONATE 500 MG CHEWABLE TAB PO SCH (20:34)
[2017-08-01] MEDS: REMOVE OLD LIDOCAINE PATCH T-DERMAL SCH (21:00)
[2017-08-01] MEDS: ATORVASTATIN 20 MG TAB PO SCH (21:07)
[2017-08-02] VITALS (18 sets, daily range): BP systolic 131–186; BP diastolic 62–76; PULSE 61–90; RESP 16–18; TEMP 97.1–98.7; O2SAT 93–98
[2017-08-02] MEDS: HEPARIN SODIUM - SQ 10,000 UNITS/ML VIAL SQ SCH (03:50)
[2017-08-02] MEDS: INSULIN DETEMIR 100 UNITS/ML VIAL SQ SCH (08:00)
[2017-08-02] MEDS: INSULIN ASPART SUPPLEMENTAL SCALE SQ SCH ×4 (08:00→21:00)
[2017-08-02] MEDS: hydrALAZINE HCL 100 MG TAB PO SCH ×3 (08:01→18:00)
[2017-08-02] MEDS: LOSARTAN 50 MG TAB PO SCH (08:01)
[2017-08-02] MEDS: DILTIAZEM-CD 180 MG CAP ER PO SCH (08:01)
[2017-08-02] MEDS: SODIUM CHLORIDE 0.9% FLUSH 10 ML FLUSH IV FLUSH SCH ×2 (08:09→21:00)
--- NOTE | 2017-08-02 08:15 | HHI.PR ---
Review/Management Diagnosis/Plan: (1) Encephalopathy ICD Codes: G93.40 - Encephalopathy, unspecified Status: Acute Plan: Probable hypertensive encephalopathy; in addition UTI may be contributory EEG demonstrating mild encephalopathy MRI brain no acute stroke. MRI brain, carotid ultrasound no significant vaso- occlusive disease Mental status intact Recommendations Neuro stable Lidoderm patch to her foot Blood pressure control Aspirin Can be discharged from neurologic standpoint follow-up in the outpatient setting (2) ESRD (end stage renal disease) ICD Codes: N18.6 - ESRD (end stage renal disease) Status: Acute (3) Hypertension ICD Codes: I10 - Essential (primary) hypertension Status: Chronic (4) DM (diabetes mellitus) ICD Codes: E11.9 - DM (diabetes mellitus) Status: Chronic Subjective Subjective Comments No acute events reported No headache No chest pain No dyspnea Active Medications Current Medications Medications (Trade) Dose Ordered Sig/Shanika Route Start Time Stop Time Status Last Admin (NS Flush) 2 ml UNSCH PRN IV FLUSH 07/30/17 04:15 (NS Flush) 2 ml BID IV FLUSH 07/30/17 09:00 08/02/17 08:09 (Tylenol) 650 mg Q4H PRN PO 07/30/17 04:15 (Heparin Inj) 5,000 units Q8HR SQ 07/30/17 06:00 08/01/17 21:12 (Narcan Inj) 0.4 mg UNSCH PRN IV PUSH 07/30/17 04:15 (Milk Of Magnesia Liq) 30 ml Q12H PRN PO 07/30/17 04:15 (Senokot) 17.2 mg Q12H PRN PO 07/30/17 04:15 (Dulcolax Supp) 10 mg DAILY PRN RECTAL 07/30/17 04:15 (Lactulose Liq) 30 ml DAILY PRN PO 07/30/17 04:15 (Ecotrin Ec) 81 mg DAILY PO 07/30/17 09:00 08/01/17 09:57 (Lipitor) 20 mg HS PO 07/30/17 21:00 08/01/17 21:07 (Bumetanide) 2 mg DAILY PO 07/30/17 09:00 08/01/17 09:58 (Phoslo) 1,334 mg BID PO 07/30/17 09:00 08/01/17 20:34 (Tums Chew) 1,000 mg HS PO 07/30/17 21:00 08/01/17 20:34 (Apresoline) 100 mg TID PO 07/30/17 09:00 08/02/17 08:01 (Duoneb Neb) 1 ampule Q6HR NEB PRN NEB 07/30/17 04:30 07/31/17 04:26 (Cozaar) 100 mg DAILY PO 07/30/17 09:00 08/02/17 08:01 (Protonix) 40 mg BID PO 07/30/17 09:00 08/01/17 21:07 (Cardizem Cd) 180 mg DAILY PO 07/30/17 09:00 08/02/17 08:01 (D50w (Vial) Inj) 50 ml UNSCH PRN IV PUSH 07/30/17 04:15 (Glucagon Inj) 1 mg UNSCH PRN OTHER 07/30/17 04:15 (NovoLOG SUPPLEMENTAL SCALE) 1 ACHS SLIDING SCALE SQ 07/30/17 08:00 08/01/17 21:09 (Levemir Inj) 10 units DAILYAC SQ 07/30/17 08:00 08/01/17 09:59 (Catapres) 0.2 mg BID PO 07/30/17 21:00 08/01/17 20:35 Sodium Chloride 1,000 ml @ 0 mls/hr Q0M PRN OTHER 07/30/17 09:33 (Heparin Inj) 8,000 units UNSCH PRN IV FLUSH 07/30/17 09:45 Sodium Chloride 1,000 ml @ 200 mls/hr Q5H PRN IV 07/30/17 09:33 Sodium Chloride 1,000 ml @ 0 mls/hr Q0M PRN OTHER 07/30/17 09:33 (Mannitol Inj) 12.5 gm UNSCH PRN IV 07/30/17 09:45 Albumin Human 100 ml @ 60 mls/hr UNSCH PRN IV 07/30/17 09:45 (NS Flush) 5 ml UNSCH PRN IV FLUSH 07/30/17 09:45 (Heparin Inj) UNSCH PRN .XX 07/30/17 09:45 (Gentamicin Inj) 20 mg UNSCH PRN OTHER 07/30/17 09:45 (Zofran Odt) 4 mg UNSCH PRN PO 07/30/17 09:45 (Tylenol) 650 mg UNSCH PRN PO 07/30/17 09:45 08/01/17 21:06 (Benadryl) 25 mg UNSCH PRN PO 07/30/17 09:45 (Nitrostat Sl) 0.4 mg UNSCH PRN SL 07/30/17 09:45 (Catapres) 0.1 mg UNSCH PRN PO 07/30/17 09:45 08/02/17 06:52 (Epogen Inj) 4,000 units UNSCH PRN IV PUSH 07/30/17 09:45 07/31/17 14:00 (Gelfoam 12 Mm/7 Mm Top) 1 foam UNSCH PRN TOP 07/30/17 09:45 07/31/17 14:00 (Aspirin) 325 mg DAILY PO 07/30/17 10:00 08/01/17 09:56 (Santyl Oint) 1 applic DAILY TOPICAL 08/01/17 09:00 08/01/17 09:58 (Santyl Oint) 1 applic BID TOPICAL 07/31/17 21:00 08/01/17 21:10 Piperacillin Sod/ Tazobactam Sod 50 ml @ 100 mls/hr Q12H IV 08/01/17 22:00 08/01/17 21:11 (Lidoderm 5% Patch.12 Hr) 1 patch DAILY T-DERMAL 08/01/17 16:15 Miscellaneous Information 1 Q24H T-DERMAL 08/01/17 21:00 Lactated Ringer's 1,000 ml @ 30 mls/hr Q24H PRN IV 08/01/17 20:00 08/04/17 19:59 Sodium Chloride 500 ml @ 30 mls/hr [id number] PRN IV 08/01/17 20:00 08/04/17 19:59 (Lopressor) 25 mg CLINICAL TRIALS NURSE PRN PO 08/01/17 20:00 08/04/17 19:59 (Betadine 5% Antisepsis Kit) 1 applic CLINICAL TRIALS NURSE PRN EACH NARE 08/01/17 20:00 08/04/17 19:59 (Chlorhexidine 2% Cloth) 3 pack CLINICAL TRIALS NURSE PRN TOPICAL 08/01/17 20:00 08/04/17 19:59 (NovoLIN R INJ) See Protocol Table ... CLINICAL TRIALS NURSE PRN SQ 08/01/17 20:00 08/04/17 19:59 Allergies Allergies Coded Allergies Sulfa (Sulfonamide Antibiotics) (Verified Allergy, Severe, Rash, 06/19/17) ciprofloxacin (Verified Allergy, Severe, Rash, 06/19/17) ranitidine (Verified Allergy, Severe, Rash, 06/19/17) furosemide (Verified Allergy, Mild, Rash, 06/19/17) Review of Systems All other ROS: ROS reviewed as documented in chart Exam I&O / VS Vital Signs Date Time Temp Pulse Resp B/P (MAP) Pulse Ox O2 Delivery O2 Flow Rate FiO2 08/02/17 06:41 97.6 72 16 186/76 (112) 08/02/17 04:00 61 08/02/17 04:00 97.2 71 17 140/64 (89) 98 08/02/17 00:00 97.1 72 18 157/62 (93) 93 08/02/17 00:00 65 08/01/17 20:47 21 08/01/17 20:00 97.8 71 17 161/103 (122) 93 08/01/17 20:00 68 08/01/17 16:00 97.5 70 18 157/85 (109) 94 08/01/17 12:00 97.5 60 18 151/54 (86) 98 General: No acute distress Eye: EOMI Respiratory: Non-labored respirations Musculoskeletal: ROM Neurologic: Alert, Normal motor Psychiatric: Cooperative Exam Comments Alert oriented 3, pleasant appropriate, no aphasia reduced ROM at rajesh shoulders , good equal grasp, able to raise rajesh le to gravity, right foot in boot, le reduced pin, no clonus, planterflexor Objective Micro and Labs Date/Time Source Procedure Growth Status 07/31/17 05:56 Blood Peripheral Aerobic Blood Culture - Preliminary NO GROWTH IN 1 DAY Resulted 07/31/17 05:56 Blood Peripheral Anaerobic Blood Culture - Preliminary NO GROWTH IN 1 DAY Resulted Problem Qualifiers (1) Hypertension: Qualified Codes: I10 - Essential (primary) hypertension Paul Mcgrath MD Aug 02, 2017 08:15
[2017-08-02] MEDS ORDERED: HEPARIN-NS/PF INJ 1,000 ML ONE (08:34)
[2017-08-02] MEDS ORDERED: MIDAZOLAM HCL 2 MG/2 ML VIAL ONE (08:35)
[2017-08-02] MEDS: BUMETANIDE 1 MG TAB PO SCH (09:00)
[2017-08-02] MEDS: ASPIRIN 325 MG TAB PO SCH (09:00)
[2017-08-02] MEDS: PANTOPRAZOLE SOD 40 MG DELAYED RELEASE TAB PO SCH ×2 (09:00→21:39)
[2017-08-02] MEDS: CALCIUM ACETATE 667 MG CAP PO SCH ×2 (09:00→21:00)
[2017-08-02] MEDS: COLLAGENASE OINT 30 GM TUBE TOPICAL SCH ×3 (09:00→21:00)
[2017-08-02] MEDS: cloNIDine HCL 0.1 MG TAB PO SCH ×2 (09:00→21:39)
[2017-08-02] MEDS: LIDOCAINE HCL 5% PATCH T-DERMAL SCH ×2 (09:00→16:59)
[2017-08-02] MEDS: ASPIRIN EC 81 MG TABEC PO SCH (09:00)
[2017-08-02] MEDS ORDERED: HEPARIN SODIUM - IV 10,000 UNITS/10 ML VIAL ONE (09:20)
[2017-08-02] MEDS ORDERED: TICAGRELOR 90 MG TAB PO ONE (09:32)
[2017-08-02] MEDS ORDERED: hydrALAZINE HCL 20 MG/ML VIAL ONE (09:44)
[2017-08-02] MEDS ORDERED: MORPHINE SULFATE 10 MG/ML INJ ONE (09:51)
[2017-08-02] MEDS: PIPERACIL-TAZO 2.25 GM PREMIX 50 ML IV SCH ×2 (10:00→21:39)
[2017-08-02] MEDS ORDERED: CLOPIDOGREL 300 MG TAB ONE (10:18)
--- NOTE | 2017-08-02 10:29 | CATHPROC ---
[facility] HIS Report Study Information Study Number Admission Scheduled Start Study Start [id number] Jul 30 2017 4:09AM 08/01/2017 Aug 02 2017 8:18AM [place] Service Cardiac Catheterization Admit Source Facility Department Emergency department [facility] - Intake Manager Physician and Clinical Staff Initial Delbert Gonzalez Polysilicon Preparation Worker Finesse Blanchard RN Recorder Celia Zimmerman,RT(R) Scrub Marlena Johnson,RT(R) Procedures Performed Procedure Location (Site) Vessel Name Coronary Angiograms LCA Left Coronary Coronary Angiograms RCA Right Coronary Drug Eluting Inflatio LAD Mid Left Coronary L Heart Cath PTCA DIAG Prox Left Coronary PTCA LAD Mid Left Coronary Wire insertion Fem Art (right) Femoral Art Equipment Time Client Care Representative Description Size Mfg Part Number Used/Scraped [id number] 09:43 [employer] WIRE, ASAHI PROWATER 180CM 180CM Used *[id number] WIRE, BALANCE MIDDLEWEIGHT [id number] 09:23 [employer] 190CM Used 190CM *[id number] WIRE, WHISPER W/HYDROCOAT [id number] 09:53 [employer] 190CM Used 190CM *[id number] TRANSDUCER, TRUWAVE [id number] 08:19 [place] * Used W/STOCKCOCK *[id number] INTRODUCER SET, 08:19 [employer] FR 5 [id number] *[id number] Used MICROPUNCTURE STIFF 534-520T *[id number] 534-521T *[id number] 08:19 [employer] BLANKET,WARM AIR CCL * Used *[id number] 08:19 [employer] PACK, CCL CUSTOM * Used *[id number] 09:56 [employer] BALLOON, 2.0 X 6MM EUPHORA 6MM Used *[id number] 09:32 [employer] BALLOON, 2.5 X 15MM EUPHORA 15MM Used *[id number] BALLOON, 2.75 X 12MM NC [id number] 10:00 [employer] 12MM Used EUPHORA *[id number] 09:38 [employer] STENT, 2.75 18MM GEOVANI 2.75 18MM Used *[id number] 09:22 [employer]/AVE EBU 3.5 Z2 GUIDE CATHETER FR 6 Used *[id number] 09:34 [employer] 30 SANFORD INDEFLATOR Used *[id number] 09:21 [employer] MEDICAL SHEATH, FR6.5 PRELUDE 11CM FR 6.5 038ACT Used *[id number] 08:19 [employer] MEDICAL WIRE, 3MMJ .035 180CM 180CM Used *[id number] 08:19 [employer]AMIC MANIFOLD, 4 PORT * Used *[id number] 08:19 [employer] OMNIPAQUE, 350 MG, 150ML 150ML [id number] Used [id number] 08:19 [employer] MEDICAL SHEATH, FR5 TERUMO (10CM) FR 5 Used *[id number] 09:21 [employer] MED[employer] SHEATH, FR6 TERUMO (10CM) FR 6 Used *[id number] Equipment Model, Serial, Lot Number and Expiration Data Description Model Number Serial Number Lot Number Expiration Date STENT, 2.75 18MM GEOVANI [id number] 01-24-2019 History: Current Medications Medication Dosage/Unit Route Frequency Last Date/Time Taken Statins (any) ASA History: Allergies Allergy Reaction *MDRO Multi-Drug Resistant Organism Cipro Rash Lasix Rash ranitidine Rash Sulfa Rash Sulfa (Sulfonamide Antibiotics) Rash furosemide Rash ciprofloxacin Rash History: Risk Factors Family History of Hypertension Dyslipidemia Previous [facility] Previous Heart Failure Premature CAD Yes Yes No No No Prior Valve Prior PCI Prior CABG Surgery No No No Cerebrovascular Peripheral Artery Chronic Lung On Dialysis Diabetes Disease Disease Disease Yes No No Yes Yes History: Stress Tests Stress or Imaging Studies Performed No History: Other Disease Selection Items COPD HTN History: Other Current Smoker Method Quit Packs a Day Years Used Pack Years No Cigarettes 11 Years Ago 1 50 50 Labs Hgb (g/dl) Hct (%) WBC (l/cumm) Platelets (thousands) 11.60-17.00 35.00-51.00 4.00-11.00 150.00-450.00 9.0 27.3 5.3 153 Glucose (mg/dl) BUN (mg/dl) Creatinine (mg/dl) BUN:Creatinine (1:x) 74.00-106.00 7.00-18.00 0.50-1.30 10.00-20.00 97 37 6.7 5.5 Na (meq/l) K (meq/l) 136.00-145.00 3.50-5.10 138 3.9 INR (PTT:PT) 0.90-1.10 1 Troponin I (ng/ml) CPK-MB (ng/ML) 0.02-0.05 0.50-3.60 2.54 Not Drawn Medication Medication Total Dose (Bolus/Oral) Medication Total Dosage/Unit 1% XYLOCAINE 20 mL FENTANYL 25 mcg HEPARIN 5000 units HYDRALAZINE 10 mg MORPHINE 1 mg NTG (IC) 200 mcg PLAVIX 600 mg VERSED 0.5 mg Medications (Bolus/Oral) Medication Time Given Dosage/Unit Administered By Reason VERSED 08/02/2017 8:58:30 AM 0.5 mg Finesse Blanchard 0.5 mg VERSED given in lab by Finesse Blanchard RN in Right Forearm via Peripheral IV. Ordered by Delbert Whittaker FENTANYL 08/02/2017 8:59:20 AM 25 mcg Finesse Blanchard 25 mcg FENTANYL given in lab by Finesse Blanchard RN in Right Forearm via Peripheral IV. Ordered by Delbert Yañez 1% XYLOCAINE 08/02/2017 9:01:50 AM 20 mL Delbert Burton 20 mL 1% XYLOCAINE given in lab by Delbert Burton in Right Groin via Subcutaneous. HEPARIN 08/02/2017 9:23:25 AM 5000 units Finesse Blanchard 5000 units HEPARIN given in lab by Finesse Blanchard RN in Right Forearm via Peripheral IV. Ordered by Delbert Sher HYDRALAZINE 08/02/2017 9:51:36 AM 10 mg Finesse Blanchard 10 mg HYDRALAZINE given in lab by Finesse Blanchard RN in Right Forearm via Peripheral IV. Ordered by Delbert Macdonald MORPHINE 08/02/2017 9:53:21 AM 1 mg Finesse Blanchard 1 mg MORPHINE given in lab by Finesse Blanchard RN in Right Forearm via Peripheral IV. Ordered by Delbert Whittaker NTG (IC) 08/02/2017 10:02:47 AM 200 mcg Delbert Burton 200 mcg NTG (IC) given in lab by Delbert Burton in Right Groin via Intra-coronary. PLAVIX 08/02/2017 10:22:50 AM 600 mg Finesse Blanchard 600 mg PLAVIX given in lab by Burfield, Finesse, RN via Oral. Ordered by Delbert Burton Initial Case Assessment Cardiovascular HR Rhythm NIBP Chest Pain 70 sr 161/53 0 Edema Present Skin color Skin Mild Normal Warm Dry Circulatory - Right Pulses Dorsalis Pedis Femoral 1 3 Scale (0,1,2,3,4,d) Circulatory - Left Pulses Dorsalis Pedis Femoral 2 3 Scale (0,1,2,3,4,d) Neurological State Oriented to time-place- Alert Moves all extremities person Respiration - General Respiration Rate SpO2 (%) (B/min) 10 98 Chronological Log Time Study Chronological Log 8:26:12 Patient arrived via Bed. 8:32:22 Patient Name, D.O.B, / Armband Verified By R.N. 8:32:23 Consent signed by the physician and the patient and verified by the Intake Manager staff. 8:32:23 Pre-op and post- op instructions given; patient acknowledges understanding of instructions. 8:32:24 Verbal Stimulation=1 Physical Stimulation=2 Airway=2 Respiration=2 TOTAL=7. (0=absent, 1=li mited, 2=present) 8:32:33 Presedation assessment performed by Intake Manager RN. 8:32:44 Patient has been NPO for More than 6Hrs. 8:32:45 Skin Breakdown- wounds on heels 8:32:49 Patient Warmer Placed on the Table. 8:32:50 [place] Prominences Protected 8:32:53 A # 18 IV was noted in the Forearm (right). Grade = 0 8:33:08 History and physical on the chart or being dictated. Assessment: Initial Case, HR=70 BPM, Rhythm=sr, SUBZ=925/53 mmhg, Chest Pain=0, Edema=Mild, Col or=Normal, Skin = Warm, Dry Right Pulses: Antonio Ped=1, Femoral=3 8:33:09 Left Pulses: Antonio Ped=2, Femoral=3 Neurological: State=Alert, Ox3, NOBLE Respiration: Resp=10 B/min, SpO2=98 % Vitals capture started with the following parameters, Patient=Adult, Interval=5 min, Initial Pr owwumu=898 mmHg, 8:35:59 Deflation Rate=5 mmHg, Cuff placed on Left Arm 8:36:01 Reference ECG taken 8:36:50 HR=69 bpm, EJCO=249/53 mmhg, SpO2=97.0 %, Resp=8 B/min, Pain=0, Julissa=9, Cochran=2 8:41:43 HR=68 bpm, DDKA=978/58 mmhg, SpO2=97.0 %, Resp=26 B/min, Pain=0, Julissa=9, Cochran=2 8:42:23 Bilateral groins prepped with 2% chlorhexidine, and draped after a 3 minute waiting time. 8:46:31 MD paged 8:46:42 HR=70 bpm, WINO=560/55 mmhg, SpO2=96.0 %, Resp=13 B/min, Pain=0, Julissa=9, Cochran=2 8:47:50 Pressure channel 1 zeroed. 8:50:27 MD responded 8:51:43 HR=72 bpm, AUSG=564/54 mmhg, SpO2=98.0 %, Resp=10 B/min, Pain=0, Julissa=9, Cochran=2 8:55:24 MD arrived. 8:56:42 HR=73 bpm, MVQT=230/55 mmhg, SpO2=98.0 %, Resp=12 B/min 8:58:30 0.5 mg VERSED given in lab by Finesse Blanchard RN in Right Forearm via Peripheral IV. Ordered by Delbert Burton. 8:59:20 25 mcg FENTANYL given in lab by Finesse Blanchard RN in Right Forearm via Peripheral IV. Ordere d by Delbert Burton. Time Out. Correct patient, correct procedure, correct physician, labs, allergies, and equipment verified with laboratory tester 9:00:19 team present. Fire risk assesment completed (see hard stop sheet for coding). Time Out Concu rred by and individual staff in procedure. 9:01:43 HR=68 bpm, MFGF=092/53 mmhg, SpO2=99.0 %, Resp=12 B/min 9:01:48 Case Start 9:01:50 20 mL 1% XYLOCAINE given in lab by Delbert Burton in Right Groin via Subcutaneous. 9:06:45 HR=67 bpm, QTSL=575/55 mmhg, SpO2=98 %, Resp=17 B/min 9:09:25 Access site was Right Femoral Artery via micropuncture. 9:09:38 A SHEATH, FR5 TERUMO (10CM) FR 5 was advanced into the Fem Art (right) using the Percutaneou s technique. Recorded Pressure: Ao, HR=68, Condition=Condition 1 9:10:42 (Aorta) Ao 181/46/96 9:11:00 An injection in the Fem Art (right) was made through the SHEATH, FR5 TERUMO (10CM) FR 5. 9:11:46 HR=66 bpm, NAWS=143/49 mmhg, TzQ7=156.0 %, Resp=15 B/min A JR 4.0 INFINITI CATHETER FR 5 was advanced over a wire. OMNIPAQUE, 350 MG, 150ML 150ML was use d for 9:12:45 injections. Recorded Pressure: LV, HR=69, Condition=Condition 1 9:13:17 (Left Ventricle) LV 187/11/21 Recorded Pressure: LV, Ao, HR=72, Condition=Condition 1 9:13:31 (Left Ventricle) LV 172/6/20, (Aorta) Ao 170/44/92 9:14:10 The RCA was injected and visualized at various angles. OMNIPAQUE, 350 MG, 150ML 150ML used. After removing the current catheter a JL 4.0 INFINITI CATHETER FR 5 was advanced over a WIRE, 3M MJ .035 180CM 9:15:35 180CM. 9:16:49 HR=68 bpm, DBAP=110/51 mmhg, VyZ9=211.0 %, Resp=17 B/min 9:17:34 The LCA was injected and visualized at various angles. OMNIPAQUE, 350 MG, 150ML 150ML used. 9:20:13 Catheter was removed 9:21:46 HR=72 bpm, YXGO=063/52 mmhg, SpO2=99.0 %, Resp=8 B/min A SHEATH, FR6 TERUMO (10CM) FR 6 was exchanged in the Fem Art (right). This was necessary in ord er to 9:22:46 accomodate a larger catheter. 5000 units HEPARIN given in lab by Finesse Blanchard, RN in Right Forearm via Peripheral IV. Ordered by Delbert Burton 9:23:25 G. A EBU 3.5 Z2 GUIDE CATHETER FR 6 was advanced over a wire. OMNIPAQUE, 350 MG, 150ML 150ML was us ed for 9:24:01 injections. 9:26:45 HR=71 bpm, VPSM=070/49 mmhg, KdG5=466.0 %, Resp=9 B/min 9:27:23 A WIRE, BALANCE MIDDLEWEIGHT 190CM 190CM was inserted via Fem Art (right). 9:30:00 Interventional wire has crossed the lesion in the mid lad 9:30:32 Activated Clotting Time Drawn 9:31:46 HR=72 bpm, LNYE=070/50 mmhg, OoP8=315.0 %, Resp=7 B/min A BALLOON, 2.5 X 15MM EUPHORA 15MM was inserted over WIRE, BALANCE MIDDLEWEIGHT 190CM 190CM via the 9:33:26 Fem Art (right). A BALLOON, 2.5 X 15MM EUPHORA 15MM over a WIRE, BALANCE MIDDLEWEIGHT 190CM 190CM in the LAD Mid was 9:33:42 inflated using a 30 SANFORD INDEFLATOR at 8 [place]ford for 24 sec. A BALLOON, 2.5 X 15MM EUPHORA 15MM over a WIRE, BALANCE MIDDLEWEIGHT 190CM 190CM in the LAD Mid was 9:34:28 inflated using a 30 SANFORD INDEFLATOR at 8 sanford for 18 sec. A BALLOON, 2.5 X 15MM EUPHORA 15MM over a WIRE, BALANCE MIDDLEWEIGHT 190CM 190CM in the LAD Mid was 9:35:16 inflated using a 30 SANFORD INDEFLATOR at 8 sanford for 20 sec. 9:35:55 ACT (Normal Range 90-180) = 288 9:36:31 Balloon Removed. 9:36:45 HR=75 bpm, JNOD=078/56 mmhg, OrD6=084.0 %, Resp=8 B/min, Pain=0, Julissa=9, Cochran=2 A STENT, 2.75 18MM GEOVANI 2.75 18MM was advanced through a EBU 3.5 Z2 GUIDE CATHETER FR 6 over a WIRE, 9:38:21 BALANCE MIDDLEWEIGHT 190CM 190CM. 9:41:09 A implantable was deployed using a 30 SANFORD INDEFLATOR at 12 atmospheres for 30 seconds in the LAD Mid. 9:41:48 HR=81 bpm, ZMAC=016/53 mmhg, VfZ8=013.0 %, Resp=11 B/min, Pain=0, Julissa=9, Cochran=2 9:43:32 A WIRE, ASAHI PROWATER 180CM 180CM was inserted via Fem Art (right). 9:47:28 HR=80 bpm, OJSB=492/64 mmhg, SrC2=795.0 %, Resp=16 B/min, Pain=0, Julissa=9, Cochran=2 9:50:04 Prowater Wire removed 9:50:59 A WIRE, WHISPER W/HYDROCOAT 190CM 190CM was inserted via Fem Art (right). 10 mg HYDRALAZINE given in lab by Finesse Blanchard RN in Right Forearm via Peripheral IV. Ordered by Delbert Burton 9:51:36 G. 9:51:46 HR=82 bpm, OZZN=299/78 mmhg, TsU5=008.0 %, Resp=9 B/min, Pain=0, Julissa=9, Cochran=2 9:53:21 1 mg MORPHINE given in lab by Finesse Blanchard RN in Right Forearm via Peripheral IV. Ordered by Delbert Burton 9:54:05 Interventional whisper wire has crossed the lesion in the diag A BALLOON, 2.0 X 6MM EUPHORA 6MM was inserted over WIRE, WHISPER W/HYDROCOAT 190CM 190CM via th e 9:55:52 Fem Art (right). A BALLOON, 2.0 X 6MM EUPHORA 6MM over a WIRE, WHISPER W/HYDROCOAT 190CM 190CM in the DIAG Prox was 9:56:37 inflated using a 30 SANFORD INDEFLATOR at 8 [place] for 20 sec. 9:56:49 HR=83 bpm, QPDH=203/60 mmhg, SpO2=99.0 %, Resp=12 B/min, Pain=0, Julissa=9, Cochran=2 A BALLOON, 2.0 X 6MM EUPHORA 6MM over a WIRE, WHISPER W/HYDROCOAT 190CM 190CM in the DIAG Prox was 9:57:27 inflated using a 30 SANFORD INDEFLATOR at 8 sanford for 30 sec. 9:59:30 Balloon Removed. A BALLOON, 2.75 X 12MM NC EUPHORA 12MM was inserted over WIRE, BALANCE MIDDLEWEIGHT 190CM 190CM via 10:00:55 the Fem Art (right). A BALLOON, 2.75 X 12MM NC EUPHORA 12MM over a WIRE, BALANCE MIDDLEWEIGHT 190CM 190CM in the LAD Mid 10:01:19 was inflated using a 30 SANFORD INDEFLATOR at 14 [place] for 12 sec. A BALLOON, 2.75 X 12MM NC EUPHORA 12MM over a WIRE, BALANCE MIDDLEWEIGHT 190CM 190CM in the LAD Mid 10:01:35 was inflated using a 30 SANFORD INDEFLATOR at 16 [place] for 12 sec. 10:01:52 HR=80 bpm, MGTD=088/56 mmhg, SpO2=98.0 %, Resp=8 B/min 10:02:28 Balloon Removed. 10:02:47 200 mcg NTG (IC) given in lab by Delbert Burton in Right Groin via Intra-coronary. 10:06:49 HR=79 bpm, UCWO=642/51 mmhg, SpO2=99.0 %, Resp=11 B/min 10:07:22 both Wires removed 10:07:34 Catheter was removed 10:08:07 Case End (Physician broke scrub) 10:09:17 In the Fem Art (right) the SHEATH, FR6 TERUMO (10CM) FR [address] by Delbert Burton. 10:09:26 Sterile dressing applied to site 10:09:27 No case complications noted. 10:09:28 Cine recording checked. 10:09:32 Holding Area notified of successful intervention. 10:09:33 Bedside Report will be given. 10:09:34 Implantable Device card placed in patient's chart. 10:09:57 A Left Heart Cath was performed. 10:11:44 HR=74 bpm, KLDZ=342/51 mmhg, RcR6=914.0 %, Resp=10 B/min 10:20:00 Patient moved to bed 10:22:50 600 mg PLAVIX given in lab by Finesse Blanchard RN via Oral. Ordered by Delbert Burton. End Study - Contrast Media Used In Study Contrast Total Opened (mL) Total Used (mL) Total Wasted (mL) Omnipaque 130 130 0 End Study - Maximum Contrast Load Max Contrast Load (mL) 54.0 End Study - Radiation Exposure Fluoro Time (minutes) 15.7 End Study - Patient Disposition Complications Transferred To Interventional Outcome No Telemetry Bed successful
[2017-08-02] MEDS ORDERED: MISC INFORMATION XX ONE (10:30)
[2017-08-02] MEDS ORDERED: ATROPINE SULFATE 1 MG/ML VIAL IV PUSH PRN (10:30)
[2017-08-02] MEDS ORDERED: SODIUM CHLOR 0.9% 250 ML INJ 250 ML IV PRN (10:30)
[2017-08-02] MEDS ORDERED: ASPIRIN 81 MG CHEW TAB ONE (10:36)
--- NOTE | 2017-08-02 11:30 | MA ---
cc: Delbert Burton DO DATE: 08/02/2017 DATE OF PROCEDURE: 08/02/2017. PROCEDURES: 1. Left heart catheterization, coronary angiogram, Comanche drug-eluting stent (2.75 x 18) to LAD. 2. Balloon angioplasty of a jailed diagonal. 3. Moderate sedation 70 minutes. PREOPERATIVE DIAGNOSIS: Non-ST elevation myocardial infarction. POSTOPERATIVE DIAGNOSES: 1. Non-ST elevation myocardial infarction status post Comanche drug-eluting stent (2.75 x 18) to the mid-left anterior descending artery. 2. Balloon angioplasty of jailed diagonal. MEDICATIONS: Versed 0.5 mg, fentanyl 25 mcg, heparin 5000 units, morphine 1 mg, hydralazine 10 mg, Plavix 600 mg. CONTRAST USED: 130 mL FLUOROSCOPY TIME: 15.7 minutes. MODERATE SEDATION: 70 minutes. FRAILTY SCORE: 4. ESTIMATED BLOOD LOSS: 10 mL. PROCEDURAL SUMMARY: Lizeth Macario is a pleasant 77-year-old female who presented to [facility] [place] due to encephalopathy. She was found to have a UTI, but during all of this, she was found to have an elevated troponin. Because of this, she was recommended cardiac catheterization. Risks, benefits and alternatives were explained to her and she consented as such. She was brought to the lab and prepped in the usual sterile fashion. The right femoral artery was accessed using a modified Seldinger technique and placement of a 5-Malay sheath. This was easily aspirated and flushed. A JR4 was advanced over a J-wire to the ascending aorta and across the aortic valve for measurement of left ventricular pressure. This was pulled back across the aortic valve showing no significant gradient of aortic stenosis. JR4 was used for selective angiography of the right coronary artery system. This was exchanged out for a JL4 which was used for selective angiography of the left coronary artery system. Due to the significant disease in the LAD, it was felt reasonable to intervene. Please see notes below for intervention. FINDINGS: LEFT MAIN: Normal-sized vessel with adequate reflux. It bifurcates into an LAD and circumflex. LAD: Normal-sized vessel with 90% stenosis at the takeoff of the first diagonal in the mid-portion. Distal to this, it has diffuse 20-30% disease. It gives off 2 diagonals with the first one being at the diseased portion of the LAD and has a 50% ostial stenosis. The second one has a 20% ostial stenosis. LEFT CIRCUMFLEX: Small to moderate-sized vessel with diffuse 30-40% disease throughout. No significant lesions noted. RCA: Normal-sized vessel with a 40-50% lesion in the mid-portion. It supplies a PDA as well as 2 posterolateral branches with no significant disease. LVEDP: 20. INTERVENTION: Due to the significance of disease in the LAD as well as her elevated troponin, I felt it was reasonable to intervene on the LAD. The sheath was exchanged for a 6-Malay sheath. The patient was given heparin as an anticoagulant. An EBU 3.5 guide was engaged into the left main. A BMW wire was advanced into the distal LAD. A Compliant balloon (2.5 x 15) was used to predilate the lesion. An Jose drug-eluting stent (2.75 x 18) was then placed over the lesion and inflated. Angiogram after stent expansion shows snow-plowing into the ostial diagonal. A Prowater wire was attempted to cross into the diagonal, but was unable to and so than a moderate-support Whisper was used to cross through the stent into the diagonal. A Compliant balloon (2 x 6) was used to predilate the ostial portion of the diagonal. A NonCompliant balloon (2.7 x 12) was used to post-dilate the stent. Final angiogram shows a well-opposed stent with no perforation or dissections and DEE 3 flow down both the LAD and diagonal. As the patient was not having chest pain and there was DEE 3 flow down the diagonal, no further work was done on the ostium of the diagonal. The patient was loaded with 600 mg of Plavix and given her 81 mg of aspirin as it was not given this morning. 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 INTERVENTIONAL DATA: Lesion #1: Vessel: Mid-LAD, lesion length 15, pre-DEE 3, post-DEE 3, post-stenosis 0. Lesion #2: Vessel: First diagonal, lesion length 4, pre-DEE 3, post-DEE 3, post-stenosis 40%. IMPRESSIONS: 1. Non-ST elevation myocardial infarction. 2. Coronary artery disease, status post Comanche drug-eluting stent (2.75 x 18) to the mid-left anterior descending. 3. Balloon angioplasty of jailed diagonal. 4. End-stage renal disease on hemodialysis. 5. Hypertension. RECOMMENDATIONS: 1. Ms. Macario underwent PCI as above and she will be recommended aspirin and Plavix therapy. She understands that she should be on aspirin indefinitely and Plavix for at least 12 months. 2. She will continue on her ARB and statin. I have added beta shazia therapy to her current regimen. 3. We will check a 2-D echo to look at her overall left ventricular function, cardiac structure and possible valvulopathies. 4. Further recommendations will be made based on the hospital course. Thank you for allowing me to see Lizeth Macario. If there are any questions, please do not hesitate to call. Delbert Burton DO VGKay/BAKARI , 10:50 AM , 11:29 AM
--- NOTE | 2017-08-02 12:25 | HHI.NPPN ---
Subjective General Problems: Anemia Renal Failure: End Stage Renal Disease History of Present Illness Patient is a 77-year-old female with a past medical history significant for end- stage renal disease on hemodialysis, COPD, diabetes mellitus, hypertension, hyperlipidemia, recurrent UTIs and a history of uterine cancer. Present to the emergency department for evaluation of altered mental status. Patient was found to have a urinary tract infection. Mrs Macario answers questions but falls back to sleep in middle of talking. Her only complaint was right knee pain. Nephrology is consulted for management of end stage renal disease on hemodialysis. Usually dialysis days are Saturday, Saturday, and Saturday. Last dialysis yesterday, will continue with her normal schedule. Additional Remarks S/P heart cath with stent to LAD. Sheath in place. Dialysis today. (Yaneth Mauricio) Review of Systems Respiratory Respiratory Remarks Denies SOB (Yaneth Mauricio) Cardiovascular Cardiac Remarks Denies chest pain (Yaneth Mauricio) Gastrointestinal GI Remarks Denies abdominal pain (Yaneth Mauricio) Objective Data Data Vital Signs Date Time Temp Pulse Resp B/P (MAP) Pulse Ox O2 Delivery O2 Flow Rate FiO2 08/02/17 11:00 96 Room Air 08/02/17 08:00 70 08/02/17 08:00 98.1 70 16 172/68 (102) 97 08/02/17 06:41 97.6 72 16 186/76 (112) 08/02/17 04:00 61 08/02/17 04:00 97.2 71 17 140/64 (89) 98 08/02/17 00:00 97.1 72 18 157/62 (93) 93 08/02/17 00:00 65 08/01/17 20:47 21 08/01/17 20:00 97.8 71 17 161/103 (122) 93 08/01/17 20:00 68 08/01/17 16:00 97.5 70 18 157/85 (109) 94 (Yaneth Mauricio) -: 08/01/17 0721 08/01/17 0721 Imaging Last Impressions Lung Scan-VQ Nuclear Medicine 08/01/17 0000 Signed Impressions: CONCLUSION: No ventilation/perfusion mismatch is identified. Examination is low probability for PE. Chest X-Ray 07/31/17 Signed Impressions: CONCLUSION: Increased interstitial markings bilaterally suggestive of pulmonary edema. Head Magnetic Resonance Angiography 07/30/17 Signed Impressions: CONCLUSION: 1. Unremarkable MRA of the brain. Carotid Artery Ultrasound 07/30/17 Signed Impressions: CONCLUSION: 1. Right Internal Carotid Artery: Findings indicate <50% stenosis. 2. Left Internal Carotid Artery: Findings indicate <50% stenosis. Brain MRI 07/30/17 Signed Impressions: CONCLUSION: 1. Bilateral cortical atrophy and chronic white matter changes. 2. Otherwise unremarkable exam for patient's age. Head CT 07/29/17 Signed Impressions: CONCLUSION: 1. No acute intracranial abnormalities. Mild white matter ischemic changes. [facility] Guerrero. (Yaneth Mauricio) Physical Exam General Appearance: No Acute Distress, Comfortable (Yaneth Mauricio) Pulmonary Resp Exam: Breath Sounds Equal, No Distress (Yaneth Mauricio) Gastrointestinal/Abdomen GI Exam: Soft, Non-Tender, Bowel Sounds Present (Yaneth Mauricio) Integumentary Skin Exam: Clear, Warm (Yaneth Mauricio) Neurologic Neuro Exam: Alert, Awake, Oriented, Speech Clear (Yaneth Mauricio) Psychiatric Psych Exam: Appropriate Responses (Yaneth Mauricio) Assessment/Plan Problem List: (1) ESRD (end stage renal disease) ICD Codes: N18.6 - ESRD (end stage renal disease) Status: Acute Plan: End stage renal disease on hemodialysis M/W/F left AV fistula Last hemodialysis on Saturday Plan Continue phoslo Avoid IVF administration Epogen with dialysis. Hemodialysis today remove fluid as tolerated. S/p heart cath with stent to LAD. (2) UTI (urinary tract infection) ICD Codes: N39.0 - UTI (urinary tract infection) Status: Acute (3) Encephalopathy ICD Codes: G93.40 - Encephalopathy, unspecified Status: Acute Plan: Neurology has been consulted. MRI noted (4) Hypertension ICD Codes: I10 - Essential (primary) hypertension Status: Chronic Plan: Will monitor (5) DM (diabetes mellitus) ICD Codes: E11.9 - DM (diabetes mellitus) Status: Chronic Plan: Maintain blood sugar between 140 mg/dl to 180 mg/dl (6) CAD (coronary artery disease) ICD Codes: I25.10 - Atherosclerotic heart disease of [place] coronary artery without angina pectoris Plan: s/p stent to LAD ASA daily Plavix for at least for 1 year (Yaneth Mauricio) Problem List: (1) ESRD (end stage renal disease) ICD Codes: N18.6 - ESRD (end stage renal disease) Status: Acute Plan: End stage renal disease on hemodialysis M/W/F left AV fistula Last hemodialysis on Saturday Plan Continue phoslo Avoid IVF administration Epogen with dialysis. Hemodialysis today remove fluid as tolerated. S/p heart cath with stent to LAD. Patient seen and examined, agree with above. Post Stent. HD will be today, possible discharge. (2) UTI (urinary tract infection) ICD Codes: N39.0 - UTI (urinary tract infection) Status: Acute (3) Encephalopathy ICD Codes: G93.40 - Encephalopathy, unspecified Status: Acute Plan: Neurology has been consulted. MRI noted (4) Hypertension ICD Codes: I10 - Essential (primary) hypertension Status: Chronic Plan: Will monitor (5) DM (diabetes mellitus) ICD Codes: E11.9 - DM (diabetes mellitus) Status: Chronic Plan: Maintain blood sugar between 140 mg/dl to 180 mg/dl (6) CAD (coronary artery disease) ICD Codes: I25.10 - Atherosclerotic heart disease of [place] coronary artery without angina pectoris Plan: s/p stent to LAD ASA daily Plavix for at least for 1 year (Lesley Lee MD) Problem Qualifiers (1) UTI (urinary tract infection): Qualified Codes: N30.00 - Acute cystitis without hematuria (2) Hypertension: Qualified Codes: I10 - Essential (primary) hypertension Yaneth Mauricio Aug 02, 2017 12:25 Lesley Lee MD Aug 06, 2017 00:24
--- NOTE | 2017-08-02 13:01 | HHI.PR ---
Subjective Remarks in no acute distress. no chest pain or sob. afebrile. had cardiac cath earlier today. Objective Vitals Vital Signs Date Time Temp Pulse Resp B/P (MAP) Pulse Ox O2 Delivery O2 Flow Rate FiO2 08/02/17 11:00 96 Room Air 08/02/17 08:00 70 08/02/17 08:00 98.1 70 16 172/68 (102) 97 08/02/17 06:41 97.6 72 16 186/76 (112) 08/02/17 04:00 61 08/02/17 04:00 97.2 71 17 140/64 (89) 98 08/02/17 00:00 97.1 72 18 157/62 (93) 93 08/02/17 00:00 65 08/01/17 20:47 21 08/01/17 20:00 97.8 71 17 161/103 (122) 93 08/01/17 20:00 68 08/01/17 16:00 97.5 70 18 157/85 (109) 94 I/O 08/01/17 08/01/17 08/01/17 08/02/17 08/02/17 08/02/17 07:00 15:00 23:00 07:00 15:00 23:00 Intake Total 360 ml Balance 360 ml Intake Oral 360 ml # Voids 3 1 0 # Bowel Movements 1 Result Diagram: 08/01/1772008/01/17720 Imaging Last Impressions Lung Scan-V Nuclear Medicine 08/01/17 Signed Impressions: CONCLUSION: No ventilation/perfusion mismatch is identified. Examination is low probability for PE. Chest X-Ray 07/31/17 Signed Impressions: CONCLUSION: Increased interstitial markings bilaterally suggestive of pulmonary edema. Head Magnetic Resonance Angiography 07/30/17 Signed Impressions: CONCLUSION: 1. Unremarkable MRA of the brain. Carotid Artery Ultrasound 07/30/17 Signed Impressions: CONCLUSION: 1. Right Internal Carotid Artery: Findings indicate <50% stenosis. 2. Left Internal Carotid Artery: Findings indicate <50% stenosis. Brain MRI 07/30/17 Signed Impressions: CONCLUSION: 1. Bilateral cortical atrophy and chronic white matter changes. 2. Otherwise unremarkable exam for patient's age. Head CT 07/29/17 Signed Impressions: CONCLUSION: 1. No acute intracranial abnormalities. Mild white matter ischemic changes. Fi ndings called to Dr. Guerrero. Objective Remarks GENERAL: This is a well-nourished, well-developed patient, in no apparent distress. CARDIOVASCULAR: Regular rate and regular rhythm without murmurs, gallops, or rubs. RESPIRATORY: Clear to auscultation. Breath sounds equal bilaterally. No wheezes , rales, or rhonchi. GASTROINTESTINAL: Abdomen soft, non-tender, nondistended. Normal, active bowel sounds MUSCULOSKELETAL: Extremities without clubbing, cyanosis, or edema. NEURO: Alert & Oriented x4 to person, place, time, situation. Moves all ext x4 Procedures cardiac cath. Medications and IVs Inpatient Medications Acetaminophen 100 ml @ 400 mls/hr ONCE ONCE IV Last administered on 07/31/17 06:01; Start 07/31/17 at 05:45; Stop 07/31/17 at 05:59; Status DC Acetaminophen (Tylenol) 650 mg UNSCH PRN PO for headach, pain1-10,T > 101F Last administered on 08/01/17at 21:06; Start 07/30/17 at 09:45; Stop 08/02/17 at 10: 40; Status DC Albumin Human 100 ml @ 60 mls/hr UNSCH PRN IV WITH DIALYSIS; Start 07/30/17 at 09:45 Albuterol/ Ipratropium (Duoneb Neb) 1 ampule Q6HR NEB PRN NEB SHORTNESS OF BREATH Last administered on 07/31/17at 04:26; Start 07/30/17 at 04:30 Aspirin (Aspirin) 325 mg DAILY PO Last administered on 08/01/17at 09:56; Start at 10:00; Stop 08/02/17 at 10:36; Status DC Aspirin (Ecotrin Ec) 81 mg DAILY PO Last administered on 08/01/17 09:57; Start 07/30/17 at 09:00 Atorvastatin Calcium (Lipitor) 20 mg HS PO Last administered on 08/01/17 21:07 ; Start 07/30/17 at 21:00 Atropine Sulfate (Atropine Inj) 0.5 mg UNSCH PRN IV PUSH VAGAL REPONSE; Start 08/02/17 at 10:30 Azithromycin (Zithromax) 500 mg ONCE ONCE PO Last administered on 07/31/17at 06: 01; Start 07/31/17 at 05:30; Stop 07/31/17 at 05:31; Status DC Bisacodyl (Dulcolax Supp) 10 mg DAILY PRN RECTAL SEVERE CONSITIPATION; Start at 04:15 Bumetanide (Bumetanide) 2 mg DAILY PO Last administered on 08/01/17at 09:58; Start 07/30/17 at 09:00 Calcium Acetate (Phoslo) 1,334 mg BID PO Last administered on 08/01/17at 20:34; Start 07/30/17 at 09:00 Calcium Carbonate (Tums Chew) 1,000 mg HS PO Last administered on 08/01/17 20: 34; Start 07/30/17 at 21:00 Ceftriaxone Sodium 1000 mg/ Sodium Chloride 100 ml @ 200 mls/hr Q24H IV Last administered on 07/31/17at 02:02; Start 07/31/17 at 01:00; Stop 07/31/17 at 05:19; Status DC Chlorhexidine Gluconate (Chlorhexidine 2% Cloth) 3 pack PRODUCTION ASSOCIATE PRN TOPICAL SEE LABEL COMMENTS; Start 08/01/17 at 20:00; Stop 08/04/17 at 19:59 Clonidine (Catapres) 0.1 mg UNSCH PRN PO for BP > 180/100 X 2 readings Last administered on 08/02/17at 06:52; Start 07/30/17 at 09:45; Stop 08/02/17 at 10:40; Status DC Clopidogrel Bisulfate (Plavix) 75 mg DAILY PO ; Start 08/03/17 at 09:00 Collagenase (Santyl Oint) 1 applic BID TOPICAL Last administered on 08/01/17at 21 :10; Start 07/31/17 at 21:00 Dextrose (D50w (Vial) Inj) 50 ml UNSCH PRN IV PUSH HYPOGLYCEMIA-SEE COMMENTS; Start 07/30/17 at 04:15 Diltiazem HCl (Cardizem Cd) 180 mg DAILY PO Last administered on 08/02/17at 08:01 ; Start 07/30/17 at 09:00 Diphenhydramine HCl (Benadryl) 25 mg UNSCH PRN PO for hives/itching/anaphylaxis ; Start 07/30/17 at 09:45; Stop 08/02/17 at 10:40; Status DC Epoetin Chandler (Epogen Inj) 4,000 units UNSCH PRN IV PUSH WITH DIALYSIS Last administered on 07/31/17at 14:00; Start 07/30/17 at 09:45; Stop 08/02/17 at 10:40; Status DC Gelatin (Gelfoam 12 Mm/7 Mm Top) 1 foam UNSCH PRN TOP SEE LABEL COMMENTS Last administered on 07/31/17at 14:00; Start 07/30/17 at 09:45; Stop 08/02/17 at 10:40; Status DC Gentamicin Sulfate (Gentamicin Inj) 20 mg UNSCH PRN OTHER WITH DIALYSIS; Start 07/30/17 at 09:45; Stop 08/02/17 at 10:40; Status DC Glucagon (Glucagon Inj) 1 mg UNSCH PRN OTHER HYPOGLYCEMIA-SEE COMMENTS; Start 07/30/17 at 04:15 Heparin Sodium (Porcine) (Heparin Inj) UNSCH PRN .XX WITH DIALYSIS; Start 07/30 at 09:45; Stop 08/02/17 at 10:40; Status DC Hydralazine HCl (Apresoline) 100 mg TID PO Last administered on 08/02/17at 08:01 ; Start 07/30/17 at 09:00 Insulin Aspart (NovoLOG SUPPLEMENTAL SCALE) 1 ACHS SLIDING SCALE SQ Last administered on 08/01/17at 21:09; Start 07/30/17 at 08:00 Insulin Detemir (Levemir Inj) 10 units DAILYAC SQ Last administered on at 09:59; Start 07/30/17 at 08:00 Insulin Human Regular (NovoLIN R INJ) See Protocol Table ... PRODUCTION ASSOCIATE PRN SQ SEE PROTOCOL TABLE; Start 08/01/17 at 20:00; Stop 08/04/17 at 19:59 Labetalol HCl (Trandate Inj) 5 mg ONCE ONCE IV PUSH Last administered on at 07:57; Start 07/30/17 at 07:45; Stop 07/30/17 at 07:46; Status DC Lactated Ringer's 1,000 ml @ 30 mls/hr Q24H PRN IV SEE LABEL COMMENTS; Start at 20:00; Stop 08/04/17 at 19:59 Lactulose (Lactulose Liq) 30 ml DAILY PRN PO SEVERE CONSITIPATION; Start at 04:15 Lidocaine HCl (Lidoderm 5% Patch.12 Hr) 1 patch DAILY T-DERMAL ; Start 08/01/17 at 16:15 Losartan Potassium (Cozaar) 100 mg DAILY PO Last administered on 08/02/17at 08:01 ; Start 07/30/17 at 09:00 Magnesium Hydroxide (Milk Of Magnesia Liq) 30 ml Q12H PRN PO Mild constipation ; Start 07/30/17 at 04:15 Mannitol (Mannitol Inj) 12.5 gm UNSCH PRN IV WITH DIALYSIS; Start 07/30/17 at 09 :45; Stop 08/02/17 at 10:40; Status DC Metoprolol Tartrate (Lopressor) 12.5 mg BID PO ; Start 08/02/17 at 21:00 Miscellaneous Information 1 ONCE ONCE XX ; Start 08/02/17 at 10:30; Stop at 10:38; Status DC Naloxone HCl (Narcan Inj) 0.4 mg UNSCH PRN IV PUSH SEE LABEL COMMENTS; Start at 04:15 Nitroglycerin (Nitrostat Sl) 0.4 mg UNSCH PRN SL CHEST PAIN; Start 07/30/17 at 09:45; Stop 08/02/17 at 10:40; Status DC Ondansetron HCl (Zofran Odt) 4 mg UNSCH PRN PO WITH DIALYSIS; Start 07/30/17 at 09:45; Stop 08/02/17 at 10:40; Status DC Pantoprazole Sodium (Protonix) 40 mg BID PO Last administered on 08/01/17at 21:07 ; Start 07/30/17 at 09:00 Piperacillin Sod/ Tazobactam Sod 50 ml @ 100 mls/hr Q12H IV Last administered on 08/01/17at 21:11; Start 08/01/17 at 22:00 Povidone Iodine (Betadine 5% Antisepsis Kit) 1 applic PRODUCTION ASSOCIATE PRN EACH NARE SEE LABEL COMMENTS; Start 08/01/17 at 20:00; Stop 08/04/17 at 19:59 Sennosides (Senokot) 17.2 mg Q12H PRN PO Moderate constipation; Start 07/30/17 at 04:15 Sodium Bicarbonate (Sodium Bicarbonate 8.4% Inj) 50 meq ONCE ONCE IV PUSH Last administered on 07/31/17at 06:01; Start 07/31/17 at 05:30; Stop 07/31/17 at 05: 31; Status DC Sodium Chloride 250 ml @ 500 mls/hr ONCE PRN IV VAGAL REPONSE; Start 08/02/17 at 10:30; Stop 08/03/17 at 10:29 Sodium Chloride (NS Flush) 5 ml UNSCH PRN IV FLUSH WITH DIALYSIS; Start at 09:45; Stop 08/02/17 at 10:40; Status DC A/P Assessment and Plan A/P 1. metabolic encephalopathy/urinary tract infection mental status improved. on Zosyn. evaluated and cleared by neurology for discharge. 2. 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 Diabetes mellitus Continue home Levemir Sliding-scale insulin Monitor blood glucose 4. COPD Duo nebs as needed 5. Hypertension/hyperlipidemia Continue home medications 6. NSTEMI s/p cardiac cath with stent placement- started on aspirin, plavix and metoprolol- continue Cozaar and statin. echo ordered. check lipid profile. FEN Heart healthy diabetic diet Electrolytes: Monitor and replete as needed Continue physical therapy and Occupational Therapy Discharge Planning dc planning within the next 24-48 hrs if stable and cleared by cardiology. Thai Roman MD Aug 02, 2017 13:01
--- NOTE | 2017-08-02 13:19 | PD.CARD.PN ---
Subjective Subjective Remarks No further fever/tachycardia/SOB s/p cardiac cath today with PCI of LAD Objective Medications Current Medications Medications (Trade) Dose Ordered Sig/Shanika Route Start Time Stop Time Status Last Admin (NS Flush) 2 ml UNSCH PRN IV FLUSH 07/30/17 04:15 (NS Flush) 2 ml BID IV FLUSH 07/30/17 09:00 08/02/17 08:09 (Tylenol) 650 mg Q4H PRN PO 07/30/17 04:15 (Narcan Inj) 0.4 mg UNSCH PRN IV PUSH 07/30/17 04:15 (Milk Of Magnesia Liq) 30 ml Q12H PRN PO 07/30/17 04:15 (Senokot) 17.2 mg Q12H PRN PO 07/30/17 04:15 (Dulcolax Supp) 10 mg DAILY PRN RECTAL 07/30/17 04:15 (Lactulose Liq) 30 ml DAILY PRN PO 07/30/17 04:15 (Ecotrin Ec) 81 mg DAILY PO 07/30/17 09:00 08/01/17 09:57 (Lipitor) 20 mg HS PO 07/30/17 21:00 08/01/17 21:07 (Bumetanide) 2 mg DAILY PO 07/30/17 09:00 08/01/17 09:58 (Phoslo) 1,334 mg BID PO 07/30/17 09:00 08/01/17 20:34 (Tums Chew) 1,000 mg HS PO 07/30/17 21:00 08/01/17 20:34 (Apresoline) 100 mg TID PO 07/30/17 09:00 08/02/17 08:01 (Duoneb Neb) 1 ampule Q6HR NEB PRN NEB 07/30/17 04:30 07/31/17 04:26 (Cozaar) 100 mg DAILY PO 07/30/17 09:00 08/02/17 08:01 (Protonix) 40 mg BID PO 07/30/17 09:00 08/01/17 21:07 (Cardizem Cd) 180 mg DAILY PO 07/30/17 09:00 08/02/17 08:01 (D50w (Vial) Inj) 50 ml UNSCH PRN IV PUSH 07/30/17 04:15 (Glucagon Inj) 1 mg UNSCH PRN OTHER 07/30/17 04:15 (NovoLOG SUPPLEMENTAL SCALE) 1 ACHS SLIDING SCALE SQ 07/30/17 08:00 08/01/17 21:09 (Levemir Inj) 10 units DAILYAC SQ 07/30/17 08:00 08/01/17 09:59 (Catapres) 0.2 mg BID PO 07/30/17 21:00 08/01/17 20:35 Albumin Human 100 ml @ 60 mls/hr UNSCH PRN IV 07/30/17 09:45 (Santyl Oint) 1 applic DAILY TOPICAL 08/01/17 09:00 08/01/17 09:58 (Santyl Oint) 1 applic BID TOPICAL 07/31/17 21:00 08/01/17 21:10 Piperacillin Sod/ Tazobactam Sod 50 ml @ 100 mls/hr Q12H IV 08/01/17 22:00 08/01/17 21:11 (Lidoderm 5% Patch.12 Hr) 1 patch DAILY T-DERMAL 08/01/17 16:15 Miscellaneous Information 1 Q24H T-DERMAL 08/01/17 21:00 Lactated Ringer's 1,000 ml @ 30 mls/hr Q24H PRN IV 08/01/17 20:00 08/04/17 19:59 Sodium Chloride 500 ml @ 30 mls/hr [id number] PRN IV 08/01/17 20:00 08/04/17 19:59 (Lopressor) 25 mg BED OPERATOR PRN PO 08/01/17 20:00 08/04/17 19:59 (Betadine 5% Antisepsis Kit) 1 applic BED OPERATOR PRN EACH NARE 08/01/17 20:00 08/04/17 19:59 (Chlorhexidine 2% Cloth) 3 pack BED OPERATOR PRN TOPICAL 08/01/17 20:00 08/04/17 19:59 (NovoLIN R INJ) See Protocol Table ... BED OPERATOR PRN SQ 08/01/17 20:00 08/04/17 19:59 (Plavix) 75 mg DAILY PO 08/03/17 09:00 (Atropine Inj) 0.5 mg UNSCH PRN IV PUSH 08/02/17 10:30 Sodium Chloride 250 ml @ 500 mls/hr ONCE PRN IV 08/02/17 10:30 08/03/17 10:29 (Lopressor) 12.5 mg BID PO 08/02/17 21:00 Vital Signs / I&O Vital Signs Date Time Temp Pulse Resp B/P (MAP) Pulse Ox O2 Delivery O2 Flow Rate FiO2 08/02/17 11:00 96 Room Air 08/02/17 08:00 70 08/02/17 08:00 98.1 70 16 172/68 (102) 97 08/02/17 06:41 97.6 72 16 186/76 (112) 08/02/17 04:00 61 08/02/17 04:00 97.2 71 17 140/64 (89) 98 08/02/17 00:00 97.1 72 18 157/62 (93) 93 08/02/17 00:00 65 08/01/17 20:47 21 08/01/17 20:00 97.8 71 17 161/103 (122) 93 08/01/17 20:00 68 08/01/17 16:00 97.5 70 18 157/85 (109) 94 I/O 08/01/17 08/01/17 08/01/17 08/02/17 08/02/17 08/02/17 07:00 15:00 23:00 07:00 15:00 23:00 Intake Total 360 ml Balance 360 ml Intake Oral 360 ml # Voids 3 1 0 # Bowel Movements 1 Physical Exam GENERAL: NAD, AAOx3 SKIN: Warm and dry. HEAD: Atraumatic. Normocephalic. EYES: Pupils equal and round. No scleral icterus. No injection or drainage. ENT: No nasal bleeding or discharge. Mucous membranes pink and moist. NECK: Trachea midline. No JVD. CARDIOVASCULAR: Regular rate and rhythm. RESPIRATORY: No accessory muscle use. Clear to auscultation. Breath sounds equal bilaterally. GASTROINTESTINAL: Abdomen soft, non-tender, nondistended. Hepatic and splenic margins not palpable. MUSCULOSKELETAL: Extremities with chronic changes NEUROLOGICAL: Awake and alert. No obvious cranial nerve deficits. Motor grossly within normal limits. Five out of 5 muscle strength in the arms and legs. Normal speech. PSYCHIATRIC: Appropriate mood and affect; insight and judgment normal. Assessment and Plan Problem List: (1) UTI (urinary tract infection) ICD Codes: N39.0 - UTI (urinary tract infection) Status: Acute (2) ESRD (end stage renal disease) ICD Codes: N18.6 - ESRD (end stage renal disease) Status: Acute (3) DM (diabetes mellitus) ICD Codes: E11.9 - DM (diabetes mellitus) Status: Chronic (4) Hypertension ICD Codes: I10 - Essential (primary) hypertension Status: Chronic (5) Encephalopathy ICD Codes: G93.40 - Encephalopathy, unspecified Status: Acute (6) Generalized weakness ICD Codes: R53.1 - Weakness Status: Acute Assessment and Plan 1) UTI Per primary 2) ESRD on HD 3) Fever/tachycardia UTI, blood cultures pending 4) Elevated trop s/p LEDY to LAD with POBA of diagonal ASA/Plavix/ARB/Statin/BB 5) Encephalopathy UTI HTN urgency 6) 2D echo pending 7) Possible discharge 24-48 hours Problem Qualifiers (1) UTI (urinary tract infection): Qualified Codes: N30.00 - Acute cystitis without hematuria (2) Hypertension: Qualified Codes: I10 - Essential (primary) hypertension Delbert Burton DO Aug 02, 2017 13:19
--- NOTE | 2017-08-02 16:18 | EKG ---
Date Performed: 08/02/2017 Time Performed: 11:05:24 PTAGE: 77 years EKG: Sinus rhythm . Prolonged QT interval LVH with secondary repolarization abnormality Extensive ST-T changes are prob ably due to ventricular hypertrophy Abnormal ECG Compared to PREVIOUS TRACING , heart rate has slowed significantly. There is no marked T-wave changes anteriorly, suggestive of an acute anterior injury. Marked changes when compared with prior EKG. PRE VIOUS TRACIN07/30/2017 16.27.12 DOCTOR: Corwin Estrada Interpretating Date/Time 08/02/2017 16:17:10
[2017-08-02] MEDS ORDERED: IOHEXOL 350 MG/ML 50 ML BTL (for Cath Lab) OTHER ONE (17:26)
[2017-08-02] MEDS ORDERED: IOHEXOL 350 MG/ML 100 ML BTL (for Cath Lab) OTHER ONE (17:26)
[2017-08-02] MEDS: REMOVE OLD LIDOCAINE PATCH T-DERMAL SCH (21:00)
[2017-08-02] MEDS: ATORVASTATIN 20 MG TAB PO SCH (21:39)
[2017-08-02] MEDS: CALCIUM CARBONATE 500 MG CHEWABLE TAB PO SCH (21:39)
[2017-08-02] MEDS: METOPROLOL TARTRATE 25 MG TAB PO SCH (21:39)
[2017-08-03] VITALS (17 sets, daily range): BP systolic 129–193; BP diastolic 51–79; PULSE 56–85; RESP 16–18; TEMP 94.8–98.7; O2SAT 94–99
[2017-08-03 05:41] LABS: AUTOMATED NEUTROPHIL # 5.6 TH/MM3 (1.8-7.7); BASOPHIL # 0.1 TH/MM3 (0-0.2); BASOPHIL % 0.8 % (0.0-2.0); EOSINOPHIL # 0.4 TH/MM3 (0-0.4); EOSINOPHIL % 5.6 % (0.0-4.0); LYMPH % 10.4 % (9.0-44.0); LYMPHOCYTE # 0.8 TH/MM3 (1.0-4.8); MEAN CELL VOLUME 99.6 FL (80.0-100.0); MEAN CORPUSCULAR HEMOGLOBIN 33.1 PG (27.0-34.0); MEAN CORPUSCULAR HGB CONC 33.3 % (32.0-36.0); MEAN PLATELET VOLUME 8.9 FL (7.0-11.0); MONO % 10.1 % (0.0-8.0); MONOCYTE # 0.8 TH/MM3 (0-0.9); NEUT % 73.1 % (16.0-70.0); PLATELET COUNT 170 TH/MM3 (150-450); RED BLOOD COUNT 2.71 MIL/MM3 (4.00-5.30); RED CELL DISTRIBUTION WIDTH 17.3 % (11.6-17.2); WHITE BLOOD COUNT 7.7 TH/MM3 (4.0-11.0)
[2017-08-03 05:51] LABS: BICARBONATE 28.8 MEQ/L (21.0-32.0); CREATININE 5.96 MG/DL (0.50-1.00)
[2017-08-03 05:55] LABS: CHOLESTEROL/ HDL RATIO 6.62 RATIO; HDL CHOLESTEROL 22.2 MG/DL (40.0-60.0)
[2017-08-03 07:17] LABS: OVALOCYTES 1+ (NORMAL)
[2017-08-03] MEDS: INSULIN DETEMIR 100 UNITS/ML VIAL SQ SCH (08:00)
[2017-08-03] MEDS: BUMETANIDE 1 MG TAB PO SCH (08:55)
[2017-08-03] MEDS: cloNIDine HCL 0.1 MG TAB PO SCH ×2 (08:55→18:24)
[2017-08-03] MEDS: DILTIAZEM-CD 180 MG CAP ER PO SCH (08:55)
[2017-08-03] MEDS: ASPIRIN EC 81 MG TABEC PO SCH (08:56)
[2017-08-03] MEDS: METOPROLOL TARTRATE 25 MG TAB PO SCH ×2 (08:56→21:50)
[2017-08-03] MEDS: hydrALAZINE HCL 100 MG TAB PO SCH ×3 (08:56→18:24)
[2017-08-03] MEDS: CLOPIDOGREL 75 MG TAB PO SCH (08:56)
[2017-08-03] MEDS: LOSARTAN 50 MG TAB PO SCH (08:56)
[2017-08-03] MEDS: PANTOPRAZOLE SOD 40 MG DELAYED RELEASE TAB PO SCH ×2 (08:57→21:50)
[2017-08-03] MEDS: CALCIUM ACETATE 667 MG CAP PO SCH ×2 (08:57→21:00)
[2017-08-03] MEDS: INSULIN ASPART SUPPLEMENTAL SCALE SQ SCH ×4 (09:00→22:00)
[2017-08-03] MEDS: COLLAGENASE OINT 30 GM TUBE TOPICAL SCH ×3 (09:00→21:00)
[2017-08-03] MEDS: SODIUM CHLORIDE 0.9% FLUSH 10 ML FLUSH IV FLUSH SCH ×2 (09:02→21:00)
[2017-08-03] MEDS: LIDOCAINE HCL 5% PATCH T-DERMAL SCH (09:02)
--- NOTE | 2017-08-03 10:05 | HHI.PR ---
Subjective Remarks Follow up for NSTEMI, encephalopathy. Patient is currently doing well. No acute concerns. Denies any chest pain, SOB, fever, chills. Objective Vitals Vital Signs Date Time Temp Pulse Resp B/P (MAP) Pulse Ox O2 Delivery O2 Flow Rate FiO2 08/03/17 06:36 80 08/03/17 05:00 70 08/03/17 04:54 98.7 72 18 155/79 (104) 97 08/03/17 04:00 79 08/03/17 03:00 76 08/03/17 02:00 72 08/03/17 00:00 76 08/02/17 23:00 74 08/02/17 22:00 86 08/02/17 21:00 82 08/02/17 20:49 98.7 83 18 158/71 (100) 97 08/02/17 20:00 86 08/02/17 19:15 90 08/02/17 18:00 84 08/02/17 17:00 74 08/02/17 16:00 72 08/02/17 15:00 72 08/02/17 14:00 72 08/02/17 13:00 74 08/02/17 12:25 77 08/02/17 12:15 98.2 73 18 131/62 (85) 95 08/02/17 11:00 96 Room Air I/O 08/02/17 08/02/17 08/02/17 08/03/17 08/03/17 08/03/17 07:00 15:00 23:00 07:00 15:00 23:00 Intake Total 360 ml 800 ml 360 ml Output Total 3000 ml Balance 360 ml -2200 ml 360 ml Intake Oral 360 ml 800 ml 360 ml Hemodialysis 3000 ml # Voids 0 # Bowel Movements 3 Result Diagram: 08/03/17 0505 08/03/17 0505 Imaging Last Impressions Lung Scan-VQ Nuclear Medicine 08/01/17 0000 Signed Impressions: CONCLUSION: No ventilation/perfusion mismatch is identified. Examination is low probability for PE. Chest X-Ray 07/31/17 Signed Impressions: CONCLUSION: Increased interstitial markings bilaterally suggestive of pulmonary edema. Head Magnetic Resonance Angiography 07/30/17 Signed Impressions: CONCLUSION: 1. Unremarkable MRA of the brain. Carotid Artery Ultrasound 07/30/17 Signed Impressions: CONCLUSION: 1. Right Internal Carotid Artery: Findings indicate <50% stenosis. 2. Left Internal Carotid Artery: Findings indicate <50% stenosis. Brain MRI 07/30/17 Signed Impressions: CONCLUSION: 1. Bilateral cortical atrophy and chronic white matter changes. 2. Otherwise unremarkable exam for patient's age. Head CT 07/29/17 Signed Impressions: CONCLUSION: 1. No acute intracranial abnormalities. Mild white matter ischemic changes. [facility] Dr[facility] Guerrero. Objective Remarks GENERAL: Alert, Oriented x 3, NAD. SKIN: Warm and dry. HEAD: Normocephalic. EYES: No scleral icterus. No injection or drainage. NECK: Supple, trachea midline. No JVD or lymphadenopathy. CARDIOVASCULAR: Regular rate and rhythm without murmurs, gallops, or rubs. RESPIRATORY: Breath sounds equal bilaterally. No accessory muscle use. GASTROINTESTINAL: Abdomen soft, non-tender, nondistended. MUSCULOSKELETAL: No cyanosis, or edema. BACK: Nontender without obvious deformity. No CVA tenderness Procedures cardiac cath. A/P Assessment and Plan Ms. Macario is a 77 year old female with a history of ESRD, DM who was admitted to the hospital due to metabolic encephalopathy. She was found to have NSTEMI as well and underwent cardiac cath with stent placement. 1. metabolic encephalopathy/urinary tract infection mental status improved. on Zosyn. evaluated and cleared by neurology for discharge. 2. End-stage renal disease on hemodialysis Dialysis Saturday Patient's audiovisual tech, Dr. Lee consulted, appreciate recommendations 3. Diabetes mellitus Continue home Levemir Sliding-scale insulin Monitor blood glucose 4. COPD Duo nebs as needed 5. Hypertension/hyperlipidemia Continue home medications 6. NSTEMI s/p cardiac cath with stent placement- started on aspirin, plavix and metoprolol- continue Cozaar and statin. echo ordered. check lipid profile. Discussed with Dr. Burton who recommended watching patient today. Continue physical therapy and Occupational Therapy Full code. Yenny Luong DO Aug 03, 2017 10:05
--- NOTE | 2017-08-03 13:25 | HHI.NPPN ---
Subjective General Problems: Anemia Renal Failure: End Stage Renal Disease History of Present Illness Patient is a 77-year-old female with a past medical history significant for end- stage renal disease on hemodialysis, COPD, diabetes mellitus, hypertension, hyperlipidemia, recurrent UTIs and a history of uterine cancer. Present to the emergency department for evaluation of altered mental status. Patient was found to have a urinary tract infection. Mrs Macario answers questions but falls back to sleep in middle of talking. Her only complaint was right knee pain. Nephrology is consulted for management of end stage renal disease on hemodialysis. Usually dialysis days are Saturday, Saturday, and Saturday. Last dialysis yesterday, will continue with her normal schedule. Additional Remarks Patient is doing well Review of Systems Respiratory Respiratory Remarks Denies SOB Cardiovascular Cardiac Remarks Denies chest pain Gastrointestinal GI Remarks Denies abdominal pain Objective Data Data Vital Signs Date Time Temp Pulse Resp B/P (MAP) Pulse Ox O2 Delivery O2 Flow Rate FiO2 08/03/17 12:42 98.1 71 16 174/69 (104) 97 08/03/17 08:45 98.4 85 16 193/78 (116) 95 08/03/17 06:36 80 08/03/17 05:00 70 08/03/17 04:54 98.7 72 18 155/79 (104) 97 08/03/17 04:00 79 08/03/17 03:00 76 08/03/17 02:00 72 08/03/17 00:00 76 08/02/17 23:00 74 08/02/17 22:00 86 08/02/17 21:00 82 08/02/17 20:49 98.7 83 18 158/71 (100) 97 08/02/17 20:00 86 08/02/17 19:15 90 08/02/17 18:00 84 08/02/17 17:00 74 08/02/17 16:00 72 08/02/17 15:00 72 08/02/17 14:00 72 -: 08/03/17 0505 08/03/17 0505 Physical Exam General Appearance: No Acute Distress, Comfortable Pulmonary Resp Exam: Breath Sounds Equal, No Distress Gastrointestinal/Abdomen GI Exam: Soft, Non-Tender, Bowel Sounds Present Integumentary Skin Exam: Clear, Warm Neurologic Neuro Exam: Alert, Awake, Oriented, Speech Clear Psychiatric Psych Exam: Appropriate Responses Assessment/Plan Problem List: (1) ESRD (end stage renal disease) ICD Codes: N18.6 - ESRD (end stage renal disease) Status: Acute Plan: End stage renal disease on hemodialysis M/W/F left AV fistula Last hemodialysis on Saturday Plan Continue phoslo Avoid IVF administration Epogen with dialysis. Hemodialysis Saturday and Saturday S/p heart cath with stent to LAD. Blood pressure labile increase clonidine to 0.2 mg 3 times a day (2) UTI (urinary tract infection) ICD Codes: N39.0 - UTI (urinary tract infection) Status: Acute (3) Encephalopathy ICD Codes: G93.40 - Encephalopathy, unspecified Status: Acute Plan: Neurology has been consulted. MRI noted (4) Hypertension ICD Codes: I10 - Essential (primary) hypertension Status: Chronic Plan: Will monitor Labile clonidine adjusted (5) DM (diabetes mellitus) ICD Codes: E11.9 - DM (diabetes mellitus) Status: Chronic Plan: Maintain blood sugar between 140 mg/dl to 180 mg/dl (6) CAD (coronary artery disease) ICD Codes: I25.10 - Atherosclerotic heart disease of kaw coronary artery without angina pectoris Plan: s/p stent to LAD ASA daily Plavix for at least for 1 year Problem Qualifiers (1) UTI (urinary tract infection): Qualified Codes: N30.00 - Acute cystitis without hematuria (2) Hypertension: Qualified Codes: I10 - Essential (primary) hypertension Calli Laughlin MD Aug 03, 2017 13:25
[2017-08-03] MEDS ORDERED: cloNIDine HCL 0.2 MG TAB PO ONE (13:30)
[2017-08-03] MEDS ORDERED: PILL SPLITTER OTHER PRN (13:45)
[2017-08-03] MEDS: PIPERACIL-TAZO 2.25 GM PREMIX 50 ML IV SCH ×2 (14:14→22:50)
--- NOTE | 2017-08-03 14:48 | EKG ---
Date Performed: 08/03/2017 Time Performed: 05:42:40 PTAGE: 77 years EKG: Sinus rhythm Prolonged QT interval LVH with secondary repolarization abnormality Extensive ST-T changes may be du e to hypertrophy and/or ischemia Abnormal ECG PREVIOUS TRACING : 08/02/2017 11.05 DOCTOR: Anatoly Hernandez Interpretating Date/Time 08/03/2017 14:46:44
--- NOTE | 2017-08-03 17:19 | PD.CARD.PN ---
Subjective Subjective Remarks No complaints Feels well No chest pain/SOB Objective Medications Current Medications Medications (Trade) Dose Ordered Sig/Shanika Route Start Time Stop Time Status Last Admin (NS Flush) 2 ml UNSCH PRN IV FLUSH 07/30/17 04:15 (NS Flush) 2 ml BID IV FLUSH 07/30/17 09:00 08/03/17 09:02 (Tylenol) 650 mg Q4H PRN PO 07/30/17 04:15 (Narcan Inj) 0.4 mg UNSCH PRN IV PUSH 07/30/17 04:15 (Milk Of Magnesia Liq) 30 ml Q12H PRN PO 07/30/17 04:15 (Senokot) 17.2 mg Q12H PRN PO 07/30/17 04:15 (Dulcolax Supp) 10 mg DAILY PRN RECTAL 07/30/17 04:15 (Lactulose Liq) 30 ml DAILY PRN PO 07/30/17 04:15 (Ecotrin Ec) 81 mg DAILY PO 07/30/17 09:00 08/03/17 08:56 (Lipitor) 20 mg HS PO 07/30/17 21:00 08/02/17 21:39 (Bumetanide) 2 mg DAILY PO 07/30/17 09:00 08/03/17 08:55 (Phoslo) 1,334 mg BID PO 07/30/17 09:00 08/03/17 08:57 (Tums Chew) 1,000 mg HS PO 07/30/17 21:00 08/02/17 21:39 (Apresoline) 100 mg TID PO 07/30/17 09:00 08/03/17 12:49 (Duoneb Neb) 1 ampule Q6HR NEB PRN NEB 07/30/17 04:30 07/31/17 04:26 (Cozaar) 100 mg DAILY PO 07/30/17 09:00 08/03/17 08:56 (Protonix) 40 mg BID PO 07/30/17 09:00 08/03/17 08:57 (Cardizem Cd) 180 mg DAILY PO 07/30/17 09:00 08/03/17 08:55 (D50w (Vial) Inj) 50 ml UNSCH PRN IV PUSH 07/30/17 04:15 (Glucagon Inj) 1 mg UNSCH PRN OTHER 07/30/17 04:15 (NovoLOG SUPPLEMENTAL SCALE) 1 ACHS SLIDING SCALE SQ 07/30/17 08:00 08/03/17 12:49 (Levemir Inj) 10 units DAILYAC SQ 07/30/17 08:00 08/03/17 08:00 Albumin Human 100 ml @ 60 mls/hr UNSCH PRN IV 07/30/17 09:45 (Santyl Oint) 1 applic DAILY TOPICAL 08/01/17 09:00 08/03/17 09:00 (Santyl Oint) 1 applic BID TOPICAL 07/31/17 21:00 08/03/17 09:00 Piperacillin Sod/ Tazobactam Sod 50 ml @ 100 mls/hr Q12H IV 08/01/17 22:00 08/03/17 14:14 Miscellaneous Information 1 Q24H T-DERMAL 08/01/17 21:00 08/02/17 21:00 Lactated Ringer's 1,000 ml @ 30 mls/hr Q24H PRN IV 08/01/17 20:00 08/04/17 19:59 Sodium Chloride 500 ml @ 30 mls/hr [id number] PRN IV 08/01/17 20:00 08/04/17 19:59 (Lopressor) 25 mg EMBOSSING TOOL SETTER PRN PO 08/01/17 20:00 08/04/17 19:59 (Betadine 5% Antisepsis Kit) 1 applic EMBOSSING TOOL SETTER PRN EACH NARE 08/01/17 20:00 08/04/17 19:59 (Chlorhexidine 2% Cloth) 3 pack EMBOSSING TOOL SETTER PRN TOPICAL 08/01/17 20:00 08/04/17 19:59 (NovoLIN R INJ) See Protocol Table ... EMBOSSING TOOL SETTER PRN SQ 08/01/17 20:00 08/04/17 19:59 (Plavix) 75 mg DAILY PO 08/03/17 09:00 08/03/17 08:56 (Atropine Inj) 0.5 mg UNSCH PRN IV PUSH 08/02/17 10:30 (Lopressor) 12.5 mg BID PO 08/02/17 21:00 08/03/17 08:56 (Lidoderm 5% Patch.12 Hr) 1 patch DAILY T-DERMAL 08/02/17 15:15 08/03/17 09:02 (Catapres) 0.2 mg TID PO 08/03/17 18:00 (Pill Splitter) 1 ea UNSCH PRN OTHER 08/03/17 13:45 Vital Signs / I&O Vital Signs Date Time Temp Pulse Resp B/P (MAP) Pulse Ox O2 Delivery O2 Flow Rate FiO2 08/03/17 12:42 98.1 71 16 174/69 (104) 97 08/03/17 08:45 98.4 85 16 193/78 (116) 95 08/03/17 06:36 80 08/03/17 05:00 70 08/03/17 04:54 98.7 72 18 155/79 (104) 97 08/03/17 04:00 79 08/03/17 03:00 76 08/03/17 02:00 72 08/03/17 00:00 76 08/02/17 23:00 74 08/02/17 22:00 86 08/02/17 21:00 82 08/02/17 20:49 98.7 83 18 158/71 (100) 97 08/02/17 20:00 86 08/02/17 19:15 90 08/02/17 18:00 84 I/O 08/02/17 08/02/17 08/02/17 08/03/17 08/03/17 08/03/17 07:00 15:00 23:00 07:00 15:00 23:00 Intake Total 360 ml 800 ml 360 ml Output Total 3000 ml Balance 360 ml -2200 ml 360 ml Intake Oral 360 ml 800 ml 360 ml Hemodialysis 3000 ml # Voids 0 # Bowel Movements 3 Physical Exam GENERAL: NAD, AAOx3 SKIN: Warm and dry. HEAD: Atraumatic. Normocephalic. EYES: Pupils equal and round. No scleral icterus. No injection or drainage. ENT: No nasal bleeding or discharge. Mucous membranes pink and moist. NECK: Trachea midline. No JVD. CARDIOVASCULAR: Regular rate and rhythm. RESPIRATORY: No accessory muscle use. Clear to auscultation. Breath sounds equal bilaterally. GASTROINTESTINAL: Abdomen soft, non-tender, nondistended. Hepatic and splenic margins not palpable. MUSCULOSKELETAL: Extremities with chronic changes. Right femoral no hematoma NEUROLOGICAL: Awake and alert. No obvious cranial nerve deficits. Motor grossly within normal limits. Five out of 5 muscle strength in the arms and legs. Normal speech. PSYCHIATRIC: Appropriate mood and affect; insight and judgment normal. Laboratory Laboratory Tests Test 08/03/17 05:05 White Blood Count 7.7 TH/MM3 Red Blood Count 2.71 MIL/MM3 Hemoglobin 9.0 GM/DL Hematocrit 27.0 % Mean Corpuscular Volume 99.6 FL Mean Corpuscular Hemoglobin 33.1 PG Mean Corpuscular Hemoglobin Concent 33.3 % Red Cell Distribution Width 17.3 % Platelet Count 170 TH/MM3 Mean Platelet Volume 8.9 FL Neutrophils (%) (Auto) 73.1 % Lymphocytes (%) (Auto) 10.4 % Monocytes (%) (Auto) 10.1 % Eosinophils (%) (Auto) 5.6 % Basophils (%) (Auto) 0.8 % Neutrophils # (Auto) 5.6 TH/MM3 Lymphocytes # (Auto) 0.8 TH/MM3 Monocytes # (Auto) 0.8 TH/MM3 Eosinophils # (Auto) 0.4 TH/MM3 Basophils # (Auto) 0.1 TH/MM3 CBC Comment AUTO DIFF Differential Comment AUTO DIFF CONFIRMED Ovalocytes 1+ Blood Urea Nitrogen 28 MG/DL Creatinine 5.96 MG/DL Random Glucose 173 MG/DL Calcium Level 9.0 MG/DL Sodium Level 138 MEQ/L Potassium Level 4.0 MEQ/L Chloride Level 96 MEQ/L Carbon Dioxide Level 28.8 MEQ/L Anion Gap 13 MEQ/L Estimat Glomerular Filtration Rate 7 ML/MIN Triglycerides Level 513 MG/DL Cholesterol Level 147 MG/DL LDL Cholesterol MG/DL HDL Cholesterol 22.2 MG/DL Cholesterol/HDL Ratio 6.62 RATIO Assessment and Plan Problem List: (1) UTI (urinary tract infection) ICD Codes: N39.0 - UTI (urinary tract infection) Status: Acute (2) ESRD (end stage renal disease) ICD Codes: N18.6 - ESRD (end stage renal disease) Status: Acute (3) DM (diabetes mellitus) ICD Codes: E11.9 - DM (diabetes mellitus) Status: Chronic (4) Hypertension ICD Codes: I10 - Essential (primary) hypertension Status: Chronic (5) Encephalopathy ICD Codes: G93.40 - Encephalopathy, unspecified Status: Acute (6) Generalized weakness ICD Codes: R53.1 - Weakness Status: Acute Assessment and Plan 1) UTI Per primary 2) ESRD on HD 3) Fever/tachycardia UTI, blood cultures pending 4) Elevated trop s/p LEDY to LAD with POBA of diagonal ASA/Plavix/ARB/Statin/BB 5) Encephalopathy UTI HTN urgency 6) 2D echo pending 7) Possible discharge 24 hours 8) EKG with change of LVH or ischemia Will watch overnight to make sure, but has had no chest pain since her stenting Problem Qualifiers (1) UTI (urinary tract infection): Qualified Codes: N30.00 - Acute cystitis without hematuria (2) Hypertension: Qualified Codes: I10 - Essential (primary) hypertension Delbert Burton DO Aug 03, 2017 17:19
[2017-08-03] MEDS: REMOVE OLD LIDOCAINE PATCH T-DERMAL SCH (21:00)
[2017-08-03] MEDS: CALCIUM CARBONATE 500 MG CHEWABLE TAB PO SCH (21:49)
[2017-08-03] MEDS: ATORVASTATIN 20 MG TAB PO SCH (21:50)
--- NOTE | 2017-08-03 22:00 | ECHRPT ---
Indication: NSTEMI CONCLUSIONS The left ventricular systolic function is moderately reduced with an estimated ejection fraction in the range of 40-45%. can not rule out apical hypokinesis Mild concentric left ventricular hypertrophy. Normal left ventricular size. The left atrial size is severely dilated. Mitral annular calcification is present. Mild mitral valve regurgitation. Diffuse calcification of the aortic valve. Mild to moderate aortic valve stenosis. mean gradient = 15 mm hg There is moderate tricuspid regurgitation. The estimated pulmonary arterial pressure is 47.7 mmHg. mitral valve annular calcification BP: / HR: Rhythm: Sinus MEASUREMENTS (Male / Female) Normal Values Technical Quality:Fair 2D ECHO LV Diastolic Diameter PLAX 5.0 cm 4.2 - 5.9 / 3.9 - 5.3 cm LV Systolic Diameter PLAX 3.6 cm IVS Diastolic Thickness 1.2 cm 0.6 - 1.0 / 0.6 - 0.9 cm LVPW Diastolic Thickness 1.2 cm 0.6 - 1.0 / 0.6 - 0.9 cm LV Relative Wall Thickness 0.5 RV Internal Dim ED PLAX 3.5 cm LVOT Diameter 2.0 cm LA Systolic Diameter LX 5.3 cm 3.0 - 4.0 / 2.7 - 3.8 cm M-MODE Aortic Root Diameter MM 2.6 cm LA Systolic Diameter MM 4.3 cm LA Ao Ratio MM 1.7 AV Cusp Separation MM 1.5 cm DOPPLER AV Peak Velocity 271.0 cm/s AV Peak Gradient 29.4 mmHg AV Mean Gradient 17.0 mmHg AV Velocity Time Integral 73.2 cm LVOT Peak Velocity 88.7 cm/s LVOT Peak Gradient 3.1 mmHg LVOT Velocity Time Integral 22.0 cm AV Area Cont Eq vti 0.9 cm AV Area Cont Eq pk 1.0 cm MV Area PHT 1.9 cm Mitral E Point Velocity 96.3 cm/s Mitral A Point Velocity 127.0 cm/s Mitral E to A Ratio 0.8 LV E' Lateral Velocity 4.6 cm/s Mitral E to LV E' Lateral Ratio 21.0 LV E' Septal Velocity 4.9 cm/s Mitral E to LV E' Septal Ratio 19.8 TR Peak Velocity 307.0 cm/s TR Peak Gradient 37.7 mmHg Right Atrial Pressure 10.0 mmHg Pulmonary Artery Systolic Pressu 47.7 mmHg Right Ventricular Systolic Press 47.7 mmHg FINDINGS LEFT VENTRICLE The left ventricular systolic function is moderately reduced with an estimated ejection fraction in the range of 40-45%. Mild concentric left ventricular hypertrophy. Normal left ventricular size. RIGHT VENTRICLE Normal right ventricular size and systolic function. LEFT ATRIUM The left atrial size is severely dilated. RIGHT ATRIUM The right atrial size is normal. ATRIAL SEPTUM Normal atrial septal thickness without atrial level shunting by limited color doppler interrogation. AORTA The aortic root and proximal ascending aorta are normal in size on limited imaging. MITRAL VALVE Mitral annular calcification is present. Mild mitral valve regurgitation. AORTIC VALVE Trileaflet aortic valve. Diffuse calcification of the aortic valve. Mild to moderate aortic valve stenosis. TRICUSPID VALVE Structurally normal tricuspid valve. There is moderate tricuspid regurgitation. The estimated pulmonary arterial pressure is 47.7 mmHg. PULMONARY VALVE The pulmonary valve is not well visualized. VESSELS The inferior vena cava is normal in size. PERICARDIUM No pericardial effusion. Blaise Rodriguez MD, FACC, [facility] [place] (Electronically Signed) Final Date:03 August 2017 22:00
[2017-08-04] VITALS (12 sets, daily range): BP systolic 140–154; BP diastolic 57–69; PULSE 5–66; RESP 18; TEMP 97.8–97.9; O2SAT 94–97
[2017-08-04] MEDS: COLLAGENASE OINT 30 GM TUBE TOPICAL SCH ×2 (09:00)
[2017-08-04] MEDS: PANTOPRAZOLE SOD 40 MG DELAYED RELEASE TAB PO SCH (09:00)
[2017-08-04] MEDS: DILTIAZEM-CD 180 MG CAP ER PO SCH (09:00)
[2017-08-04] MEDS: METOPROLOL TARTRATE 25 MG TAB PO SCH (09:00)
[2017-08-04] MEDS: CALCIUM ACETATE 667 MG CAP PO SCH (09:00)
[2017-08-04] MEDS: LOSARTAN 50 MG TAB PO SCH (09:00)
[2017-08-04] MEDS: INSULIN ASPART SUPPLEMENTAL SCALE SQ SCH ×2 (09:46→13:47)
[2017-08-04] MEDS: INSULIN DETEMIR 100 UNITS/ML VIAL SQ SCH (09:46)
[2017-08-04] MEDS: SODIUM CHLORIDE 0.9% FLUSH 10 ML FLUSH IV FLUSH SCH (09:47)
[2017-08-04] MEDS: hydrALAZINE HCL 100 MG TAB PO SCH ×2 (09:49→13:49)
[2017-08-04] MEDS: BUMETANIDE 1 MG TAB PO SCH (09:49)
[2017-08-04] MEDS: cloNIDine HCL 0.1 MG TAB PO SCH ×2 (09:50→13:45)
[2017-08-04] MEDS: CLOPIDOGREL 75 MG TAB PO SCH (09:51)
[2017-08-04] MEDS: PIPERACIL-TAZO 2.25 GM PREMIX 50 ML IV SCH (09:57)
[2017-08-04] MEDS: LIDOCAINE HCL 5% PATCH T-DERMAL SCH (09:57)
[2017-08-04] MEDS: ASPIRIN EC 81 MG TABEC PO SCH (10:15)
--- NOTE | 2017-08-04 12:37 | PD.CARD.PN ---
Subjective Subjective Remarks No complaints Feels well No chest pain/SOB Ready to go home Objective Medications Current Medications Medications (Trade) Dose Ordered Sig/Shanika Route Start Time Stop Time Status Last Admin (NS Flush) 2 ml UNSCH PRN IV FLUSH 07/30/17 04:15 (NS Flush) 2 ml BID IV FLUSH 07/30/17 09:00 08/04/17 09:47 (Tylenol) 650 mg Q4H PRN PO 07/30/17 04:15 (Narcan Inj) 0.4 mg UNSCH PRN IV PUSH 07/30/17 04:15 (Milk Of Magnesia Liq) 30 ml Q12H PRN PO 07/30/17 04:15 (Senokot) 17.2 mg Q12H PRN PO 07/30/17 04:15 (Dulcolax Supp) 10 mg DAILY PRN RECTAL 07/30/17 04:15 (Lactulose Liq) 30 ml DAILY PRN PO 07/30/17 04:15 (Ecotrin Ec) 81 mg DAILY PO 07/30/17 09:00 08/04/17 10:15 (Lipitor) 20 mg HS PO 07/30/17 21:00 08/03/17 21:50 (Bumetanide) 2 mg DAILY PO 07/30/17 09:00 08/04/17 09:49 (Phoslo) 1,334 mg BID PO 07/30/17 09:00 08/04/17 09:00 (Tums Chew) 1,000 mg HS PO 07/30/17 21:00 08/03/17 21:49 (Apresoline) 100 mg TID PO 07/30/17 09:00 08/04/17 09:49 (Duoneb Neb) 1 ampule Q6HR NEB PRN NEB 07/30/17 04:30 07/31/17 04:26 (Cozaar) 100 mg DAILY PO 07/30/17 09:00 08/04/17 09:00 (Protonix) 40 mg BID PO 07/30/17 09:00 08/04/17 09:00 (Cardizem Cd) 180 mg DAILY PO 07/30/17 09:00 08/04/17 09:00 (D50w (Vial) Inj) 50 ml UNSCH PRN IV PUSH 07/30/17 04:15 (Glucagon Inj) 1 mg UNSCH PRN OTHER 07/30/17 04:15 (NovoLOG SUPPLEMENTAL SCALE) 1 ACHS SLIDING SCALE SQ 07/30/17 08:00 08/04/17 09:46 (Levemir Inj) 10 units DAILYAC SQ 07/30/17 08:00 08/04/17 09:46 Albumin Human 100 ml @ 60 mls/hr UNSCH PRN IV 07/30/17 09:45 (Santyl Oint) 1 applic DAILY TOPICAL 08/01/17 09:00 08/04/17 09:00 (Santyl Oint) 1 applic BID TOPICAL 07/31/17 21:00 08/04/17 09:00 Piperacillin Sod/ Tazobactam Sod 50 ml @ 100 mls/hr Q12H IV 08/01/17 22:00 08/04/17 09:57 Miscellaneous Information 1 Q24H T-DERMAL 08/01/17 21:00 08/03/17 21:00 Lactated Ringer's 1,000 ml @ 30 mls/hr Q24H PRN IV 08/01/17 20:00 08/04/17 19:59 Sodium Chloride 500 ml @ 30 mls/hr [id number] PRN IV 08/01/17 20:00 08/04/17 19:59 (Lopressor) 25 mg TIRE FIXER PRN PO 08/01/17 20:00 08/04/17 19:59 (Betadine 5% Antisepsis Kit) 1 applic TIRE FIXER PRN EACH NARE 08/01/17 20:00 08/04/17 19:59 (Chlorhexidine 2% Cloth) 3 pack TIRE FIXER PRN TOPICAL 08/01/17 20:00 08/04/17 19:59 (NovoLIN R INJ) See Protocol Table ... TIRE FIXER PRN SQ 08/01/17 20:00 08/04/17 19:59 (Plavix) 75 mg DAILY PO 08/03/17 09:00 08/04/17 09:51 (Atropine Inj) 0.5 mg UNSCH PRN IV PUSH 08/02/17 10:30 (Lidoderm 5% Patch.12 Hr) 1 patch DAILY T-DERMAL 08/02/17 15:15 08/04/17 09:57 (Catapres) 0.2 mg TID PO 08/03/17 18:00 08/04/17 09:50 (Pill Splitter) 1 ea UNSCH PRN OTHER 08/03/17 13:45 (Lopressor) 25 mg Q12HR PO 08/03/17 21:00 08/04/17 09:00 Vital Signs / I&O Vital Signs Date Time Temp Pulse Resp B/P (MAP) Pulse Ox O2 Delivery O2 Flow Rate FiO2 08/04/17 09:20 58 08/04/17 08:00 97.8 66 18 154/60 (91) 96 08/04/17 05:00 58 08/04/17 04:30 58 08/04/17 04:00 56 08/04/17 03:00 54 08/04/17 02:00 54 08/04/17 01:00 56 08/04/17 00:00 58 08/04/17 00:00 60 08/03/17 23:00 60 08/03/17 22:00 62 08/03/17 21:00 68 08/03/17 21:00 94.8 63 18 129/51 (77) 94 08/03/17 20:00 62 08/03/17 19:57 99 21 08/03/17 19:30 61 08/03/17 19:00 56 08/03/17 17:21 97.6 61 16 145/65 (91) 97 08/03/17 12:42 98.1 71 16 174/69 (104) 97 I/O 08/03/17 08/03/17 08/03/17 08/04/17 08/04/17 08/04/17 07:00 15:00 23:00 07:00 15:00 23:00 Intake Total 360 ml 50 ml 140 ml Balance 360 ml 50 ml 140 ml Intake Oral 360 ml 140 ml IV Total 50 ml # Bowel Movements 3 Physical Exam GENERAL: NAD, AAOx3 SKIN: Warm and dry. HEAD: Atraumatic. Normocephalic. EYES: Pupils equal and round. No scleral icterus. No injection or drainage. ENT: No nasal bleeding or discharge. Mucous membranes pink and moist. NECK: Trachea midline. No JVD. CARDIOVASCULAR: Regular rate and rhythm. RESPIRATORY: No accessory muscle use. Clear to auscultation. Breath sounds equal bilaterally. GASTROINTESTINAL: Abdomen soft, non-tender, nondistended. Hepatic and splenic margins not palpable. MUSCULOSKELETAL: Extremities with chronic changes. Right femoral no hematoma NEUROLOGICAL: Awake and alert. No obvious cranial nerve deficits. Motor grossly within normal limits. Five out of 5 muscle strength in the arms and legs. Normal speech. PSYCHIATRIC: Appropriate mood and affect; insight and judgment normal. Assessment and Plan Problem List: (1) UTI (urinary tract infection) ICD Codes: N39.0 - UTI (urinary tract infection) Status: Acute (2) ESRD (end stage renal disease) ICD Codes: N18.6 - ESRD (end stage renal disease) Status: Acute (3) DM (diabetes mellitus) ICD Codes: E11.9 - DM (diabetes mellitus) Status: Chronic (4) Hypertension ICD Codes: I10 - Essential (primary) hypertension Status: Chronic (5) Encephalopathy ICD Codes: G93.40 - Encephalopathy, unspecified Status: Acute (6) Generalized weakness ICD Codes: R53.1 - Weakness Status: Acute Assessment and Plan 1) UTI Per primary 2) ESRD on HD 3) Fever/tachycardia UTI, blood cultures pending 4) Elevated trop s/p LEDY to LAD with POBA of diagonal ASA/Plavix/ARB/Statin/BB 5) Encephalopathy UTI HTN urgency 6) EF 40-45%, mild LVH, mild 7) Cardiovascularly stable for discharge Will see in the office Problem Qualifiers (1) UTI (urinary tract infection): Qualified Codes: N30.00 - Acute cystitis without hematuria (2) Hypertension: Qualified Codes: I10 - Essential (primary) hypertension Delbert Burton DO Aug 04, 2017 12:36
[2017-08-04] MEDS ORDERED: NOVOLOGP2 SQ (15:14)
[2017-08-04] MEDS ORDERED: PANT40TA3 PO (15:14)
[2017-08-04] MEDS ORDERED: METO25TA3 PO (15:14)
[2017-08-04] MEDS ORDERED: CLON.1 PO (15:14)
[2017-08-04] MEDS ORDERED: PLAV75TA29 PO (15:14)
--- NOTE | 2017-08-04 15:17 | HHI.DS ---
Discharge Summary Admission Date Jul 30, 2017 at 04:09 Discharge Date: Aug 04, 2017 Admitting Diagnosis Encephalopathy, altered mental status, UTI Procedures cardiac cath. Brief History - From Admission 77-year-old female with a past medical history significant for end-stage renal disease on hemodialysis, COPD, diabetes mellitus, hypertension, hyperlipidemia, recurrent UTIs and a history of uterine cancer presents the emergency department for evaluation of altered mental status. The patient resides in a residential where she is undergoing rehab after suffering a fall approximately 1 month ago. Per residential report, the patient was lethargic and shaking and also altered. She was last dialyzed earlier yesterday. Her children are bedside and state that she often becomes increasingly confused and encephalopathic with her urinary tract infections. She was recently treated with p.o. antibiotics for UTI. She is also on daily Macrobid for UTI prophylaxis. The patient denies any pain. No chest pain or shortness of breath. No abdominal pain. No nausea/vomiting/diarrhea. No lateralizing signs /symptoms. She is able to answer my questions at times although drifts back to sleep between questions. CBC/BMP: 08/03/17 0505 08/03/17 0505 Significant Findings Laboratory Tests Test 08/03/17 05:05 Red Blood Count 2.71 MIL/MM3 (4.00-5.30) Hemoglobin 9.0 GM/DL (11.6-15.3) Hematocrit 27.0 % (35.0-46.0) Red Cell Distribution Width 17.3 % (11.6-17.2) Neutrophils (%) (Auto) 73.1 % (16.0-70.0) Monocytes (%) (Auto) 10.1 % (0.0-8.0) Eosinophils (%) (Auto) 5.6 % (0.0-4.0) Lymphocytes # (Auto) 0.8 TH/MM3 (1.0-4.8) Ovalocytes 1+ (NORMAL) Blood Urea Nitrogen 28 MG/DL (7-18) Creatinine 5.96 MG/DL (0.50-1.00) Random Glucose 173 MG/DL (74-106) Chloride Level 96 MEQ/L (98-107) Estimat Glomerular Filtration Rate 7 ML/MIN (>89) Triglycerides Level 513 MG/DL (42-150) HDL Cholesterol 22.2 MG/DL (40.0-60.0) Imaging Last Impressions Lung Scan-VQ Nuclear Medicine 08/01/17 Signed Impressions: CONCLUSION: No ventilation/perfusion mismatch is identified. Examination is low probability for PE. Chest X-Ray 07/31/17 Signed Impressions: CONCLUSION: Increased interstitial markings bilaterally suggestive of pulmonary edema. Head Magnetic Resonance Angiography 07/30/17 Signed Impressions: CONCLUSION: 1. Unremarkable MRA of the brain. Carotid Artery Ultrasound 07/30/17 Signed Impressions: CONCLUSION: 1. Right Internal Carotid Artery: Findings indicate <50% stenosis. 2. Left Internal Carotid Artery: Findings indicate <50% stenosis. Brain MRI 07/30/17 Signed Impressions: CONCLUSION: 1. Bilateral cortical atrophy and chronic white matter changes. 2. Otherwise unremarkable exam for patient's age. Head CT 07/29/17 Signed Impressions: CONCLUSION: 1. No acute intracranial abnormalities. Mild white matter ischemic changes. [facility] called to Dr. Guerrero. PE at Discharge GENERAL: This is a well-nourished, well-developed patient, in no apparent distress. CARDIOVASCULAR: Regular rate and regular rhythm without murmurs, gallops, or rubs. RESPIRATORY: Clear to auscultation. Breath sounds equal bilaterally. No wheezes , rales, or rhonchi. GASTROINTESTINAL: Abdomen soft, non-tender, nondistended. Normal, active bowel sounds MUSCULOSKELETAL: Extremities without clubbing, cyanosis, or edema. NEURO: Alert & Oriented x4 to person, place, time, situation. Moves all ext x4 Pt update on day of discharge Patient is doing well. No acute concerns. Wants to go back to SNF today. Cardiology cleared for discharge. Pt Condition on Discharge: Good Discharge Disposition: Discharge to SNF Discharge Time: > 30 minutes Discharge Instructions DIET: Follow Instructions for: Heart Healthy Diet Activities you can perform: Regular-No Restrictions Follow up Referrals: PCP Follow-up - 1 Week New Medications: Insulin Aspart Inj (Novolog Inj) 1,000 Unit/10 Ml Vial 1-9 UNITS SQ ACHS for Blood Sugar Management, #10 ML 0 Refills Max dose at bedtime:( )units; sugars less than 70,(0)units; sugars 150-199,(1) unit; sugars 200-249,(3) units; sugars 250-299,(5) units; sugars 300-349,(7) units; sugars greater than 349,(9) units Clonidine (Catapres) 0.1 Mg Tab 0.2 MG PO TID for Blood Pressure Management, #90 TAB Clopidogrel (Plavix) 75 Mg Tab 75 MG PO DAILY for Blood Clot Prevention, #90 TAB 3 Refills Metoprolol Tartrate (Metoprolol Tartrate) 25 Mg Tab 25 MG PO Q12HR for Heart, #60 TAB 11 Refills Changed Medications: Pantoprazole (Pantoprazole) 40 Mg Tab 40 MG PO DAILY for Reflux, #30 TAB 0 Refills (Changed from: BID) Continued Medications: Aspirin DR (Aspirin Adult Low Strength) 81 Mg Tabdr 81 MG PO DAILY, TAB Atorvastatin (Atorvastatin) 20 Mg Tab 20 MG PO HS for Cholesterol Management, #30 TAB 0 Refills B-Complex W/ C & Folic Acid (Alannah-Julien) 1 Tab 1 TAB PO DAILY, TAB Biotin W/ Vitamins C & E (Hair Skin & Nails) 1,250-7.5-7.5 Mcg-Mg-Unit Chew 1 TAB PO DAILY Bumetanide (Bumetanide) 2 Mg Tab 2 MG PO DAILY, TAB 0 Refills Calcium Acetate (Phosphate Binder) (Calcium Acetate (Phosphate Binder)) 667 Mg Tab 1334 MG PO BID for Hyperphosphatemia, #180 TAB 0 Refills Calcium Carbonate (Antacid) (Tums) 500 Mg Chew 1000 MG PO HS for HEARTBURN, TAB 0 Refills Diltiazem ER 24 HR (Diltiazem ER 24 HR) 180 Mg Caper 180 MG PO DAILY, CAP Hydralazine (Hydralazine) 100 Mg Tab 100 MG PO TID for Blood Pressure Management, TAB 0 Refills Take with meals Insulin Detemir Inj (Levemir Inj) 1,000 unit/ 10 ML Vial 10 UNITS SQ AC BREAKFAST for Blood Sugar Management, #7 VIAL Do not mix with any other Insulin. Ipratropium-Albuterol Neb (Duoneb) 0.5-2.5 Mg/3 Ml Neb 3 ML NEB Q6HR PRN for SHORTNESS OF BREATH, #30 NEBULE 0 Refills Losartan (Losartan) 100 Mg Tab 100 MG PO DAILY for Blood Pressure Management, #30 TAB 0 Refills Discontinued Medications: Clonidine (Catapres) 0.1 Mg Tab 0.1 MG PO BID for Blood Pressure Management, #60 TAB 0 Refills Clonidine (Catapres) 0.1 Mg Tab 0.2 MG PO BID for Blood Pressure Management, #120 TAB Gabapentin (Gabapentin) 300 Mg Cap 300 MG PO HS, #30 CAP 0 Refills Hydrocodone/Acetaminophen (Hydrocodone-Acetamin 10-325 mg) 10 Mg-325 Mg Tablet 1 TAB PO Q4H PRN for PAIN SCALE 6 TO 10, #12 TAB Meclizine (Meclizine) 25 Mg Tab 25 MG PO DAILY PRN for VERTIGO, TAB 0 Refills Nitrofurantoin Macrocrystal (Nitrofurantoin Macrocrystal) 50 Mg Cap 50 MG PO DAILY for Infection, CAP 0 Refills Yenny Luong DO Aug 04, 2017 15:17
== END 2017-08-04 17:51 | DRG 981 ==
LOC: NEPE 22:41 → NEDA 07-30 02:00 → OBSVTOIN 07-30 04:09 → NEDH 07-30 07:02 → N05B 07-30 12:39 → N03A 07-31 05:03 → N05A 07-31 23:46 → HCIS 08-02 11:06
PROVIDERS: ADMIT Hospitalist; ATTEND Hospitalist
PROC: 5A1D70Z Performance of Urinary Filtration, Intermittent, Less than 6 Hours Per Day (ICD-10-PCS; principal; 2017-07-31)
PROC: 5A09357 Assistance with Respiratory Ventilation, Less than 24 Consecutive Hours, Continuous Positive Airway Pressure (ICD-10-PCS; 2017-07-31)
PROC: 027034Z Dilation of Coronary Artery, One Artery with Drug-eluting Intraluminal Device, Percutaneous Approach (ICD-10-PCS; 2017-08-02)
PROC: 02703ZZ Dilation of Coronary Artery, One Artery, Percutaneous Approach (ICD-10-PCS; 2017-08-02)
PROC: 4A023N7 Measurement of Cardiac Sampling and Pressure, Left Heart, Percutaneous Approach (ICD-10-PCS; 2017-08-02)
PROC: B2111ZZ Fluoroscopy of Multiple Coronary Arteries using Low Osmolar Contrast (ICD-10-PCS; 2017-08-02)
DX: G93.41 Metabolic encephalopathy (principal); I21.4 Non-ST elevation (NSTEMI) myocardial infarction; E87.2 Acidosis; R06.03 Acute respiratory distress; N18.6 End stage renal disease; S30.0XXA Contusion of lower back and pelvis, initial encounter; D64.9 Anemia, unspecified; N30.00 Acute cystitis without hematuria; I13.11 Hypertensive heart and chronic kidney disease without heart failure, with stage 5 chronic kidney disease, or end stage renal disease; J44.9 Chronic obstructive pulmonary disease, unspecified; I25.10 Atherosclerotic heart disease of native coronary artery without angina pectoris; R79.1 Abnormal coagulation profile; E11.22 Type 2 diabetes mellitus with diabetic chronic kidney disease; Z99.2 Dependence on renal dialysis; Z90.710 Acquired absence of both cervix and uterus; Z87.891 Personal history of nicotine dependence; Z87.442 Personal history of urinary calculi; Z87.440 Personal history of urinary (tract) infections; Z85.42 Personal history of malignant neoplasm of other parts of uterus; Z82.49 Family history of ischemic heart disease and other diseases of the circulatory system; Z88.2 Allergy status to sulfonamides; E78.5 Hyperlipidemia, unspecified; M25.561 Pain in right knee; S90.32XA Contusion of left foot, initial encounter; S90.31XA Contusion of right foot, initial encounter; X58.XXXA Exposure to other specified factors, initial encounter
CPT/HCPCS: 36600; 70450; 70544; 70551; 71045; 78582; 80048; 80053; 80061; 80307; 81001; 82550; 82552; 82805; 82948; 83036; 83605; 83735; 83880; 84100; 84439; 84443; 84484; 85002; 85025; 85347; 85379; 85384; 85610; 85730; 86077; 86850; 86870; 86900; 86901; 86902; 86920; 86922; 87040; 87641; 90935; 92925; 92928; 93005; 93306; 93458; 93880; 94664; 95819; 96374; 99152; 99153; A9540; A9567; C1725; C1769; C1874; C1887; C1893; J0131; J0360; J0696; J1644; J1815; J2250; J2270; J2543; J3010; J7030; Q4081; Q9967

== ENCOUNTER 2017-12-23 01:01 | Inpatient (IN) ==
[2017-12-23 01:57] LABS: Baso # (Auto) 0.1 th/mm3 (0.0-0.2); Baso % (Auto) 0.4 % (0.0-2.0); Eos # (Auto) 0.1 th/mm3 (0.0-0.4); Eos % (Auto) 0.4 % (0.0-4.0); Hematocrit 34.5 % (35.0-46.0); Hemoglobin 11.4 gm/dL (11.6-15.3); Lymph # (Auto) 0.6 th/mm3 (1.0-4.8); Mean Corpuscular Volume 96.9 fL (80.0-100.0); Mean Platelet Volume 8.1 fL (7.0-11.0); Mono # (Auto) 1.2 th/mm3 (0.0-0.9); Mono % (Auto) 6.3 % (0.0-8.0); Neut # (Auto) 16.6 th/mm3 (1.8-7.7); Neut % (Auto) 89.9 % (16.0-70.0); Platelet Count 335 th/mm3 (150-450); Red Blood Count 3.56 mil/mm3 (4.00-5.30); Red Cell Distribution Width 16.4 % (11.6-17.2); White Blood Count 18.5 th/mm3 (4.0-11.0)
--- NOTE | 2017-12-23 02:01 | XR ---
EXAM DATE: 12/23/2017 1:43 AM EDT AGE/SEX: 77 years / Female INDICATIONS: Abdominal pain. CLINICAL DATA: This is the patient's initial encounter. Patient reports that signs and symptoms have been present for 1 day and indicates a pain score of 0/10. MEDICAL/SURGICAL HISTORY: Chronic obstructive pulmonary disease. None. COMPARISON: [facility] [place], CHEST 1V SINGLE AP, 10/29/2017. . FINDINGS: Mild bibasilar atelectasis. No pneumonia seen. No pleural effusion or pneumothorax. Heart size stable, upper limits of normal. CONCLUSION: Mild bibasilar atelectasis. Electronically signed by: Oliver Taylor MD 12/23/2017 2:00 AM EDT
[2017-12-23 02:09] LABS: Activated Partial Thrombo Time 28.2 sec (24.3-30.1); INR 1.1 Ratio; Prothrombin Time 10.8 sec (9.8-11.6)
[2017-12-23 02:12] LABS: Alanine Aminotransferase 17 U/L (10-53); Albumin 3.4 g/dL (3.4-5.0); Anion Gap 17 meq/L (5-15); Aspartate Aminotransferase 12 U/L (15-37); Blood Urea Nitrogen 69 mg/dL (7-18); Carbon Dioxide 22.2 meq/L (21.0-32.0); Chloride 98 meq/L (98-107); Glomerular Filtration Rate 4 mL/min (>89); Glucose,Random 287 mg/dL (74-106); Lipase 191 U/L (73-393); Magnesium 1.8 mg/dL (1.5-2.5); Potassium 5.1 meq/L (3.5-5.1); Sodium 137 meq/L (136-145)
[2017-12-23 02:16] LABS: Alkaline Phosphatase 160 U/L (45-117); Total Protein 7.7 g/dL (6.4-8.2); Troponin I 0.05 ng/mL (0.02-0.05)
[2017-12-23 02:18] LABS: Creatine Kinase 75 U/L (26-192)
[2017-12-23] MEDS ORDERED: Morphine Sulfate Inj 2 MG/ML Vial IV.PUSH ONE (02:30)
[2017-12-23] MEDS ORDERED: Sodium Chlor 0.9% Inj 250 ML IV.SIG ONE (02:30)
--- NOTE | 2017-12-23 03:18 | ED ---
HPI General Chief complaint: Abdominal Pain Stated complaint: abd pain Time Seen by Provider: 12/23/17 01:21 Source: patient History of Present Illness HPI narrative: The patient is a 77 year old female who presents to the [facility] emergency department with a history of abdominal pain that she reports began at 9:30 AM. The patient reports that the pain is been constant. She reports that the pain is present in the left lower quadrant of the abdomen. The patient reports that the pain is sharp in character and worse with moving or taking a deep breath. She denies having any dysuria, or urinary urgency. She denies having any change in urinary frequency. She reports that she is on hemodialysis reports that she does produce urine usually twice a day. She reports that she did notice some blood in her urine a couple of days ago. She denies having any nausea or vomiting. She denies having any diarrhea. She reports that she normally moves her bowels daily, however she has not moved her bowels since night. She reports that she had a large bowel movement at that time that was initially solid and then became loose. She denies having any blood in her stool or black or tarry stools. She denies having any fevers. On review of systems otherwise, she denies having any cough, congestion, neck pain, chest pain, shortness of breath, or neurologic symptoms. Related Data Home Medications Medication Instructions Recorded Confirmed bumetanide 2 mg PO DAILY 10/29/17 12/23/17 clonidine HCl 0.2 mg PO TID 10/29/17 12/23/17 clopidogrel 75 mg PO DAILY 10/29/17 12/23/17 hydralazine 100 mg PO TID 10/29/17 12/23/17 insulin detemir U-100 [Levemir 10 unit SUB-Q DAILY 10/29/17 12/23/17 FlexTouch U-100 Insuln] insulin lispro [Humalog U-100 1 sliding scale dose SUB-Q UD 10/29/17 12/23/17 Insulin] ipratropium-albuterol 1 dose INHALATION Q6HR 10/29/17 12/23/17 losartan 100 mg PO DAILY 10/29/17 12/23/17 nifedipine 90 mg PO DAILY 10/29/17 12/23/17 pantoprazole 40 mg PO DAILY 10/29/17 12/23/17 Allergies Allergy/AdvReac Type Severity Reaction Status Date / Time ciprofloxacin Allergy Severe Rash Verified 06/19/17 10:30 ranitidine Allergy Severe Rash Verified 06/19/17 10:30 Sulfa (Sulfonamide Allergy Severe Rash Verified 06/19/17 10:30 Antibiotics) furosemide Allergy Mild Rash Verified 06/19/17 10:30 Review of Systems ROS: all other systems reviewed are negative [facility] Medical History Medical History CAD in [place] artery (Acute) ESRD (end stage renal disease) on dialysis (Acute) Fall (Acute) Fistula (Acute) Metabolic encephalopathy (Acute) Nonrheumatic aortic (valve) stenosis (Acute) Paroxysmal atrial fibrillation (Acute) Pressure ulcer of right heel (Acute) UTI (urinary tract infection) (Acute) Social History Social History Substance History: No History of Abuse Second Hand Smoke Exposure: No Smoking Status: Former smoker How Often Do You Have a Drink Containing Alcohol: Never Recent Travel in [facility] within the Last 8 Weeks: No Recent Out of Country Travel within the Last 8 Weeks: No Immunization History Tetanus Immunization: Unsure Exam HENAL Head: normocephalic and atraumatic Nose: no nasal discharge and no epistaxis Mouth: moist mucous membranes Eyes Sclera: normal sclerae Pupils: PERRL Neck Neck: trachea midline and no JVD Resp Effort & Inspection: no use of accessory muscles Auscultation: clear to auscultation bilaterally Cardio Rate: regular rate Rhythm: regular rhythm Heart Sounds: murmur (2/6 systolic murmur, no gallops or rubs.) GI Inspection: non-distended Palpation: soft, no hepatosplenomegaly, no guarding, not rigid and tender in the epigastrum and in the LLQ; not in the RLQ, not in the LUQ, not in the RUQ, not at McBurney's point, not periumbilically, not suprapubicly, Garcia's sign negative and with no rebound tenderness Auscultation: hyperactive bowel sounds Back/Spine/Pelvis Back: CVA tenderness (Left-sided CVA tenderness is noted on palpation.) Skin General: dry skin (warm) Neuro General: alert, awake, oriented x3 and other (Grossly nonfocal) Speech: speech normal Motor: no movement abnormalities noted Extrem General: normal to inspection (2+ pulses in all 4 extremities.), no calf tenderness, no clubbing, no cyanosis and no edema Psych Mood: congruent mood Affect: normal affect Judgment: judgment good Course Consultations Consultation #1: The patient's case including history, pertinent physical examination findings, and laboratory studies were discussed with . It was agreed that the patient would be admitted to the hospitalist service and he will see the patient in consultation to arrange hemodialysis. Time: 05:15 Consultation #2: The patient's case including history, pertinent physical examination findings, and laboratory studies were discussed with . It was agreed that the patient would be admitted to the hospitalist service. Initial Documented Vital Signs Temperature 98.8 F 12/23/17 01:09 Pulse Rate 86 12/23/17 01:09 Respiratory Rate 20 12/23/17 01:09 Blood Pressure 204/85 H 12/23/17 01:09 Pulse Oximetry 97 12/23/17 01:09 Last Documented Vital Signs Temperature 98.8 F 12/23/17 01:09 Pulse Rate 85 12/23/17 04:33 Respiratory Rate 18 12/23/17 04:33 Blood Pressure 175/75 H 12/23/17 04:33 Pulse Oximetry 100 12/23/17 04:33 Medical Decision Making MDM Narrative Medical decision making narrative: During the course of the patient's emergency department visit, the patient's history, examination, and differential diagnosis were reviewed with the patient. The patient was placed on a monitor and storage bin tender with oximetry and frequent blood pressure monitoring. The patient had IV access obtained and blood work sent for analysis. A diagnostic evaluation was started regarding the patient's abdominal pain. The patient was initially provided morphine for pain, Zofran for nausea, normal saline a small IV fluid bolus. The patient's diagnostic evaluation is remarkable for a leukocytosis with a white count of 18.5, hemoglobin is 11.4, platelets 335 with a left shift of 89.9 , PT PTT within normal limits. Chemistry is remarkable for BUN of 69, creatinine 10.13 in a patient with a history of being on hemodialysis. She is due for her hemodialysis today. Glucose is 287, lactic acid is noted to be elevated at 2.1, alk phos 160 which is stable compared to prior levels, lipase within normal limits, urinalysis is suspicious for infection, this was a catheterized urine, moderate occult blood is noted, trace leukocyte esterase, innumerable RBCs and WBCs are noted, many WBC clumps, culture indicated. A chest x-ray showed no acute abnormality, atelectasis is noted in the bases, CT scan of the abdomen and pelvis reveals mild acute obstructive uropathy on the left, including mild perinephric edema. No perceptible ureteral stone, so the differential includes a radiolucent distal ureteral calculus in a recently passed calculus. No stone in the bladder. Constipation is noted, no other evidence of obstruction. The patient's repeat lactic acid is improving. Given the signs of urinary tract infection the patient was started on Rocephin 1 g IV. An attempt was made to ambulate the patient as she reports that she has not been able to get up and move around related to the pain. The patient continues to be painful and unable to ambulate on her own. The patient will be admitted to the hospital for continued IV antibiotic. I did speak to the patient's instrumentation technologist regarding this patient's case and the fact that she will be admitted and will require hemodialysis as an inpatient. The patient's results were discussed with the patient, including the plan of care. I explained that further testing and/ or monitoring is indicated based on the patient's history, examination, and/ or laboratory findings. Therefore, I recommended admission for additional evaluation. The patient expressed understanding and was agreeable with this plan. The patient was admitted to the hospital in guarded condition and sent to a bed under the care of [facility]. Medical Screen Exam Complete: Yes Emergency Medical Condition: Yes Differential Diagnosis Differential Diagnosis: Diverticulitis, versus bowel obstruction, versus colitis , versus constipation Medical Records Medical records reviewed: Yes I reviewed the patient's medical records. Lab Data Lab results reviewed: Yes I reviewed the patient's lab results. Result diagrams: 12/23/17 01:49 12/23/17 01:49 Lab Results 12/23/17 12/23/17 12/23/17 Range/Units 01:49 01:49 01:49 WBC 18.5 H (4.0-11.0) th/mm3 RBC 3.56 L (4.00-5.30) mil/mm3 Hgb 11.4 L (11.6-15.3) gm/dL Hct 34.5 L (35.0-46.0) % MCV 96.9 (80.0-100.0) fL MCH 32.0 (27.0-34.0) pg MCHC 33.0 (32.0-36.0) % RDW 16.4 (11.6-17.2) % Plt Count 335 (150-450) th/mm3 MPV 8.1 (7.0-11.0) fL Neut % (Auto) 89.9 H (16.0-70.0) % Lymph % (Auto) 3.0 L (9.0-44.0) % Placer % (Auto) 6.3 (0.0-8.0) % Eos % (Auto) 0.4 (0.0-4.0) % Baso % (Auto) 0.4 (0.0-2.0) % Neut # (Auto) 16.6 H (1.8-7.7) th/mm3 Lymph # (Auto) 0.6 L (1.0-4.8) th/mm3 Placer # (Auto) 1.2 H (0.0-0.9) th/mm3 Eos # (Auto) 0.1 (0.0-0.4) th/mm3 Baso # (Auto) 0.1 (0.0-0.2) th/mm3 WBC Differential . Differential Comment Auto diff final PT 10.8 (9.8-11.6) sec INR 1.1 Ratio APTT 28.2 (24.3-30.1) sec Sodium 137 (136-145) meq/L Potassium 5.1 (3.5-5.1) meq/L Chloride 98 (98-107) meq/L Carbon Dioxide 22.2 (21.0-32.0) meq/L Anion Gap 17 H (5-15) meq/L BUN 69 H (7-18) mg/dL Creatinine 10.13 H* (0.50-1.00) mg/dL Estimated GFR 4 L (>89) mL/min Random Glucose 287 H (74-106) mg/dL Lactic Acid (0.4-2.0) mmol/L Calcium 9.0 (8.5-10.1) mg/dL Magnesium 1.8 (1.5-2.5) mg/dL Total Bilirubin 0.5 (0.2-1.0) mg/dL AST 12 L (15-37) U/L ALT 17 (10-53) U/L Alkaline Phosphatase 160 H (45-117) U/L Total Creatine Kinase 75 (26-192) U/L Troponin I 0.05 (0.02-0.05) ng/mL Total Protein 7.7 (6.4-8.2) g/dL Albumin 3.4 (3.4-5.0) g/dL Lipase 191 (73-393) U/L Urine Color (Yellw/Straw) Urine Clarity (Clear) Urine pH (5.0-8.5) Ur Specific [place] (1.002-1.035) Urine Protein (Neg-Trace) mg/dL Urine Glucose (UA) (Negative) mg/dL Urine Ketones (Negative) mg/dL Urine Occult Blood (Negative) Urine Nitrate (Negative) Urine Bilirubin (Negative) Urine Urobilinogen (Less than 2) mg/dL Ur Leukocyte Esterase (Negative) Urine RBC (0-3) /hpf Urine WBC (0-5) /hpf Urine WBC Clumps (None) Micro UA Comment Ur Microscopic Review Urine Culture Comments 12/23/17 12/23/17 12/23/17 Range/Units 01:49 04:10 04:16 WBC (4.0-11.0) th/mm3 RBC (4.00-5.30) mil/mm3 Hgb (11.6-15.3) gm/dL Hct (35.0-46.0) % MCV (80.0-100.0) fL MCH (27.0-34.0) pg MCHC (32.0-36.0) % RDW (11.6-17.2) % Plt Count (150-450) th/mm3 MPV (7.0-11.0) fL Neut % (Auto) (16.0-70.0) % Lymph % (Auto) (9.0-44.0) % Placer % (Auto) (0.0-8.0) % Eos % (Auto) (0.0-4.0) % Baso % (Auto) (0.0-2.0) % Neut # (Auto) (1.8-7.7) th/mm3 Lymph # (Auto) (1.0-4.8) th/mm3 Placer # (Auto) (0.0-0.9) th/mm3 Eos # (Auto) (0.0-0.4) th/mm3 Baso # (Auto) (0.0-0.2) th/mm3 WBC Differential Differential Comment PT (9.8-11.6) sec INR Ratio APTT (24.3-30.1) sec Sodium (136-145) meq/L Potassium (3.5-5.1) meq/L Chloride (98-107) meq/L Carbon Dioxide (21.0-32.0) meq/L Anion Gap (5-15) meq/L BUN (7-18) mg/dL Creatinine (0.50-1.00) mg/dL Estimated GFR (>89) mL/min Random Glucose (74-106) mg/dL Lactic Acid 2.1 H 1.6 (0.4-2.0) mmol/L Calcium (8.5-10.1) mg/dL Magnesium (1.5-2.5) mg/dL Total Bilirubin (0.2-1.0) mg/dL AST (15-37) U/L ALT (10-53) U/L Alkaline Phosphatase (45-117) U/L Total Creatine Kinase (26-192) U/L Troponin I (0.02-0.05) ng/mL Total Protein (6.4-8.2) g/dL Albumin (3.4-5.0) g/dL Lipase (73-393) U/L Urine Color Yellow (Yellw/Straw) Urine Clarity Turbid H (Clear) Urine pH 6.0 (5.0-8.5) Ur Specific [place] 1.038 H (1.002-1.035) Urine Protein 100 H (Neg-Trace) mg/dL Urine Glucose (UA) Negative (Negative) mg/dL Urine Ketones Negative (Negative) mg/dL Urine Occult Blood Moderate H (Negative) Urine Nitrate Negative (Negative) Urine Bilirubin Negative (Negative) Urine Urobilinogen Less than 2 (Less than 2) mg/dL Ur Leukocyte Esterase Trace H (Negative) Urine RBC (0-3) /hpf Urine WBC (0-5) /hpf Urine WBC Clumps Many H (None) Micro UA Comment Cath-culture ind Ur Microscopic Review Not Reportable Urine Culture Comments Cath-cult indicated Imaging Data Radiologist's impression: Chest X-Ray 12/23/17 01:25 CONCLUSION: Mild bibasilar atelectasis. Abdomen/Pelvis CT 12/23/17 02:30 CONCLUSION: 1. CT findings consistent with mild, acute obstructive uropathy of the left kidney, including mild perinephric edema. No perceptible ureteral stone, so the differential includes a radiolucent distal ureteral calculus and a recently passed calculus. No stone is currently seen in the bladder. 2. Bilateral nonobstructing renal stones as described. Cortical thinning and atrophy of both kidneys and bilateral cysts are again seen. 3. Considerable stool throughout the colon without obstruction or inflammatory changes. There is a lower abdominal ventral hernia containing fat and small bowel loops, chronic and also without acute obstruction or inflammatory changes. ECG Data Attestation: I personally reviewed and interpreted this ECG as follows: Interpretation: The patient had an EKG done on arrival. The patient's EKG shows a sinus rhythm heart rate of 91, QRS duration 94 ms, QTC [address] segment elevation. Nonspecific ST-T wave abnormalities are noted. T waves are inverted in aVL, lead I. Discharge Plan Discharge Disposition Patient Disposition: 30 Still Patient Discharge Details Diagnosis: SIRS (systemic inflammatory response syndrome), Hydronephrosis of left kidney, Urinary tract infection Physicians Team ED Provider: Alcira Freeman Primary Care Provider: Primary Care Divina Norman Rxs /Orders / Referrals /Forms Prescriptions: No Action bumetanide 2 mg Tablet 2 mg PO DAILY RF: 0 nifedipine 90 mg Tablet Extended Release 90 mg PO DAILY RF: 0 clopidogrel 75 mg Tablet 75 mg PO DAILY RF: 0 clonidine HCl 0.2 mg Tablet 0.2 mg PO TID RF: 0 hydralazine 100 mg Tablet 100 mg PO TID RF: 0 pantoprazole 40 mg Tablet,Delayed Release (Dr/Ec) 40 mg PO DAILY RF: 0 insulin lispro [Humalog U-100 Insulin] 100 unit/mL Solution 1 sliding scale dose SUB-Q UD RF: 0 losartan 100 mg Tablet 100 mg PO DAILY RF: 0 insulin detemir U-100 [Levemir FlexTouch U-100 Insuln] 100 unit/mL (3 mL) Insulin Pen 10 unit SUB-Q DAILY RF: 0 ipratropium-albuterol 1 dose Inhalation Q6HR RF: 0 Discharge Interventions Interventions: Vital Signs Last Done: 12/23/17 04:33 Status ED Status: With Doctor
--- NOTE | 2017-12-23 03:40 | CT ---
EXAM DATE: 12/23/2017 3:22 AM EDT AGE/SEX: 77 years / Female INDICATIONS: Left lower quadrant pain. CLINICAL DATA: This is the patient's initial encounter. Patient reports that signs and symptoms have been present for 1 day and indicates a pain score of 10/10. MEDICAL/SURGICAL HISTORY: Cardiovascular disease. Hypertension. Renal disease, end stage. CO PD Renal stones Ovarian cancer Hysterectomy. Lithotripsy. Bowel resection RADIATION DOSE: 15.85 CTDI (mGy) COMPARISON: [facility] [place], CT ABDOMEN & PELVIS W/O CONTRAST, 02/06/2017. [facility] [place], CT ABDOMEN & PELVIS W/O CON TRAST, 06/19/2017. . TECHNIQUE: Multiple contiguous axial images were obtained through the abdomen. Images were obtained using multiple row detector helical technique. Using automated exposure control and adjustment of the mA and/or kV according to patient size, radiation dose was kept as low as reasonably achievable to o btain optimal diagnostic quality images. DICOM format image data is available electronically for rev iew and comparison. FINDINGS: Both kidneys are again seen and have cortical thinning and atrophy and several scattered nonobstructi ng stones as well as cysts. Cysts measure up to 2.3 cm on the left and up to 4.8 cm on the right. The re are 2 and 3 mm nonobstructing stones of the left upper pole and a faint 2 to 3 mm nonobstructing s tone of the left lower pole. 3 mm nonobstructing stones are seen of the right mid zone and lower pole . There are vascular calcifications of both kidneys. Left kidney has mild perinephric edema and there is mild left hydronephrosis and hydroureter. No perceptible ureteral calculus. I also don't see a st one in the urinary bladder. Noncontrast appearance of the liver, spleen and pancreas within normal limits. Nodularity of the left adrenal gland is unchanged. No obstruction or acute inflammatory changes are seen of the gastrointestinal tract. Moderate to larg e amount of stool throughout the colon. Large pannus again seen. A lower abdominal ventral hernia con taining fat and small bowel again seen without obstruction or evidence of incarceration. Abdominal aorta is atherosclerotic. No aneurysm. Mild atelectasis of the visualized lung bases. CONCLUSION: 1. CT findings consistent with mild, acute obstructive uropathy of the left kidney, including mild p erinephric edema. No perceptible ureteral stone, so the differential includes a radiolucent distal ur eteral calculus and a recently passed calculus. No stone is currently seen in the bladder. 2. Bilateral nonobstructing renal stones as described. Cortical thinning and atrophy of both kidneys and bilateral cysts are again seen. 3. Considerable stool throughout the colon without obstruction or inflammatory changes. There is a l ower abdominal ventral hernia containing fat and small bowel loops, chronic and also without acute ob struction or inflammatory changes. Electronically signed by: Oliver Taylor MD 12/23/2017 3:38 AM EDT
[2017-12-23 04:40] LABS: Bilirubin,Urine Negative (Negative); Clarity,Urine Turbid (Clear); Color,Urine Yellow (Yellw/Straw); Glucose,Urine (UA) Negative (Negative); Leukocyte Esterase,Urine Trace (Negative); Nitrite,Urine Negative (Negative); Specific Gravity,Urine 1.038 (1.002-1.035)
[2017-12-23] MEDS ORDERED: Bisacodyl 10 MG Supp RECTAL PRN (05:41)
[2017-12-23] MEDS ORDERED: Dextrose 50% in Water 50 ML Vial IV.PUSH PRN (09:21)
--- NOTE | 2017-12-23 09:23 | P.HPIM ---
History of Present Illness Service: [facility] hospitalist Primary Care Physician: No Primary Care Physician Chief Complaint: Left flank pain History of Present Illness: 77-year-old female with a medical history significant for hypertension, diabetes , end-stage renal disease on hemodialysis, history of kidney stone who presented to the hospital for complaint of left flank pain. The pain radiates to the left groin area. She reports the pain started yesterday morning, described as sharp and worse with deep breathing. She reports she normally produce a couple drops of urine daily and did not notice any change. She reports brief episodes of hematuria couple days ago. She has been constipated for the past couple of days. No blood in her stool. She denies any fevers or chills. The patient reports she is feeling much better since she arrived at the hospital. CT of the abdomen revealed acute, mild obstructive uropathy of the left kidney. She is also constipated. - Diagnosis (1) Obstructive uropathy (2) Diabetes (3) Hydronephrosis of left kidney (4) Urinary tract infection (5) End-stage renal disease on hemodialysis (6) Hypertension Inpatient Certification: I certify that the inpatient services were ordered in accordance with Medicare regulations governing the order. This includes certification that hospital inpatient services are reasonable and necessary and in the case of services not specified as inpatient-only under 42 CFR 419.22(n), that they are appropriately provided as inpatient services in accordance to with the 2-midnight benchmark under 43 CFR 412.3(e) Estimated Total Length of Stay (Days): 3 Plans for Post Hospital Care: Home Review of Systems All other systems reviewed negative except as stated in HPI PMFSH - History History Provided By: Patient - Medical History Medical History: Medical History (Last Updated 12/23/17 @ 17:17 by Rico Galvez MD) Diabetes CAD in [place] artery ESRD (end stage renal disease) on dialysis [place] Metabolic encephalopathy Nonrheumatic aortic (valve) stenosis Paroxysmal atrial fibrillation Pressure ulcer of right heel UTI (urinary tract infection) - Family History Family History: Family History (Last Updated 12/23/17 @ 17:17 by Rico Galvez MD) Other Family history non-contributory - Social History I have reviewed the patient's Social History: Yes - Tobacco History Second Hand Smoke Exposure: No Smoking Status: Former smoker - Alcohol History How Often Do You Have a Drink Containing Alcohol: Never - Substance Use History Substance History: No History of Abuse - Travel History Recent Travel in the [place] Within the Last 8 Weeks: No Recent Travel Out of the Country Within the Last 8 Weeks: No - Immunization History Tetanus Immunization: Unsure Medications and Allergies Active Medications: Active Medications Al Hydroxide/Mg Hydroxide (Milk Of Magnesia Liq) 30 ml PO Q12H PRN PRN Reason: Mild Constipation Bisacodyl (Dulcolax Supp) 10 mg RECTAL DAILY PRN PRN Reason: SEVERE CONSITIPATION Clonidine HCl (Catapres) 0.2 mg PO TID KUNAL Clopidogrel Bisulfate (Plavix) 75 mg PO DAILY [facility] Dextrose (D50w Vial) 50 ml IV.PUSH UNSCH PRN PRN Reason: PER HYPOGLYCEMIA PROTOCOL Glucagon (Glucagon Inj) 1 mg OTHER PRN PRN PRN Reason: for Hypoglycemia Protocol Hydralazine HCl (Apresoline) 100 mg PO TID [facility] Ceftriaxone Sodium 1,000 mg/ (Sodium Chloride) 100 mls @ 200 mls/hr IV.SIG Q24H KUNAL Insulin Aspart (Novolog Insulin Correctional Sugar Inj) 0 unit SQ ACHS KUNAL; Protocol Lactulose (Lactulose Liq) 30 ml PO DAILY PRN PRN Reason: SEVERE CONSITIPATION Nifedipine (Procardia Xl) 90 mg PO DAILY [facility] Non-Formulary Medication (Insulin Detemir U-100 [Levemir Flextouch U-100 Insuln] ) 10 unit SQ DAILY [facility] Non-Formulary Medication (Losartan [Losartan]) 100 mg PO DAILY [facility] Pantoprazole Sodium (Protonix) 40 mg PO DAILY [facility] Senna/Docusate Sodium (Elva-Colace) 1 tab PO BID [facility] Sennosides (Senokot) 17.2 mg PO Q12H PRN PRN Reason: Moderate Constipation Sodium Chloride (Ns Flush) 2 ml IV.FLUSH PRN PRN PRN Reason: FLUSH AFTER USING IV ACCESS Allergies Allergy/AdvReac Type Severity Reaction Status Date / Time ciprofloxacin Allergy Severe Rash Verified 06/19/17 10:30 ranitidine Allergy Severe Rash Verified 06/19/17 10:30 Sulfa (Sulfonamide Allergy Severe Rash Verified 06/19/17 10:30 Antibiotics) furosemide Allergy Mild Rash Verified 06/19/17 10:30 Home Medications Medication Instructions Recorded Confirmed Type bumetanide 2 mg PO DAILY 10/29/17 12/23/17 History clonidine HCl 0.2 mg PO TID 10/29/17 12/23/17 History clopidogrel 75 mg PO DAILY 10/29/17 12/23/17 History hydralazine 100 mg PO TID 10/29/17 12/23/17 History insulin detemir U-100 [Levemir 10 unit SUB-Q DAILY 10/29/17 12/23/17 History FlexTouch U-100 Insuln] insulin lispro [Humalog U-100 1 sliding scale dose SUB-Q UD 10/29/17 12/23/17 History Insulin] ipratropium-albuterol 1 dose INHALATION Q6HR 10/29/17 12/23/17 History losartan 100 mg PO DAILY 10/29/17 12/23/17 History nifedipine 90 mg PO DAILY 10/29/17 12/23/17 History pantoprazole 40 mg PO DAILY 10/29/17 12/23/17 History Exam Vital signs: Vital Signs 12/23/17 01:09 12/23/17 03:02 12/23/17 04:33 Temperature 98.8 F Pulse Rate 86 85 85 Respiratory Rate 20 16 18 Blood Pressure 204/85 H 178/73 H 175/75 H Pulse Oximetry 97 97 100 12/23/17 05:55 Temperature Pulse Rate 80 Respiratory Rate 16 Blood Pressure 176/74 H Pulse Oximetry 95 Intake & Output 12/22/17 12/23/17 12/23/17 18:59 06:59 18:59 Intake Total 350 / 350 Balance 350 / 350 Weight 63.503 kg Intake: IV 350 / 350 NS Inj 250 ML @ Wide Open IV. 250 / 250 SIG BOLUS ONE Rx#:[id number] Rocephin Inj 1,000 MG In NS Inj 100 / 100 100 ML @ 200 mls/hr IV.SIG ONCE ONE Rx#:[id number] Narrative: CONSTITUTIONAL/GENERAL: Elderly female, in no apparent distress. Vital signs reviewed SKIN: No jaundice, rashes, or concerning lesions. Not diaphoretic. HEAD: Atraumatic. Normocephalic. EYES: Pupils equal and round and reactive. Extra ocular motions are intact. No scleral icterus. No injection or drainage. ENT: Hearing grossly normal. Nose without drainage. Throat without visible erythema, exudates, masses, or lesions. NECK: Trachea midline. Neck is supple, non-tender. No palpable thyroid enlargement or nodularity. CARDIOVASCULAR: Normal rate and regular rhythm without murmurs, gallops, or rubs. No JVD. Peripheral pulses 2+ and symmetric. RESPIRATORY/CHEST: Symmetric, unlabored respirations. Breath sounds equal and clear to auscultation bilaterally. No wheezes, crackles, rales, or rhonchi. GASTROINTESTINAL: Abdomen soft, non-tender, non-distended. No hepato- splenomegaly, or palpable masses. No guarding. Bowel sounds present. MUSCULOSKELETAL: Extremities without clubbing, cyanosis, or edema. No joint tenderness or effusion noted. No calf tenderness. No mottling or clubbing. NEUROLOGICAL: Awake and alert. Motor and sensory grossly within normal limits. Follows commands. Move all extremities spontaneously. No focal deficits. PSYCHIATRIC: No obvious mood problems. No apparent hallucinations or other psychotic thought process. Results - Labs CBC & Chem 7: 12/23/17 01:49 12/23/17 01:49 Labs: Short CBC 12/23/17 Range/Units 01:49 WBC 18.5 H (4.0-11.0) th/mm3 Hgb 11.4 L (11.6-15.3) gm/dL Hct 34.5 L (35.0-46.0) % Plt Count 335 (150-450) th/mm3 BMP 12/23/17 01:49 Sodium 137 Potassium 5.1 Chloride 98 Carbon Dioxide 22.2 BUN 69 H Creatinine 10.13 H* Calcium 9.0 Cardiac Enzymes 12/23/17 Range/Units 01:49 Total Creatine Kinase 75 (26-192) U/L Troponin I 0.05 (0.02-0.05) ng/mL Liver Function 12/23/17 Range/Units 01:49 Total Bilirubin 0.5 (0.2-1.0) mg/dL AST 12 L (15-37) U/L ALT 17 (10-53) U/L Alkaline Phosphatase 160 H (45-117) U/L Albumin 3.4 (3.4-5.0) g/dL Urine 12/23/17 Range/Units 04:16 Urine Color Yellow (Yellw/Straw) Urine Clarity Turbid H (Clear) Urine pH 6.0 (5.0-8.5) Ur Specific [place] 1.038 H (1.002-1.035) Urine Protein 100 H (Neg-Trace) mg/dL Urine Glucose (UA) Negative (Negative) mg/dL - Imaging Impressions Chest X-Ray 12/23/17 01:25 CONCLUSION: Mild bibasilar atelectasis. Abdomen/Pelvis CT 12/23/17 02:30 CONCLUSION: 1. CT findings consistent with mild, acute obstructive uropathy of the left kidney, including mild perinephric edema. No perceptible ureteral stone, so the differential includes a radiolucent distal ureteral calculus and a recently passed calculus. No stone is currently seen in the bladder. 2. Bilateral nonobstructing renal stones as described. Cortical thinning and atrophy of both kidneys and bilateral cysts are again seen. 3. Considerable stool throughout the colon without obstruction or inflammatory changes. There is a lower abdominal ventral hernia containing fat and small bowel loops, chronic and also without acute obstruction or inflammatory changes. Caprini VTE Risk Assessment Caprini VTE Risk Assessment: Moderate/High Risk (score >= 2) Caprini Risk Assessment Model: Point Value = 1 Point Value = 2 Point Value = 3 Point Value = 5 Age 41-60 Minor surgery BMI > 25 kg/m2 Swollen legs Varicose veins or History of unexplained or recurrent spontaneous Oral contraceptives or hormone replacement Sepsis (< 1 month) Serious lung disease, including pneumonia (< 1 month) Abnormal pulmonary function Acute myocardial infarction Congestive heart failure (< 1 month) History of inflammatory bowel disease Medical patient at bed rest Age 61-74 Arthroscopic surgery Major open surgery (> 45 min) Laparoscopic surgery (> 45 min) Malignancy Confined to bed (> 72 hours) Immobilizing plaster cast Central venous access Age >= 75 History of VTE Family history of VTE Factor V Leiden Prothrombin [id number] Lupus anticoagulant Anticardiolipin antibodies Elevated serum homocysteine Heparin-induced thrombocytopenia Other congenital or acquired thrombophilia Stroke (< 1 month) Elective arthroplasty Hip, pelvis, or leg fracture Acute spinal cord injury (< 1 month) Prophylaxis Regimen: Total Risk Factor Score Risk Level Prophylaxis Regimen 0-1 Low Early ambulation 2 Moderate Order ONE of the following: *Sequential Compression Device (SCD) *Heparin 5000 units SQ BID 3-4 Higher Order ONE of the following medications: *Heparin 5000 units SQ TID *Enoxaparin/Lovenox 40 mg SQ daily (WT < 150 kg, CrCl > 30 mL/min) *Enoxaparin/Lovenox 30 mg SQ daily (WT < 150 kg, CrCl > 10-29 mL/min) *Enoxaparin/Lovenox 30 mg SQ BID (WT < 150 kg, CrCl > 30 mL/min) AND/OR *Sequential Compression Device (SCD) 5 or more Highest Order ONE of the following medications: *Heparin 5000 units SQ TID (Preferred with Epidurals) *Enoxaparin/Lovenox 40 mg SQ daily (WT < 150 kg, CrCl > 30 mL/min) *Enoxaparin/Lovenox 30 mg SQ daily (WT < 150 kg, CrCl > 10-29 mL/min) *Enoxaparin/Lovenox 30 mg SQ BID (WT < 150 kg, CrCl > 30 mL/min) AND *Sequential Compression Device (SCD) Assessment and Plan - Assessment (1) Obstructive uropathy Code(s): N13.9 - Obstructive and reflux uropathy, unspecified Status: Acute (2) Diabetes Code(s): E11.9 - Type 2 diabetes mellitus without complications Status: Acute (3) Hydronephrosis of left kidney Code(s): N13.30 - Unspecified hydronephrosis Status: Acute (4) Urinary tract infection Code(s): N39.0 - Urinary tract infection, site not specified Status: Acute (5) End-stage renal disease on hemodialysis Code(s): N18.6 - End stage renal disease; Z99.2 - Dependence on renal dialysis Status: Acute (6) Hypertension Code(s): I10 - Essential (primary) hypertension Status: Acute - Plan 77-year-old female admitted with obstructive uropathy, possible UTI. Obstructive uropathy: Patient has history of kidney stones. CT of the abdomen revealed acute obstructive uropathy of the left kidney, including mild perinephric edema. Bilateral nonobstructing renal stones as described. Cortical thinning and atrophy of both kidneys and bilateral cysts are again seen. -Possible that she passed a stone. - Continue with pain control. - Consult urology for assistance. UTI: - Continue Rocephin. Follow urine cultures. End-stage renal disease on hemodialysis: - Nephrology consulted. Appreciate assistance. - Continue hemodialysis as scheduled. Type 2 diabetes: -Continue Levemir and sliding scale insulin with Accu-Cheks Hypertension: - Continue antihypertensives including clonidine, hydralazine, losartan, and Procardia. Constipation: CT of the abdomen revealed Considerable stool throughout the colon without obstruction or inflammatory changes. There is a lower abdominal ventral hernia containing fat and small bowel loops, chronic and also without acute obstruction or inflammatory changes. -Give a dose of lactulose. - Stool softeners and laxatives. Continue to monitor. GI prophylaxis: Stool softener PRN constipation. DVT PPx: Heparin (4) Urinary tract infection Qualifiers: Urinary tract infection type: acute pyelonephritis Qualified Code(s): N10 - Acute pyelonephritis
[2017-12-23] MEDS ORDERED: Heparin 10,000 UNITS/10 ML Vial (for IV use) OTHER PRN ×2 (09:59)
[2017-12-23] MEDS ORDERED: Acetaminophen 325 MG Tablet PO PRN (09:59)
[2017-12-23] MEDS ORDERED: Gelatin 12 MM/7 MM Topical Foam TOPICAL PRN (09:59)
[2017-12-23] MEDS ORDERED: Albumin Human 25% Inj 100 ML IV.SIG PRN (09:59)
[2017-12-23] MEDS ORDERED: Sod Chloride 0.9% Inj 1,000 ML OTHER PRN ×2 (09:59)
[2017-12-23] MEDS ORDERED: Sod Chloride 0.9% Inj 1,000 ML IV.CONT PRN (09:59)
[2017-12-23] MEDS: Insulin Detemir Inj 1,000 UNIT/10 ML Vial SQ SCH (10:06)
--- NOTE | 2017-12-23 10:18 | P.CONNP ---
<LulyYaneth - Last Filed: 12/23/17 10:01> History of Present Illness Service: Nephrology Consult date: 12/23/17 Requesting Physician: Ilan Cárdenas Reason for Consult: End stage renal disease on hemodialysis Primary Care Provider: No Primary Care Physician History of Present Illness: Patient is a 77-year-old female with a past medical history significant for end- stage renal disease on hemodialysis, COPD, diabetes mellitus, hypertension, hyperlipidemia, recurrent UTIs and a history of uterine cancer. Presented to emergency department with weakness and lower abdominal pain. Reported that on Saturday she had so much weakness that she was not able to get out of her chair. CT findings consistent with mild, acute obstructive uropathy of the left kidney, including mild perinephric edema. Last hemodialysis was on Saturday. Nephrology is consulted for management of end stage renal disease on hemodialysis. Will continue HD on regular scheduled days. Denies any shortness of breath, chest pain, nausea, or vomiting. Continues to have left lower quadrant abdominal pain. [facility] - History History Provided By: Patient - Medical History Medical History: Medical History (Last Reviewed 12/23/17 @ 03:22 by Alcira Freeman MD) CAD in [place] artery ESRD (end stage renal disease) on dialysis [place] Fist[place] Metabolic encephalopathy Nonrheumatic aortic (valve) stenosis Paroxysmal atrial fibrillation Pressure ulcer of right heel UTI (urinary tract infection) - Tobacco History Second Hand Smoke Exposure: No Smoking Status: Former smoker - Alcohol History How Often Do You Have a Drink Containing Alcohol: Never - Substance Use History Substance History: No History of Abuse - Travel History Recent Travel in the [place] Within the Last 8 Weeks: No Recent Travel Out of the Country Within the Last 8 Weeks: No - Immunization History Tetanus Immunization: Unsure Medications and Allergies Allergies Allergy/AdvReac Type Severity Reaction Status Date / Time ciprofloxacin Allergy Severe Rash Verified 06/19/17 10:30 ranitidine Allergy Severe Rash Verified 06/19/17 10:30 Sulfa (Sulfonamide Allergy Severe Rash Verified 06/19/17 10:30 Antibiotics) furosemide Allergy Mild Rash Verified 06/19/17 10:30 Home Medications Medication Instructions Recorded Confirmed Type bumetanide 2 mg PO DAILY 10/29/17 12/23/17 History clonidine HCl 0.2 mg PO TID 10/29/17 12/23/17 History clopidogrel 75 mg PO DAILY 10/29/17 12/23/17 History hydralazine 100 mg PO TID 10/29/17 12/23/17 History insulin detemir U-100 [Levemir 10 unit SUB-Q DAILY 10/29/17 12/23/17 History FlexTouch U-100 Insuln] insulin lispro [Humalog U-100 1 sliding scale dose SUB-Q UD 10/29/17 12/23/17 History Insulin] ipratropium-albuterol 1 dose INHALATION Q6HR 10/29/17 12/23/17 History losartan 100 mg PO DAILY 10/29/17 12/23/17 History nifedipine 90 mg PO DAILY 10/29/17 12/23/17 History pantoprazole 40 mg PO DAILY 10/29/17 12/23/17 History Active Medications: Active Medications Acetaminophen (Tylenol) 650 mg PO UNSCH PRN PRN Reason: SEE LABEL COMMENTS Al Hydroxide/Mg Hydroxide (Milk Of Magnflorian Liq) 30 ml PO Q12H PRN PRN Reason: Mild Constipation Bisacodyl (Dulcolax Supp) 10 mg RECTAL DAILY PRN PRN Reason: SEVERE CONSITIPATION Clonidine HCl (Catapres) 0.2 mg PO TID KUNAL Clonidine HCl (Catapres) 0.1 mg PO UNSCH PRN PRN Reason: SEE LABEL COMMENTS Clopidogrel Bisulfate (Plavix) 75 mg PO DAILY KUNAL Dextrose (D50w Vial) 50 ml IV.PUSH UNSCH PRN PRN Reason: PER HYPOGLYCEMIA PROTOCOL Diphenhydramine HCl (Benadryl) 25 mg PO UNSCH PRN PRN Reason: SEE LABEL COMMENTS Epoetin Chandler (Epogen Inj) 4,000 unit IV.PUSH UNSCH PRN PRN Reason: SEE LABEL COMMENTS Gelatin (Gelfoam 12 Mm/7 Mm Topical) 1 foam TOPICAL PRN PRN PRN Reason: help stop bleeding from site Gentamicin Sulfate (Gentamicin Inj) 20 mg OTHER WITH DIALYSIS PRN PRN Reason: Dwell Gentamycin Lock Glucagon (Glucagon Inj) 1 mg OTHER PRN PRN PRN Reason: for Hypoglycemia Protocol Heparin Sodium (Porcine) (Heparin Inj) 8,000 units OTHER WITH DIALYSIS PRN PRN Reason: for machine prime Heparin Sodium (Porcine) (Heparin Inj) 1,000 units OTHER WITH DIALYSIS PRN PRN Reason: Dwell Heparin to Fill Catheter Hydralazine HCl (Apresoline) 100 mg PO TID KUNAL Ceftriaxone Sodium 1,000 mg/ (Sodium Chloride) 100 mls @ 200 mls/hr IV.SIG Q24H KUNAL Albumin Human (Flexbumin 25% Inj) 100 mls @ 60 mls/hr IV.SIG WITH DIALYSIS PRN PRN Reason: hypotension / volume replace Sodium Chloride (Ns Inj) 1,000 mls @ 0 mls/hr OTHER .Q0M PRN PRN Reason: for prime and rinse back Sodium Chloride (Ns Inj) 1,000 mls @ 200 mls/hr OTHER .Q5H PRN PRN Reason: for dialyzer flush PRN Sodium Chloride (Ns Inj) 1,000 mls @ 0 mls/hr IV.CONT .Q0M PRN PRN Reason: hypotension / volume replace Insulin Aspart (Novolog Insulin Correctional Sugar Inj) 0 unit SQ ACHS KUNAL; Protocol Insulin Detemir (Levemir Inj) 10 unit SQ DAILY KUNLA Lactulose (Lactulose Liq) 30 ml PO DAILY PRN PRN Reason: SEVERE CONSITIPATION Losartan Potassium (Cozaar) 100 mg PO DAILY KUNAL Mannitol (Mannitol Inj) 12.5 gm IV.PUSH UNSCH PRN PRN Reason: hypotension / volume replace Nifedipine (Procardia Xl) 90 mg PO DAILY KUNAL Nitroglycerin (Nitrostat Sl) 0.4 mg SL Q5M PRN PRN Reason: CHEST PAIN Ondansetron HCl (Zofran Inj) 4 mg IV.PUSH UNSCH PRN PRN Reason: NAUSEA OR VOMITING Pantoprazole Sodium (Protonix) 40 mg PO DAILY FOR[facility]LY [facility], [facility] Senna/Docusate Sodium (Elva-Colace) 1 tab PO BID [facility], [facility]1983 Sennosides (Senokot) 17.2 mg PO Q12H PRN PRN Reason: Moderate Constipation Sodium Chloride (Ns Flush) 2 ml IV.FLUSH PRN PRN PRN Reason: FLUSH AFTER USING IV ACCESS Sodium Chloride (Ns Flush) 5 ml IV.FLUSH PRN PRN PRN Reason: flush each lumen during HD Exam Vital signs: Vital Signs 12/23/17 01:09 12/23/17 03:02 12/23/17 04:33 Temperature 98.8 F Pulse Rate 86 85 85 Respiratory Rate 20 16 18 Blood Pressure 204/85 H 178/73 H 175/75 H Pulse Oximetry 97 97 100 12/23/17 05:55 Temperature Pulse Rate 80 Respiratory Rate 16 Blood Pressure 176/74 H Pulse Oximetry 95 Intake & Output 12/22/17 12/23/17 12/23/17 18:59 06:59 18:59 Intake Total 350 / 350 Balance 350 / 350 Weight 63.503 kg Intake: IV 350 / 350 NS Inj 250 ML @ Wide Open IV. 250 / 250 SIG BOLUS ONE Rx#:[id number] Rocephin Inj 1,000 MG In NS Inj 100 / 100 100 ML @ 200 mls/hr IV.SIG ONCE ONE Rx#:[id number] Narrative: GENERAL:Alert and oriented. No obvious signs of distress. SKIN: Warm and dry. NECK: Supple, trachea midline. No JVD or lymphadenopathy. CARDIOVASCULAR: Regular rate and rhythm. Murmur. RESPIRATORY: Breath sounds equal bilaterally. No accessory muscle use. GASTROINTESTINAL: Abdomen soft, non-tender, nondistended. MUSCULOSKELETAL: No cyanosis, or edema. BACK: Nontender without obvious deformity. No CVA tenderness. Results - Lab Results 12/23/17 01:49 12/23/17 01:49 Most recent lab results Calcium 9.0 mg/dL (8.5-10.1) 12/23/17 01:49 Magnesium 1.8 mg/dL (1.5-2.5) 12/23/17 01:49 Assessment and Plan - Assessment (1) End-stage renal disease on hemodialysis Code(s): N18.6 - End stage renal disease; Z99.2 - Dependence on renal dialysis Status: Acute Plan: End stage renal disease on hemodialysis on Saturday, Saturday, and Saturday. Last hemodialysis was on Saturday. Will continue with regular schedule with dialysis today. Orders placed and dialysis contacted. Epogen with dialysis. (2) Hypertension Code(s): I10 - Essential (primary) hypertension Status: Acute Plan: Hypertensive, will increase clonidine. (3) Urinary tract infection Code(s): N39.0 - Urinary tract infection, site not specified Status: Acute Plan: On Rocephin culture is pending. (4) Hydronephrosis of left kidney Code(s): N13.30 - Unspecified hydronephrosis Status: Acute Plan: CT findings consistent with mild, acute obstructive uropathy of the left kidney , including mild perinephric edema. No perceptible ureteral stone, so the differential includes a radiolucent distal ureteral calculus and a recently passed calculus. No stone is currently seen in the bladder. May need urology consult. Flomax added. <Julieta Lee - Last Filed: 12/24/17 18:17> History of Present Illness Primary Care Provider: No Primary Care Physician [facility] - Medical History Medical History: Medical History (Last Reviewed 12/23/17 @ 03:22 by Alcira Freeman MD) CAD in [place] artery ESRD (end stage renal disease) on dialysis [place] Metabolic encephalopathy Nonrheumatic aortic (valve) stenosis Paroxysmal atrial fibrillation Pressure ulcer of right heel UTI (urinary tract infection) Medications and Allergies Active Medications: Active Medications Acetaminophen/Codeine Phosphate (Tylenol W/Cod #3) 1 tab PO Q6H PRN PRN Reason: PAIN SCALE 6 TO 10 Al Hydroxide/Mg Hydroxide (Milk Of Magnflorian Liq) 30 ml PO Q12H PRN PRN Reason: Mild Constipation Bisacodyl (Dulcolax Supp) 10 mg RECTAL DAILY PRN PRN Reason: SEVERE CONSITIPATION Clonidine HCl (Catapres) 0.1 mg PO UNSCH PRN PRN Reason: SEE LABEL COMMENTS Clonidine HCl (Catapres) 0.2 mg PO Q12HR KUNAL Clopidogrel Bisulfate (Plavix) 75 mg PO DAILY [facility], [facility] Last Admin: 12/24/17 09:11 Dose: 75 mg Dextrose (D50w Vial) 50 ml IV.PUSH UNSCH PRN PRN Reason: PER HYPOGLYCEMIA PROTOCOL Diphenhydramine HCl (Benadryl) 25 mg PO UNSCH PRN PRN Reason: SEE LABEL COMMENTS Epoetin Chandler (Epogen Inj) 4,000 unit IV.PUSH UNSCH PRN PRN Reason: SEE LABEL COMMENTS Gelatin (Gelfoam 12 Mm/7 Mm Topical) 1 foam TOPICAL PRN PRN PRN Reason: help stop bleeding from site Gentamicin Sulfate (Gentamicin Inj) 20 mg OTHER WITH DIALYSIS PRN PRN Reason: Dwell Gentamycin Lock Glucagon (Glucagon Inj) 1 mg OTHER PRN PRN PRN Reason: for Hypoglycemia Protocol Heparin Sodium (Porcine) (Heparin Inj) 8,000 units OTHER WITH DIALYSIS PRN PRN Reason: for machine prime Heparin Sodium (Porcine) (Heparin Inj) 1,000 units OTHER WITH DIALYSIS PRN PRN Reason: Dwell Heparin to Fill Catheter Heparin Sodium (Porcine) (Heparin Inj) 5,000 units SQ Q12H [facility], [facility] Last Admin: 12/24/17 18:15 Dose: 5,000 units Hydralazine HCl (Apresoline) 100 mg PO TID [facility], [facility] Last Admin: 12/24/17 18:16 Dose: Not Given Ceftriaxone Sodium 1,000 mg/ (Sodium Chloride) 100 mls @ 200 mls/hr IV.SIG Q24H [facility], [facility] Last Infusion: 12/24/17 06:21 Dose: Infused Albumin Human (Flexbumin 25% Inj) 100 mls @ 60 mls/hr IV.SIG WITH DIALYSIS PRN PRN Reason: hypotension / volume replace Sodium Chloride (Ns Inj) 1,000 mls @ 0 mls/hr OTHER .Q0M PRN PRN Reason: for prime and rinse back Sodium Chloride (Ns Inj) 1,000 mls @ 200 mls/hr OTHER .Q5H PRN PRN Reason: for dialyzer flush PRN Sodium Chloride (Ns Inj) 1,000 mls @ 0 mls/hr IV.CONT .Q0M PRN PRN Reason: hypotension / volume replace Insulin Aspart (Novolog Insulin Correctional Sugar Inj) 0 unit SQ ACHS [facility], [facility]; Protocol Last Admin: 12/24/17 18:15 Dose: 3 unit Insulin Detemir (Levemir Inj) 10 unit SQ BID [facility], [facility] Lactulose (Lactulose Liq) 30 ml PO DAILY PRN PRN Reason: SEVERE CONSITIPATION Losartan Potassium (Cozaar) 100 mg PO DAILY [facility], [facility] Last Admin: 12/24/17 09:11 Dose: 100 mg Mannitol (Mannitol Inj) 12.5 gm IV.PUSH UNSCH PRN PRN Reason: hypotension / volume replace Nifedipine (Procardia Xl) 90 mg PO DAILY [facility] Last Admin: 12/24/17 09:10 Dose: 90 mg Nitroglycerin (Nitrostat Sl) 0.4 mg SL Q5M PRN PRN Reason: CHEST PAIN Ondansetron HCl (Zofran Inj) 4 mg IV.PUSH UNSCH PRN PRN Reason: NAUSEA OR VOMITING Pantoprazole Sodium (Protonix) 40 mg PO DAILY [facility] Last Admin: 12/24/17 09:11 Dose: 40 mg Senna/Docusate Sodium (Elva-Colace) 1 tab PO BID [facility], [facility] Last Admin: 12/24/17 09:11 Dose: Not Given Sennosides (Senokot) 17.2 mg PO Q12H PRN PRN Reason: Moderate Constipation Sodium Chloride (Ns Flush) 2 ml IV.FLUSH PRN PRN PRN Reason: FLUSH AFTER USING IV ACCESS Sodium Chloride (Ns Flush) 5 ml IV.FLUSH PRN PRN PRN Reason: flush each lumen during HD Tamsulosin HCl (Flomax) 0.4 mg PO DAILY [facility] Last Admin: 12/24/17 09:11 Dose: 0.4 mg Exam Vital signs: Vital Signs 12/23/17 19:15 12/23/17 19:59 12/23/17 20:00 Temperature 102.4 F H 98.0 F 101.0 F H Pulse Rate 97 H 75 98 H Respiratory Rate 20 20 18 Blood Pressure 107/58 L 165/67 H 126/66 Pulse Oximetry 96 96 95 12/23/17 20:08 12/23/17 21:18 12/23/17 23:53 Temperature 99.2 F 97.2 F L Pulse Rate 104 H 77 Respiratory Rate 18 Blood Pressure 115/54 L Pulse Oximetry 98 12/24/17 00:00 12/24/17 04:00 12/24/17 04:09 Temperature 98.0 F Pulse Rate 83 73 71 Respiratory Rate 18 Blood Pressure 112/56 L Pulse Oximetry 97 12/24/17 08:00 12/24/17 09:00 12/24/17 12:00 Temperature 97.8 F 97.5 F L Pulse Rate 71 76 69 Respiratory Rate 18 18 Blood Pressure 110/54 L 97/58 L Pulse Oximetry 96 96 12/24/17 12:31 12/24/17 16:52 Temperature 97.4 F L Pulse Rate 70 Respiratory Rate 16 Blood Pressure 99/46 L Pulse Oximetry 96 Intake & Output 12/23/17 12/24/17 12/24/17 18:59 06:59 18:59 Intake Total 999 Output Total 1999 Balance -1999 -1999 Weight 65 kg Intake: IV 100 / 100 Rocephin Inj 1,000 MG In NS Inj 100 / 100 100 ML @ 200 mls/hr IV.SIG Q24H KUNAL Rx#:[id number] Oral 900 / 900 Output: Hemodialysis Amount 1999 Other: # Voids 0 # Bowel Movements 0 Results - Lab Results 12/24/17 10:30 12/24/17 08:13 Most recent lab results Calcium 8.3 mg/dL (8.5-10.1) L 12/24/17 08:13 Magnesium 1.8 mg/dL (1.5-2.5) 12/23/17 01:49 Assessment and Plan - Assessment (1) End-stage renal disease on hemodialysis Code(s): N18.6 - End stage renal disease; Z99.2 - Dependence on renal dialysis Status: Chronic Plan: Patient seen and examine, agree with above. Patient with End stage renal disease, now admitted with possible UTI. Started on IV Antibiotics. HD today, seen during HD. Urology consulted. (2) Hypertension Code(s): I10 - Essential (primary) hypertension Status: Chronic (3) Urinary tract infection Code(s): N39.0 - Urinary tract infection, site not specified Status: Acute (4) Hydronephrosis of left kidney Code(s): N13.30 - Unspecified hydronephrosis Status: Acute <Yaneth Mauricio - Last Filed: 12/23/17 10:01> (3) Urinary tract infection Qualifiers: Urinary tract infection type: acute pyelonephritis Qualified Code(s): N10 - Acute pyelonephritis <Julieta Lee - Last Filed: 12/24/17 18:17> (3) Urinary tract infection Qualifiers: Urinary tract infection type: acute pyelonephritis Qualified Code(s): N10 - Acute pyelonephritis
[2017-12-23] MEDS ORDERED: Acetaminophen/Codeine 300/30 MG Tablet PO PRN (10:22)
[2017-12-23] MEDS: Senna/Docusate Sodium 8.6/50 MG Tablet PO SCH ×2 (10:36→21:15)
[2017-12-23] MEDS: Insulin NovoLOG Aspart Correctional Sugar Inj SQ SCH ×3 (12:46→21:16)
[2017-12-23 13:42] LABS: Hepatitis A IgM Antibody Nonreactive (Nonreactive); Hepatitits B Surface Antigen Nonreactive (Nonreactive)
--- NOTE | 2017-12-23 18:01 | ECG ---
Date Performed: 12/23/2017 Time Performed: 02:34:49 PTAGE: 77 years EKG: Sinus rhythm LEFT VENTRICULAR HYPERTROPHY AND ST-T CHANGE ABNORMAL ECG PREVIOUS TRACING : 10/29/2017 22.32 Since the previous tracing, no significant change noted DOCTOR: Isaiah James Interpretating Date/Time 12/23/2017 18:00:46
[2017-12-23] MEDS: Heparin - SQ 10,000 UNITS/ML Vial SQ SCH (18:18)
[2017-12-24] MEDS: Heparin - SQ 10,000 UNITS/ML Vial SQ SCH ×2 (05:52→18:15)
[2017-12-24] MEDS: Insulin NovoLOG Aspart Correctional Sugar Inj SQ SCH ×4 (09:09→21:22)
[2017-12-24] MEDS: Insulin Detemir Inj 1,000 UNIT/10 ML Vial SQ SCH ×2 (09:09→21:21)
[2017-12-24] MEDS: Senna/Docusate Sodium 8.6/50 MG Tablet PO SCH ×2 (09:11→21:22)
[2017-12-24 09:13] LABS: Alanine Aminotransferase 12 U/L (10-53); Albumin 2.6 g/dL (3.4-5.0); Alkaline Phosphatase 126 U/L (45-117); Anion Gap 11 meq/L (5-15); Aspartate Aminotransferase 11 U/L (15-37); Blood Urea Nitrogen 42 mg/dL (7-18); Calcium 8.3 mg/dL (8.5-10.1); Carbon Dioxide 28.7 meq/L (21.0-32.0); Chloride 97 meq/L (98-107); Glomerular Filtration Rate 5 mL/min (>89); Glucose,Random 287 mg/dL (74-106); Potassium 4.7 meq/L (3.5-5.1); Total Protein 6.3 g/dL (6.4-8.2)
[2017-12-24 09:14] LABS: Sodium 137 meq/L (136-145)
--- NOTE | 2017-12-24 09:50 | P.PNNP ---
Subjective Interval history: Seen in AM. Left lower quadrant discomfort still present but has improved. Hemodialysis yesterday tolerated well. <Yaneth Mauricio - Last Filed: 12/24/17 14:58> Physical Exam Vital signs: Vital Signs 12/23/17 16:00 12/23/17 19:15 12/23/17 19:59 Temperature 102.4 F H 98.0 F Pulse Rate 107 H 97 H 75 Respiratory Rate 20 20 Blood Pressure 107/58 L 165/67 H Pulse Oximetry 96 96 12/23/17 20:00 12/23/17 20:08 12/23/17 21:18 Temperature 101.0 F H 99.2 F Pulse Rate 98 H 104 H Respiratory Rate 18 Blood Pressure 126/66 Pulse Oximetry 95 12/23/17 23:53 12/24/17 00:00 12/24/17 04:00 Temperature 97.2 F L 98.0 F Pulse Rate 77 83 73 Respiratory Rate 18 18 Blood Pressure 115/54 L 112/56 L Pulse Oximetry 98 97 12/24/17 04:09 12/24/17 08:00 Temperature 97.8 F Pulse Rate 71 71 Respiratory Rate 18 Blood Pressure 110/54 L Pulse Oximetry 96 Intake & Output 12/23/17 12/24/17 12/24/17 18:59 06:59 18:59 Intake Total 999 / 1000 Output Total 1999 Balance -1999 / -1999 1000 / 1000 Weight 65 kg Intake: IV 100 / 100 Rocephin Inj 1,000 MG In NS Inj 100 / 100 100 ML @ 200 mls/hr IV.SIG Q24H KUNAL Rx#:[id number] Oral 900 / 900 Output: Hemodialysis Amount 1999 Other: # Voids 0 # Bowel Movements 0 Narrative: GENERAL:Alert and oriented. No obvious signs of distress. SKIN: Warm and dry. Left heel pressure ulcer NECK: Supple, trachea midline. No JVD. CARDIOVASCULAR: Regular rate and rhythm. Murmur. RESPIRATORY: Breath sounds equal bilaterally. No accessory muscle use. GASTROINTESTINAL: Abdomen soft, tenderness on left lower quadrant. MUSCULOSKELETAL: No cyanosis, or edema. - Urinary Catheter Management Straight Cath placed during this visit: yes Reason for continuing: Not indwelling catheter Insertion date: 12/23/17 Insertion time: 04:25 <Yaneth Mauricio - Last Filed: 12/24/17 14:58> Vital signs: Vital Signs 12/24/17 19:30 12/24/17 20:04 12/24/17 21:27 Temperature 97.6 F Pulse Rate 70 74 Respiratory Rate 16 Blood Pressure 110/53 L 122/57 L Pulse Oximetry 12/25/17 00:00 12/25/17 03:16 12/25/17 04:00 Temperature 97.9 F 98.4 F Pulse Rate 72 81 84 Respiratory Rate 20 16 Blood Pressure 133/60 114/64 Pulse Oximetry 94 L 94 L 12/25/17 08:00 12/25/17 08:38 12/25/17 09:57 Temperature 97.1 F L Pulse Rate 81 83 Respiratory Rate 18 Blood Pressure 133/53 L Pulse Oximetry 94 L 95 12/25/17 12:00 12/25/17 16:30 12/25/17 17:43 Temperature 98.1 F 98.3 F Pulse Rate 62 105 H 148 H Respiratory Rate 18 18 Blood Pressure 149/52 H 142/59 H Pulse Oximetry 95 98 Intake & Output 12/24/17 12/25/17 12/25/17 18:59 06:59 18:59 Intake Total 100 / 100 Output Total 1999 Balance 100 / 100 -1999 Weight 76.9 kg Intake: IV 100 / 100 Rocephin Inj 1,000 MG In NS Inj 100 / 100 100 ML @ 200 mls/hr IV.SIG Q24H KUNAL Rx#:[id number] Output: Hemodialysis Amount 1999 Other: # Voids 1 - Urinary Catheter Management Straight Cath placed during this visit: no <Julieta Lee - Last Filed: 12/25/17 17:55> Assessment and Plan - Assessment (1) End-stage renal disease on hemodialysis Code(s): N18.6 - End stage renal disease; Z99.2 - Dependence on renal dialysis Status: Chronic Plan: End stage renal disease on hemodialysis on Saturday, Saturday, and Saturday. Epogen with dialysis. Hemodialysis yesterday tolerated well with removal of 2 liters of fluid. Hemodialysis tomorrow. (2) Hypertension Code(s): I10 - Essential (primary) hypertension Status: Chronic Plan: Clonidine increased yesterday blood pressure on lower side will reduce to home dose. (3) Urinary tract infection Code(s): N39.0 - Urinary tract infection, site not specified Status: Acute Qualifiers: Urinary tract infection type: acute pyelonephritis Qualified Code(s): N10 - Acute pyelonephritis Plan: Urine with GNR. On Rocephin. (4) Hydronephrosis of left kidney Code(s): N13.30 - Unspecified hydronephrosis Status: Acute Plan: CT findings consistent with mild, acute obstructive uropathy of the left kidney , including mild perinephric edema. No perceptible ureteral stone, so the differential includes a radiolucent distal ureteral calculus and a recently passed calculus. No stone is currently seen in the bladder. Seen by urology, no acute procedure needed. <Yaneth Mauricio - Last Filed: 12/24/17 14:58> - Assessment (1) End-stage renal disease on hemodialysis Code(s): N18.6 - End stage renal disease; Z99.2 - Dependence on renal dialysis Status: Chronic Plan: Patient seen and examined, agree with above. Has UTI, Culture pending. Continue antibiotics. HD to continue MWF. (2) Hypertension Code(s): I10 - Essential (primary) hypertension Status: Chronic (3) Urinary tract infection Code(s): N39.0 - Urinary tract infection, site not specified Status: Acute Qualifiers: Urinary tract infection type: acute pyelonephritis Qualified Code(s): N10 - Acute pyelonephritis (4) Hydronephrosis of left kidney Code(s): N13.30 - Unspecified hydronephrosis Status: Acute <Julieta Lee - Last Filed: 12/25/17 17:55>
[2017-12-24 10:42] LABS: Baso # (Auto) 0.1 th/mm3 (0.0-0.2); Baso % (Auto) 0.7 % (0.0-2.0); Eos # (Auto) 0.5 th/mm3 (0.0-0.4); Eos % (Auto) 4.5 % (0.0-4.0); Hematocrit 28.8 % (35.0-46.0); Lymph # (Auto) 0.3 th/mm3 (1.0-4.8); Lymph % (Auto) 2.9 % (9.0-44.0); Mean Corpuscular HGB Conc 32.5 % (32.0-36.0); Mean Corpuscular Hemoglobin 32.2 pg (27.0-34.0); Mean Corpuscular Volume 99.1 fL (80.0-100.0); Mono # (Auto) 0.7 th/mm3 (0.0-0.9); Mono % (Auto) 5.9 % (0.0-8.0); Neut # (Auto) 10.2 th/mm3 (1.8-7.7); Platelet Count 216 th/mm3 (150-450); Red Cell Distribution Width 16.4 % (11.6-17.2); White Blood Count 11.8 th/mm3 (4.0-11.0)
[2017-12-24 10:43] LABS: Hemoglobin 9.3 gm/dL (11.6-15.3)
--- NOTE | 2017-12-24 11:47 | P.PN ---
Subjective Interval history: Patient doing well. Patient is tolerating p.o., voiding/stooling well. Patient reports that the left groin pain has not resolved since admission. Physical Exam Vital signs: Vital Signs 12/23/17 16:00 12/23/17 19:15 12/23/17 19:59 Temperature 102.4 F H 98.0 F Pulse Rate 107 H 97 H 75 Respiratory Rate 20 20 Blood Pressure 107/58 L 165/67 H Pulse Oximetry 96 96 12/23/17 20:00 12/23/17 20:08 12/23/17 21:18 Temperature 101.0 F H 99.2 F Pulse Rate 98 H 104 H Respiratory Rate 18 Blood Pressure 126/66 Pulse Oximetry 95 12/23/17 23:53 12/24/17 00:00 12/24/17 04:00 Temperature 97.2 F L 98.0 F Pulse Rate 77 83 73 Respiratory Rate 18 18 Blood Pressure 115/54 L 112/56 L Pulse Oximetry 98 97 12/24/17 04:09 12/24/17 08:00 Temperature 97.8 F Pulse Rate 71 71 Respiratory Rate 18 Blood Pressure 110/54 L Pulse Oximetry 96 Intake & Output 12/23/17 12/24/17 12/24/17 18:59 06:59 18:59 Intake Total 1000 / 1000 Output Total 1999 Balance -1999 -1999 1000 / 1000 Weight 65 kg Intake: IV 100 / 100 Rocephin Inj 1,000 MG In NS Inj 100 / 100 100 ML @ 200 mls/hr IV.SIG Q24H KUNAL Rx#:[id number] Oral 900 / 900 Output: Hemodialysis Amount 1999 Other: # Voids 0 # Bowel Movements 0 Narrative: GENERAL: Well-nourished female, in no acute distress, lying comfortably in bed SKIN: Warm and dry. HEENT: Normocephalic. No scleral icterus. No injection or drainage. Atraumatic. PERRLA. MOM. NECK: Supple, trachea midline. No JVD or lymphadenopathy. CARDIOVASCULAR: Regular rate and rhythm without murmurs, gallops, or rubs. RESPIRATORY: CTA x2. No accessory muscle use. GASTROINTESTINAL: Abdomen soft, non-tender, nondistended. Negative Garcia's punch bilaterally. Negative rebound MUSCULOSKELETAL: No cyanosis, or edema. Right heel with small pressure wound on lateral aspect, chronic per patient. BACK: Nontender without obvious deformity. No CVA tenderness. NEURO: AAO x3, no focal deficits, motor strength 5/5 x 4, speech clear. - Urinary Catheter Management Straight Cath placed during this visit: yes Reason for continuing: Not indwelling catheter Insertion date: 12/23/17 Insertion time: 04:25 Results - Labs CBC & Chem 7: 12/24/17 10:30 12/24/17 08:13 Laboratory Results - last 24 hr 12/23/17 12/23/17 12/23/17 04:16 11:59 12:12 WBC RBC Hgb Hct MCV MCH MCHC RDW Plt Count MPV Neut % (Auto) Lymph % (Auto) [place] % (Auto) Eos % (Auto) Baso % (Auto) Neut # (Auto) Lymph # (Auto) [place] # (Auto) Eos # (Auto) Baso # (Auto) WBC Differential Differential Comment Sodium Potassium Chloride Carbon Dioxide Anion Gap BUN Creatinine Estimated GFR POC Glucose 237 H Random Glucose Calcium Total Bilirubin AST ALT Alkaline Phosphatase Total Protein Albumin Urine Color Yellow Urine Clarity Turbid H Urine pH 6.0 Ur Specific [place] 1.038 H Urine Protein 100 H Urine Glucose (UA) Negative Urine Ketones Negative Urine Occult Blood Moderate H Urine Nitrate Negative Urine Bilirubin Negative Urine Urobilinogen Less than 2 Ur Leukocyte Esterase Trace H Urine RBC Urine WBC Urine WBC Clumps Many H Micro UA Comment Cath-culture ind Urine Culture Comments Cath-cult indicated Hepatitis A IgM Ab Nonreactive Hep Bs Antigen Nonreactive Hep B Core IgM Ab Nonreactive Hep C IgG Ab Nonreactive 12/23/17 12/23/17 12/24/17 17:59 20:23 07:25 WBC RBC Hgb Hct MCV MCH MCHC RDW Plt Count MPV Neut % (Auto) Lymph % (Auto) [place] % (Auto) Eos % (Auto) Baso % (Auto) Neut # (Auto) Lymph # (Auto) [place] # (Auto) Eos # (Auto) Baso # (Auto) WBC Differential Differential Comment Sodium Potassium Chloride Carbon Dioxide Anion Gap BUN Creatinine Estimated GFR POC Glucose 195 H 260 H 315 H Random Glucose Calcium Total Bilirubin AST ALT Alkaline Phosphatase Total Protein Albumin Urine Color Urine Clarity Urine pH Ur Specific [place] Urine Protein Urine Glucose (UA) Urine Ketones Urine Occult Blood Urine Nitrate Urine Bilirubin Urine Urobilinogen Ur Leukocyte Esterase Urine RBC Urine WBC Urine WBC Clumps Micro UA Comment Urine Culture Comments Hepatitis A IgM Ab Hep Bs Antigen Hep B Core IgM Ab Hep C IgG Ab 12/24/17 12/24/17 08:13 10:30 WBC 11.8 H RBC 2.90 L Hgb 9.3 L D Hct 28.8 L MCV 99.1 MCH 32.2 MCHC 32.5 RDW 16.4 Plt Count 216 D MPV 8.0 Neut % (Auto) 86.0 H Lymph % (Auto) 2.9 L [place] % (Auto) 5.9 Eos % (Auto) 4.5 H Baso % (Auto) 0.7 Neut # (Auto) 10.2 H Lymph # (Auto) 0.3 L [place] # (Auto) 0.7 Eos # (Auto) 0.5 H Baso # (Auto) 0.1 WBC Differential . Differential Comment Auto diff final Sodium 137 Potassium 4.7 Chloride 97 L Carbon Dioxide 28.7 Anion Gap 11 BUN 42 H Creatinine 7.65 H Estimated GFR 5 L POC Glucose Random Glucose 287 H Calcium 8.3 L Total Bilirubin 0.3 AST 11 L ALT 12 Alkaline Phosphatase 126 H Total Protein 6.3 L D Albumin 2.6 L D Urine Color Urine Clarity Urine pH Ur Specific [place] Urine Protein Urine Glucose (UA) Urine Ketones Urine Occult Blood Urine Nitrate Urine Bilirubin Urine Urobilinogen Ur Leukocyte Esterase Urine RBC Urine WBC Urine WBC Clumps Micro UA Comment Urine Culture Comments Hepatitis A IgM Ab Hep Bs Antigen Hep B Core IgM Ab Hep C IgG Ab Microbiology 12/23/17 04:16 Catheterized Urine Urine Culture - Preliminary gram negative rods 12/23/17 05:10 Blood - Peripheral Aerobic Blood Culture - Preliminary No growth in 1 day 12/23/17 05:10 Blood - Peripheral Anaerobic Blood Culture - Preliminary No growth in 1 day 12/23/17 05:16 Blood - Peripheral Aerobic Blood Culture - Preliminary No growth in 1 day 12/23/17 05:16 Blood - Peripheral Anaerobic Blood Culture - Preliminary No growth in 1 day Assessment and Plan - Assessment (1) Obstructive uropathy Code(s): N13.9 - Obstructive and reflux uropathy, unspecified Status: Acute (2) Diabetes Code(s): E11.9 - Type 2 diabetes mellitus without complications Status: Chronic (3) Hydronephrosis of left kidney Code(s): N13.30 - Unspecified hydronephrosis Status: Acute (4) Urinary tract infection Code(s): N39.0 - Urinary tract infection, site not specified Status: Acute (5) End-stage renal disease on hemodialysis Code(s): N18.6 - End stage renal disease; Z99.2 - Dependence on renal dialysis Status: Chronic (6) Hypertension Code(s): I10 - Essential (primary) hypertension Status: Chronic - Plan 77-year-old CF with PMHx of IDDM, HTN, and ESRD on HD admitted with UTI and acute obstructive uropathy of the left kidney per CT ABD, HD#2 1. Obstructive uropathy/Hx of kidney stones CT ABD revealed acute obstructive uropathy of the left kidney, including mild perinephric edema. Bilateral nonobstructing renal stones as described. Cortical thinning and atrophy of both kidneys and bilateral cysts are again seen. Consulted Nephrology and Urology for assistance with care Cont. Flomax Avoid IVF's due to ESRD Nephro Recs 12/14: CT findings consistent with mild, acute obstructive uropathy of the left kidney, including mild perinephric edema. No perceptible ureteral stone, so the differential includes a radiolucent distal ureteral calculus and a recently passed calculus. No stone is currently seen in the bladder. May need urology consult. Flomax added. 2. UTI Urine Cx on 12/23, gram-negative rods, pending sensitivities Continue Rocephin started on 12/24, transition to PO ABX once sensitivities resulted 3. End-stage renal disease on HD Cr 7.65 today from 10.13 Nephrology consulted, appreciate assistance with mgmt Continue hemodialysis as scheduled 4. Insulin-dependent Diabetes Mellitus BS elevated Cont. Accuchek and SSI Increase Levemir to 10U BID 5. Hypertension/CAD s/p LEDY BP stable Cont. Cozaar, Nifedipine, and Plavix, and Clonidine PRN 6. GERD Cont. PPI 7. Leukocytosis, improved WBC 11.8 from 18.5 on admission Likely due to UTI Will continue to monitor 8. Constipation,improved Dx per CT ABD Cont. Lactulose and other laxatives PRN 9. Right Heel with pressure ulcer Per patient this is chronic prior to admission Patient was seen wound care as an outpatient Will obtain wound care consult 10. DVT PPX: Heparin 11. Dispo: Await Urology recommendations Code Status: full Discussed Condition With: patient, RN (4) Urinary tract infection Qualifiers: Urinary tract infection type: acute pyelonephritis Qualified Code(s): N10 - Acute pyelonephritis
--- NOTE | 2017-12-24 14:47 | P.CONURO ---
History of Present Illness Service: Urology Consult date: 12/24/17 Requesting Physician: Rico Galvez Reason for Consult: mild left hydro Primary Care Provider: No Primary Care Physician Chief Complaint: Left flank pain History of Present Illness: 77-year-old female with a medical history significant for hypertension, diabetes , end-stage renal disease on hemodialysis, history of kidney stone who presented to the hospital for complaint of left flank pain. The pain radiates to the left groin area. She reports the pain started yesterday morning, described as sharp and worse with deep breathing. She reports she normally produce a couple drops of urine daily and did not notice any change. She reports brief episodes of hematuria couple days ago. She has been constipated for the past couple of days. No blood in her stool. She denies any fevers or chills.The patient reports she is feeling much better since she arrived at the hospital. CT of the abdomen revealed acute, mild obstructive uropathy of the left kidney. She is also constipated. Urology consulted Today when pt was seen she denies any pain, no hematuria, no dysuria. Her labs are stable and improving. no f/c/n/v. UC is + Gm-rods She is on IV fluids and antbx Review of Systems All other systems reviewed negative except as stated in HPI PMFSH - History History Provided By: Patient - Medical History Medical History: Medical History (Last Updated 12/23/17 @ 17:17 by Rico Galvez MD) Diabetes CAD in [place] artery ESRD (end stage renal disease) on dialysis [place] Metabolic encephalopathy Nonrheumatic aortic (valve) stenosis Paroxysmal atrial fibrillation Pressure ulcer of right heel UTI (urinary tract infection) - Family History Family History: Family History (Last Updated 12/23/17 @ 17:17 by Rico Galvez MD) Other Family history non-contributory - Tobacco History Second Hand Smoke Exposure: No Smoking Status: Former smoker - Alcohol History How Often Do You Have a Drink Containing Alcohol: Never - Substance Use History Substance History: No History of Abuse - Travel History Recent Travel in the [facility] Within the Last 8 Weeks: No Recent Travel Out of the Country Within the Last 8 Weeks: No - Immunization History Tetanus Immunization: Unsure Hx Influenza Vaccine This Season: Yes Medications and Allergies Active Medications: Active Medications Acetaminophen/Codeine Phosphate (Tylenol W/Cod #3) 1 tab PO Q6H PRN PRN Reason: PAIN SCALE 6 TO 10 Al Hydroxide/Mg Hydroxide (Milk Of Magnflorian Liq) 30 ml PO Q12H PRN PRN Reason: Mild Constipation Bisacodyl (Dulcolax Supp) 10 mg RECTAL DAILY PRN PRN Reason: SEVERE CONSITIPATION Clonidine HCl (Catapres) 0.1 mg PO UNSCH PRN PRN Reason: SEE LABEL COMMENTS Clonidine HCl (Catapres) 0.3 mg PO Q12HR [facility] Last Admin: 12/24/17 09:11 Dose: 0.3 mg Clopidogrel Bisulfate (Plavix) 75 mg PO DAILY [facility] Last Admin: 12/24/17 09:11 Dose: 75 mg Dextrose (D50w Vial) 50 ml IV.PUSH UNSCH PRN PRN Reason: PER HYPOGLYCEMIA PROTOCOL Diphenhydramine HCl (Benadryl) 25 mg PO UNSCH PRN PRN Reason: SEE LABEL COMMENTS Epoetin [place] (Epogen Inj) 4,000 unit IV.PUSH UNSCH PRN PRN Reason: SEE LABEL COMMENTS Gelatin (Gelfoam 12 Mm/7 Mm Topical) 1 foam TOPICAL PRN PRN PRN Reason: help stop bleeding from site Gentamicin Sulfate (Gentamicin Inj) 20 mg OTHER WITH DIALYSIS PRN PRN Reason: Dwell Gentamycin Lock Glucagon (Glucagon Inj) 1 mg OTHER PRN PRN PRN Reason: for Hypoglycemia Protocol Heparin Sodium (Porcine) (Heparin Inj) 8,000 units OTHER WITH DIALYSIS PRN PRN Reason: for machine prime Heparin Sodium (Porcine) (Heparin Inj) 1,000 units OTHER WITH DIALYSIS PRN PRN Reason: Dwell Heparin to Fill Catheter Heparin Sodium (Porcine) (Heparin Inj) 5,000 units SQ Q12H [facility] Last Admin: 12/24/17 05:52 Dose: 5,000 units Hydralazine HCl (Apresoline) 100 mg PO TID [facility] Last Admin: 12/24/17 13:00 Dose: 100 mg Ceftriaxone Sodium 1,000 mg/ (Sodium Chloride) 100 mls @ 200 mls/hr IV.SIG Q24H [facility] Last Infusion: 12/24/17 06:21 Dose: Infused Albumin Human (Flexbumin 25% Inj) 100 mls @ 60 mls/hr IV.SIG WITH DIALYSIS PRN PRN Reason: hypotension / volume replace Sodium Chloride (Ns Inj) 1,000 mls @ 0 mls/hr OTHER .Q0M PRN PRN Reason: for prime and rinse back Sodium Chloride (Ns Inj) 1,000 mls @ 200 mls/hr OTHER .Q5H PRN PRN Reason: for dialyzer flush PRN Sodium Chloride (Ns Inj) 1,000 mls @ 0 mls/hr IV.CONT .Q0M PRN PRN Reason: hypotension / volume replace Insulin Aspart (Novolog Insulin Correctional Sugar Inj) 0 unit SQ ACHS [facility]; Protocol Last Admin: 12/24/17 12:59 Dose: 3 unit Insulin Detemir (Levemir Inj) 10 unit SQ BID [facility] Lactulose (Lactulose Liq) 30 ml PO DAILY PRN PRN Reason: SEVERE CONSITIPATION Losartan Potassium (Cozaar) 100 mg PO DAILY [facility] Last Admin: 12/24/17 09:11 Dose: 100 mg Mannitol (Mannitol Inj) 12.5 gm IV.PUSH UNSCH PRN PRN Reason: hypotension / volume replace Nifedipine (Procardia Xl) 90 mg PO DAILY [facility] Last Admin: 12/24/17 09:10 Dose: 90 mg Nitroglycerin (Nitrostat Sl) 0.4 mg SL Q5M PRN PRN Reason: CHEST PAIN Ondansetron HCl (Zofran Inj) 4 mg IV.PUSH UNSCH PRN PRN Reason: NAUSEA OR VOMITING Pantoprazole Sodium (Protonix) 40 mg PO DAILY [facility] Last Admin: 12/24/17 09:11 Dose: 40 mg Senna/Docusate Sodium (Elva-Colace) 1 tab PO BID [facility] Last Admin: 12/24/17 09:11 Dose: Not Given Sennosides (Senokot) 17.2 mg PO Q12H PRN PRN Reason: Moderate Constipation Sodium Chloride (Ns Flush) 2 ml IV.FLUSH PRN PRN PRN Reason: FLUSH AFTER USING IV ACCESS Sodium Chloride (Ns Flush) 5 ml IV.FLUSH PRN PRN PRN Reason: flush each lumen during HD Tamsulosin HCl (Flomax) 0.4 mg PO DAILY [facility] Last Admin: 12/24/17 09:11 Dose: 0.4 mg Allergies Allergy/AdvReac Type Severity Reaction Status Date / Time ciprofloxacin Allergy Severe Rash Verified 06/19/17 10:30 ranitidine Allergy Severe Rash Verified 06/19/17 10:30 Sulfa (Sulfonamide Allergy Severe Rash Verified 06/19/17 10:30 Antibiotics) furosemide Allergy Mild Rash Verified 06/19/17 10:30 Home Medications Medication Instructions Recorded Confirmed Type bumetanide 2 mg PO DAILY 10/29/17 12/23/17 History clonidine HCl 0.2 mg PO TID 10/29/17 12/23/17 History clopidogrel 75 mg PO DAILY 10/29/17 12/23/17 History hydralazine 100 mg PO TID 10/29/17 12/23/17 History insulin detemir U-100 [Levemir 10 unit SUB-Q DAILY 10/29/17 12/23/17 History FlexTouch U-100 Insuln] insulin lispro [Humalog U-100 1 sliding scale dose SUB-Q UD 10/29/17 12/23/17 History Insulin] ipratropium-albuterol 1 dose INHALATION Q6HR 10/29/17 12/23/17 History losartan 100 mg PO DAILY 10/29/17 12/23/17 History nifedipine 90 mg PO DAILY 10/29/17 12/23/17 History pantoprazole 40 mg PO DAILY 10/29/17 12/23/17 History Physical Exam Vital Signs - 24 hr 12/23/17 16:00 12/23/17 19:15 12/23/17 19:59 Temperature 102.4 F H 98.0 F Pulse Rate 107 H 97 H 75 Respiratory Rate 20 20 Blood Pressure 107/58 L 165/67 H Pulse Oximetry 96 96 12/23/17 20:00 12/23/17 20:08 12/23/17 21:18 Temperature 101.0 F H 99.2 F Pulse Rate 98 H 104 H Respiratory Rate 18 Blood Pressure 126/66 Pulse Oximetry 95 12/23/17 23:53 12/24/17 00:00 12/24/17 04:00 Temperature 97.2 F L 98.0 F Pulse Rate 77 83 73 Respiratory Rate 18 18 Blood Pressure 115/54 L 112/56 L Pulse Oximetry 98 97 12/24/17 04:09 12/24/17 08:00 12/24/17 12:00 Temperature 97.8 F 97.5 F L Pulse Rate 71 71 69 Respiratory Rate 18 18 Blood Pressure 110/54 L 97/58 L Pulse Oximetry 96 96 12/24/17 12:31 Temperature Pulse Rate Respiratory Rate Blood Pressure Pulse Oximetry 96 Physical Exam: GENERAL: This is a well-nourished, well-developed patient, in no apparent distress. SKIN: No rashes, ecchymoses or lesions. HEAD: Atraumatic. Normocephalic. CARDIOVASCULAR: Regular rate and rhythm without murmurs, gallops, or rubs. RESPIRATORY: Clear to auscultation. Breath sounds equal bilaterally. No wheezes , rales, or rhonchi. GASTROINTESTINAL: Abdomen soft, non-tender, nondistended. GENITOURINARY: No CVAT MUSCULOSKELETAL: Extremities without clubbing, cyanosis, or edema. NEUROLOGICAL: Awake and alert. Laboratory Results - last 24 hr 12/23/17 12/23/17 12/23/17 04:16 17:59 20:23 WBC RBC Hgb Hct MCV MCH MCHC RDW Plt Count MPV Neut % (Auto) Lymph % (Auto) [place] % (Auto) Eos % (Auto) Baso % (Auto) Neut # (Auto) Lymph # (Auto) [place] # (Auto) Eos # (Auto) Baso # (Auto) WBC Differential Differential Comment Sodium Potassium Chloride Carbon Dioxide Anion Gap BUN Creatinine Estimated GFR POC Glucose 195 H 260 H Random Glucose Calcium Total Bilirubin AST ALT Alkaline Phosphatase Total Protein Albumin Urine Color Yellow Urine Clarity Turbid H Urine pH 6.0 Ur Specific [place] 1.038 H Urine Protein 100 H Urine Glucose (UA) Negative Urine Ketones Negative Urine Occult Blood Moderate H Urine Nitrate Negative Urine Bilirubin Negative Urine Urobilinogen Less than 2 Ur Leukocyte Esterase Trace H Urine RBC Urine WBC Urine WBC Clumps Many H Micro UA Comment Cath-culture ind Urine Culture Comments Cath-cult indicated 12/24/17 12/24/17 12/24/17 07:25 08:13 10:30 WBC 11.8 H RBC 2.90 L Hgb 9.3 L D Hct 28.8 L MCV 99.1 MCH 32.2 MCHC 32.5 RDW 16.4 Plt Count 216 D MPV 8.0 Neut % (Auto) 86.0 H Lymph % (Auto) 2.9 L [place] % (Auto) 5.9 Eos % (Auto) 4.5 H Baso % (Auto) 0.7 Neut # (Auto) 10.2 H Lymph # (Auto) 0.3 L [place] # (Auto) 0.7 Eos # (Auto) 0.5 H Baso # (Auto) 0.1 WBC Differential . Differential Comment Auto diff final Sodium 137 Potassium 4.7 Chloride 97 L Carbon Dioxide 28.7 Anion Gap 11 BUN 42 H Creatinine 7.65 H Estimated GFR 5 L POC Glucose 315 H Random Glucose 287 H Calcium 8.3 L Total Bilirubin 0.3 AST 11 L ALT 12 Alkaline Phosphatase 126 H Total Protein 6.3 L D Albumin 2.6 L D Urine Color Urine Clarity Urine pH Ur Specific [place] Urine Protein Urine Glucose (UA) Urine Ketones Urine Occult Blood Urine Nitrate Urine Bilirubin Urine Urobilinogen Ur Leukocyte Esterase Urine RBC Urine WBC Urine WBC Clumps Micro UA Comment Urine Culture Comments Microbiology 12/23/17 04:16 Urine Culture - Preliminary Catheterized Urine gram negative rods 12/23/17 05:10 Aerobic Blood Culture - Preliminary Blood - Peripheral No growth in 1 day Anaerobic Blood Culture - Preliminary No growth in 1 day 12/23/17 05:16 Aerobic Blood Culture - Preliminary Blood - Peripheral No growth in 1 day Anaerobic Blood Culture - Preliminary No growth in 1 day Result Diagrams: 12/24/17 10:30 12/24/17 08:13 Imaging: ITS Impressions Chest X-Ray 12/23/17 01:25 CONCLUSION: Mild bibasilar atelectasis. Abdomen/Pelvis CT 12/23/17 02:30 CONCLUSION: 1. CT findings consistent with mild, acute obstructive uropathy of the left kidney, including mild perinephric edema. No perceptible ureteral stone, so the differential includes a radiolucent distal ureteral calculus and a recently passed calculus. No stone is currently seen in the bladder. 2. Bilateral nonobstructing renal stones as described. Cortical thinning and atrophy of both kidneys and bilateral cysts are again seen. 3. Considerable stool throughout the colon without obstruction or inflammatory changes. There is a lower abdominal ventral hernia containing fat and small bowel loops, chronic and also without acute obstruction or inflammatory changes. Assessment and Plan - Plan 77y.o F with history as per HPI Urology consulted for mild left hydro. no ureteral stones visualized - No acute intervention needed - Continue care as per [primary team - Treat infection according to C&S - Her mild hydro is not concerning, possibility of passing a small stone vs duplicated collecting system is not excluded. Also it can be related to her current infection and constipation Pt can follow up with urology as needed after d/c Discussed Condition With: Dr Yocasta CRYSTAL attending who agrees with this plan
[2017-12-25] MEDS: Heparin - SQ 10,000 UNITS/ML Vial SQ SCH ×2 (05:48→18:15)
[2017-12-25] MEDS: Insulin NovoLOG Aspart Correctional Sugar Inj SQ SCH ×4 (08:13→21:18)
[2017-12-25] MEDS: Insulin Detemir Inj 1,000 UNIT/10 ML Vial SQ SCH ×2 (08:14→21:18)
[2017-12-25 10:23] LABS: Baso % (Auto) 0.3 % (0.0-2.0); Eos # (Auto) 0.5 th/mm3 (0.0-0.4); Eos % (Auto) 5.3 % (0.0-4.0); Hematocrit 29.3 % (35.0-46.0); Hemoglobin 9.7 gm/dL (11.6-15.3); Lymph # (Auto) 0.5 th/mm3 (1.0-4.8); Lymph % (Auto) 5.3 % (9.0-44.0); Mean Corpuscular Hemoglobin 32.5 pg (27.0-34.0); Mean Corpuscular Volume 98.7 fL (80.0-100.0); Mean Platelet Volume 8.8 fL (7.0-11.0); Mono # (Auto) 0.6 th/mm3 (0.0-0.9); Mono % (Auto) 7.6 % (0.0-8.0); Neut # (Auto) 6.9 th/mm3 (1.8-7.7); Neut % (Auto) 81.5 % (16.0-70.0); Platelet Count 229 th/mm3 (150-450); Red Blood Count 2.97 mil/mm3 (4.00-5.30); Red Cell Distribution Width 16.5 % (11.6-17.2); White Blood Count 8.5 th/mm3 (4.0-11.0)
--- NOTE | 2017-12-25 10:34 | P.PNNP ---
Subjective Interval history: Seen in AM. Denies any shortness of breath, nausea or vomiting. Right lower quadrant pain has resolved. <Yaneth Mauricio - Last Filed: 12/25/17 16:29> Physical Exam Vital signs: Vital Signs 12/24/17 12:00 12/24/17 12:31 12/24/17 16:00 Temperature 97.5 F L Pulse Rate 69 67 Respiratory Rate 18 Blood Pressure 97/58 L Pulse Oximetry 96 96 12/24/17 16:52 12/24/17 19:30 12/24/17 20:04 Temperature 97.4 F L 97.6 F Pulse Rate 70 70 74 Respiratory Rate 16 16 Blood Pressure 99/46 L 110/53 L Pulse Oximetry 12/24/17 21:27 12/25/17 00:00 12/25/17 03:16 Temperature 97.9 F 98.4 F Pulse Rate 72 81 Respiratory Rate 20 16 Blood Pressure 122/57 L 133/60 114/64 Pulse Oximetry 94 L 94 L 12/25/17 04:00 12/25/17 08:00 12/25/17 08:38 Temperature 97.1 F L Pulse Rate 84 81 83 Respiratory Rate 18 Blood Pressure 133/53 L Pulse Oximetry 94 L 12/25/17 09:57 Temperature Pulse Rate Respiratory Rate Blood Pressure Pulse Oximetry 95 Intake & Output 12/24/17 12/25/17 12/25/17 18:59 06:59 18:59 Intake Total 100 / 100 Balance 100 / 100 Weight 76.9 kg Intake: IV 100 / 100 Rocephin Inj 1,000 MG In NS Inj 100 / 100 100 ML @ 200 mls/hr IV.SIG Q24H [facility] Rx#:[id number] Other: # Voids 1 Narrative: GENERAL:Alert and oriented. No obvious signs of distress. SKIN: Warm and dry. Left heel pressure ulcer NECK: Supple, trachea midline. No JVD. CARDIOVASCULAR: Regular rate and rhythm. Murmur. RESPIRATORY: Breath sounds equal bilaterally. No accessory muscle use. GASTROINTESTINAL: Abdomen soft, + BS, no tenderness MUSCULOSKELETAL: No cyanosis, or edema. - Urinary Catheter Management Straight Cath placed during this visit: yes Reason for continuing: Not indwelling catheter Insertion date: 12/23/17 Insertion time: 04:25 <Yaneth Mauricio - Last Filed: 12/25/17 16:29> Vital signs: Vital Signs 12/25/17 16:00 12/25/17 16:30 12/25/17 17:43 Temperature 98.3 F Pulse Rate 103 H 105 H 148 H Respiratory Rate 18 Blood Pressure 142/59 H Pulse Oximetry 98 12/25/17 20:00 12/25/17 23:00 12/26/17 00:00 Temperature 98.3 F 97.7 F Pulse Rate 94 H 87 80 Respiratory Rate 18 18 Blood Pressure 140/67 134/68 Pulse Oximetry 96 95 12/26/17 04:00 12/26/17 08:00 12/26/17 11:08 Temperature 98 F 97.7 F Pulse Rate 76 83 Respiratory Rate 18 16 Blood Pressure 132/77 155/91 H Pulse Oximetry 95 98 98 Intake & Output 12/25/17 12/26/17 12/26/17 18:59 06:59 18:59 Intake Total 440 / 440 210 / 210 Output Total 1999 Balance -1560 / -1560 210 / 210 Weight 76.9 kg Intake: Oral 440 / 440 210 / 210 Output: Hemodialysis Amount 1999 Other: # Voids 1 1 Date of Last Bowel Movement 12/25/17 # Bowel Movements 0 1 - Urinary Catheter Management Straight Cath placed during this visit: no <Vijaya Lee Q - Last Filed: 12/26/17 12:24> Assessment and Plan - Assessment (1) End-stage renal disease on hemodialysis Code(s): N18.6 - End stage renal disease; Z99.2 - Dependence on renal dialysis Status: Chronic Plan: End stage renal disease on hemodialysis on Saturday, Saturday, and Saturday. Epogen with dialysis. Hemodialysis planned for today will remove fluid as tolerated. (2) Hypertension Code(s): I10 - Essential (primary) hypertension Status: Chronic Plan: Well controlled will monitor (3) Urinary tract infection Code(s): N39.0 - Urinary tract infection, site not specified Status: Acute Qualifiers: Urinary tract infection type: acute pyelonephritis Qualified Code(s): N10 - Acute pyelonephritis Plan: Urine with GNR. On Keflex, dose should be taken after HD (4) Hydronephrosis of left kidney Code(s): N13.30 - Unspecified hydronephrosis Status: Acute Plan: CT findings consistent with mild, acute obstructive uropathy of the left kidney , including mild perinephric edema. No perceptible ureteral stone, so the differential includes a radiolucent distal ureteral calculus and a recently passed calculus. No stone is currently seen in the bladder. Seen by urology, no acute procedure needed. <Yaneth Mauricio - Last Filed: 12/25/17 16:29> - Assessment (1) End-stage renal disease on hemodialysis Code(s): N18.6 - End stage renal disease; Z99.2 - Dependence on renal dialysis Status: Chronic Plan: Patient seen and examined, agree with above. End stage renal disease, on HD, MWF. HD done today, Has UTI, with E.Coli . Now on PO Keflex. For discharge home. (2) Hypertension Code(s): I10 - Essential (primary) hypertension Status: Chronic (3) Urinary tract infection Code(s): N39.0 - Urinary tract infection, site not specified Status: Acute Qualifiers: Urinary tract infection type: acute pyelonephritis Qualified Code(s): N10 - Acute pyelonephritis (4) Hydronephrosis of left kidney Code(s): N13.30 - Unspecified hydronephrosis Status: Acute <Julieta Lee - Last Filed: 12/26/17 12:24>
[2017-12-25 10:55] LABS: Alanine Aminotransferase 13 U/L (10-53); Albumin 2.6 g/dL (3.4-5.0); Alkaline Phosphatase 138 U/L (45-117); Anion Gap 15 meq/L (5-15); Aspartate Aminotransferase 15 U/L (15-37); Blood Urea Nitrogen 58 mg/dL (7-18); Calcium 8.2 mg/dL (8.5-10.1); Carbon Dioxide 26.2 meq/L (21.0-32.0); Chloride 96 meq/L (98-107); Glomerular Filtration Rate 4 mL/min (>89); Glucose,Random 176 mg/dL (74-106); Potassium 4.6 meq/L (3.5-5.1); Sodium 137 meq/L (136-145); Total Protein 6.3 g/dL (6.4-8.2)
--- NOTE | 2017-12-25 13:15 | P.PN ---
Subjective Interval history: Patient doing well. Patient reports that her left groin pain is no longer present. Patient is tolerating p.o., voiding/stooling well. No concerns. Physical Exam Vital signs: Vital Signs 12/24/17 16:00 12/24/17 16:52 12/24/17 19:30 Temperature 97.4 F L 97.6 F Pulse Rate 67 70 70 Respiratory Rate 16 16 Blood Pressure 99/46 L 110/53 L Pulse Oximetry 12/24/17 20:04 12/24/17 21:27 12/25/17 00:00 Temperature 97.9 F Pulse Rate 74 72 Respiratory Rate 20 Blood Pressure 122/57 L 133/60 Pulse Oximetry 94 L 12/25/17 03:16 12/25/17 04:00 12/25/17 08:00 Temperature 98.4 F 97.1 F L Pulse Rate 81 84 81 Respiratory Rate 16 18 Blood Pressure 114/64 133/53 L Pulse Oximetry 94 L 94 L 12/25/17 08:38 12/25/17 09:57 Temperature Pulse Rate 83 Respiratory Rate Blood Pressure Pulse Oximetry 95 Intake & Output 12/24/17 12/25/17 12/25/17 18:59 06:59 18:59 Intake Total 100 / 100 Balance 100 / 100 Weight 76.9 kg Intake: IV 100 / 100 Rocephin Inj 1,000 MG In NS Inj 100 / 100 100 ML @ 200 mls/hr IV.SIG Q24H [facility] Rx#:[id number] Other: # Voids 1 Narrative: GENERAL: Well-nourished female, in no acute distress, lying comfortably in bed SKIN: Warm and dry. HEENT: Normocephalic. No scleral icterus. No injection or drainage. Atraumatic. PERRLA. MOM. NECK: Supple, trachea midline. No JVD or lymphadenopathy. CARDIOVASCULAR: Regular rate and rhythm without murmurs, gallops, or rubs. RESPIRATORY: CTA x2. No accessory muscle use. GASTROINTESTINAL: Abdomen soft, non-tender, nondistended. Negative Garcia's punch bilaterally. Negative rebound MUSCULOSKELETAL: No cyanosis, or edema. Right heel with small pressure wound on lateral aspect, chronic per patient. BACK: Nontender without obvious deformity. No CVA tenderness. NEURO: AAO x3, no focal deficits, motor strength 5/5 x 4, speech clear. - Urinary Catheter Management Straight Cath placed during this visit: yes Reason for continuing: Not indwelling catheter Insertion date: 12/23/17 Insertion time: 04:25 Results - Labs CBC & Chem 7: 12/25/17 07:35 12/25/17 07:35 Laboratory Results - last 24 hr 12/24/17 12/24/17 12/25/17 17:16 19:51 07:35 WBC 8.5 RBC 2.97 L Hgb 9.7 L Hct 29.3 L MCV 98.7 MCH 32.5 MCHC 33.0 RDW 16.5 Plt Count 229 MPV 8.8 Neut % (Auto) 81.5 H Lymph % (Auto) 5.3 L Nicholas % (Auto) 7.6 Eos % (Auto) 5.3 H Baso % (Auto) 0.3 Neut # (Auto) 6.9 Lymph # (Auto) 0.5 L Nicholas # (Auto) 0.6 Eos # (Auto) 0.5 H Baso # (Auto) 0.0 WBC Differential . Differential Comment Auto diff final Sodium Potassium Chloride Carbon Dioxide Anion Gap BUN Creatinine Estimated GFR POC Glucose 217 H 179 H Random Glucose Calcium Total Bilirubin AST ALT Alkaline Phosphatase Total Protein Albumin 12/25/17 12/25/17 12/25/17 07:35 07:42 11:57 WBC RBC Hgb Hct MCV MCH MCHC RDW Plt Count MPV Neut % (Auto) Lymph % (Auto) Nicholas % (Auto) Eos % (Auto) Baso % (Auto) Neut # (Auto) Lymph # (Auto) Nicholas # (Auto) Eos # (Auto) Baso # (Auto) WBC Differential Differential Comment Sodium 137 Potassium 4.6 Chloride 96 L Carbon Dioxide 26.2 Anion Gap 15 BUN 58 H Creatinine 9.10 H Estimated GFR 4 L POC Glucose 203 H 232 H Random Glucose 176 H D Calcium 8.2 L Total Bilirubin 0.3 AST 15 ALT 13 Alkaline Phosphatase 138 H Total Protein 6.3 L Albumin 2.6 L Microbiology 12/23/17 05:10 Blood - Peripheral Aerobic Blood Culture - Preliminary No growth in 2 days 12/23/17 05:10 Blood - Peripheral Anaerobic Blood Culture - Preliminary No growth in 2 days 12/23/17 05:16 Blood - Peripheral Aerobic Blood Culture - Preliminary No growth in 2 days 12/23/17 05:16 Blood - Peripheral Anaerobic Blood Culture - Preliminary No growth in 2 days 12/23/17 04:16 Catheterized Urine Urine Culture - Final Escherichia coli Assessment and Plan - Assessment (1) Obstructive uropathy Code(s): N13.9 - Obstructive and reflux uropathy, unspecified Status: Acute (2) Diabetes Code(s): E11.9 - Type 2 diabetes mellitus without complications Status: Chronic (3) Hydronephrosis of left kidney Code(s): N13.30 - Unspecified hydronephrosis Status: Acute (4) Urinary tract infection Code(s): N39.0 - Urinary tract infection, site not specified Status: Acute (5) End-stage renal disease on hemodialysis Code(s): N18.6 - End stage renal disease; Z99.2 - Dependence on renal dialysis Status: Chronic (6) Hypertension Code(s): I10 - Essential (primary) hypertension Status: Chronic - Plan 77-year-old CF with PMHx of IDDM, HTN, and ESRD on HD admitted with UTI and acute obstructive uropathy of the left kidney per CT ABD, HD#3 1. Obstructive uropathy/Hx of kidney stones CT ABD revealed acute obstructive uropathy of the left kidney, including mild perinephric edema. Bilateral nonobstructing renal stones as described. Cortical thinning and atrophy of both kidneys and bilateral cysts are again seen. Consulted Nephrology and Urology for assistance with care Per urology no surgical intervention needed, per Uro likely a small stone vs duplicated collecting system vs. related to UTI/constipation Cont. Flomax Avoid IVF's due to ESRD Pending nephrology recommendations for discharge Nephro Recs 12/25: Patient with End stage renal disease, now admitted with possible UTI. Started on IV Antibiotics. HD today, seen during HD. Urology consulted. Clonidine increased yesterday blood pressure on lower side will reduce to home dose. Urine with GNR. On Rocephin. CT findings consistent with mild, acute obstructive uropathy of the left kidney , including mild perinephric edema. No perceptible ureteral stone, so the differential includes a radiolucent distal ureteral calculus and a recently passed calculus. No stone is currently seen in the bladder. Seen by urology, no acute procedure needed. Per Uro 12/24: Urology consulted for mild left hydro. no ureteral stones visualized - No acute intervention needed - Continue care as per [primary team - Treat infection according to C&S - Her mild hydro is not concerning, possibility of passing a small stone vs duplicated collecting system is not excluded. Also it can be related to her current infection and constipation Pt can follow up with urology as needed after d/c 2. UTI Urine Cx on 12/23, E. coli, sensitive to multiple drugs including Keflex Rocephin Started Keflex 500mg PO BID x7 days 3. End-stage renal disease on HD Cr 9.10 today from 7.65 Nephrology consulted, appreciate assistance with mgmt Continue hemodialysis as scheduled, M/W/F 4. Insulin-dependent Diabetes Mellitus BS elevated >200's Cont. Accuchek and SSI Increase Levemir to 15U BID 5. Hypertension/CAD s/p LEDY BP stable Cont. Cozaar, Nifedipine, and Plavix, and Clonidine PRN 6. GERD Cont. PPI 7. Leukocytosis, resolved WBC 8.5 today from 18.5 on admission Due to UTI 8. Constipation, resolved Dx per CT ABD Cont. Lactulose and other laxatives PRN 9. Right Heel with pressure ulcer Per patient this is chronic prior to admission Patient was seen wound care as an outpatient Wound care consulted 10. DVT PPX: Heparin 11. Dispo: No surgical intervention per urology, continue Flomax and Keflex, after dialysis on Saturday patient had significant lethargy, will await nephrology's recommendations for clearance for discharge in AM if patient stable after HD. Code Status: full Discussed Condition With: patient, RN (2) Diabetes Qualifiers: Diabetes mellitus type: type 2 (4) Urinary tract infection Qualifiers: Urinary tract infection type: acute pyelonephritis Qualified Code(s): N10 - Acute pyelonephritis
[2017-12-25] MEDS: Senna/Docusate Sodium 8.6/50 MG Tablet PO SCH ×2 (16:53→21:18)
[2017-12-26] MEDS: Heparin - SQ 10,000 UNITS/ML Vial SQ SCH (05:35)
[2017-12-26 09:12] LABS: Baso # (Auto) 0.1 th/mm3 (0.0-0.2); Baso % (Auto) 0.9 % (0.0-2.0); Eos # (Auto) 0.5 th/mm3 (0.0-0.4); Eos % (Auto) 6.4 % (0.0-4.0); Hematocrit 33.9 % (35.0-46.0); Hemoglobin 11.4 gm/dL (11.6-15.3); Lymph % (Auto) 14.3 % (9.0-44.0); Mean Corpuscular HGB Conc 33.5 % (32.0-36.0); Mean Corpuscular Hemoglobin 32.6 pg (27.0-34.0); Mean Corpuscular Volume 97.5 fL (80.0-100.0); Mean Platelet Volume 8.6 fL (7.0-11.0); Mono # (Auto) 0.6 th/mm3 (0.0-0.9); Mono % (Auto) 8.4 % (0.0-8.0); Neut # (Auto) 4.9 th/mm3 (1.8-7.7); Platelet Count 243 th/mm3 (150-450); Red Blood Count 3.48 mil/mm3 (4.00-5.30); Red Cell Distribution Width 16.3 % (11.6-17.2)
[2017-12-26 09:17] VITALS: RESP 16; TEMP 97.7
[2017-12-26] MEDS: Insulin NovoLOG Aspart Correctional Sugar Inj SQ SCH (09:31)
[2017-12-26] MEDS: Insulin Detemir Inj 1,000 UNIT/10 ML Vial SQ SCH (09:32)
[2017-12-26] MEDS: Senna/Docusate Sodium 8.6/50 MG Tablet PO SCH (09:32)
[2017-12-26 09:48] LABS: Alanine Aminotransferase 17 U/L (10-53); Albumin 3.3 g/dL (3.4-5.0); Alkaline Phosphatase 158 U/L (45-117); Anion Gap 15 meq/L (5-15); Aspartate Aminotransferase 19 U/L (15-37); Blood Urea Nitrogen 48 mg/dL (7-18); Calcium 9.3 mg/dL (8.5-10.1); Carbon Dioxide 28.3 meq/L (21.0-32.0); Chloride 98 meq/L (98-107); Glomerular Filtration Rate 5 mL/min (>89); Glucose,Random 69 mg/dL (74-106); Potassium 4.5 meq/L (3.5-5.1); Sodium 141 meq/L (136-145); Total Protein 7.6 g/dL (6.4-8.2)
[2017-12-26] MEDS ORDERED: Metoprolol Tartrate 25 MG Tablet PO SCH (11:00)
--- NOTE | 2017-12-26 11:11 | P.DS ---
Date of admission: 12/23/17 05:39 Primary care physician: No Primary Care Physician Anticipated date of discharge: 12/26/17 Brief History from admission: 77-year-old female with a medical history significant for hypertension, diabetes , end-stage renal disease on hemodialysis, history of kidney stone who presented to the hospital for complaint of left flank pain. The pain radiates to the left groin area. She reports the pain started yesterday morning, described as sharp and worse with deep breathing. She reports she normally produce a couple drops of urine daily and did not notice any change. She reports brief episodes of hematuria couple days ago. She has been constipated for the past couple of days. No blood in her stool. She denies any fevers or chills. The patient reports she is feeling much better since she arrived at the hospital. CT of the abdomen revealed acute, mild obstructive uropathy of the left kidney. She is also constipated. Patient update on day of discharge: Patient reports no symptoms of palpitations or chest pain overnight. She has no abdominal pain. She would like to go home and follow-up with her dialysis in the morning. Of note, she is on metoprolol 25 mg p.o. twice daily which was not started here in the hospital. In addition she has been on diltiazem XL 180 mg p.o. daily which has not been started in the hospital. This is likely this reason for her A. fib with RVR yesterday. Her heart rate currently is controlled at this time. She is not having any dysuria. She has not had any fevers. DS: Diagnosis - Discharge Diagnosis (1) E-coli UTI Status: Resolved Diagnosis: Principal (2) Hydronephrosis of left kidney Status: Acute Diagnosis: Principal (3) End-stage renal disease on hemodialysis Status: Chronic Diagnosis: Secondary (4) Hypertension Status: Chronic Diagnosis: Secondary (5) AF (paroxysmal atrial fibrillation) Status: Chronic Diagnosis: Secondary DS: Summary Hospital Course: These are the problems addressed during the hospitalization 77-year-old CF with PMHx of IDDM, HTN, and ESRD on HD admitted with UTI and acute obstructive uropathy of the left kidney per CT ABD 1. Obstructive uropathy/Hx of kidney stones CT ABD revealed acute obstructive uropathy of the left kidney, including mild perinephric edema. Bilateral nonobstructing renal stones as described. Cortical thinning and atrophy of both kidneys and bilateral cysts are again seen. Consulted Nephrology and Urology for assistance with care Per urology no surgical intervention needed, per Uro likely a small stone vs duplicated collecting system vs. related to UTI/constipation Cont. Flomax Per Uro 12/24: - No acute intervention needed - Continue care as per [primary team - Treat infection according to C&S - Her mild hydro is not concerning, possibility of passing a small stone vs duplicated collecting system is not excluded. Also it can be related to her current infection and constipation Pt can follow up with urology as needed after d/c 2. Ecoli UTI Urine Cx on 12/23, E. coli, sensitive to multiple drugs including Keflex, given Rocephin on admission and transitioned to Keflex Started Keflex 500mg PO BID x7 days 3. End-stage renal disease on HD Nephrology consulted, appreciate assistance with mgmt Continue hemodialysis as scheduled, M/W/F 4. Insulin-dependent Diabetes Mellitus BS elevated >200's Cont. Accuchek and SSI Levemir to 15U BID 5. Hypertension/CAD s/p LEDY BP stable Cont. Cozaar, Nifedipine to be changed to Dilitizem , and Plavix, and Clonidine PRN 6. GERD Cont. PPI 7. Leukocytosis, resolved Due to UTI 8. Constipation, resolved Dx per CT ABD Cont. Lactulose and other laxatives PRN 9. Right Heel with pressure ulcer Per patient this is chronic prior to admission Patient was seen wound care as an outpatient Wound care consulted 10. DVT PPX: Heparin 11. Afib with RVR on 12/25 - resolved, patient was restarted on her home meds Metoprolol, Dilitizem, currently rate controlled. - Time Spent with Patient Total time spent providing and/or coordinating discharge services: Less than 30 minutes - Quality: VTE Deep Vein Thrombosis/Pulmonary Embolism Present on Admission: No Exam Vital signs: Vital Signs 12/25/17 12:00 12/25/17 16:00 12/25/17 16:30 Temperature 98.1 F Pulse Rate 62 103 H 105 H Respiratory Rate 18 Blood Pressure 149/52 H Pulse Oximetry 95 12/25/17 17:43 12/25/17 20:00 12/25/17 23:00 Temperature 98.3 F 98.3 F Pulse Rate 148 H 94 H 87 Respiratory Rate 18 18 Blood Pressure 142/59 H 140/67 Pulse Oximetry 98 96 12/26/17 00:00 12/26/17 04:00 12/26/17 08:00 Temperature 97.7 F 98 F 97.7 F Pulse Rate 80 76 83 Respiratory Rate 18 18 16 Blood Pressure 134/68 132/77 155/91 H Pulse Oximetry 95 95 98 Intake & Output 12/25/17 12/26/17 12/26/17 18:59 06:59 18:59 Intake Total 440 / 440 210 / 210 Output Total 1999 Balance -1560 / -1560 210 / 210 Weight 76.9 kg Intake: Oral 440 / 440 210 / 210 Output: Hemodialysis Amount 1999 Other: # Voids 1 1 Date of Last Bowel Movement 12/25/17 # Bowel Movements 0 1 Narrative: GENERAL: This is a well-nourished, well-developed patient, in no apparent distress. CARDIOVASCULAR: irregular rhythmn reg rate with 2/6 JOI RESPIRATORY: Clear to auscultation. Breath sounds equal bilaterally. No wheezes , rales, or rhonchi. GASTROINTESTINAL: Abdomen soft, non-tender, nondistended. Normal active bowel sounds MUSCULOSKELETAL: Extremities without clubbing, cyanosis, or edema. NEURO: Alert & Oriented x4 to person, place, time, situation. Moves all ext x4 Results Procedures completed during hospitalization: none Labs on day of discharge: Labs from last 24 hours 12/26/17 12/26/17 12/26/17 09:30 08:33 08:33 WBC 7.0 RBC 3.48 L Hgb 11.4 L Hct 33.9 L MCV 97.5 MCH 32.6 MCHC 33.5 RDW 16.3 Plt Count 243 MPV 8.6 Neut % (Auto) 70.0 Lymph % (Auto) 14.3 Morrill % (Auto) 8.4 H Eos % (Auto) 6.4 H Baso % (Auto) 0.9 Neut # (Auto) 4.9 Lymph # (Auto) 1.0 Morrill # (Auto) 0.6 Eos # (Auto) 0.5 H Baso # (Auto) 0.1 WBC Differential . Differential Comment Auto diff final Sodium 141 Potassium 4.5 Chloride 98 Carbon Dioxide 28.3 Anion Gap 15 BUN 48 H Creatinine 8.11 H Estimated GFR 5 L POC Glucose 176 H Random Glucose 69 L D Calcium 9.3 D Total Bilirubin 0.3 AST 19 ALT 17 Alkaline Phosphatase 158 H Troponin I Total Protein 7.6 D Albumin 3.3 L D 12/26/17 12/25/17 12/25/17 08:14 17:18 14:07 WBC RBC Hgb Hct MCV MCH MCHC RDW Plt Count MPV Neut % (Auto) Lymph % (Auto) Morrill % (Auto) Eos % (Auto) Baso % (Auto) Neut # (Auto) Lymph # (Auto) Morrill # (Auto) Eos # (Auto) Baso # (Auto) WBC Differential Differential Comment Sodium Potassium Chloride Carbon Dioxide Anion Gap BUN Creatinine Estimated GFR POC Glucose 70 208 H Random Glucose Calcium Total Bilirubin AST ALT Alkaline Phosphatase Troponin I 0.02 Total Protein Albumin 12/25/17 11:57 WBC RBC Hgb Hct MCV MCH MCHC RDW Plt Count MPV Neut % (Auto) Lymph % (Auto) Morrill % (Auto) Eos % (Auto) Baso % (Auto) Neut # (Auto) Lymph # (Auto) Morrill # (Auto) Eos # (Auto) Baso # (Auto) WBC Differential Differential Comment Sodium Potassium Chloride Carbon Dioxide Anion Gap BUN Creatinine Estimated GFR POC Glucose 232 H Random Glucose Calcium Total Bilirubin AST ALT Alkaline Phosphatase Troponin I Total Protein Albumin Preliminary micro results at discharge 12/23/17 05:10 Aerobic Blood Culture - Preliminary Blood - Peripheral No growth in 3 days Anaerobic Blood Culture - Preliminary No growth in 3 days 12/23/17 05:16 Aerobic Blood Culture - Preliminary Blood - Peripheral No growth in 3 days Anaerobic Blood Culture - Preliminary No growth in 3 days - Impressions ITS Impressions Chest X-Ray 12/23/17 01:25 CONCLUSION: Mild bibasilar atelectasis. Abdomen/Pelvis CT 12/23/17 02:30 CONCLUSION: 1. CT findings consistent with mild, acute obstructive uropathy of the left kidney, including mild perinephric edema. No perceptible ureteral stone, so the differential includes a radiolucent distal ureteral calculus and a recently passed calculus. No stone is currently seen in the bladder. 2. Bilateral nonobstructing renal stones as described. Cortical thinning and atrophy of both kidneys and bilateral cysts are again seen. 3. Considerable stool throughout the colon without obstruction or inflammatory changes. There is a lower abdominal ventral hernia containing fat and small bowel loops, chronic and also without acute obstruction or inflammatory changes. Discharge Plan - Discharge Order Discharge Orders: Discharge Order (Routine); Ordered 12/26/17 Ordered By: Elena Rodriguez - Discharge Details Anticipated Discharge Date: 12/26/17 - Physicians Team Primary Care Provider: Primary Care Divina Norman Attending Provider: Elena Rodriguez Other Providers: Julieta Lee MD ; Devonte Rust MD
--- NOTE | 2017-12-26 12:01 | P.PNNP ---
Subjective Interval history: Doing well, plans for discharge home today. No shortness of breath, chest pain , nausea, or vomiting. <Yaneth Mauricio - Last Filed: 12/26/17 11:59> Physical Exam Vital signs: Vital Signs 12/25/17 12:00 12/25/17 16:00 12/25/17 16:30 Temperature 98.1 F Pulse Rate 62 103 H 105 H Respiratory Rate 18 Blood Pressure 149/52 H Pulse Oximetry 95 12/25/17 17:43 12/25/17 20:00 12/25/17 23:00 Temperature 98.3 F 98.3 F Pulse Rate 148 H 94 H 87 Respiratory Rate 18 18 Blood Pressure 142/59 H 140/67 Pulse Oximetry 98 96 12/26/17 00:00 12/26/17 04:00 12/26/17 08:00 Temperature 97.7 F 98 F 97.7 F Pulse Rate 80 76 83 Respiratory Rate 18 18 16 Blood Pressure 134/68 132/77 155/91 H Pulse Oximetry 95 95 98 12/26/17 11:08 Temperature Pulse Rate Respiratory Rate Blood Pressure Pulse Oximetry 98 Intake & Output 12/25/17 12/26/17 12/26/17 18:59 06:59 18:59 Intake Total 440 / 440 210 / 210 Output Total 1999 Balance -1560 / -1560 210 / 210 Weight 76.9 kg Intake: Oral 440 / 440 210 / 210 Output: Hemodialysis Amount 1999 Other: # Voids 1 1 Date of Last Bowel Movement 12/25/17 # Bowel Movements 0 1 Narrative: GENERAL: This is a well-nourished, well-developed patient, in no apparent distress. CARDIOVASCULAR: irregular rhythmn reg rate with 2/6 JOI RESPIRATORY: Clear to auscultation. Breath sounds equal bilaterally. No wheezes , rales, or rhonchi. GASTROINTESTINAL: Abdomen soft, non-tender, nondistended. Normal active bowel sounds MUSCULOSKELETAL: Extremities without clubbing, cyanosis, or edema. NEURO: Alert & Oriented x4 to person, place, time, situation. Moves all ext x4 - Urinary Catheter Management Straight Cath placed during this visit: yes Reason for continuing: Not indwelling catheter Insertion date: 12/23/17 Insertion time: 04:25 <Yaneth Mauricio - Last Filed: 12/26/17 11:59> Vital signs: Vital Signs 12/25/17 16:00 12/25/17 16:30 12/25/17 17:43 Temperature 98.3 F Pulse Rate 103 H 105 H 148 H Respiratory Rate 18 Blood Pressure 142/59 H Pulse Oximetry 98 12/25/17 20:00 12/25/17 23:00 12/26/17 00:00 Temperature 98.3 F 97.7 F Pulse Rate 94 H 87 80 Respiratory Rate 18 18 Blood Pressure 140/67 134/68 Pulse Oximetry 96 95 12/26/17 04:00 12/26/17 08:00 12/26/17 11:08 Temperature 98 F 97.7 F Pulse Rate 76 83 Respiratory Rate 18 16 Blood Pressure 132/77 155/91 H Pulse Oximetry 95 98 98 Intake & Output 12/25/17 12/26/17 12/26/17 18:59 06:59 18:59 Intake Total 440 / 440 210 / 210 Output Total 1999 Balance -1560 / -1560 210 / 210 Weight 76.9 kg Intake: Oral 440 / 440 210 / 210 Output: Hemodialysis Amount 1999 Other: # Voids 1 1 Date of Last Bowel Movement 12/25/17 # Bowel Movements 0 1 - Urinary Catheter Management Straight Cath placed during this visit: no <Vijaya Lee Q - Last Filed: 12/26/17 12:46> Assessment and Plan - Assessment (1) End-stage renal disease on hemodialysis Code(s): N18.6 - End stage renal disease; Z99.2 - Dependence on renal dialysis Status: Chronic Plan: HD to continue MWF Plans for discharge home today, Dialysis at [facility]. (2) Hypertension Code(s): I10 - Essential (primary) hypertension Status: Chronic Plan: Well controlled (3) Urinary tract infection Code(s): N39.0 - Urinary tract infection, site not specified Status: Acute Qualifiers: Urinary tract infection type: acute pyelonephritis Qualified Code(s): N10 - Acute pyelonephritis Plan: Urine with GNR. On Keflex, dose should be taken after HD (4) Hydronephrosis of left kidney Code(s): N13.30 - Unspecified hydronephrosis Status: Acute Plan: CT findings consistent with mild, acute obstructive uropathy of the left kidney , including mild perinephric edema. No perceptible ureteral stone, so the differential includes a radiolucent distal ureteral calculus and a recently passed calculus. No stone is currently seen in the bladder. Seen by urology, no acute procedure needed. <Yaneth Mauricio - Last Filed: 12/26/17 11:59> - Assessment (1) End-stage renal disease on hemodialysis Code(s): N18.6 - End stage renal disease; Z99.2 - Dependence on renal dialysis Status: Chronic Plan: Patient seen and examined, agree with above. Admitted with UTI. On PO Keflex, for D/C home today. (2) Hypertension Code(s): I10 - Essential (primary) hypertension Status: Chronic (3) Urinary tract infection Code(s): N39.0 - Urinary tract infection, site not specified Status: Acute Qualifiers: Urinary tract infection type: acute pyelonephritis Qualified Code(s): N10 - Acute pyelonephritis (4) Hydronephrosis of left kidney Code(s): N13.30 - Unspecified hydronephrosis Status: Acute <Julieta Lee - Last Filed: 12/26/17 12:46>
[2017-12-26 12:53] VITALS: BP 136/65; PULSE 80; O2SAT 94
[2017-12-27] MEDS ORDERED: dilTIAZem CD 180 MG Capsule PO SCH (09:00)
== END 2017-12-26 12:51 | disposition home or self-care (01) ==
LOC: NEPE 01:01 → NEDA 05:39 → N04 06:25
PROVIDERS: ADMIT Family Medicine; ATTEND Family Medicine